=== PATIENT | female | born 1955 | race Caucasian/White ===

== ENCOUNTER → 2016-07-19 | Outpatient (CLI) | payer MEDICARE, OTHER ==
--- NOTE | 2016-07-19 09:07 | US ---
EXAMINATION TYPE: US liver DATE OF EXAM: 07/19/2016 8:49 AM COMPARISON: CT abdomen November 03, 2014. Liver ultrasound OCTOBER 14, 2015 CLINICAL HISTORY: Alcoholic liver cirrhosis EXAM MEASUREMENTS: Liver Length: 12.3 cm Gallbladder Wall: 0.3 cm CBD: 0.4 cm Right Kidney: 12.0 x 5.8 x 5.0 cm ANATOMY: TECHNOLOGIST IMPRESSION: Exam suboptimal due to overlying bowel gas Pancreas: Obscured by bowel gas Liver: Heterogeneous hyperechoic, left lobe larger than right lobe scant amount of ascites as seen o n previous/ Portal vein and hepatic artery flow hepatopedal . No intrahepatic ductal dilatation. Gail luation for focal masses is limited due to the heterogeneity. Gallbladder: lumen clear, distended margins. Evidence for sonographic Mclaughlin's sign: No CBD: wnl Right Kidney: wnl IMPRESSION: Redemonstration of heterogeneous liver consistent with known hepatocellular disease or ci rrhosis. Small amount of perihepatic ascites remains present felt stable in volume. Normal Values: Liver Length: < 16cm wnl, 17-18cm upper limits, >18cm enlarged Renal Length = 9 - 12cm GB Wall: < 0.3cm CBD: < 0.6cm or < 1.0cm post cholecystectomy
== END ==
LOC: RADUSWWP 08:24
DX: R18.8 Other ascites (principal)
CPT/HCPCS: 76705; 93976

== ENCOUNTER → 2017-01-11 | Outpatient (CLI) | payer MEDICARE ==
[2017-01-11 13:38] LABS: CH 35.8; CHCM 33.8; HCT 39.9 % (34.0-46.0); HGB 13.9 gm/dL (11.4-16.0); INR 1.5 (<1.1); MCHC 34.8 g/dL (31.0-37.0); MCV 106.4 fL (80.0-100.0); Macrocytosis Moderate; Mean Platelet Volume 7.6; Prothrombin Time 14.7 sec (9.0-12.0); RBC 3.75 m/uL (3.80-5.40); RDW 15.5 % (11.5-15.5); WBC 4.4 k/uL (3.8-10.6)
[2017-01-11 14:11] LABS: ALT 53 U/L (9-52); AST 68 U/L (14-36); Alkaline Phosphatase 233 U/L (38-126); Anion Gap 6 mmol/L; Blood Urea Nitrogen 9 mg/dL (7-17); Calcium 9.1 mg/dL (8.4-10.2); Carbon Dioxide 28 mmol/L (22-30); Chloride 104 mmol/L (98-107); Glucose 218 mg/dL (74-99); Non-African American GFR(MDRD) >60 (>60 ml/min/1.73 sqM); Potassium 4.6 mmol/L (3.5-5.1); Sodium 138 mmol/L (137-145); Total Bilirubin 3.8 mg/dL (0.2-1.3); Total Protein 6.9 g/dL (6.3-8.2)
--- NOTE | 2017-01-11 14:54 | CT ---
EXAMINATION TYPE: CT abdomen wo/w con DATE OF EXAM: 01/11/2017 COMPARISON: NONE HISTORY: Patient has no complaints at time of study. Follow up for cirrhosis of the liver. CT DLP: 1748.7 mGycm CONTRAST: CT scan of the abdomen is performed with Oral Contrast and with IV Contrast, patient injected with 1 00 mL of Omnipaque 300. FINDINGS: LUNG BASES-: No visible nodule. No infiltrate. LIVER/GB: Nodular hepatic contour compatible with cirrhotic liver disease. No space-occupying lesion is identified with certainty. Borderline hydrops of the gallbladder with craniocaudal measurement of 8.2 cm. No intrahepatic biliary ductal dilatation. Common bile duct is not dilated. PANCREAS: Numerous pancreatic calcifications compatible with chronic pancreatitis as well as atrophic change of the pancreas. No distinct mass. SPLEEN: Splenomegaly measuring 14.6 cm craniocaudal dimension. No lesion seen. ADRENALS: No nodule. No thickening. KIDNEYS/BLADDER: No hydronephrosis. No nephrolithiasis. No disctinct renal mass. Urinary bladder g rossly unremarkable. BOWEL: Normal appendix. Normal bowel caliber. No inflammation. LYMPH NODES: No greater than 1cm abdominal or pelvic lymph nodes are appreciated. AORTA: No significant abnormality. OSSEOUS STRUCTURES: No significant abnormality is seen. OTHER: No significant additional abnormality is seen. IMPRESSION: 1. Stable cirrhotic liver disease with a small amount of ascites improved from prior study. 2. Splenomegaly. 3. Chronic pancreatitis. 4. Borderline gallbladder hydrops.
== END | disposition home or self-care (01) ==
LOC: RADCTMAIN 12:53
DX: K70.31 Alcoholic cirrhosis of liver with ascites (principal); K82.1 Hydrops of gallbladder; K86.1 Other chronic pancreatitis; R16.1 Splenomegaly, not elsewhere classified
CPT/HCPCS: 80053; 85027; 85610; 82105; 74170; 36415; Q9967

== ENCOUNTER → 2017-01-26 | Outpatient (CLI) | payer MEDICARE ==
--- NOTE | 2017-01-26 14:50 | MM ---
Reason for exam: additional evaluation requested from prior study. Last mammogram was performed 1 year and 2 months ago. History: Patient is postmenopausal, history of other cancer, and is nulliparous. Physical Findings: Nurse did not find any significant physical abnormalities on exam. MG 3D Diag Mammo W/Cad BC Bilateral CC, MLO, and XCCL view(s) were taken. Prior study comparison: November 30, 2015, mammogram, performed at [facility]. October 30, 2014, mammogram, performed at [facility]. The breast tissue is heterogeneously dense. This may lower the sensitivity of mammography. No suspicious calcifications are seen. Stable benign calcifications. There is no discrete abnormality. No significant new findings when compared with previous films. These results were verbally communicated with the patient and result sheet given to the patient on 01/26/17. ASSESSMENT: Benign, BI-RAD 2 RECOMMENDATION: Routine screening mammogram of both breasts in 1 year. Manage patient on a clinical basis.
== END | disposition home or self-care (01) ==
LOC: RADMAMWWP 13:54
PROVIDERS: ATTEND Internal Medicine
DX: N60.09 Solitary cyst of unspecified breast (principal); R92.2 Inconclusive mammogram
CPT/HCPCS: G0204; G0279

== ENCOUNTER → 2017-02-23 | Outpatient (CLI) | payer MEDICARE ==
--- NOTE | 2017-02-23 16:16 | US ---
EXAMINATION TYPE: US carotid duplex BILAT DATE OF EXAM: 02/23/2017 COMPARISON: CLINICAL HISTORY: I65.23 Occlusion and stenosis. Hx of stroke x 5 years ago. HTN- controlled with me dicine and diet. EXAM MEASUREMENTS: RIGHT: Peak Systolic Velocity (PSV) cm/sec ----- Right CCA: 87.3 ----- Right ICA: 87.8 ----- Right ECA: 65.8 ICA/CCA ratio: 1.0 RIGHT: End Diastole cm/sec ----- Right CCA: 22.0 ----- Right ICA: 24.1 ----- Right ECA: 9.8 LEFT: Peak Systolic Velocity (PSV) cm/sec ----- Left CCA: 83.2 ----- Left ICA: 84.5 ----- Left ECA: 65.1 ICA/CCA ratio: 1.0 LEFT: End Diastole cm/sec ----- Left CCA: 22.3 ----- Left ICA: 17.1 ----- Left ECA: 13.6 VERTEBRALS (direction of flow): Right Vertebral: Antegrade Left Vertebral: Antegrade Bilateral wall thickening. No elevated velocities or significant stenosis. Posterior plaque seen in right bulb. IMPRESSION: Minimal lenz scale plaquing and wall thickening with no evidence of hemodynamically sign ificant stenosis.
--- NOTE | 2017-02-24 10:11 | ECHOF ---
Referral Reason:I65.23 Occlusion and stinosis MEASUREMENTS -------- HEIGHT: 162.6 cm WEIGHT: 73.9 kg BP: 131/71 RVIDd: 2.3 cm (< 3.3) IVSd: 1.2 cm (0.6 - 1.1) LVIDd: 3.7 cm (3.9 - 5.3) LVPWd: 1.2 cm (0.6 - 1.1) IVSs: 1.4 cm LVIDs: 2.2 cm LVPWs: 1.5 cm LAESV Index (A-L): 17.17 ml/m Ao Diam: 3.3 cm (2.0 - 3.7) AV Cusp: 2.0 cm (1.5 - 2.6) LA Diam: 2.9 cm (2.7 - 3.8) MV EXCURSION: 12.148 mm (> 18.000) MV EF SLOPE: 50 mm/s (70 - 150) EPSS: 0.5 cm MV E Clifford: 0.69 m/s MV DecT: 413 ms MV A Clifford: 0.84 m/s MV E/A Ratio: 0.81 RAP: 5.00 mmHg RVSP: 22.70 mmHg FINDINGS -------- Sinus rhythm. This was a technically adequate study. There is mild concentric left ventricular hypertrophy. Overall left ventricular systolic function is normal with, an EF between 60 - 65 %. The right ventricle is normal in size and function. Normal LA size by volume 22+/-6 ml/m2. The right atrium is normal in size. Aortic valve is trileaflet and is mildly thickened. There is no evidence of aortic regurgitation. There is no evidence of aortic stenosis. The mitral valve leaflets are mildly thickened. Mild mitral annular calcification present. There is trace mitral regurgitation. Trace tricuspid regurgitation present. There is no evidence of pulmonary hypertension. The right ventricular systolic pressure, as measured by Doppler, is 22.70mmHg. The pulmonic valve was not well visualized. The aortic root size is normal. Normal inferior vena cava with normal inspiratory collapse consistent with estimated right atrial pressure of 5 mmHg. The pericardium is normal. There is no pericardial effusion. CONCLUSIONS -------- 1. Sinus rhythm. 2. Trace tricuspid regurgitation present. 3. There is no evidence of pulmonary hypertension. 4. The right ventricular systolic pressure, as measured by Doppler, is 22.70mmHg. 5. The pulmonic valve was not well visualized. 6. The aortic root size is normal. 7. There is no pericardial effusion. 8. This was a technically adequate study. 9. There is mild concentric left ventricular hypertrophy. 10. Overall left ventricular systolic function is normal with, an EF between 60 - 65 %. 11. Normal LA size by volume 22+/-6 ml/m2. 12. Aortic valve is trileaflet and is mildly thickened. 13. The mitral valve leaflets are mildly thickened. 14. Mild mitral annular calcification present. 15. There is trace mitral regurgitation. WARPER TENDER: Les Del Castillo RDCS
== END | disposition home or self-care (01) ==
LOC: RADECHMAIN 14:59
PROVIDERS: ATTEND Internal Medicine
DX: I08.0 Rheumatic disorders of both mitral and aortic valves (principal); I77.89 Other specified disorders of arteries and arterioles; I65.23 Occlusion and stenosis of bilateral carotid arteries
CPT/HCPCS: 93306; 93880

== ENCOUNTER → 2017-04-05 | Outpatient (CLI) | payer MEDICARE ==
--- NOTE | 2017-04-05 15:58 | BD ---
EXAMINATION TYPE: MG DEXA axial skeleton. DATE OF EXAM: 04/05/2017 COMPARISON: NONE CLINICAL HISTORY: age related osteoporosis Height: 4'11 Weight: 165 FRAX RISK QUESTIONS: Alcohol (3 or more units per day): no Family History (Parent hip fracture): no Glucocorticoids (More than 3mos): no (Ex: prednisone, prednisolone, methylprednisolone, dexamethasone, and hydrocortisone). History of Fracture in Adulthood: yes Secondary Osteoporosis: 1. Type 1 Diabetes: no 2. Hyperthyroidism: no 3. Menopause before 45: yes 4. Malnutrition: no 5. Chronic liver disease: yes Rheumatoid Arthritis: yes Current Tobacco Use: no RISK FACTORS HISTORY OF: Spine Fracture: multiple When: age 30 Surgery to Spine/ When: age 30 Family History of Osteoporosis: Active: Postmenopausal woman: Lost more than 2 inches in height since high school: Poor Health: MEDICATIONS: Thyroid Medications: Which medication: Levothyroxine How Lon months Additional Medications: seizures, Additional History: cancer 8 times, radiation chemotherapy EXAM MEASUREMENTS: Bone mineral densitometry was performed using the [employer] System. Bone mineral density about the R hip (g/cm2): 0.904 Bone mineral density about the L hip (g/cm2): 0.895 T Score values are as follows: -----R Neck: -1.0 -----L Neck: -1.0 -----R Total: -0.1 -----L Total: -0.3 IMPRESSION: Normal (Values between +1 and -1 indicate normal bone mass). Consider repeating this study in 5 year s or sooner if there is some new clinical indication. NOTE: T-SCORE=SD OF THE YOUNG ADULT MEAN.
== END | disposition home or self-care (01) ==
LOC: RADBDWWP 12:14
PROVIDERS: ATTEND Internal Medicine
DX: M81.0 Age-related osteoporosis without current pathological fracture (principal)
CPT/HCPCS: 77080

== ENCOUNTER → 2018-02-08 | Outpatient (CLI) | payer MEDICARE ==
--- NOTE | 2018-02-09 11:21 | MM ---
Reason for exam: screening (asymptomatic). Last mammogram was performed 1 year ago. History: Patient is postmenopausal, history of other cancer, and is nulliparous. Family history of breast cancer in maternal grandmother, breast cancer in mother, and breast cancer in maternal aunt. Physical Findings: A clinical breast exam by your physician is recommended on an annual basis and results should be correlated with mammographic findings. MG 3D Screening Mammo W/Cad Bilateral CC and MLO view(s) were taken. Technologist: RT Ryan (R)(M) Prior study comparison: January 26, 2017, bilateral MG 3d diag mammo w/cad BC. November 30, 2015, mammogram, performed at [facility]. The breast tissue is heterogeneously dense. This may lower the sensitivity of mammography. Benign appearing bilateral calcifications. No suspicious abnormality. No significant changes when compared with prior studies. ASSESSMENT: Benign, BI-RAD 2 RECOMMENDATION: Routine screening mammogram of both breasts in 1 year.
== END | disposition home or self-care (01) ==
LOC: RADMAMWWP 14:05
PROVIDERS: ATTEND Internal Medicine
DX: Z12.31 Encounter for screening mammogram for malignant neoplasm of breast (principal)
CPT/HCPCS: 77063; 77067

== ENCOUNTER → 2018-06-21 | Outpatient (CLI) | payer MEDICARE ==
--- NOTE | 2018-06-21 13:05 | US ---
EXAMINATION TYPE: US abdomen complete DATE OF EXAM: 06/21/2018 COMPARISON: CT abdomen January 11, 2017 CLINICAL HISTORY: R18.8 ASCITES. EXAM MEASUREMENTS: Liver Length: 11.1 cm Gallbladder Wall: 0.6 cm CBD: 0.6 cm Spleen: 12.9 cm Right Kidney: 12.0 x 5.5 x cm Left Kidney: 10.2 x x 5.0 x4.6 cm Patient of large body habitus with severe overlying bowel gas, technically difficult and limited stud y. Mild ascites. Pancreas: Obscured by bowel gas Liver: liver nodular in contour, heterogeneous Gallbladder: appears hydropic, wall thickened Evidence for sonographic Mclaughlin's sign: no CBD: wnl Spleen: wnl Right Kidney: Inferior pole obscured by bowel gas Left Kidney: wnl Upper IVC: wnl Abd Aorta: Obscured by overlying bowel gas The visualized liver is heterogeneous with lobulated peripheral contour surrounding ascites. The int rahepatic portion of the IVC and proximal abdominal aorta are within normal limits. There is no evid ence of shadowing mobile cholelithiasis. Gallbladder is dilated with distended peripheral margins. N o suspicious wall thickening is seen. Common bile duct is unremarkable. The pancreas is obscured by overlying bowel gas on images saved. The spleen is upper limits of normal in size with trace surroun ding ascites. Kidneys are symmetric and free of hydronephrosis. No renal lesions are seen. IMPRESSION: Cirrhotic liver with small amount of abdominal ascites most prominent surrounding the slime er.
== END | disposition home or self-care (01) ==
LOC: RADUSWWP 12:11
PROVIDERS: ATTEND Internal Medicine
DX: K74.60 Unspecified cirrhosis of liver (principal)
CPT/HCPCS: 76700

== ENCOUNTER → 2018-10-10 | Outpatient (CLI) | payer MEDICARE ==
--- NOTE | 2018-10-11 07:04 | MR ---
EXAMINATION TYPE: MR abdomen wo/w con DATE OF EXAM: 10/10/2018 COMPARISON: Complete abdominal ultrasound June 21, 2018. CT abdomen January 11, 2017. HISTORY: Cirrhosis with elevated tumor markers. CONTRAST: Standard multiplanar, multisequence MRI departmental protocol utilizing 6 mL intravenous Gadavist vishnu olinium contrast. FINDINGS: Liver: There is continued of hepatic regression with diminished size from most recent CT. There is re demonstration of lobulated peripheral nodular contour and surrounding ascites. Exam noted suboptimal due to motion artifact degradation. T1 and T2-weighted images show no definitive discrete nodules. Dy namic postcontrast images are suboptimal as there is no true hepatic arterial phase, first post contr ast imaging series shows contrast within the hepatic veins and IVC. Main portal vein is dilated up to 23 mm image 166 series 801. There is patency of the main portal vein branching into right and left p ortal veins. There is patency of the hepatic veins draining into IVC. Delayed images show 8 mm area o f washout or diminished enhancement right hepatic dome posterior segment image 404 series 801. Smalle r areas of heterogeneous nodular nonenhancement throughout the liver are also identified. No suspicio us intrahepatic or extrahepatic ductal dilatation is seen. Other: Gallbladder is somewhat contracted with mild concentric wall thickening. Spleen is mildly enla rged at 13.0 cm coronal image 23 perhaps slightly smaller versus CT 2017. There is perhaps trace righ t pleural effusion. No adrenal masses are seen. There is low intense artifact near level of pancreas making evaluation at this level suboptimal. Fall dilatation is seen. There is mild to moderate concen tric wall thickening of small bowel loops throughout the central and left abdomen. Small to moderate amount of abdominal ascites is most prominent surrounding the liver. Osseous structures are intact. IMPRESSION: Suboptimal study as detailed above. Continued hepatic volume loss with new abdominal ascites most pro minent surrounding the liver. Overall heterogeneity without definitive discrete suspicious greater th an 1 cm focal mass.
== END | disposition home or self-care (01) ==
LOC: RADMRIMAIN 14:08
PROVIDERS: ATTEND Internal Medicine
DX: R18.8 Other ascites (principal); R16.1 Splenomegaly, not elsewhere classified; K82.0 Obstruction of gallbladder
CPT/HCPCS: 74183; A9585

== ENCOUNTER 2019-01-07 16:50 | Inpatient (IN) | payer MEDICARE ==
--- NOTE | 2019-01-07 17:12 | ED ---
Altered Mental Status HPI - General Chief Complaint: Altered Mental Status Stated Complaint: confusion & wound on foot Time Seen by Provider: 01/07/19 16:57 Source: patient Mode of arrival: wheelchair Limitations: no limitations - History of Present Illness Initial Comments: Patient is a 63-year-old female with a history of a diabetic ulcer on her right great toe, and cirrhosis who presents with chief complaint of altered mental status. Patient states she has been feeling weak over the last few days. She lives in an assisting living facility, but does not get checked on daily. Patient states that today her wound care nurse evaluated her. Concerned that the patient was acting confused and wanted her to go to the emergency department. Patient denies any focal pain at this time. He is alert and oriented, she is able to answer questions appropriately. - Related Data Home Medications Medication Instructions Recorded Confirmed Atenolol [Tenormin] 25 mg PO DAILY 02/02/14 01/07/19 Lisinopril [Zestril] 2.5 mg PO DAILY 02/02/14 01/07/19 Ergocalciferol [Vitamin D2 50,000 unit PO FR 10/05/15 01/07/19 (DRISDOL)] Ferrous Sulfate [Iron (65 MG 325 mg PO DAILY 10/05/15 01/07/19 Elemental)] Folic Acid 1 mg PO DAILY 06/29/16 01/07/19 [place]-3 Fatty Acids/Fish Oil [Fish 1 cap PO DAILY 06/29/16 01/07/19 Oil 1,000 mg Softgel] Vitamin B Complex 1 cap PO DAILY 06/29/16 01/07/19 Calcitonin Nasal [Fortical 1 spray NASAL DAILY 01/07/19 01/07/19 (Miacalcin)] Cyanocobalamin [Vitamin B-12] 1,000 mcg PO DAILY 01/07/19 01/07/19 Dicyclomine [Bentyl] 20 mg PO TID 01/07/19 01/07/19 Furosemide [Lasix] 20 mg PO BID 01/07/19 01/07/19 Glimepiride [Amaryl] 4 mg PO BID 01/07/19 01/07/19 Levothyroxine Sodium [Synthroid] 25 mcg PO DAILY 01/07/19 01/07/19 Magnesium Oxide 400 mg PO DAILY 07/01/19 07/01/19 Mirtazapine [Remeron] 15 mg PO HS 01/07/19 01/07/19 Potassium Chloride ER [K-Dur 20] 20 meq PO BID 01/07/19 01/07/19 Spironolactone [Aldactone] 25 mg PO BID 01/07/19 01/07/19 Allergies Allergy/AdvReac Type Severity Reaction Status Date / Time cephalexin monohydrate Allergy Rash/Hives Verified 01/07/19 19:12 [From Keflex] Penicillins Allergy Unknown Verified 01/07/19 19:12 PEPPERS Allergy SEIZURES Uncoded 01/07/19 16:55 Review of Systems ROS Statement: Those systems with pertinent positive or pertinent negative responses have been documented in the HPI. ROS Other: All systems not noted in ROS Statement are negative. Gastrointestinal: Reports: melena Musculoskeletal: Reports: arthralgia Neurological: Reports: confusion Past Medical History Past Medical History: Blood Disorder, Cancer, CVA/TIA, Diabetes Mellitus, GERD/Reflux, Hearing Disorder / Deafness, Hyperlipidemia, Hypertension, Memory Impairment, Neurologic Disorder, Osteoarthritis (OA), Seizure Disorder Additional Past Medical History / Comment(s): MIGRAINES, LOW BACK PAIN, NECK PAIN, OSTEOPOROSIS, NEUROPATHY,. uterine, ovarian and vaginal CA. "They think I absorbed my twin , I have 2 sets of vagina, 2 uterus, 2 sets of tubes etc" History of Any Multi-Drug Resistant Organisms: C-DIFF, MRSA Date of last positivie culture/infection: 2013- 2018 cdiff MDRO Source:: RIGHT KNEE Past Surgical History: Adenoidectomy, Hysterectomy, Orthopedic Surgery, Tonsillectomy Additional Past Surgical History / Comment(s): RIGHT KNEE SURGERY, Radiation treatment - 1983 - Has radiation luna. gangrene cyst left wrist removed, rt i ndex finger surgery, lymph node multiple removed - all negative, carpal tunnel release, lymph node dissection secondary to uterine cancer, right breast lumpectomy, posterior cervical discectomy with fusion, lumbar discectomy, right forearm tendon repair, right index finger tendon repair, bone marrow biopsy, appendectomy, total abdominal hysterectomy and bilateral salpingo-oophorectomy, carpal tunnel release, EGD and colonoscopy Past Anesthesia/Blood Transfusion Reactions: No Reported Reaction Past Psychological History: No Psychological Hx Reported Smoking Status: Never smoker Past Alcohol Use History: None Reported Past Drug Use History: None Reported - Past Family History Father Family Medical History: Renal Disease (Father at age 94 from an surgery disease as well as prostate cancer so did have coronary artery disease.) Sister(s) Family Medical History: No Reported History (Patient has 3 sisters no major medical problems) Brother(s) Family Medical History: No Reported History (Patient has one brother no major medical problems) Mother Family Medical History: Diabetes Mellitus (Mother is 90-year-old has history of diabetes type 2, chronic kidney disease, as well as dementia.) Additional Family Medical History / Comment(s): breast, cervial Ca run in family General Exam Limitations: no limitations General appearance: alert, in no apparent distress Head exam: Present: atraumatic, normocephalic Eye exam: Present: normal appearance, scleral icterus ENT exam: Present: normal exam Neck exam: Present: normal inspection Respiratory exam: Present: normal lung sounds bilaterally. Absent: respiratory distress, wheezes Cardiovascular Exam: Present: regular rate, normal rhythm, systolic murmur GI/Abdominal exam: Present: soft. Absent: distended, tenderness Rectal exam: Present: deferred Extremities exam: Present: normal inspection Back exam: Present: normal inspection Neurological exam: Present: alert, oriented X3, CN II-XII intact Psychiatric exam: Present: normal affect, normal mood Skin exam: Present: warm, dry, intact Course Vital Signs 01/07/19 16:52 Temperature 98.8 F Pulse Rate 104 H Respiratory 18 Rate Blood Pressure 122/78 O2 Sat by Pulse 97 Oximetry Medical Decision Making - Medical Decision Making Patient presents with a chief complaint of confusion and weakness. On initial evaluation, vital signs are stable, patient is in no acute distress. She is alert and oriented, able to answer questions appropriately. She'll be evaluated with basic labs including cardiac enzymes, liver profile, EKG, computed tomography scan of the head and x-ray of the chest. Urinalysis sent. EKG performed at 1742 shows sinus rhythm with PACs, segments are within normal limits, no acute signs of ischemia. 8:12 PM Lab evaluation of this patient shows anemia with a hemoglobin of 7.5, INR is 1.9 likely secondary to liver disease. Alk phos is elevated 150 along with transaminitis. Lactic acid is elevated at 3.3 which may be type II in nature. Troponin mildly elevated at 0.036. Urinalysis does not show evidence of infection. Case discussed with Dr. Paris who accepts admission with consult cardiology. Pending occult stool evaluation. Occult stool is positive. will consult GI and give patient 4 units of FFP and one unit PRBCs - Lab Data Result diagrams: 01/07/19 17:32 01/07/19 17:32 Lab Results 01/07/19 01/07/19 01/07/19 Range/Units 17:10 17:32 17:32 WBC (3.8-10.6) k/uL RBC (3.80-5.40) m/uL Hgb (11.4-16.0) gm/dL Hct (34.0-46.0) % MCV (80.0-100.0) fL MCH (25.0-35.0) pg MCHC (31.0-37.0) g/dL RDW (11.5-15.5) % Plt Count (150-450) k/uL Neutrophils % % Lymphocytes % % Monocytes % % Eosinophils % % Basophils % % Neutrophils # (1.3-7.7) k/uL Lymphocytes # (1.0-4.8) k/uL Monocytes # (0-1.0) k/uL Eosinophils # (0-0.7) k/uL Basophils # (0-0.2) k/uL Manual Slide Review Hypochromasia Poikilocytosis Anisocytosis Macrocytosis PT (9.0-12.0) sec INR (<1.2) Sodium 135 L (137-145) mmol/L Potassium 4.1 (3.5-5.1) mmol/L Chloride 105 (98-107) mmol/L Carbon Dioxide 23 (22-30) mmol/L Anion Gap 7 mmol/L BUN 29 H (7-17) mg/dL Creatinine 0.99 (0.52-1.04) mg/dL Est GFR (CKD-EPI)AfAm 70 (>60 ml/min/1.73 sqM) Est GFR (CKD-EPI)NonAf 61 (>60 ml/min/1.73 sqM) Glucose 226 H (74-99) mg/dL POC Glucose (mg/dL) 249 H (75-99) mg/dL POC Glu Turbine Subassembler ID [place] Plasma Lactic Acid Rinku (0.7-2.0) mmol/L Calcium 7.8 L (8.4-10.2) mg/dL Total Bilirubin 5.3 H (0.2-1.3) mg/dL AST 83 H (14-36) U/L ALT 55 H (9-52) U/L Alkaline Phosphatase 150 H (38-126) U/L Ammonia (<30) umol/L Troponin I (0.000-0.034) ng/mL NT-Pro-B Natriuret Pep pg/mL Total Protein 5.9 L (6.3-8.2) g/dL Albumin 1.9 L (3.5-5.0) g/dL Lipase 254 (23-300) U/L TSH 1.270 (0.465-4.680) mIU/L Urine Color Urine Appearance (Clear) Urine pH (5.0-8.0) Ur Specific [place] (1.001-1.035) Urine Protein (Negative) Urine Glucose (UA) (Negative) Urine Ketones (Negative) Urine Blood (Negative) Urine Nitrite (Negative) Urine Bilirubin (Negative) Urine Urobilinogen (<2.0) mg/dL Ur Leukocyte Esterase (Negative) Urine RBC (0-5) /hpf Urine WBC (0-5) /hpf Ur Squamous Epith Cells (0-4) /hpf Hyaline Casts (0-2) /lpf Urine Mucus (None) /hpf Stool Occult Blood (Negative) Blood Type O Positive Blood Type Recheck CABO Indicated Antibody Screen NEGATIVE Spec Expiration Date 01/10/2019 - 233101/07/19 01/07/19 01/07/19 Range/Units 17:32 17:32 17:32 WBC 5.9 (3.8-10.6) k/uL RBC 2.20 L (3.80-5.40) m/uL Hgb 7.5 L (11.4-16.0) gm/dL Hct 24.0 L (34.0-46.0) % MCV 108.7 H (80.0-100.0) fL MCH 34.1 (25.0-35.0) pg MCHC 31.3 (31.0-37.0) g/dL RDW 19.6 H (11.5-15.5) % Plt Count 72 L (150-450) k/uL Neutrophils % 83 % Lymphocytes % 5 % Monocytes % 7 % Eosinophils % 2 % Basophils % 0 % Neutrophils # 4.9 (1.3-7.7) k/uL Lymphocytes # 0.3 L (1.0-4.8) k/uL Monocytes # 0.4 (0-1.0) k/uL Eosinophils # 0.1 (0-0.7) k/uL Basophils # 0.0 (0-0.2) k/uL Manual Slide Review Performed Hypochromasia Marked Poikilocytosis Slight Anisocytosis Slight Macrocytosis Marked A PT (9.0-12.0) sec INR (<1.2) Sodium (137-145) mmol/L Potassium (3.5-5.1) mmol/L Chloride (98-107) mmol/L Carbon Dioxide (22-30) mmol/L Anion Gap mmol/L BUN (7-17) mg/dL Creatinine (0.52-1.04) mg/dL Est GFR (CKD-EPI)AfAm (>60 ml/min/1.73 sqM) Est GFR (CKD-EPI)NonAf (>60 ml/min/1.73 sqM) Glucose (74-99) mg/dL POC Glucose (mg/dL) (75-99) mg/dL POC Glu Turbine Subassembler ID Plasma Lactic Acid Rinku 3.3 H* (0.7-2.0) mmol/L Calcium (8.4-10.2) mg/dL Total Bilirubin (0.2-1.3) mg/dL AST (14-36) U/L ALT (9-52) U/L Alkaline Phosphatase (38-126) U/L Ammonia (<30) umol/L Troponin I (0.000-0.034) ng/mL NT-Pro-B Natriuret Pep 182 pg/mL Total Protein (6.3-8.2) g/dL Albumin (3.5-5.0) g/dL Lipase (23-300) U/L TSH (0.465-4.680) mIU/L Urine Color Urine Appearance (Clear) Urine pH (5.0-8.0) Ur Specific [place] (1.001-1.035) Urine Protein (Negative) Urine Glucose (UA) (Negative) Urine Ketones (Negative) Urine Blood (Negative) Urine Nitrite (Negative) Urine Bilirubin (Negative) Urine Urobilinogen (<2.0) mg/dL Ur Leukocyte Esterase (Negative) Urine RBC (0-5) /hpf Urine WBC (0-5) /hpf Ur Squamous Epith Cells (0-4) /hpf Hyaline Casts (0-2) /lpf Urine Mucus (None) /hpf Stool Occult Blood (Negative) Blood Type Blood Type Recheck Antibody Screen Spec Expiration Date 01/07/19 01/07/19 01/07/19 Range/Units 17:32 17:32 19:00 WBC (3.8-10.6) k/uL RBC (3.80-5.40) m/uL Hgb (11.4-16.0) gm/dL Hct (34.0-46.0) % MCV (80.0-100.0) fL MCH (25.0-35.0) pg MCHC (31.0-37.0) g/dL RDW (11.5-15.5) % Plt Count (150-450) k/uL Neutrophils % % Lymphocytes % % Monocytes % % Eosinophils % % Basophils % % Neutrophils # (1.3-7.7) k/uL Lymphocytes # (1.0-4.8) k/uL Monocytes # (0-1.0) k/uL Eosinophils # (0-0.7) k/uL Basophils # (0-0.2) k/uL Manual Slide Review Hypochromasia Poikilocytosis Anisocytosis Macrocytosis PT 18.8 H (9.0-12.0) sec INR 1.9 H (<1.2) Sodium (137-145) mmol/L Potassium (3.5-5.1) mmol/L Chloride (98-107) mmol/L Carbon Dioxide (22-30) mmol/L Anion Gap mmol/L BUN (7-17) mg/dL Creatinine (0.52-1.04) mg/dL Est GFR (CKD-EPI)AfAm (>60 ml/min/1.73 sqM) Est GFR (CKD-EPI)NonAf (>60 ml/min/1.73 sqM) Glucose (74-99) mg/dL POC Glucose (mg/dL) (75-99) mg/dL POC Glu Turbine Subassembler ID Plasma Lactic Acid Rinku (0.7-2.0) mmol/L Calcium (8.4-10.2) mg/dL Total Bilirubin (0.2-1.3) mg/dL AST (14-36) U/L ALT (9-52) U/L Alkaline Phosphatase (38-126) U/L Ammonia (<30) umol/L Troponin I 0.036 H* (0.000-0.034) ng/mL NT-Pro-B Natriuret Pep pg/mL Total Protein (6.3-8.2) g/dL Albumin (3.5-5.0) g/dL Lipase (23-300) U/L TSH (0.465-4.680) mIU/L Urine Color Dark Yellow Urine Appearance Cloudy H (Clear) Urine pH 5.5 (5.0-8.0) Ur Specific [place] 1.017 (1.001-1.035) Urine Protein Negative (Negative) Urine Glucose (UA) Negative (Negative) Urine Ketones Negative (Negative) Urine Blood Negative (Negative) Urine Nitrite Negative (Negative) Urine Bilirubin Negative (Negative) Urine Urobilinogen 3.0 (<2.0) mg/dL Ur Leukocyte Esterase Trace H (Negative) Urine RBC 1 (0-5) /hpf Urine WBC 12 H (0-5) /hpf Ur Squamous Epith Cells 6 H (0-4) /hpf Hyaline Casts 30 H (0-2) /lpf Urine Mucus Rare H (None) /hpf Stool Occult Blood (Negative) Blood Type Blood Type Recheck Antibody Screen Spec Expiration Date 01/07/19 01/07/19 Range/Units 19:30 19:51 WBC (3.8-10.6) k/uL RBC (3.80-5.40) m/uL Hgb (11.4-16.0) gm/dL Hct (34.0-46.0) % MCV (80.0-100.0) fL MCH (25.0-35.0) pg MCHC (31.0-37.0) g/dL RDW (11.5-15.5) % Plt Count (150-450) k/uL Neutrophils % % Lymphocytes % % Monocytes % % Eosinophils % % Basophils % % Neutrophils # (1.3-7.7) k/uL Lymphocytes # (1.0-4.8) k/uL Monocytes # (0-1.0) k/uL Eosinophils # (0-0.7) k/uL Basophils # (0-0.2) k/uL Manual Slide Review Hypochromasia Poikilocytosis Anisocytosis Macrocytosis PT (9.0-12.0) sec INR (<1.2) Sodium (137-145) mmol/L Potassium (3.5-5.1) mmol/L Chloride (98-107) mmol/L Carbon Dioxide (22-30) mmol/L Anion Gap mmol/L BUN (7-17) mg/dL Creatinine (0.52-1.04) mg/dL Est GFR (CKD-EPI)AfAm (>60 ml/min/1.73 sqM) Est GFR (CKD-EPI)NonAf (>60 ml/min/1.73 sqM) Glucose (74-99) mg/dL POC Glucose (mg/dL) (75-99) mg/dL POC Glu Turbine Subassembler ID Plasma Lactic Acid Rinku (0.7-2.0) mmol/L Calcium (8.4-10.2) mg/dL Total Bilirubin (0.2-1.3) mg/dL AST (14-36) U/L ALT (9-52) U/L Alkaline Phosphatase (38-126) U/L Ammonia 89 H (<30) umol/L Troponin I (0.000-0.034) ng/mL NT-Pro-B Natriuret Pep pg/mL Total Protein (6.3-8.2) g/dL Albumin (3.5-5.0) g/dL Lipase (23-300) U/L TSH (0.465-4.680) mIU/L Urine Color Urine Appearance (Clear) Urine pH (5.0-8.0) Ur Specific [place] (1.001-1.035) Urine Protein (Negative) Urine Glucose (UA) (Negative) Urine Ketones (Negative) Urine Blood (Negative) Urine Nitrite (Negative) Urine Bilirubin (Negative) Urine Urobilinogen (<2.0) mg/dL Ur Leukocyte Esterase (Negative) Urine RBC (0-5) /hpf Urine WBC (0-5) /hpf Ur Squamous Epith Cells (0-4) /hpf Hyaline Casts (0-2) /lpf Urine Mucus (None) /hpf Stool Occult Blood Positive H (Negative) Blood Type Blood Type Recheck Antibody Screen Spec Expiration Date Disposition Clinical Impression: Altered mental status, Transaminitis, Elevated troponin, Weakness, Jaundice, GI bleeding Disposition: ADMITTED IP TO THIS HOSP Condition: Fair Is patient prescribed a controlled substance at d/c from ED?: No Referrals: Roseann Curran MD [Primary Care Provider] - 1-2 days Decision to Admit Reason: Admit from EC - Out of Hospital Transfer - Req. Specs Out of Hospital Transfer - Requested Specifics: Telemetry Unit
[2019-01-07 17:13] LABS: Glucose,Whole Blood 249 mg/dL (75-99)
--- NOTE | 2019-01-07 18:16 | CT ---
EXAMINATION TYPE: CT brain wo con DATE OF EXAM: 01/07/2019 COMPARISON: 06/29/2016 HISTORY: Confusion CT DLP: mGycm Automated exposure control for dose reduction was used. FINDINGS: There is some cerebral cortical atrophy. There is no mass effect nor midline shift. There is no sign of intracranial hemorrhage. The calvarium is intact. IMPRESSION: MILD CEREBRAL ATROPHY. NO ACUTE INTRACRANIAL ABNORMALITY. NO CHANGE.
--- NOTE | 2019-01-07 18:17 | XR ---
EXAMINATION TYPE: XR chest 2V DATE OF EXAM: 01/07/2019 COMPARISON: 06/29/2016 HISTORY: Altered mental status TECHNIQUE: Frontal and lateral views of the chest are obtained. FINDINGS: Heart is normal. Lungs are clear of consolidation. Costophrenic angles are clear. Thoracic aorta is atheromatous. There are chest leads. There are small linear density at the left lung base. IMPRESSION: There is new minimal subsegmental atelectasis left lung base compared to old exam.. Norm al heart.
[2019-01-07 18:19] LABS: INR 1.9 (<1.2); Prothrombin Time 18.8 sec (9.0-12.0)
[2019-01-07 18:27] LABS: Albumin 1.9 g/dL (3.5-5.0); Calcium 7.8 mg/dL (8.4-10.2); Potassium 4.1 mmol/L (3.5-5.1); Total Bilirubin 5.3 mg/dL (0.2-1.3); Total Protein 5.9 g/dL (6.3-8.2)
[2019-01-07 18:36] LABS: Anisocytosis Slight; Basophils % (A) 0 %; Eosinophils # (A) 0.1 k/uL (0-0.7); Eosinophils % (A) 2 %; HGB 7.5 gm/dL (11.4-16.0); Hypochromasia Marked; Lymphocytes # (A) 0.3 k/uL (1.0-4.8); Lymphocytes % (A) 5 %; MCH 34.1 pg (25.0-35.0); MCHC 31.3 g/dL (31.0-37.0); MCV 108.7 fL (80.0-100.0); Macrocytosis Marked; Mean Platelet Volume 8.2; Monocytes # (A) 0.4 k/uL (0-1.0); Monocytes % (A) 7 %; Neutrophils # (A) 4.9 k/uL (1.3-7.7); Neutrophils % (A) 83 %; Poikilocytosis Slight; RDW 19.6 % (11.5-15.5); WBC 5.9 k/uL (3.8-10.6)
[2019-01-07 19:14] LABS: Platelet Count 72 k/uL (150-450)
[2019-01-07 19:35] LABS: Appearance,Urine Cloudy (Clear); Bilirubin,Urine Negative (Negative); Blood,Urine Negative (Negative); Color,Urine Dark Yellow; Glucose,Urine (UA) Negative (Negative); Hyaline Casts,Urine 30 /lpf (0-2); Ketones,Urine Negative (Negative); Leukocyte Esterase,Urine Trace (Negative); Mucus,Urine Rare /hpf; Nitrite,Urine Negative (Negative); PH, Urine 5.5 (5.0-8.0); Protein,Urine Negative (Negative); RBC,Urine 1 /hpf (0-5); Specific Gravity,Urine 1.017 (1.001-1.035); Squamous Epithelial Cell,Urine 6 /hpf (0-4)
[2019-01-07] MEDS ORDERED: NALOXONE 0.4 MG/ML 1 ML VIAL IV PRN (20:08)
--- NOTE | 2019-01-07 20:57 | US ---
EXAMINATION TYPE: US gallbladder DATE OF EXAM: 01/07/2019 COMPARISON: US CLINICAL HISTORY: Pain. Pain per order. HTN. Hx uterine, ovarian, cervical, and vaginal cancer per pt . Cirrhosis. EXAM MEASUREMENTS: Limited study due to body habitus Liver Length: Approximate measurement: 11.2 cm Gallbladder Wall: Approximate measurement: 0.51 cm CBD: 0.43 cm Right Kidney: 10.7 x 6.0 x 5.6 cm *Limited due to body habitus Pancreas: appears heterogeneous. Liver: appears to have a lobulated contour and increased echogenicity Gallbladder: appears slightly contracted and to have wall thickening. Evidence for sonographic Mclaughlin's sign: no CBD: appears wnl Right Kidney: No hydronephrosis or masses seen Mild amount of fluid seen within abdomen. IMPRESSION: There is abdominal ascites. No dilated ducts. Mild gallbladder wall thickening. Right kid rigoberto shows no hydronephrosis.
[2019-01-08 11:17] LABS: Glucose,Whole Blood 75 mg/dL (75-99)
[2019-01-08] MEDS: RIFAXIMIN 550 MG TABLET PO SCH ×2 (11:34→21:11)
[2019-01-08] MEDS: CALCITONIN 200 USP/1 NASAL SPRAY 3.7ML BTL NASAL SCH (11:37)
[2019-01-08] MEDS: ATENOLOL 25 MG TAB PO SCH (11:39)
[2019-01-08 12:29] LABS: Anisocytosis Marked; HCT 26.7 % (34.0-46.0); HGB 8.6 gm/dL (11.4-16.0); Hypochromasia Marked; MCH 32.5 pg (25.0-35.0); Macrocytosis Marked; Mean Platelet Volume 8.6; Poikilocytosis Moderate; RBC 2.63 m/uL (3.80-5.40); RDW 24.5 % (11.5-15.5); WBC 4.8 k/uL (3.8-10.6)
[2019-01-08 12:34] LABS: MCV 101.5 fL (80.0-100.0); Platelet Count 61 k/uL (150-450)
[2019-01-08 13:30] LABS: Glucose,Whole Blood 101 mg/dL (75-99)
--- NOTE | 2019-01-08 13:57 | P.HPIM ---
History of Present Illness H&P Date: 01/08/19 Chief Complaint: Loss of appetite, weakness, falls This is a 63-year-old female one of my patient with a previous medical history significant for hypertension and hypertensive cardiovascular disease with left ventricular hypertrophy, diabetes mellitus type 2 with diabetic polyneuropathy, CVA, TIA, liver cirrhosis secondary to chronic alcohol use and dependence, pancytopenia secondary to liver cirrhosis, vaginal cancer status post vaginectomy, uterine cancer, seizure disorder, kyphoscoliosis, vascular dementia, hyperlipidemia. Patient also has chronic right great toe wound under the care of Dr. Davila. Patient is seen in the office weekly and his home care 2 times per week to do dressing changes. Sister gives history of having battled with C. difficile colitis for the past year and a half which is finally cleared under the care of Dr. Curran. Patient has had a loss of appetite, loss of weight. Her home care nurse was concerned that she wasn't oriented to time and place. She has some lower extremity edema. Symptoms have been worsening over the past 9 months. Patient complains of generalized weakness. She is currently residing at independent living at [facility]. Sister also states the patient had a fall yesterday as well as 2 weeks ago. Patient was brought into the emergency department at [facility] due to the above symptoms. She was afebrile, heart rate 104, blood pressure 122/78, pulse ox 97% on room air. White count was 5, hemoglobin 7.5, platelet count 72. Sodium 135, potassium 4.1, chloride 105, CO2 23, BUN 29 creatinine 0.99. Blood sugar was 226. Total bilirubin 5.3, AST 83, ALT 55, alkaline phosphatase 150. INR was elevated at 1.9. TSH 1.270. Lactic acid 3.3, proBNP 182. Troponin 0.036 and repeat is 0.044. Urinalysis was dark yellow, bilirubin negative, leukoesterase trace, WBCs 12, casts 30. Ammonia level LXXXIX, stool for occult blood positive. yesterday after she took a tumble and fell out of her chair at [facility] after she became drunk after drinking 5 beers and a few shots of whiskey, he shouldn't developed to have a significant bruising and ecchymosis on the right forehead as well as both knees and both arms and forearms, patient I'll call level is quite elevated, she was placed on banana bag yesterday and she was admitted as an observation overnight, she was started on Librium 10 mg orally twice every day. Review of Systems Constitutional: Reports anorexia, Reports chronic pain, Reports fatigue, Reports lethargy, Reports malaise, Reports weakness, Reports weight loss Eyes: denies blurred vision, denies bulging eye, denies decreased vision, denies discharge Ears: bilateral: decreased hearing Ears, nose, mouth and throat: Denies dysphagia, Denies neck lump, Denies sore throat, Denies vertigo Cardiovascular: Reports decreased exercise tolerance, Reports dyspnea on exertion, Reports high blood pressure, Denies chest pain, Denies paroxysmal nocturnal dyspnea, Denies phlebitis, Denies rapid heart beat, Denies shortness of breath, Denies syncope Respiratory: Denies congestion, Denies cough, Denies cough with sputum, Denies home oxygen, Denies sleep apnea, Denies snoring, Denies wheezing Gastrointestinal: Reports bloating, Reports early satiety, Reports nausea, Denies abdominal pain, Denies change in bowel habits, Denies heartburn, Denies hematochezia, Denies melena, Denies vomiting Genitourinary: Denies dysuria, Denies hematuria Menstruation: Reports post hysterectomy, Reports postmenopausal Musculoskeletal: Reports atrophy, Reports frequent falls, Reports gait dysfunction, Reports low back pain, Reports morning stiffness, Denies myalgias Musculoskeletal: absent: ankle pain, ankle stiffness, ankle swelling, elbow pain, elbow stiffness, elbow swelling, foot pain, foot stiffness, foot swelling, hand pain, hand stiffness, hand swelling, hip pain, hip stiffness, hip swelling, knee pain, knee stiffness, knee swelling, shoulder pain, shoulder stiffness, shoulder swelling, wrist pain, wrist stiffness, wrist swelling Integumentary: Denies pruritus, Denies rash Neurological: Reports gait dysfunction, Reports memory loss, Reports tingling, Denies numbness, Denies weakness Psychiatric: Reports anxiety, Reports depression, Reports insomnia, Reports sadness/tearfulness, Reports sleep disturbances, Denies suicidal ideation Endocrine: Denies fatigue, Denies weight change Past Medical History Past Medical History: Blood Disorder, Cancer, CVA/TIA, Diabetes Mellitus, GERD/Reflux, Hearing Disorder / Deafness, Hyperlipidemia, Hypertension, Memory Impairment, Neurologic Disorder, Osteoarthritis (OA), Seizure Disorder Additional Past Medical History / Comment(s): MIGRAINES, LOW BACK PAIN, NECK PAIN, OSTEOPOROSIS, NEUROPATHY,. uterine, ovarian and vaginal CA. "They think I absorbed my twin , I have 2 sets of vagina, 2 uterus, 2 sets of tubes etc" History of Any Multi-Drug Resistant Organisms: C-DIFF, MRSA Date of last positivie culture/infection: 2013- 2018 cdiff MDRO Source:: RIGHT KNEE Past Surgical History: Adenoidectomy, Hysterectomy, Orthopedic Surgery, Tonsillectomy Additional Past Surgical History / Comment(s): RIGHT KNEE SURGERY, Radiation treatment - 1983 - Has radiation luna. gangrene cyst left wrist removed, rt index finger surgery, lymph node multiple removed - all negative, carpal tunnel release, lymph node dissection secondary to uterine cancer, right breast lumpectomy, posterior cervical discectomy with fusion, lumbar discectomy, right forearm tendon repair, right index finger tendon repair, bone marrow biopsy, appendectomy, total abdominal hysterectomy and bilateral salpingo-oophorectomy, carpal tunnel release, EGD and colonoscopy Past Anesthesia/Blood Transfusion Reactions: No Reported Reaction Past Psychological History: No Psychological Hx Reported Smoking Status: Never smoker Past Alcohol Use History: None Reported Past Drug Use History: None Reported - Past Family History Father Family Medical History: Renal Disease (Father at age 94 from an surgery disease as well as prostate cancer so did have coronary artery disease.) Additional Family Medical History / Comment(s): Father at age 94 from an surgery disease as well as prostate cancer so did have coronary artery disease. Sister(s) Family Medical History: No Reported History (Patient has 3 sisters no major medical problems) Additional Family Medical History / Comment(s): Patient has 3 sisters no major medical problems Brother(s) Family Medical History: No Reported History (Patient has one brother no major medical problems) Additional Family Medical History / Comment(s): (Patient has one brother no major medical problems Mother Family Medical History: Diabetes Mellitus (Mother is 90-year-old has history of diabetes type 2, chronic kidney disease, as well as dementia.) Additional Family Medical History / Comment(s): breast, cervial Ca run in family. Mother had history of diabetes type 2, chronic kidney disease, as well as dementia Medications and Allergies Home Medications Medication Instructions Recorded Confirmed Type Atenolol [Tenormin] 25 mg PO DAILY 02/02/14 01/07/19 History Lisinopril [Zestril] 2.5 mg PO DAILY 02/02/14 01/07/19 History Ergocalciferol [Vitamin D2 50,000 unit PO FR 10/05/15 01/07/19 History (DRISDOL)] Ferrous Sulfate [Iron (65 MG 325 mg PO DAILY 10/05/15 01/07/19 History Elemental)] Folic Acid 1 mg PO DAILY 06/29/16 01/07/19 History [place]-3 Fatty Acids/Fish Oil [Fish 1 cap PO DAILY 06/29/16 01/07/19 History Oil 1,000 mg Softgel] Vitamin B Complex 1 cap PO DAILY 06/29/16 01/07/19 History Calcitonin Nasal [Fortical 1 spray NASAL DAILY 01/07/19 01/07/19 History (Miacalcin)] Cyanocobalamin [Vitamin B-12] 1,000 mcg PO DAILY 01/07/19 01/07/19 History Dicyclomine [Bentyl] 20 mg PO TID 01/07/19 01/07/19 History Furosemide [Lasix] 20 mg PO BID 01/07/19 01/07/19 History Glimepiride [Amaryl] 4 mg PO BID 01/07/19 01/07/19 History Levothyroxine Sodium [Synthroid] 25 mcg PO DAILY 01/07/19 01/07/19 History Magnesium Oxide 400 mg PO DAILY 01/07/19 01/07/19 History Mirtazapine [Remeron] 15 mg PO HS 01/07/19 01/07/19 History Potassium Chloride ER [K-Dur 20] 20 meq PO BID 01/07/19 01/07/19 History Spironolactone [Aldactone] 25 mg PO BID 01/07/19 01/07/19 History Allergies Allergy/AdvReac Type Severity Reaction Status Date / Time cephalexin monohydrate Allergy Rash/Hives Verified 01/07/19 19:12 [From Keflex] Penicillins Allergy Unknown Verified 01/07/19 19:12 PEPPERS Allergy SEIZURES Uncoded 01/07/19 16:55 Physical Exam Vitals: Vital Signs Temp Pulse Resp BP Pulse Ox 01/08/19 09:25 98/60 01/08/19 08:00 77 17 110/67 98 01/08/19 07:00 80 16 91/55 100 01/08/19 06:30 72 16 97/61 01/08/19 06:00 70 18 100/58 01/08/19 05:54 81 18 100/58 98 01/08/19 05:30 82 19 124/71 98 01/08/19 04:39 98.2 F 78 18 89/53 98 01/08/19 03:48 98.3 F 73 18 83/48 98 01/08/19 03:35 98.1 F 72 18 84/50 98 01/08/19 03:08 98.1 F 81 18 84/47 98 01/08/19 03:06 81 18 98 01/08/19 02:55 98.1 F 85 17 88/53 99 01/08/19 02:37 98.3 F 78 18 85/50 100 01/08/19 02:27 98.2 F 78 18 92/58 100 01/08/19 01:57 97.9 F 81 18 89/49 01/08/19 01:46 97.8 F 85 18 96/55 98 01/08/19 00:26 97.9 F 84 18 107/74 01/07/19 22:37 97.9 F 90 18 102/72 97 01/07/19 22:07 98.1 F 85 18 99/60 98 01/07/19 21:57 98.1 F 82 18 103/62 99 01/07/19 16:52 98.8 F 104 H 18 122/78 97 Intake and Output 01/07/19 01/08/19 01/08/19 22:59 06:59 14:59 Intake Total 0 1272 Balance 0 1272 Intake: Blood Product 0 962 Ffp 24 Cpd Unit 324 [id number] Ffp 24 Cpd Unit 328 [id number] Rc As-3 Unit 0 310 [id number] Other 310 Rc As-3 Unit 310 [id number] Other: Weight 68.039 kg - Constitutional General appearance: no distress - EENT Eyes: PERRLA, no ptosis, scleral icterus, normal apperance ENT: hard of hearing, normal oropharynx, no thrush Ears: bilateral: normal - Neck Neck: no lymphadenopathy, normal ROM, no rigidity, no stridor, no thyromegaly Carotids: bilateral: upstroke delayed Thyroid: bilateral: normal size - Respiratory Respiratory: bilateral: diminished, negative: dullness, rales, rhonchi, wheezing, prolonged expiration - Cardiovascular Rhythm: regular Heart sounds: normal: S1, S2 Abnormal Heart Sounds: systolic murmur, no S3 Gallop, no S4 Gallop, no click - Gastrointestinal General gastrointestinal: hepatomegaly, normal bowel sounds, soft, splenomegaly, no umbilical hernia, no ventral hernia - Integumentary Integumentary: normal, normal turgor Healing wound to the right great toe. No signs of infection. - Neurologic Neurologic: CNII-XII intact - Musculoskeletal Musculoskeletal: generalized weakness, strength equal bilaterally - Psychiatric Psychiatric: A&O x's 3, appropriate affect, intact judgment & insight, mild confusion, poor historian. Results CBC & Chem 7: 01/08/19 11:11 01/07/19 17:32 Labs: Abnormal Lab Results - Last 24 Hours (Table) 01/07/19 01/07/19 01/07/19 Range/Units 17:10 17:32 17:32 RBC (3.80-5.40) m/uL Hgb (11.4-16.0) gm/dL Hct (34.0-46.0) % MCV (80.0-100.0) fL RDW (11.5-15.5) % Plt Count (150-450) k/uL Lymphocytes # (1.0-4.8) k/uL Macrocytosis PT (9.0-12.0) sec INR (<1.2) Sodium 135 L (137-145) mmol/L BUN 29 H (7-17) mg/dL Glucose 226 H (74-99) mg/dL POC Glucose (mg/dL) 249 H (75-99) mg/dL Plasma Lactic Acid Rinku (0.7-2.0) mmol/L Calcium 7.8 L (8.4-10.2) mg/dL Total Bilirubin 5.3 H (0.2-1.3) mg/dL AST 83 H (14-36) U/L ALT 55 H (9-52) U/L Alkaline Phosphatase 150 H (38-126) U/L Ammonia (<30) umol/L Troponin I (0.000-0.034) ng/mL Total Protein 5.9 L (6.3-8.2) g/dL Albumin 1.9 L (3.5-5.0) g/dL Urine Appearance (Clear) Ur Leukocyte Esterase (Negative) Urine WBC (0-5) /hpf Ur Squamous Epith Cells (0-4) /hpf Hyaline Casts (0-2) /lpf Urine Mucus (None) /hpf Stool Occult Blood (Negative) Crossmatch See Detail 01/07/19 01/07/19 01/07/19 Range/Units 17:32 17:32 17:32 RBC 2.20 L (3.80-5.40) m/uL Hgb 7.5 L (11.4-16.0) gm/dL Hct 24.0 L (34.0-46.0) % MCV 108.7 H (80.0-100.0) fL RDW 19.6 H (11.5-15.5) % Plt Count 72 L (150-450) k/uL Lymphocytes # 0.3 L (1.0-4.8) k/uL Macrocytosis Marked A PT (9.0-12.0) sec INR (<1.2) Sodium (137-145) mmol/L BUN (7-17) mg/dL Glucose (74-99) mg/dL POC Glucose (mg/dL) (75-99) mg/dL Plasma Lactic Acid Rinku 3.3 H* (0.7-2.0) mmol/L Calcium (8.4-10.2) mg/dL Total Bilirubin (0.2-1.3) mg/dL AST (14-36) U/L ALT (9-52) U/L Alkaline Phosphatase (38-126) U/L Ammonia (<30) umol/L Troponin I 0.036 H* (0.000-0.034) ng/mL Total Protein (6.3-8.2) g/dL Albumin (3.5-5.0) g/dL Urine Appearance (Clear) Ur Leukocyte Esterase (Negative) Urine WBC (0-5) /hpf Ur Squamous Epith Cells (0-4) /hpf Hyaline Casts (0-2) /lpf Urine Mucus (None) /hpf Stool Occult Blood (Negative) Crossmatch 01/07/19 01/07/19 01/07/19 Range/Units 17:32 19:00 19:30 RBC (3.80-5.40) m/uL Hgb (11.4-16.0) gm/dL Hct (34.0-46.0) % MCV (80.0-100.0) fL RDW (11.5-15.5) % Plt Count (150-450) k/uL Lymphocytes # (1.0-4.8) k/uL Macrocytosis PT 18.8 H (9.0-12.0) sec INR 1.9 H (<1.2) Sodium (137-145) mmol/L BUN (7-17) mg/dL Glucose (74-99) mg/dL POC Glucose (mg/dL) (75-99) mg/dL Plasma Lactic Acid Rinku (0.7-2.0) mmol/L Calcium (8.4-10.2) mg/dL Total Bilirubin (0.2-1.3) mg/dL AST (14-36) U/L ALT (9-52) U/L Alkaline Phosphatase (38-126) U/L Ammonia 89 H (<30) umol/L Troponin I (0.000-0.034) ng/mL Total Protein (6.3-8.2) g/dL Albumin (3.5-5.0) g/dL Urine Appearance Cloudy H (Clear) Ur Leukocyte Esterase Trace H (Negative) Urine WBC 12 H (0-5) /hpf Ur Squamous Epith Cells 6 H (0-4) /hpf Hyaline Casts 30 H (0-2) /lpf Urine Mucus Rare H (None) /hpf Stool Occult Blood (Negative) Crossmatch 01/07/19 Range/Units 19:51 RBC (3.80-5.40) m/uL Hgb (11.4-16.0) gm/dL Hct (34.0-46.0) % MCV (80.0-100.0) fL RDW (11.5-15.5) % Plt Count (150-450) k/uL Lymphocytes # (1.0-4.8) k/uL Macrocytosis PT (9.0-12.0) sec INR (<1.2) Sodium (137-145) mmol/L BUN (7-17) mg/dL Glucose (74-99) mg/dL POC Glucose (mg/dL) (75-99) mg/dL Plasma Lactic Acid Rinku (0.7-2.0) mmol/L Calcium (8.4-10.2) mg/dL Total Bilirubin (0.2-1.3) mg/dL AST (14-36) U/L ALT (9-52) U/L Alkaline Phosphatase (38-126) U/L Ammonia (<30) umol/L Troponin I (0.000-0.034) ng/mL Total Protein (6.3-8.2) g/dL Albumin (3.5-5.0) g/dL Urine Appearance (Clear) Ur Leukocyte Esterase (Negative) Urine WBC (0-5) /hpf Ur Squamous Epith Cells (0-4) /hpf Hyaline Casts (0-2) /lpf Urine Mucus (None) /hpf Stool Occult Blood Positive H (Negative) Crossmatch Microbiology - Last 24 Hours (Table) 01/07/19 19:00 Urine Culture - Preliminary Urine,Voided Thrombosis Risk Factor Assmnt - DVT/VTE Prophylaxis DVT/VTE Prophylaxis: Pharmacologic Prophylaxis ordered Assessment and Plan Plan: 1. Metabolic encephalopathy with elevated ammonia secondary to alcoholic liver cirrhosis. Lactulose 20 mg 3 times daily and Xifaxan 550 mg daily started. Continue Aldactone 25 mg twice daily. Consult with GI. 2. Generalized weakness with anemia, possible acute blood loss and anemia on top of chronic anemia of alcoholism. Stool for occult blood is positive. Monitor hemoglobin. GI consult. Continue ferrous sulfate 325 mg daily. Obtain CA 199, CEA, alpha-fetoprotein tumor marker. Iron studies. Patient has been transfused 1 unit packed RBCs and 2 units of fresh frozen plasma. 3. Bicytopenia secondary to alcoholic liver cirrhosis as well as bone marrow suppression. Patient was seen and evaluated by hematology oncology in the past underwent bone marrow biopsy did not show any evidence of myelodysplasia. Continue B12 1000 mcg orally once every day, folic acid 1 mg orally once every day. Patient has been transfused 1 unit packed RBCs and 2 units of fresh frozen plasma. 4. Elevated troponin. Repeat troponin. Consult cardiology. 5. Hypertension and hypertensive cardiovascular disease. Continue lisinopril 2.5 mg orally once every day and atenolol 25 mg orally once every day. 6. Alcoholic liver disease with elevated bilirubin and liver function tests. Continue as in #1. Monitor CMP. 7. Diabetes mellitus type 2. Diet-controlled. NovoLog scale before meals and at bedtime 8. Hypothyroidism. Continue levothyroxine. TSH normal. 9. Seizure disorder by history. Patient is off Keppra. 10. History of hyperlipidemia. Resolved 11. Vascular dementia, and possibly alcohol induced frontload dementia. Continue vitamin supplement for now. 12. History of chronic alcohol use and dependence. Patient has abstained from alcohol for 913 days. 13. Rheumatoid arthritis. Patient not taking any medication at this time. 14. History of diabetic polyneuropathy. Stable at this time. 15. History of vaginal cancer status post total abdominal hysterectomy as well as bilateral salpingo-nephrectomy along with vaginectomy 16. DVT prophylaxis. Bilateral knee-high SOLEDAD hose 17. GI prophylaxis. Continue PPI. No heparin due to thrombocytopenia. 18. Patient will be admitted to the hospital for a minimum of 2 night stay. 19. Patient is full code. Discharge plan: To be determined. PT and OT added. Impression and plan of care have been directed as dictated by the signing physician. Majo Hawkins nurse practitioner acting as scribe for signing physician.
[2019-01-08] MEDS: LACTULOSE 20 GM/30 ML CUP PO SCH ×3 (14:15→21:10)
[2019-01-08] MEDS ORDERED: DICYCLOMINE 20 MG TAB PO SCH (16:00)
[2019-01-08] MEDS: INSULIN ASPART (NovoLOG) 100 UNIT/ML VIAL SQ SCH ×2 (17:10→23:32)
[2019-01-08 17:13] LABS: Glucose,Whole Blood 121 mg/dL (75-99)
[2019-01-08] MEDS: FUROSEMIDE 20 MG TAB PO SCH (17:14)
[2019-01-08 18:10] LABS: Iron Saturation 44.87 (12.00-45.00)
[2019-01-08 18:13] LABS: Alpha Fetoprotein, Tumor Mkr 5.4 ng/mL (0.0-7.9)
[2019-01-08 18:42] LABS: Cancer Antigen 19-9 50.9 U/mL (0.0-34.9)
[2019-01-08 19:38] LABS: Glucose,Whole Blood 144 mg/dL (75-99)
[2019-01-08] MEDS: MIRTAZAPINE 15 MG TAB PO SCH (21:11)
[2019-01-08] MEDS: SPIRONOLACTONE 25 MG TAB PO SCH (21:11)
[2019-01-08] MEDS: POTASSIUM CHLORIDE ER 20 MEQ TAB.ER PO SCH (21:11)
[2019-01-09 00:15] LABS: Glucose,Whole Blood 113 mg/dL (75-99)
[2019-01-09] MEDS ORDERED: ONDANSETRON 4 MG/2 ML VIAL IVP PRN (04:36)
[2019-01-09 05:14] LABS: Anisocytosis Moderate; Basophils % (A) 1 %; Eosinophils # (A) 0.1 k/uL (0-0.7); Eosinophils % (A) 2 %; HGB 8.9 gm/dL (11.4-16.0); Hypochromasia Marked; Lymphocytes # (A) 0.3 k/uL (1.0-4.8); Lymphocytes % (A) 6 %; MCH 33.1 pg (25.0-35.0); MCHC 31.7 g/dL (31.0-37.0); MCV 104.5 fL (80.0-100.0); Macrocytosis Marked; Mean Platelet Volume 8.2; Monocytes # (A) 0.3 k/uL (0-1.0); Monocytes % (A) 7 %; Neutrophils # (A) 3.9 k/uL (1.3-7.7); Neutrophils % (A) 83 %; Poikilocytosis Slight; RBC 2.68 m/uL (3.80-5.40); RDW 23.8 % (11.5-15.5); WBC 4.6 k/uL (3.8-10.6)
[2019-01-09 05:17] LABS: Glucose,Whole Blood 163 mg/dL (75-99)
[2019-01-09 05:18] LABS: Platelet Count 61 k/uL (150-450)
[2019-01-09 05:23] LABS: Calcium 8.1 mg/dL (8.4-10.2); Potassium 4.3 mmol/L (3.5-5.1)
[2019-01-09] MEDS ORDERED: SODIUM CHLORIDE 0.9% 500 ML 250 ML IV ONE (06:12)
[2019-01-09] MEDS ORDERED: LEVOTHYROXINE 25 MCG TAB PO SCH (06:30)
[2019-01-09] MEDS: SODIUM CHLORIDE 0.9% 1,000 ML IV SCH ×2 (07:20→17:31)
--- NOTE | 2019-01-09 07:38 | XR ---
EXAMINATION TYPE: XR chest 1V portable DATE OF EXAM: 01/09/2019 COMPARISON: 01/07/2019 HISTORY: Possible aspiration and vomiting. Enteric tube placement. TECHNIQUE: Single frontal view of the chest is obtained. FINDINGS: Strand-like densities are seen at the lung bases, likely atelectasis. Endotracheal tube hills s been inserted although its fenestrated portion is not well-visualized and will be discussed on the abdomen radiograph the same date. Patient's mediastinum is rotated to the right secondary to patient positioning and appears upper limits of normal in size. No pleural effusion or pneumothorax. Low lung volumes are seen. IMPRESSION: Strand-like bibasilar opacities are present. These likely atelectasis however surveillan ce is recommended to assess for developing pneumonia in this patient with clinical concern for aspira tion.
--- NOTE | 2019-01-09 07:40 | XR ---
EXAMINATION TYPE: XR abdomen 1V DATE OF EXAM: 01/09/2019 COMPARISON: NONE HISTORY: Nasogastric tube placement TECHNIQUE: Single view of the abdomen in the supine position was performed FINDINGS: Enteric tube has been placed in the interim with its fenestrated portion just beyond the ga stroesophageal junction. Numerous Calcifications likely represent pancreatic calcifications from prior pancreatitis. Surgical clips are seen within the midline low abdomen. Gaseous distention of probable transverse colon is seen without dilation. Osseous structures are grossly intact with moderate degenerative changes of the spine. IMPRESSION: 1. Enteric tube is placed with its radiolucent fenestrated portion just beyond junction. 2. Probable pancreatic calcifications of chronic pancreatitis. 3. Gaseous distention without dilation of what appears to be the transverse colon.
[2019-01-09 08:56] LABS: Glucose,Whole Blood 150 mg/dL (75-99)
[2019-01-09] MEDS ORDERED: NON-FORMULARY DRUG (Vitamin B Complex [Vitamin B Complex] 1 CAP) PO SCH (09:00)
[2019-01-09] MEDS ORDERED: ALBUMIN HUMAN 25% 50 ML in EMPTY BAG 1 BAG IVPB SCH (10:00)
--- NOTE | 2019-01-09 10:14 | CONS ---
CONSULTATION Mrs. Olvera is a 63-year-old female who was transferred from assisted because of change in mental status. Cardiology consultation was requested because of mild elevation of the troponin. The patient has according to the record has a history of hypertension, diabetes, liver cirrhosis and chronic alcoholism in the past, pancytopenia, history of seizure disorder and dementia. Apparently she has been drinking alcohol and fell, had bruising and ecchymosis. On presentation, troponin was evaluated and was elevated and because of that cardiology consultation was requested. I am not able to get any history from the patient. She is moaning, does not answer any questions appropriately. Reviewing the records, there is no history of myocardial infarction or history of congestive heart failure. She has a history of seizure disorder, uterine cancer and vaginal cancer as well as history of chronic alcoholism with liver cirrhosis. MEDICATIONS: Her medication at the time of admission included spironolactone 25 mg twice a day, Remeron, Zestril 2.5 mg daily, Synthroid, Amaryl, Lasix 20 mg twice a day, iron, dicyclomine, Tenormin 25 mg daily, vitamin B and calcitonin. REVIEW OF SYSTEMS: Not obtainable. PHYSICAL EXAMINATION: She is a 63-year-old female, appears older than stated age. NG tube in place. Confused. Blood pressure 113/60 with the heart rate in the 80s. HEAD: Normocephalic. NECK: Good carotid upstroke. No bruit. No jugular venous distention. LUNGS: Clear to auscultation anteriorly. HEART: Regular rate and rhythm. S1, S2. No S3. No rub or gallop. ABDOMEN: Soft, nontender, distended. Positive bowel sounds. EXTREMITIES: No edema. LAB DATA: Lab data revealed a hemoglobin of 7.5, platelet count of 72,000, plasma lactic acid 3.3 on presentation. BUN and creatinine 29 and 0.99. INR 1.9. Her lipase was 254 with an albumin of 1.9. Her ammonia level in initially was 89. Her troponin 0.036, 0.044 and 0.031. Her subsequent ammonia level is 190. Her EKG revealed sinus mechanism with normal axis, intervals and nonspecific ST- T wave changes. Her chest x-ray shows probable atelectasis. Her gallbladder ultrasound shows abdominal ascites with mild gallbladder wall thickening. IMPRESSION: 1. Mild troponin elevation do not reflect an acute ischemic event probably related to a type 2 event. 2. Alcoholism with chronic liver cirrhosis and thrombocytopenia. 3. Metabolic encephalopathy with elevated the ammonia. 4. History of diabetes. 5. History of hypertension. 6. History of seizure. 7. History of dementia. RECOMMENDATION: From the cardiac standpoint, there is no active cardiac issue and she is not a candidate for any aggressive workup. We will obtain echocardiogram. We will see her on as- needed basis. Please feel free to call us for any question. [id number] / IJN: [id number] / KRAIG
[2019-01-09] MEDS: ALBUMIN HUMAN 25% 50 ML in EMPTY BAG 1 BAG IVPB SCH ×2 (11:01→11:22)
[2019-01-09] MEDS: LEVOFLOXACIN 500MG-D5W PMX 500 MG in DEXTROSE/WATER 1 100ML.BAG IVPB SCH (11:05)
[2019-01-09] MEDS: LACTULOSE 20 GM/30 ML CUP PO SCH ×3 (11:06→21:08)
--- NOTE | 2019-01-09 11:22 | P.HPIM ---
History of Present Illness H&P Date: 01/08/19 This is a 63-year-old female one of my patient with a previous medical history significant for hypertension and hypertensive cardiovascular disease with left ventricular hypertrophy, diabetes mellitus type 2 with diabetic polyneuropathy, CVA, TIA, liver cirrhosis secondary to chronic alcohol use and dependence, pancytopenia secondary to liver cirrhosis, vaginal cancer status post vaginectomy, uterine cancer, seizure disorder, kyphoscoliosis, vascular dementia, hyperlipidemia. Patient also has chronic right great toe wound under the care of Dr. Davila. Patient is seen in the office weekly and his home care 2 times per week to do dressing changes. Sister gives history of having battled with C. difficile colitis for the past year and a half which is finally cleared under the care of Dr. Curran. Patient has had a loss of appetite, loss of weight. Her home care nurse was concerned that she wasn't oriented to time and place. She has some lower extremity edema. Symptoms have been worsening over the past 9 months. Patient complains of generalized weakness. She is currently residing at independent living at [facility]. Sister also states the patient had a fall yesterday as well as 2 weeks ago. Patient was brought into the emergency department at [facility] due to the above symptoms. She was afebrile, heart rate 104, blood pressure 122/78, pulse ox 97% on room air. White count was 5, hemoglobin 7.5, platelet count 72. Sodium 135, potassium 4.1, chloride 105, CO2 23, BUN 29 creatinine 0.99. Blood sugar was 226. Total bilirubin 5.3, AST 83, ALT 55, alkaline phosphatase 150. INR was elevated at 1.9. TSH 1.270. Lactic acid 3.3, proBNP 182. Troponin 0.036 and repeat is 0.044. Urinalysis was dark yellow, bilirubin negative, leukoesterase trace, WBCs 12, casts 30. Ammonia level 89, stool for occult blood positive. Review of Systems Constitutional: Reports anorexia, Reports chronic pain, Reports fatigue, Reports lethargy, Reports malaise, Reports weakness, Reports weight loss Eyes: denies blurred vision, denies bulging eye, denies decreased vision, denies discharge Ears: bilateral: decreased hearing Ears, nose, mouth and throat: Denies dysphagia, Denies neck lump, Denies sore throat, Denies vertigo Cardiovascular: Reports decreased exercise tolerance, Reports dyspnea on exertion, Reports high blood pressure, Denies chest pain, Denies paroxysmal nocturnal dyspnea, Denies phlebitis, Denies rapid heart beat, Denies shortness of breath, Denies syncope Respiratory: Denies congestion, Denies cough, Denies cough with sputum, Denies home oxygen, Denies sleep apnea, Denies snoring, Denies wheezing Gastrointestinal: Reports bloating, Reports early satiety, Reports nausea, Denies abdominal pain, Denies change in bowel habits, Denies heartburn, Denies hematochezia, Denies melena, Denies vomiting Genitourinary: Denies dysuria, Denies hematuria Menstruation: Reports post hysterectomy, Reports postmenopausal Musculoskeletal: Reports atrophy, Reports frequent falls, Reports gait dysfunction, Reports low back pain, Reports morning stiffness, Denies myalgias Musculoskeletal: absent: ankle pain, ankle stiffness, ankle swelling, elbow pain, elbow stiffness, elbow swelling, foot pain, foot stiffness, foot swelling, hand pain, hand stiffness, hand swelling, hip pain, hip stiffness, hip swelling, knee pain, knee stiffness, knee swelling, shoulder pain, shoulder stiffness, shoulder swelling, wrist pain, wrist stiffness, wrist swelling Integumentary: Denies pruritus, Denies rash Neurological: Reports gait dysfunction, Reports memory loss, Reports tingling, Denies numbness, Denies weakness Psychiatric: Reports anxiety, Reports depression, Reports insomnia, Reports sa dness/tearfulness, Reports sleep disturbances, Denies suicidal ideation Endocrine: Denies fatigue, Denies weight change Past Medical History Past Medical History: Blood Disorder, Cancer, CVA/TIA, Diabetes Mellitus, GERD/Reflux, Hearing Disorder / Deafness, Hyperlipidemia, Hypertension, Memory Impairment, Neurologic Disorder, Osteoarthritis (OA), Seizure Disorder Additional Past Medical History / Comment(s): MIGRAINES, LOW BACK PAIN, NECK PAIN, OSTEOPOROSIS, NEUROPATHY,. uterine, ovarian and vaginal CA. "They think I absorbed my twin , I have 2 sets of vagina, 2 uterus, 2 sets of tubes etc" History of Any Multi-Drug Resistant Organisms: C-DIFF, MRSA Date of last positivie culture/infection: 2013- 2018 cdiff MDRO Source:: RIGHT KNEE Past Surgical History: Adenoidectomy, Hysterectomy, Orthopedic Surgery, Tonsillectomy Additional Past Surgical History / Comment(s): RIGHT KNEE SURGERY, Radiation treatment - 1983 - Has radiation luna. gangrene cyst left wrist removed, rt index finger surgery, lymph node multiple removed - all negative, carpal tunnel release, lymph node dissection secondary to uterine cancer, right breast lumpectomy, posterior cervical discectomy with fusion, lumbar discectomy, right forearm tendon repair, right index finger tendon repair, bone marrow biopsy, appendectomy, total abdominal hysterectomy and bilateral salpingo-oophorectomy, carpal tunnel release, EGD and colonoscopy Past Anesthesia/Blood Transfusion Reactions: No Reported Reaction Past Psychological History: No Psychological Hx Reported Smoking Status: Never smoker Past Alcohol Use History: None Reported Past Drug Use History: None Reported - Past Family History Father Family Medical History: Renal Disease (Father at age 94 from an surgery disease as well as prostate cancer so did have coronary artery disease.) Additional Family Medical History / Comment(s): Father at age 94 from an surgery disease as well as prostate cancer so did have coronary artery disease. Sister(s) Family Medical History: No Reported History (Patient has 3 sisters no major medical problems) Additional Family Medical History / Comment(s): Patient has 3 sisters no major medical problems Brother(s) Family Medical History: No Reported History (Patient has one brother no major medical problems) Additional Family Medical History / Comment(s): (Patient has one brother no major medical problems Mother Family Medical History: Diabetes Mellitus (Mother is 90-year-old has history of diabetes type 2, chronic kidney disease, as well as dementia.) Additional Family Medical History / Comment(s): breast, cervial Ca run in family. Mother had history of diabetes type 2, chronic kidney disease, as well as dementia Medications and Allergies Home Medications Medication Instructions Recorded Confirmed Type Atenolol [Tenormin] 25 mg PO DAILY 02/02/14 01/07/19 History Lisinopril [Zestril] 2.5 mg PO DAILY 02/02/14 01/07/19 History Ergocalciferol [Vitamin D2 50,000 unit PO FR 10/05/15 01/07/19 History (DRISDOL)] Ferrous Sulfate [Iron (65 MG 325 mg PO DAILY 10/05/15 01/07/19 History Elemental)] Folic Acid 1 mg PO DAILY 06/29/16 01/07/19 History [place]-3 Fatty Acids/Fish Oil [Fish 1 cap PO DAILY 06/29/16 01/07/19 History Oil 1,000 mg Softgel] Vitamin B Complex 1 cap PO DAILY 06/29/16 01/07/19 History Calcitonin Nasal [Fortical 1 spray NASAL DAILY 01/07/19 01/07/19 History (Miacalcin)] Cyanocobalamin [Vitamin B-12] 1,000 mcg PO DAILY 01/07/19 01/07/19 History Dicyclomine [Bentyl] 20 mg PO TID 01/07/19 01/07/19 History Furosemide [Lasix] 20 mg PO BID 01/07/19 01/07/19 History Glimepiride [Amaryl] 4 mg PO BID 01/07/19 01/07/19 History Levothyroxine Sodium [Synthroid] 25 mcg PO DAILY 01/07/19 01/07/19 History Magnesium Oxide 400 mg PO DAILY 01/07/19 01/07/19 History Mirtazapine [Remeron] 15 mg PO HS 01/07/19 01/07/19 History Potassium Chloride ER [K-Dur 20] 20 meq PO BID 01/07/19 01/07/19 History Spironolactone [Aldactone] 25 mg PO BID 01/07/19 01/07/19 History Allergies Allergy/AdvReac Type Severity Reaction Status Date / Time cephalexin monohydrate Allergy Rash/Hives Verified 01/07/19 19:12 [From Keflex] Penicillins Allergy Unknown Verified 01/07/19 19:12 PEPPERS Allergy SEIZURES Uncoded 01/07/19 16:55 Physical Exam Vitals: Vital Signs Temp Pulse Pulse Resp BP BP Pulse Ox 01/09/19 05:20 96.3 F L 103 H 20 111/61 94 L 01/08/19 23:15 16 01/08/19 20:58 98.5 F 82 16 113/64 98 01/08/19 16:00 82 17 01/08/19 15:27 97.8 F 82 17 102/59 98 01/08/19 14:55 97.9 F 84 18 108/79 98 01/08/19 14:00 80 18 103/79 99 01/08/19 13:30 90 20 110/78 99 01/08/19 13:00 90 20 118/82 99 01/08/19 12:30 90 18 96/66 99 01/08/19 12:00 80 16 99/62 99 01/08/19 11:30 87 15 124/60 98 01/08/19 11:00 86 17 123/69 01/08/19 10:30 89 19 123/69 Intake and Output 01/08/19 01/09/19 01/09/19 22:59 06:59 14:59 Output Total 1100 300 Balance -1100 -300 Output: Gastric Drainage 300 Urine 500 Straight 500 Emesis 600 Other: Voiding Method Toilet # Voids 1 - Constitutional General appearance: no distress - EENT Eyes: PERRLA, no ptosis, scleral icterus, normal apperance ENT: hard of hearing, normal oropharynx, no thrush Ears: bilateral: normal - Neck Neck: no lymphadenopathy, normal ROM, no rigidity, no stridor, no thyromegaly Carotids: bilateral: upstroke delayed Thyroid: bilateral: normal size - Respiratory Respiratory: bilateral: diminished, negative: dullness, rales, rhonchi, wheezing, prolonged expiration - Cardiovascular Rhythm: regular Heart sounds: normal: S1, S2 Abnormal Heart Sounds: systolic murmur, no S3 Gallop, no S4 Gallop, no click - Gastrointestinal General gastrointestinal: Round, hepatomegaly, normal bowel sounds, soft, splenomegaly, no umbilical hernia, no ventral hernia - Integumentary Integumentary: normal, normal turgor Healing wound to the right great toe. No signs of infection. - Neurologic Neurologic: CNII-XII intact - Musculoskeletal Musculoskeletal: generalized weakness, strength equal bilaterally - Psychiatric Psychiatric: A&O x's 3, appropriate affect, intact judgment & insight, mild confusion, poor historian. Results CBC & Chem 7: 01/09/19 05:00 01/09/19 05:00 Labs: Abnormal Lab Results - Last 24 Hours (Table) 01/08/19 01/08/19 01/08/19 Range/Units 11:11 11:11 11:11 RBC 2.63 L (3.80-5.40) m/uL Hgb 8.6 L (11.4-16.0) gm/dL Hct 26.7 L (34.0-46.0) % MCV 101.5 H D (80.0-100.0) fL RDW 24.5 H (11.5-15.5) % Plt Count 61 L (150-450) k/uL Lymphocytes # (1.0-4.8) k/uL Macrocytosis Marked A Carbon Dioxide (22-30) mmol/L BUN (7-17) mg/dL Glucose (74-99) mg/dL POC Glucose (mg/dL) (75-99) mg/dL Plasma Lactic Acid Rinku (0.7-2.0) mmol/L Calcium (8.4-10.2) mg/dL Ammonia (<30) umol/L Troponin I 0.044 H* (0.000-0.034) ng/mL Carcinoembryonic Ag 14.0 H (0.0-4.9) ng/mL CA 19-9 Antigen 50.9 H (0.0-34.9) U/mL 01/08/19 01/08/19 01/08/19 Range/Units 13:25 17:09 19:37 RBC (3.80-5.40) m/uL Hgb (11.4-16.0) gm/dL Hct (34.0-46.0) % MCV (80.0-100.0) fL RDW (11.5-15.5) % Plt Count (150-450) k/uL Lymphocytes # (1.0-4.8) k/uL Macrocytosis Carbon Dioxide (22-30) mmol/L BUN (7-17) mg/dL Glucose (74-99) mg/dL POC Glucose (mg/dL) 101 H 121 H 144 H (75-99) mg/dL Plasma Lactic Acid Rinku (0.7-2.0) mmol/L Calcium (8.4-10.2) mg/dL Ammonia (<30) umol/L Troponin I (0.000-0.034) ng/mL Carcinoembryonic Ag (0.0-4.9) ng/mL CA 19-9 Antigen (0.0-34.9) U/mL 01/09/19 01/09/19 01/09/19 Range/Units 00:14 05:00 05:00 RBC 2.68 L (3.80-5.40) m/uL Hgb 8.9 L (11.4-16.0) gm/dL Hct 28.0 L (34.0-46.0) % MCV 104.5 H (80.0-100.0) fL RDW 23.8 H (11.5-15.5) % Plt Count 61 L (150-450) k/uL Lymphocytes # 0.3 L (1.0-4.8) k/uL Macrocytosis Marked A Carbon Dioxide 21 L (22-30) mmol/L BUN 28 H (7-17) mg/dL Glucose 156 H (74-99) mg/dL POC Glucose (mg/dL) 113 H (75-99) mg/dL Plasma Lactic Acid Rinku (0.7-2.0) mmol/L Calcium 8.1 L (8.4-10.2) mg/dL Ammonia (<30) umol/L Troponin I (0.000-0.034) ng/mL Carcinoembryonic Ag (0.0-4.9) ng/mL CA 19-9 Antigen (0.0-34.9) U/mL 01/09/19 01/09/19 01/09/19 Range/Units 05:00 05:16 08:54 RBC (3.80-5.40) m/uL Hgb (11.4-16.0) gm/dL Hct (34.0-46.0) % MCV (80.0-100.0) fL RDW (11.5-15.5) % Plt Count (150-450) k/uL Lymphocytes # (1.0-4.8) k/uL Macrocytosis Carbon Dioxide (22-30) mmol/L BUN (7-17) mg/dL Glucose (74-99) mg/dL POC Glucose (mg/dL) 163 H 150 H (75-99) mg/dL Plasma Lactic Acid Rinku 3.0 H* (0.7-2.0) mmol/L Calcium (8.4-10.2) mg/dL Ammonia 190 H (<30) umol/L Troponin I (0.000-0.034) ng/mL Carcinoembryonic Ag (0.0-4.9) ng/mL CA 19-9 Antigen (0.0-34.9) U/mL Microbiology - Last 24 Hours (Table) 01/07/19 19:00 Urine Culture - Preliminary Urine,Voided Presumptive Staph aureus Thrombosis Risk Factor Assmnt - DVT/VTE Prophylaxis DVT/VTE Prophylaxis: Mechanical Prophylaxis ordered - Choose All That Apply Each Risk Factor Represents 2 Points: Age 61-74 years Thrombosis Risk Factor Assessment Total Risk Factor Score: 2 Thrombosis Risk Factor Assessment Level: Low Risk Assessment and Plan Plan: 1. Metabolic encephalopathy with elevated ammonia secondary to alcoholic liver cirrhosis. Lactulose 20 mg 3 times daily and Xifaxan 550 mg daily started. Continue Aldactone 25 mg twice daily. Consult with GI. 2. Generalized weakness with anemia, possible acute blood loss and anemia on top of chronic anemia of alcoholism. Stool for occult blood is positive. Monitor hemoglobin. GI consult. Continue ferrous sulfate 325 mg daily. Obtain CA 199, CEA, alpha-fetoprotein tumor marker. Iron studies. Patient has been transfused 1 unit packed RBCs and 2 units of fresh frozen plasma. 3. Bicytopenia secondary to alcoholic liver cirrhosis as well as bone marrow suppression. Patient was seen and evaluated by hematology oncology in the past underwent bone marrow biopsy did not show any evidence of myelodysplasia. Continue B12 1000 mcg orally once every day, folic acid 1 mg orally once every day. Patient has been transfused 1 unit packed RBCs and 2 units of fresh frozen plasma. 4. Elevated troponin. Repeat troponin. Consult cardiology. 5. Hypertension and hypertensive cardiovascular disease. Continue lisinopril 2.5 mg orally once every day and atenolol 25 mg orally once every day. 6. Alcoholic liver disease with elevated bilirubin and liver function tests. Continue as in #1. Monitor CMP. 7. Diabetes mellitus type 2. Diet-controlled. NovoLog scale before meals and at bedtime 8. Hypothyroidism. Continue levothyroxine. TSH normal. 9. Seizure disorder by history. Patient is off Keppra. 10. History of hyperlipidemia. Resolved 11. Vascular dementia, and possibly alcohol induced frontload dementia. Continue vitamin supplement for now. 12. History of chronic alcohol use and dependence. Patient has abstained from alcohol for 913 days. 13. Rheumatoid arthritis. Patient not taking any medication at this time. 14. History of diabetic polyneuropathy. Stable at this time. 15. History of vaginal cancer status post total abdominal hysterectomy as well as bilateral salpingo-nephrectomy along with vaginectomy 16. DVT prophylaxis. Bilateral knee-high SOLEDAD hose 17. GI prophylaxis. Continue PPI. No heparin due to thrombocytopenia. 18. Patient will be admitted to the hospital for a minimum of 2 night stay. 19. Patient is full code. Discharge plan: To be determined. PT and OT added. Impression and plan of care have been directed as dictated by the signing physician. Majo Hawkins nurse practitioner acting as scribe for signing physician.
--- NOTE | 2019-01-09 11:32 | P.GSCN ---
History of Present Illness Consult date: 01/09/19 History of present illness: 63-year-old female admitted to the hospital with altered mental status. She presented from an assisted living facility. Much of the history has been obtained from records as the patient is currently moaning and not giving appropriate answers as she appears altered. According records, it appears that the patient did have some alcohol intake at her assisted living facility and then did have a fall. She was acting confused in the emergency department. She does have a history of liver cirrhosis and chronic alcoholism. Over this past night, the patient began developing projectile vomiting according to nursing staff. Nasogastric tube was placed for decompression. Ammonia level was drawn and was noted to be elevated at 190. Lactulose is still pending to be given. No fevers overnight. Review of Systems ROS unobtainable: due to mental status Past Medical History Past Medical History: Blood Disorder, Cancer, CVA/TIA, Diabetes Mellitus, GERD/Reflux, Hearing Disorder / Deafness, Hyperlipidemia, Hypertension, Memory Impairment, Neurologic Disorder, Osteoarthritis (OA), Seizure Disorder Additional Past Medical History / Comment(s): MIGRAINES, LOW BACK PAIN, NECK PAIN, OSTEOPOROSIS, NEUROPATHY,. uterine, ovarian and vaginal CA. "They think I absorbed my twin , I have 2 sets of vagina, 2 uterus, 2 sets of tubes etc" History of Any Multi-Drug Resistant Organisms: C-DIFF, MRSA Year Discovered:: 2013- 2018 cdiff MDRO Source:: RIGHT KNEE Past Surgical History: Adenoidectomy, Hysterectomy, Orthopedic Surgery, Tonsillectomy Additional Past Surgical History / Comment(s): RIGHT KNEE SURGERY, Radiation treatment - 1983 - Has radiation luna. gangrene cyst left wrist removed, rt index finger surgery, lymph node multiple removed - all negative, carpal tunnel release, lymph node dissection secondary to uterine cancer, right breast lumpectomy, posterior cervical discectomy with fusion, lumbar discectomy, right forearm tendon repair, right index finger tendon repair, bone marrow biopsy, appendectomy, total abdominal hysterectomy and bilateral salpingo-oophorectomy, carpal tunnel release, EGD and colonoscopy Past Anesthesia/Blood Transfusion Reactions: No Reported Reaction Past Psychological History: No Psychological Hx Reported Smoking Status: Never smoker Past Alcohol Use History: None Reported Past Drug Use History: None Reported - Past Family History Father Family Medical History: Renal Disease (Father at age 94 from an surgery disease as well as prostate cancer so did have coronary artery disease.) Additional Family Medical History / Comment(s): Father at age 94 from an [place] rgery disease as well as prostate cancer so did have coronary artery disease. Sister(s) Family Medical History: No Reported History (Patient has 3 sisters no major medical problems) Additional Family Medical History / Comment(s): Patient has 3 sisters no major medical problems Brother(s) Family Medical History: No Reported History (Patient has one brother no major medical problems) Additional Family Medical History / Comment(s): (Patient has one brother no major medical problems Mother Family Medical History: Diabetes Mellitus (Mother is 90-year-old has history of diabetes type 2, chronic kidney disease, as well as dementia.) Additional Family Medical History / Comment(s): breast, cervial Ca run in family. Mother had history of diabetes type 2, chronic kidney disease, as well as dementia Medications and Allergies Home Medications Medication Instructions Recorded Confirmed Type Atenolol [Tenormin] 25 mg PO DAILY 02/02/14 01/07/19 History Lisinopril [Zestril] 2.5 mg PO DAILY 02/02/14 01/07/19 History Ergocalciferol [Vitamin D2 50,000 unit PO FR 10/05/15 01/07/19 History (DRISDOL)] Ferrous Sulfate [Iron (65 MG 325 mg PO DAILY 10/05/15 01/07/19 History Elemental)] Folic Acid 1 mg PO DAILY 06/29/16 01/07/19 History [facility]-3 Fatty Acids/Fish Oil [Fish 1 cap PO DAILY 06/29/16 01/07/19 History Oil 1,000 mg Softgel] Vitamin B Complex 1 cap PO DAILY 06/29/16 01/07/19 History Calcitonin Nasal [Fortical 1 spray NASAL DAILY 01/07/19 01/07/19 History (Miacalcin)] Cyanocobalamin [Vitamin B-12] 1,000 mcg PO DAILY 01/07/19 01/07/19 History Dicyclomine [Bentyl] 20 mg PO TID 01/07/19 01/07/19 History Furosemide [Lasix] 20 mg PO BID 01/07/19 01/07/19 History Glimepiride [Amaryl] 4 mg PO BID 01/07/19 01/07/19 History Levothyroxine Sodium [Synthroid] 25 mcg PO DAILY 01/07/19 01/07/19 History Magnesium Oxide 400 mg PO DAILY 01/07/19 01/07/19 History Mirtazapine [Remeron] 15 mg PO HS 01/07/19 01/07/19 History Potassium Chloride ER [K-Dur 20] 20 meq PO BID 01/07/19 01/07/19 History Spironolactone [Aldactone] 25 mg PO BID 01/07/19 01/07/19 History Allergies Allergy/AdvReac Type Severity Reaction Status Date / Time cephalexin monohydrate Allergy Rash/Hives Verified 01/07/19 19:12 [From Keflex] Penicillins Allergy Unknown Verified 01/07/19 19:12 PEPPERS Allergy SEIZURES Uncoded 01/07/19 16:55 Surgical - Exam Osteopathic Statement: *. No significant issues noted on an osteopathic structural exam other than those noted in the History and Physical/Consult. Vital Signs Temp Pulse Resp BP Pulse Ox 98.8 F 104 H 18 122/78 97 01/07/19 16:52 01/07/19 16:52 01/07/19 16:52 01/07/19 16:52 01/07/19 16:52 - General confused - Neck trachea midline - Respiratory normal respiratory effort - Abdomen soft, distended, no rebound, no guarding - Psychiatric Confused, moaning, not answering questions Results - Labs 01/09/19 05:00 01/09/19 05:00 Abnormal Lab Results - Last 24 Hours (Table) 01/08/19 01/08/19 01/08/19 Range/Units 11:11 11:11 11:11 RBC 2.63 L (3.80-5.40) m/uL Hgb 8.6 L (11.4-16.0) gm/dL Hct 26.7 L (34.0-46.0) % MCV 101.5 H D (80.0-100.0) fL RDW 24.5 H (11.5-15.5) % Plt Count 61 L (150-450) k/uL Lymphocytes # (1.0-4.8) k/uL Macrocytosis Marked A Carbon Dioxide (22-30) mmol/L BUN (7-17) mg/dL Glucose (74-99) mg/dL POC Glucose (mg/dL) (75-99) mg/dL Plasma Lactic Acid Rinku (0.7-2.0) mmol/L Calcium (8.4-10.2) mg/dL Ammonia (<30) umol/L Troponin I 0.044 H* (0.000-0.034) ng/mL Carcinoembryonic Ag 14.0 H (0.0-4.9) ng/mL CA 19-9 Antigen 50.9 H (0.0-34.9) U/mL 01/08/19 01/08/19 01/08/19 Range/Units 13:25 17:09 19:37 RBC (3.80-5.40) m/uL Hgb (11.4-16.0) gm/dL Hct (34.0-46.0) % MCV (80.0-100.0) fL RDW (11.5-15.5) % Plt Count (150-450) k/uL Lymphocytes # (1.0-4.8) k/uL Macrocytosis Carbon Dioxide (22-30) mmol/L BUN (7-17) mg/dL Glucose (74-99) mg/dL POC Glucose (mg/dL) 101 H 121 H 144 H (75-99) mg/dL Plasma Lactic Acid Rinku (0.7-2.0) mmol/L Calcium (8.4-10.2) mg/dL Ammonia (<30) umol/L Troponin I (0.000-0.034) ng/mL Carcinoembryonic Ag (0.0-4.9) ng/mL CA 19-9 Antigen (0.0-34.9) U/mL 01/09/19 01/09/19 01/09/19 Range/Units 00:14 05:00 05:00 RBC 2.68 L (3.80-5.40) m/uL Hgb 8.9 L (11.4-16.0) gm/dL Hct 28.0 L (34.0-46.0) % MCV 104.5 H (80.0-100.0) fL RDW 23.8 H (11.5-15.5) % Plt Count 61 L (150-450) k/uL Lymphocytes # 0.3 L (1.0-4.8) k/uL Macrocytosis Marked A Carbon Dioxide 21 L (22-30) mmol/L BUN 28 H (7-17) mg/dL Glucose 156 H (74-99) mg/dL POC Glucose (mg/dL) 113 H (75-99) mg/dL Plasma Lactic Acid Rinku (0.7-2.0) mmol/L Calcium 8.1 L (8.4-10.2) mg/dL Ammonia (<30) umol/L Troponin I (0.000-0.034) ng/mL Carcinoembryonic Ag (0.0-4.9) ng/mL CA 19-9 Antigen (0.0-34.9) U/mL 01/09/19 01/09/19 01/09/19 Range/Units 05:00 05:16 08:54 RBC (3.80-5.40) m/uL Hgb (11.4-16.0) gm/dL Hct (34.0-46.0) % MCV (80.0-100.0) fL RDW (11.5-15.5) % Plt Count (150-450) k/uL Lymphocytes # (1.0-4.8) k/uL Macrocytosis Carbon Dioxide (22-30) mmol/L BUN (7-17) mg/dL Glucose (74-99) mg/dL POC Glucose (mg/dL) 163 H 150 H (75-99) mg/dL Plasma Lactic Acid Rinku 3.0 H* (0.7-2.0) mmol/L Calcium (8.4-10.2) mg/dL Ammonia 190 H (<30) umol/L Troponin I (0.000-0.034) ng/mL Carcinoembryonic Ag (0.0-4.9) ng/mL CA 19-9 Antigen (0.0-34.9) U/mL Microbiology - Last 24 Hours (Table) 01/07/19 19:00 Urine Culture - Preliminary Urine,Voided Presumptive Staph aureus Diabetes panel 01/09/19 Range/Units 05:00 Sodium 137 (137-145) mmol/L Potassium 4.3 (3.5-5.1) mmol/L Chloride 107 (98-107) mmol/L Carbon Dioxide 21 L (22-30) mmol/L BUN 28 H (7-17) mg/dL Creatinine 0.93 (0.52-1.04) mg/dL Glucose 156 H (74-99) mg/dL Calcium 8.1 L (8.4-10.2) mg/dL Calcium panel 01/09/19 Range/Units 05:00 Calcium 8.1 L (8.4-10.2) mg/dL Pituitary panel 01/09/19 Range/Units 05:00 Sodium 137 (137-145) mmol/L Potassium 4.3 (3.5-5.1) mmol/L Chloride 107 (98-107) mmol/L Carbon Dioxide 21 L (22-30) mmol/L BUN 28 H (7-17) mg/dL Creatinine 0.93 (0.52-1.04) mg/dL Glucose 156 H (74-99) mg/dL Calcium 8.1 L (8.4-10.2) mg/dL Adrenal panel 01/09/19 Range/Units 05:00 Sodium 137 (137-145) mmol/L Potassium 4.3 (3.5-5.1) mmol/L Chloride 107 (98-107) mmol/L Carbon Dioxide 21 L (22-30) mmol/L BUN 28 H (7-17) mg/dL Creatinine 0.93 (0.52-1.04) mg/dL Glucose 156 H (74-99) mg/dL Calcium 8.1 L (8.4-10.2) mg/dL Assessment and Plan Plan: 63-year-old female with history of cirrhosis and chronic alcoholism. Currently, ammonia level is elevated and patient did develop significant vomiting episodes. CT of the abdomen and pelvis is pending. I do agree with medical management with lactulose. GI recommendations will also be appreciated secondary to liver cirrhosis. Continue nasogastric tube decompression. We will continue to follow the patient and make recommendations throughout the patient's admission. Prognosis is guarded.
--- NOTE | 2019-01-09 11:43 | P.PN ---
Subjective Progress Note Date: 01/09/19 This is a 63-year-old female one of my patient with a previous medical history significant for hypertension and hypertensive cardiovascular disease with left ventricular hypertrophy, diabetes mellitus type 2 with diabetic polyneuropathy, CVA, TIA, liver cirrhosis secondary to chronic alcohol use and dependence, pancytopenia secondary to liver cirrhosis, vaginal cancer status post vaginectomy, uterine cancer, seizure disorder, kyphoscoliosis, vascular dementia, hyperlipidemia. Patient also has chronic right great toe wound under the care of Dr. Davila. Patient is seen in the office weekly and his home care 2 times per week to do dressing changes. Sister gives history of having battled w ith C. difficile colitis for the past year and a half which is finally cleared under the care of Dr. Curran. Patient has had a loss of appetite, loss of weight. Her home care nurse was concerned that she wasn't oriented to time and place. She has some lower extremity edema. Symptoms have been worsening over the past 9 months. Patient complains of generalized weakness. She is currently residing at independent living at [facility]. Sister also states the patient had a fall yesterday as well as 2 weeks ago. Patient was brought into the emergency department at [facility] due to the above symptoms. She was afebrile, heart rate 104, blood pressure 122/78, pulse ox 97% on room air. White count was 5, hemoglobin 7.5, platelet count 72. Sodium 135, potassium 4.1, chloride 105, CO2 23, BUN 29 creatinine 0.99. Blood sugar was 226. Total bilirubin 5.3, AST 83, ALT 55, alkaline phosphatase 150. INR was elevated at 1.9. TSH 1.270. Lactic acid 3.3, proBNP 182. Troponin 0.0 36 and repeat is 0.044. Urinalysis was dark yellow, bilirubin negative, leukoesterase trace, WBCs 12, casts 30. Ammonia level LXXXIX, stool for occult blood positive. 01/09: A-Team was called on this patient this morning due to acute mental status changes, unable to follow commands and vomiting dark brown liquid. Abdomen was distended.. Patient was started on CIWA protocol per A-Team and was transferred to the selective care unit. Dr. Medina was notified and lactulose was increased to 30 g 3 times daily and NG tube was placed. Rifaximin 550mg BID through NG tube as ordered. Repeat ammonia 190. According to nursing, patient has not had a bowel movement since admission it had only received 1 dose of lactulose last evening. Stat CAT scan of the abdomen and pelvis ordered. Abdominal x-ray showed enteric tube is placed. Probable pancreatic calcifications of chronic pancreatitis. Gaseous distention without dilatation of what appears to be the transverse colon. Chest x-ray reveals strand like bibasilar opacities present. Likely atelectasis however surveillance is recommended to assess for developing pneumonia with clinical concern for aspiration. Alcohol level less than 10. Drug screen ordered. Troponins have been 0.036, 0.044 and 0.031. Iron studies show iron of 105, TIBC 234, iron saturation 44.87 and ferritin 106.6. Lactic acid this morning was 3.0. Repeat hemoglobin 8.9 and platelet count 61. Albumin 251 dose was ordered. Patient was afebrile, heart rate running in the 90s, blood pressure 111/61, pulse ox 94% on room air. Discuss CODE STATUS with patient's power of family protection specialist, Sister Zayra and patient is currently a full code but this may change after family discussion. Cardiology has evaluated the patient and acute coronary syndrome ruled out. Received call that echocardiogram found pleural effusion that we'll need further evaluation. Consult added for Dr. Ramos. Gallbladder ultrasound done yesterday showed mild abdominal ascites. No dilated ducts. Mild gallbladder wall thickening. Right kidney shows no hydronephrosis. Limited study due to body habitus. Midline has been ordered for IV access. Consult was added with Dr. Persaud with recommendations to continue NG tube decompression and will continue to follow. Objective - Vital Signs Vital signs: Vital Signs Temp 96.3 F L 01/09/19 05:20 Pulse 103 H 01/09/19 05:20 Resp 20 01/09/19 05:20 BP 111/61 01/09/19 05:20 Pulse Ox 94 L 01/09/19 05:20 Intake & Output 01/08/19 01/09/19 01/09/19 18:59 06:59 18:59 Output Total 1100 300 Balance -1100 -300 Output: Gastric Drainage 300 Urine 500 Straight 500 Emesis 600 Other: Voiding Method Toilet # Voids 1 - Exam Review of systems: Unable to assess due to mental status changes. Physical exam: - Constitutional General appearance: no distress - EENT Eyes: PERRLA, no ptosis, scleral icterus, normal apperance ENT: hard of hearing, normal oropharynx, no thrush Ears: bilateral: normal - Neck Neck: no lymphadenopathy, normal ROM, no rigidity, no stridor, no thyromegaly Carotids: bilateral: upstroke delayed Thyroid: bilateral: normal size - Respiratory Respiratory: bilateral: diminished, negative: dullness, rales, rhonchi, wheezing, prolonged expiration - Cardiovascular Rhythm: regular Heart sounds: normal: S1, S2 Abnormal Heart Sounds: systolic murmur, no S3 Gallop, no S4 Gallop, no click - Gastrointestinal General gastrointestinal: Round, hepatomegaly, normal bowel sounds, soft, splenomegaly, no umbilical hernia, no ventral hernia - Integumentary Integumentary: normal, normal turgor Healing wound to the right great toe. No signs of infection. - Neurologic Neurologic: CNII-XII intact - Musculoskeletal Musculoskeletal: generalized weakness - Psychiatric Psychiatric: no A&O x's 3, no appropriate affect, no intact judgment & insight, unable to follow commands - Labs CBC & Chem 7: 01/09/19 05:00 01/09/19 05:00 Labs: Abnormal Lab Results - Last 24 Hours (Table) 01/08/19 01/08/19 01/08/19 Range/Units 11:11 11:11 11:11 RBC 2.63 L (3.80-5.40) m/uL Hgb 8.6 L (11.4-16.0) gm/dL Hct 26.7 L (34.0-46.0) % MCV 101.5 H D (80.0-100.0) fL RDW 24.5 H (11.5-15.5) % Plt Count 61 L (150-450) k/uL Lymphocytes # (1.0-4.8) k/uL Macrocytosis Marked A Carbon Dioxide (22-30) mmol/L BUN (7-17) mg/dL Glucose (74-99) mg/dL POC Glucose (mg/dL) (75-99) mg/dL Plasma Lactic Acid Rinku (0.7-2.0) mmol/L Calcium (8.4-10.2) mg/dL Ammonia (<30) umol/L Troponin I 0.044 H* (0.000-0.034) ng/mL Carcinoembryonic Ag 14.0 H (0.0-4.9) ng/mL CA 19-9 Antigen 50.9 H (0.0-34.9) U/mL 01/08/19 01/08/19 01/08/19 Range/Units 13:25 17:09 19:37 RBC (3.80-5.40) m/uL Hgb (11.4-16.0) gm/dL Hct (34.0-46.0) % MCV (80.0-100.0) fL RDW (11.5-15.5) % Plt Count (150-450) k/uL Lymphocytes # (1.0-4.8) k/uL Macrocytosis Carbon Dioxide (22-30) mmol/L BUN (7-17) mg/dL Glucose (74-99) mg/dL POC Glucose (mg/dL) 101 H 121 H 144 H (75-99) mg/dL Plasma Lactic Acid Rinku (0.7-2.0) mmol/L Calcium (8.4-10.2) mg/dL Ammonia (<30) umol/L Troponin I (0.000-0.034) ng/mL Carcinoembryonic Ag (0.0-4.9) ng/mL CA 19-9 Antigen (0.0-34.9) U/mL 01/09/19 01/09/19 01/09/19 Range/Units 00:14 05:00 05:00 RBC 2.68 L (3.80-5.40) m/uL Hgb 8.9 L (11.4-16.0) gm/dL Hct 28.0 L (34.0-46.0) % MCV 104.5 H (80.0-100.0) fL RDW 23.8 H (11.5-15.5) % Plt Count 61 L (150-450) k/uL Lymphocytes # 0.3 L (1.0-4.8) k/uL Macrocytosis Marked A Carbon Dioxide 21 L (22-30) mmol/L BUN 28 H (7-17) mg/dL Glucose 156 H (74-99) mg/dL POC Glucose (mg/dL) 113 H (75-99) mg/dL Plasma Lactic Acid Rinku (0.7-2.0) mmol/L Calcium 8.1 L (8.4-10.2) mg/dL Ammonia (<30) umol/L Troponin I (0.000-0.034) ng/mL Carcinoembryonic Ag (0.0-4.9) ng/mL CA 19-9 Antigen (0.0-34.9) U/mL 01/09/19 01/09/19 01/09/19 Range/Units 05:00 05:16 08:54 RBC (3.80-5.40) m/uL Hgb (11.4-16.0) gm/dL Hct (34.0-46.0) % MCV (80.0-100.0) fL RDW (11.5-15.5) % Plt Count (150-450) k/uL Lymphocytes # (1.0-4.8) k/uL Macrocytosis Carbon Dioxide (22-30) mmol/L BUN (7-17) mg/dL Glucose (74-99) mg/dL POC Glucose (mg/dL) 163 H 150 H (75-99) mg/dL Plasma Lactic Acid Rinku 3.0 H* (0.7-2.0) mmol/L Calcium (8.4-10.2) mg/dL Ammonia 190 H (<30) umol/L Troponin I (0.000-0.034) ng/mL Carcinoembryonic Ag (0.0-4.9) ng/mL CA 19-9 Antigen (0.0-34.9) U/mL Microbiology - Last 24 Hours (Table) 01/07/19 19:00 Urine Culture - Preliminary Urine,Voided Presumptive Staph aureus Assessment and Plan Plan: 1. Hepatic encephalopathy with elevated ammonia secondary to alcoholic liver cirrhosis, currently obtunded. Lactulose 30 mg increased to 3 times daily and Xifaxan 550 mg increased to twice daily to be given per NG tube. Hold Aldactone 25 mg twice daily and Lasix. Consults with GI and general surgery appreciated. Patient transferred to the cardiac stepdown unit. No recent alcohol use. CAT scan of the abdomen and pelvis with contrast ordered. Continue Levaquin and Flagyl. Ascites is minimal at this time with no plan for paracentesis. 2. Possible aspiration pneumonia with mental status changes and emesis. Continue Levaquin and Flagyl. 3. Pleural effusion. Consult with Dr. Ramos. 4. Generalized weakness with anemia, possible acute blood loss and anemia on top of chronic anemia of alcoholism. Stool for occult blood is positive. Monitor hemoglobin. GI consult. Continue ferrous sulfate 325 mg daily. Obtain CA 199, CEA, alpha-fetoprotein tumor marker. Iron studies as above. Patient has been transfused 1 unit packed RBCs and 2 units of fresh frozen plasma. 5. Bicytopenia secondary to alcoholic liver cirrhosis as well as bone marrow suppression. Patient was seen and evaluated by hematology oncology in the past underwent bone marrow biopsy did not show any evidence of myelodysplasia. Continue B12 1000 mcg orally once every day, folic acid 1 mg orally once every day. Patient has been transfused 1 unit packed RBCs and 2 units of fresh frozen plasma. 6. Elevated troponin. Consult cardiology appreciated. Echocardiogram has been ordered. Acute coronary syndrome ruled out. 7. Hypertension and hypertensive cardiovascular disease. Continue lisinopril 2.5 mg orally once every day and atenolol 25 mg orally once every day. 8. Alcoholic liver disease with elevated bilirubin and liver function tests. Continue as in #1. Monitor CMP. Consults with GI and general surgery appreciated. 9. Diabetes mellitus type 2. Diet-controlled. NovoLog scale before meals and at bedtime 10. Hypothyroidism. Continue levothyroxine. TSH normal. 11. Seizure disorder by history. Patient is off Keppra. 12. History of hyperlipidemia. Resolved 13. Vascular dementia, and possibly alcohol induced frontload dementia. Continue vitamin supplement for now. 14. History of chronic alcohol use and dependence. Patient has abstained from alcohol for 913 days. 15. Rheumatoid arthritis. Patient not taking any medication at this time. 16. History of diabetic polyneuropathy. Stable at this time. 17. History of vaginal cancer status post total abdominal hysterectomy as well as bilateral salpingo-nephrectomy along with vaginectomy 18. DVT prophylaxis. Bilateral knee-high SOLEDAD hose 19. GI prophylaxis. Continue PPI. No heparin due to thrombocytopenia. 20. Patient will be admitted to the hospital for a minimum of 2 night stay. 21. Patient is full code. Discussed with patient's sister on January 09. Patient will remain full code until family will discuss. Discharge plan: To be determined. PT and OT added. Social work consult. Patient is currently at independent living at [facility]. Impression and plan of care have been directed as dictated by the signing marisol joseph. Majo Hawkins nurse practitioner acting as scribe for signing physician.
--- NOTE | 2019-01-09 11:43 | ECHOF ---
Referral Reason:htn MEASUREMENTS -------- HEIGHT: 160.0 cm WEIGHT: 68.0 kg BP: 111/61 RVIDd: 2.8 cm (< 3.3) IVSd: 0.9 cm (0.6 - 1.1) LVIDd: 4.8 cm (3.9 - 5.3) LVPWd: 1.0 cm (0.6 - 1.1) IVSs: 1.3 cm LVIDs: 2.2 cm LVPWs: 1.7 cm LA Diam: 3.1 cm (2.7 - 3.8) LAESV Index (A-L): 13.41 ml/m Ao Diam: 3.2 cm (2.0 - 3.7) AV Cusp: 2.2 cm (1.5 - 2.6) MV EXCURSION: 12.690 mm (> 18.000) MV EF SLOPE: 85 mm/s (70 - 150) EPSS: 1.0 cm MV E Clifford: 0.81 m/s MV DecT: 129 ms MV A Clifford: 1.00 m/s MV E/A Ratio: 0.81 RAP: 5.00 mmHg RVSP: 26.52 mmHg FINDINGS -------- Sinus rhythm. This was a technically adequate study. The left ventricular size is normal. Left ventricular wall thickness is normal. Overall left vent ricular systolic function is normal with, an EF between 60 - 65 %. The right ventricle is normal in size. Normal LA size by volume 22+/-6 ml/m2. The right atrium is normal in size. Interatrial and interventricular septum intact. The aortic valve is trileaflet and appears structurally normal. The mitral valve is normal. Mild tricuspid regurgitation present. Right ventricular systolic pressure is normal at < 35 mmHg. There is no pulmonic regurgitation present. The aortic root size is normal. IVC Not well visulized. There is no pericardial effusion. Pleural Effusion with Fibrin. CONCLUSIONS -------- 1. Sinus rhythm. 2. This was a technically adequate study. 3. The left ventricular size is normal. 4. Left ventricular wall thickness is normal. 5. Overall left ventricular systolic function is normal with, an EF between 60 - 65 %. 6. The right ventricle is normal in size. 7. Normal LA size by volume 22+/-6 ml/m2. 8. The right atrium is normal in size. 9. Interatrial and interventricular septum intact. 10. The aortic valve is trileaflet and appears structurally normal. 11. The mitral valve is normal. 12. Mild tricuspid regurgitation present. 13. Right ventricular systolic pressure is normal at < 35 mmHg. 14. There is no pulmonic regurgitation present. 15. The aortic root size is normal. 16. IVC Not well visulized. 17. There is no pericardial effusion. 18. Pleural Effusion with Fibrin. EDITOR MANAGING NEWSPAPER: Mariela Brown RDCS
[2019-01-09] MEDS: INSULIN ASPART (NovoLOG) 100 UNIT/ML VIAL SQ SCH ×4 (11:45→21:57)
[2019-01-09] MEDS: LISINOPRIL 2.5 MG TAB PO SCH (11:46)
[2019-01-09] MEDS: POTASSIUM CHLORIDE ER 20 MEQ TAB.ER PO SCH ×2 (11:46→20:24)
[2019-01-09] MEDS: CYANOCOBALAMIN 500 MCG TAB PO SCH (11:46)
[2019-01-09] MEDS: CALCITONIN 200 USP/1 NASAL SPRAY 3.7ML BTL NASAL SCH (11:46)
[2019-01-09] MEDS: MAGNESIUM OXIDE 400 MG TAB PO SCH (11:46)
[2019-01-09] MEDS: FOLIC ACID 1 MG TAB PO SCH (11:46)
[2019-01-09] MEDS: FERROUS SULFATE 325 MG TAB PO SCH (11:46)
[2019-01-09] MEDS: ATENOLOL 25 MG TAB PO SCH (11:47)
[2019-01-09] MEDS: SPIRONOLACTONE 25 MG TAB PO SCH ×2 (11:47→20:24)
[2019-01-09 12:12] LABS: Urine Alcohol Negative (Negative); Urine Barbiturate Negative (Negative); Urine Cocaine Negative (Negative); Urine Methadone Negative (Negative); Urine Opiates Negative (Negative); Urine Phencyclidine Negative (Negative)
[2019-01-09] MEDS: LEVOTHYROXINE IVP 100 MCG/5 ML VIAL IV SCH (12:41)
[2019-01-09] MEDS: IOPAMIDOL-300 CONTRAST 30 ML VIAL (ORAL USE) PO PRN ×2 (12:41→14:03)
[2019-01-09] MEDS: RIFAXIMIN 550 MG TABLET PO SCH ×2 (12:43→20:21)
[2019-01-09] MEDS: FUROSEMIDE 20 MG TAB PO SCH ×2 (12:45→17:05)
[2019-01-09 12:50] LABS: Glucose,Whole Blood 148 mg/dL (75-99)
[2019-01-09] MEDS: metroNIDAZOLE-NS PMX 500 MG in SALINE 1 100ML.BAG IVPB SCH ×3 (13:03→23:11)
[2019-01-09 13:22] LABS: Mean Platelet Volume 8.7
[2019-01-09 13:27] LABS: Platelet Count 61 k/uL (150-450)
[2019-01-09 13:30] LABS: Hemoglobin A1C 4.8 % (4.0-6.0)
--- NOTE | 2019-01-09 13:32 | P.CONS ---
History of Present Illness - Reason for Consult Consult date: 01/09/19 Cirrhosis elevated ammonia level Requesting physician: Guillermina Paris - Chief Complaint Change in mental status - History of Present Illness 63-year-old female patient of Dr. Morton with a history of known alcohol liver disease cirrhosis portal hypertension and portal hypertensive gastropathy presents with altered mental status nausea vomiting. Sister at bedside and assisted with medical history. Admission ammonia 89 increase to 190 this morning. NG tube inserted receiving lactulose and Xifaxan. Admission white count 5.9. Hemoglobin 7.5. MCV 104. Platelets 72,000. INR 1.9. Total bilirubin 5.3. AST 83. ALT 55. AP 150. BUN 29. Creatinine 0.9. FOBT positive. AFP 5.4. Iron 105. Iron saturation 44%. Ferritin 106. Previous hemoglobin January 2017 was 13.9. MCV 106. Platelet 70,000. EGD September 2015 no evidence of esophageal varices portal congestive gastropathy. Remote colonoscopy. Sister reports no overt bleeding such as hematemesis or melena but thinks she had a bowel movement that might have had blood in it and stool occult blood was positive. Last alcohol drink 3 years ago. Present white count 4.6. Hemoglobin 8.9. Platelets 61,000. Afebrile. Ultrasound abdomen mild amount of fluid seen within the abdomen. CBD 0.4 cm. Past Medical History Past Medical History: Blood Disorder, Cancer, CVA/TIA, Diabetes Mellitus, GERD/Reflux, Hearing Disorder / Deafness, Hyperlipidemia, Hypertension, Memory Impairment, Neurologic Disorder, Osteoarthritis (OA), Seizure Disorder Additional Past Medical History / Comment(s): MIGRAINES, LOW BACK PAIN, NECK PAIN, OSTEOPOROSIS, NEUROPATHY,. uterine, ovarian and vaginal CA. "They think I absorbed my twin , I have 2 sets of vagina, 2 uterus, 2 sets of tubes etc" History of Any Multi-Drug Resistant Organisms: C-DIFF, MRSA Year Discovered:: 2013- 2018 cdiff MDRO Source:: RIGHT KNEE Past Surgical History: Adenoidectomy, Hysterectomy, Orthopedic Surgery, Tonsillectomy Additional Past Surgical History / Comment(s): RIGHT KNEE SURGERY, Radiation treatment - 1983 - Has radiation luna. gangrene cyst left wrist removed, rt index finger surgery, lymph node multiple removed - all negative, carpal tunnel release, lymph node dissection secondary to uterine cancer, right breast lumpectomy, posterior cervical discectomy with fusion, lumbar discectomy, right forearm tendon repair, right index finger tendon repair, bone marrow biopsy, appendectomy, total abdominal hysterectomy and bilateral salpingo-oophorectomy, carpal tunnel release, EGD and colonoscopy Past Anesthesia/Blood Transfusion Reactions: No Reported Reaction Past Psychological History: No Psychological Hx Reported Smoking Status: Never smoker Past Alcohol Use History: None Reported Past Drug Use History: None Reported - Past Family History Father Family Medical History: Renal Disease (Father at age 94 from an surgery disease as well as prostate cancer so did have coronary artery disease.) Additional Family Medical History / Comment(s): Father at age 94 from an surgery disease as well as prostate cancer so did have coronary artery disease. Sister(s) Family Medical History: No Reported History (Patient has 3 sisters no major medical problems) Additional Family Medical History / Comment(s): Patient has 3 sisters no major medical problems Brother(s) Family Medical History: No Reported History (Patient has one brother no major medical problems) Additional Family Medical History / Comment(s): (Patient has one brother no major medical problems Mother Family Medical History: Diabetes Mellitus (Mother is 90-year-old has history of diabetes type 2, chronic kidney disease, as well as dementia.) Additional Family Medical History / Comment(s): breast, cervial Ca run in family. Mother had history of diabetes type 2, chronic kidney disease, as well as dementia Medications and Allergies Home Medications Medication Instructions Recorded Confirmed Type Atenolol [Tenormin] 25 mg PO DAILY 02/02/14 01/07/19 History Lisinopril [Zestril] 2.5 mg PO DAILY 02/02/14 01/07/19 History Ergocalciferol [Vitamin D2 50,000 unit PO FR 10/05/15 01/07/19 History (DRISDOL)] Ferrous Sulfate [Iron (65 MG 325 mg PO DAILY 10/05/15 01/07/19 History Elemental)] Folic Acid 1 mg PO DAILY 06/29/16 01/07/19 History Meade-3 Fatty Acids/Fish Oil [Fish 1 cap PO DAILY 06/29/16 01/07/19 History Oil 1,000 mg Softgel] Vitamin B Complex 1 cap PO DAILY 06/29/16 01/07/19 History Calcitonin Nasal [Fortical 1 spray NASAL DAILY 01/07/19 01/07/19 History (Miacalcin)] Cyanocobalamin [Vitamin B-12] 1,000 mcg PO DAILY 01/07/19 01/07/19 History Dicyclomine [Bentyl] 20 mg PO TID 01/07/19 01/07/19 History Furosemide [Lasix] 20 mg PO BID 01/07/19 01/07/19 History Glimepiride [Amaryl] 4 mg PO BID 01/07/19 01/07/19 History Levothyroxine Sodium [Synthroid] 25 mcg PO DAILY 01/07/19 01/07/19 History Magnesium Oxide 400 mg PO DAILY 01/07/19 01/07/19 History Mirtazapine [Remeron] 15 mg PO HS 01/07/19 01/07/19 History Potassium Chloride ER [K-Dur 20] 20 meq PO BID 01/07/19 01/07/19 History Spironolactone [Aldactone] 25 mg PO BID 01/07/19 01/07/19 History Allergies Allergy/AdvReac Type Severity Reaction Status Date / Time cephalexin monohydrate Allergy Rash/Hives Verified 01/07/19 19:12 [From Keflex] Penicillins Allergy Unknown Verified 01/07/19 19:12 PEPPERS Allergy SEIZURES Uncoded 01/07/19 16:55 Physical Exam Vitals: Vital Signs Temp Pulse Pulse Resp BP BP Pulse Ox 01/09/19 08:40 97 01/09/19 05:20 96.3 F L 103 H 20 111/61 94 L 01/08/19 23:15 16 01/08/19 20:58 98.5 F 82 16 113/64 98 01/08/19 16:00 82 17 01/08/19 15:27 97.8 F 82 17 102/59 98 01/08/19 14:55 97.9 F 84 18 108/79 98 01/08/19 14:00 80 18 103/79 99 01/08/19 13:30 90 20 110/78 99 01/08/19 13:00 90 20 118/82 99 01/08/19 12:30 90 18 96/66 99 01/08/19 12:00 80 16 99/62 99 Intake and Output 01/08/19 01/09/19 01/09/19 22:59 06:59 14:59 Output Total 1100 300 Balance -1100 -300 Output: Gastric Drainage 300 Urine 500 Straight 500 Emesis 600 Other: Voiding Method Toilet # Voids 1 Weight 68.039 kg General appearance: The patient is confused, in no acute distress. Jaundice. HET: Head is normocephalic and atraumatic. Pupils are equal and reactive. Oropharynx is clear without lesions. NG tube with bilious fluid. Sclerae icterus. Neck: Supple without lymphadenopathy. Trachea midline. Heart: S1 S2. Regular rate and rhythm. Lungs: No crackles or wheezes are heard. Abdomen: Soft, mildly bloated with bowel sounds. No peritoneal signs. No palpable organomegaly or masses. Extremities: Normal skin color and turgor. No cyanosis, rash, ulceration, clubbing, or edema. Radial and pedal pulses are 2/4 bilaterally. Neurological: No focal deficits. Strength and sensation are grossly intact. Results CBC & Chem 7: 01/09/19 10:51 01/09/19 05:00 Labs: Abnormal Lab Results - Last 24 Hours (Table) 01/08/19 01/08/19 01/08/19 Range/Units 11:11 11:11 11:11 RBC 2.63 L (3.80-5.40) m/uL Hgb 8.6 L (11.4-16.0) gm/dL Hct 26.7 L (34.0-46.0) % MCV 101.5 H D (80.0-100.0) fL RDW 24.5 H (11.5-15.5) % Plt Count 61 L (150-450) k/uL Lymphocytes # (1.0-4.8) k/uL Macrocytosis Marked A Carbon Dioxide (22-30) mmol/L BUN (7-17) mg/dL Glucose (74-99) mg/dL POC Glucose (mg/dL) (75-99) mg/dL Plasma Lactic Acid Rinku (0.7-2.0) mmol/L Calcium (8.4-10.2) mg/dL Ammonia (<30) umol/L Troponin I 0.044 H* (0.000-0.034) ng/mL Carcinoembryonic Ag 14.0 H (0.0-4.9) ng/mL CA 19-9 Antigen 50.9 H (0.0-34.9) U/mL 01/08/19 01/08/19 01/08/19 Range/Units 13:25 17:09 19:37 RBC (3.80-5.40) m/uL Hgb (11.4-16.0) gm/dL Hct (34.0-46.0) % MCV (80.0-100.0) fL RDW (11.5-15.5) % Plt Count (150-450) k/uL Lymphocytes # (1.0-4.8) k/uL Macrocytosis Carbon Dioxide (22-30) mmol/L BUN (7-17) mg/dL Glucose (74-99) mg/dL POC Glucose (mg/dL) 101 H 121 H 144 H (75-99) mg/dL Plasma Lactic Acid Rinku (0.7-2.0) mmol/L Calcium (8.4-10.2) mg/dL Ammonia (<30) umol/L Troponin I (0.000-0.034) ng/mL Carcinoembryonic Ag (0.0-4.9) ng/mL CA 19-9 Antigen (0.0-34.9) U/mL 01/09/19 01/09/19 01/09/19 Range/Units 00:14 05:00 05:00 RBC 2.68 L (3.80-5.40) m/uL Hgb 8.9 L (11.4-16.0) gm/dL Hct 28.0 L (34.0-46.0) % MCV 104.5 H (80.0-100.0) fL RDW 23.8 H (11.5-15.5) % Plt Count 61 L (150-450) k/uL Lymphocytes # 0.3 L (1.0-4.8) k/uL Macrocytosis Marked A Carbon Dioxide 21 L (22-30) mmol/L BUN 28 H (7-17) mg/dL Glucose 156 H (74-99) mg/dL POC Glucose (mg/dL) 113 H (75-99) mg/dL Plasma Lactic Acid Rinku (0.7-2.0) mmol/L Calcium 8.1 L (8.4-10.2) mg/dL Ammonia (<30) umol/L Troponin I (0.000-0.034) ng/mL Carcinoembryonic Ag (0.0-4.9) ng/mL CA 19-9 Antigen (0.0-34.9) U/mL 01/09/19 01/09/19 01/09/19 Range/Units 05:00 05:16 08:54 RBC (3.80-5.40) m/uL Hgb (11.4-16.0) gm/dL Hct (34.0-46.0) % MCV (80.0-100.0) fL RDW (11.5-15.5) % Plt Count (150-450) k/uL Lymphocytes # (1.0-4.8) k/uL Macrocytosis Carbon Dioxide (22-30) mmol/L BUN (7-17) mg/dL Glucose (74-99) mg/dL POC Glucose (mg/dL) 163 H 150 H (75-99) mg/dL Plasma Lactic Acid Rinku 3.0 H* (0.7-2.0) mmol/L Calcium (8.4-10.2) mg/dL Ammonia 190 H (<30) umol/L Troponin I (0.000-0.034) ng/mL Carcinoembryonic Ag (0.0-4.9) ng/mL CA 19-9 Antigen (0.0-34.9) U/mL Microbiology - Last 24 Hours (Table) 01/07/19 19:00 Urine Culture - Preliminary Urine,Voided Presumptive Staph aureus US - abdomen: report reviewed (Dr. Medina) Assessment and Plan (1) Hepatic encephalopathy Current Visit: Yes Status: Acute Code(s): K72.90 - HEPATIC FAILURE, UNSPECIFIED WITHOUT COMA SNOMED Code(s): 12129885 (2) Decompensated liver disease Narrative/Plan: MELD score 21. Current Visit: Yes Status: Acute Code(s): K74.69 - OTHER CIRRHOSIS OF LIVER SNOMED Code(s): 50614683 (3) History of ETOH abuse Current Visit: Yes Status: Acute Code(s): F10.11 - ALCOHOL ABUSE, IN REMISSION SNOMED Code(s): 536514602 (4) Thrombocytopenia Current Visit: Yes Status: Acute Code(s): D69.6 - THROMBOCYTOPENIA, UNSPECIFIED SNOMED Code(s): 127736639 (5) Coagulopathy Current Visit: Yes Status: Acute Code(s): D68.9 - COAGULATION DEFECT, UNSPECIFIED SNOMED Code(s): 01044305 (6) Macrocytic anemia Narrative/Plan: No clinical evidence of overt GI bleeding such as hematemesis hematochezia melena guaiac stool positive suspected underlying nutritional anemia secondary to underlying alcohol liver disease cirrhosis. Current Visit: Yes Status: Acute Code(s): D53.9 - NUTRITIONAL ANEMIA, UNSPECIFIED SNOMED Code(s): 70359475 (7) Guaiac + stool Current Visit: Yes Status: Acute Code(s): R19.5 - OTHER FECAL ABNORMALITIES SNOMED Code(s): 31931619 (8) Alcoholic liver disease Current Visit: Yes Status: Acute Code(s): K70.9 - ALCOHOLIC LIVER DISEASE, UNSPECIFIED SNOMED Code(s): 78089040 Plan: 1. Continue present medical therapy including Feosol vitamin B12 folic acid and diuretics. Lactulose 30 g 3 times a day titrated 3-4 bowel movements daily. Xifaxan 550 mg twice daily. Continue to monitor for any overt signs and symptoms of bleeding such as hematemesis hematochezia or melena. Inpatient endoscopic exams will be contingent on clinical course but not planned at this time. 2. Daily monitoring CMP PT/INR ammonia CBC. 3. Computed tomography scan abdomen pending. Thank you for this kind referral and the opportunity to participate in the care of your patient. This consultation was discussed with Dr. Patricia. The impression and plan of care have been directed as dictated.
--- NOTE | 2019-01-09 13:38 | US ---
EXAMINATION TYPE: US abdomen limited DATE OF EXAM: 01/09/2019 COMPARISON: NONE CLINICAL HISTORY: ascites. Ascites check FINDINGS: Ascites seen within all 4 quadrants with largest pocket in RUQ. Incidentally cirrhotic morp hology of the liver is partially visualized. IMPRESSION: Small volume abdominopelvic ascites seen in all 4 quadrants
[2019-01-09 14:10] LABS: INR 1.7 (<1.2); Prothrombin Time 17.2 sec (9.0-12.0)
--- NOTE | 2019-01-09 15:08 | CT ---
EXAMINATION TYPE: CT abdomen pelvis w con DATE OF EXAM: 01/09/2019 COMPARISON: 01/11/2017 HISTORY: Abdominal pain and distention CT DLP: 1295.1 mGycm Automated exposure control for dose reduction was used. CONTRAST: CT scan of the abdomen pelvis is performed, patient injected with 100 mL of Isovue 300. FINDINGS- LUNG BASES-subsegmental consolidation at both lung bases. ABDOMEN: There is a moderate amount ascites. The liver is small in size and nodular with evidence of varices and splenomegaly compatible with hepatocellular disease. Correlate for cirrhosis. Portal vein demonstrates normal enhancement. Mesenteric vasculature enhances normally. There appears to be a numerous calcifications in the pancreas suggestive of chronic pancreatitis. NG tube is noted. Adrenal glands have a normal appearance. There is distention of the colon and there ap pears be mild wall thickening of the small bowel diffusely. Air is seen to the level the rectum. No obvious hydronephrosis. Aorta of normal caliber. Hypertrophic and degenerative change of the spine are noted. There is fusion at L4-L5. Diffuse soft tissue anasarca noted. Correlate for fecal impacti on of the rectum. Small anterior abdominal wall fat-containing hernia contains prominent blood vessels may be related t o recanalized periumbilical vein. IMPRESSION- 1. Moderate amount of ascites with findings suggestive of hepatic cirrhosis. 2. Splenomegaly and intra-abdominal varices also compatible with cirrhosis. 3. Small bowel demonstrates diffuse mild wall thickening may be is related to the ascites. Correlate clinically to exclude an enteritis. 4. chronic pancreatitis 5. Large bowel appears to be dilated with No definite transition. There is significant amount of gisselle ined fecal debris in the rectosigmoid region correlate for constipation.
--- NOTE | 2019-01-09 15:57 | P.CNPUL ---
History of Present Illness Consult date: 01/09/19 Chief complaint: Pleural effusion History of present illness: 63-year-old female patient, alcoholic, known history of alcoholic liver cirrhosis along with portal hypertension and previous history of portal hypertensive gastropathy, came into the hospital because of altered mental status and nausea vomiting. The patient had an ammonia level of 89 which further decreased to 190. NG tube was inserted and the patient was started on lactulose and Xifaxan. The patient has a fecal occult blood that was positive. Hemoglobin on the time of admission was 7.5 with a platelet count of 72. Coagulation profile is abnormal secondary to coagulopathy, liver induced. I was asked to evaluate this patient because of pleural effusions. The patient is currently on room air. NG tube is in place. She is not having any respiratory difficulties. No reported aspiration. She is currently on Levaquin and Flagyl as empiric antibiotic coverage. No cough. No sputum production. The CAT scan of the abdomen and pelvis was also done which showed the lung bases and there is no evidence of any infiltrates or pleural effusion and there was some indication of ascites and moderate amount of ascitic fluid was present related to hepatic cirrhosis. There was splenomegaly and intra-abdominal varices also compatible with cirrhosis. There is small bone diffuse mild wall thickening in addition to chronic pancreatitis and large bowel appeared to be dilated without any evidence of transition point. There was fecal material retained in the rectosigmoid area. For that reason a surgical consultation was also obtained. The patient's abdomen is slightly distended is nontender at this point in time. NG tube is in place for now. Output is minimal. Review of Systems ROS unobtainable: due to mental status Constitutional: Reports anorexia, Reports daytime sleepiness, Reports fatigue, R eports lethargy, Reports poor appetite, Reports weakness, Reports weight loss Eyes: denies blurred vision, denies bulging eye, denies decreased vision Ears: deny: decreased hearing, ear discharge, earache, tinnitus Ears, nose, mouth and throat: Denies headache, Denies sore throat Breasts: absent: as per HPI, change in shape, gynecomastia, masses, nipple discharge, pain, skin changes, swelling Cardiovascular: Reports decreased exercise tolerance, Reports dyspnea on exerti on Respiratory: Reports dyspnea Gastrointestinal: Reports as per HPI, Reports bloating Genitourinary: Reports as per HPI Musculoskeletal: Reports as per HPI Musculoskeletal: absent: ankle pain, ankle stiffness, ankle swelling Integumentary: Reports as per HPI Neurological: Reports as per HPI, Reports balance difficulties, Reports confusion, Reports motor disturbance, Reports weakness Psychiatric: Reports as per HPI Endocrine: Reports as per HPI, Reports fatigue Hematologic/Lymphatic: Reports easy bleeding, Reports easy bruising Allergic/Immunologic: Reports as per HPI Past Medical History Past Medical History: Blood Disorder, Cancer, CVA/TIA, Diabetes Mellitus, GERD/Reflux, Hearing Disorder / Deafness, Hyperlipidemia, Hypertension, Memory Impairment, Neurologic Disorder, Osteoarthritis (OA), Seizure Disorder Additional Past Medical History / Comment(s): Liver cirrhosis, chronic back pain, chronic neck pain, osteoporosis, peripheral neuropathy, acid reflux, hyperlipidemia, hypertension, portal hypertension and portal gastropathy, history of seizure disorder, coagulopathy related to liver cirrhosis, migraines, questionable history of [employer] cancer either ovarian versus uterine , uterine is favored. History of Any Multi-Drug Resistant Organisms: C-DIFF, MRSA Date of last positivie culture/infection: 2013- 2018 cdiff MDRO Source:: RIGHT KNEE Past Surgical History: Adenoidectomy, Hysterectomy, Orthopedic Surgery, Tonsillectomy Additional Past Surgical History / Comment(s): RIGHT KNEE SURGERY, Radiation treatment - 1983 - Has radiation luna. gangrene cyst left wrist removed, rt index finger surgery, lymph node multiple removed - all negative, carpal tunnel release, lymph node dissection secondary to uterine cancer, right breast lumpectomy, posterior cervical discectomy with fusion, lumbar discectomy, right forearm tendon repair, right index finger tendon repair, bone marrow biopsy, appendectomy, total abdominal hysterectomy and bilateral salpingo-oophorectomy, carpal tunnel release, EGD and colonoscopy Past Anesthesia/Blood Transfusion Reactions: No Reported Reaction Past Psychological History: No Psychological Hx Reported Smoking Status: Never smoker Past Alcohol Use History: None Reported Past Drug Use History: None Reported - Past Family History Father Family Medical History: Renal Disease (Father at age 94 from an surgery disease as well as prostate cancer so did have coronary artery disease.) Additional Family Medical History / Comment(s): Father at age 94 from an surgery disease as well as prostate cancer so did have coronary artery disease. Sister(s) Family Medical History: No Reported History (Patient has 3 sisters no major medical problems) Additional Family Medical History / Comment(s): Patient has 3 sisters no major medical problems Brother(s) Family Medical History: No Reported History (Patient has one brother no major medical problems) Additional Family Medical History / Comment(s): (Patient has one brother no major medical problems Mother Family Medical History: Diabetes Mellitus (Mother is 90-year-old has history of diabetes type 2, chronic kidney disease, as well as dementia.) Additional Family Medical History / Comment(s): breast, cervial Ca run in family. Mother had history of diabetes type 2, chronic kidney disease, as well as dementia Medications and Allergies Home Medications Medication Instructions Recorded Confirmed Type Atenolol [Tenormin] 25 mg PO DAILY 02/02/14 01/07/19 History Lisinopril [Zestril] 2.5 mg PO DAILY 02/02/14 01/07/19 History Ergocalciferol [Vitamin D2 50,000 unit PO FR 10/05/15 01/07/19 History (DRISDOL)] Ferrous Sulfate [Iron (65 MG 325 mg PO DAILY 10/05/15 01/07/19 History Elemental)] Folic Acid 1 mg PO DAILY 06/29/16 01/07/19 History [place]-3 Fatty Acids/Fish Oil [Fish 1 cap PO DAILY 06/29/16 01/07/19 History Oil 1,000 mg Softgel] Vitamin B Complex 1 cap PO DAILY 06/29/16 01/07/19 History Calcitonin Nasal [Fortical 1 spray NASAL DAILY 01/07/19 01/07/19 History (Miacalcin)] Cyanocobalamin [Vitamin B-12] 1,000 mcg PO DAILY 01/07/19 01/07/19 History Dicyclomine [Bentyl] 20 mg PO TID 01/07/19 01/07/19 History Furosemide [Lasix] 20 mg PO BID 01/07/19 01/07/19 History Glimepiride [Amaryl] 4 mg PO BID 01/07/19 01/07/19 History Levothyroxine Sodium [Synthroid] 25 mcg PO DAILY 01/07/19 01/07/19 History Magnesium Oxide 400 mg PO DAILY 01/07/19 01/07/19 History Mirtazapine [Remeron] 15 mg PO HS 01/07/19 01/07/19 History Potassium Chloride ER [K-Dur 20] 20 meq PO BID 01/07/19 01/07/19 History Spironolactone [Aldactone] 25 mg PO BID 01/07/19 01/07/19 History Allergies Allergy/AdvReac Type Severity Reaction Status Date / Time cephalexin monohydrate Allergy Rash/Hives Verified 01/07/19 19:12 [From Keflex] Penicillins Allergy Unknown Verified 01/07/19 19:12 PEPPERS Allergy SEIZURES Uncoded 01/07/19 16:55 Physical Exam Vitals: Vital Signs Temp Pulse Resp BP Pulse Ox 01/09/19 08:40 97 01/09/19 05:20 96.3 F L 103 H 20 111/61 94 L 01/08/19 23:15 16 01/08/19 20:58 98.5 F 82 16 113/64 98 01/08/19 16:00 82 17 Intake and Output 01/09/19 01/09/19 01/09/19 06:59 14:59 22:59 Output Total 1100 400 Balance -1100 -400 Output: Gastric Drainage 300 Urine 500 100 Straight 500 Emesis 600 Other: Voiding Method Toilet Weight 68.039 kg General appearance: The patient is confused, in no acute distress. Jaundice. Head exam was generally normal. There was no scleral icterus or corneal arcus. Mucous membranes were moist. HET: Head is normocephalic and atraumatic. Pupils are equal and reactive. Oropharynx is clear without lesions. NG tube with bilious fluid. Sclerae icterus. Neck: Supple without lymphadenopathy. Trachea midline. The NG tube is in place Heart: S1 S2. Regular rate and rhythm. Lungs: No crackles or wheezes are heard. Abdomen: Soft, mildly bloated with bowel sounds. No peritoneal signs. No palpable organomegaly or masses. Extremities: Normal skin color and turgor. No cyanosis, rash, ulceration, clubbing, or edema. Radial and pedal pulses are 2/4 bilaterally. Neurological: No focal deficits. Strength and sensation are grossly intact. Examination of the skin revealed no evidence of significant rashes, suspicious appearing nevi or other concerning lesions. Results - Laboratory Findings CBC and BMP: 01/09/19 10:51 01/09/19 05:00 PT/INR, D-dimer PT 17.2 sec (9.0-12.0) H 01/09/19 13:50 INR 1.7 (<1.2) H 01/09/19 13:50 Abnormal lab findings: Abnormal Labs 01/07/19 01/07/19 01/07/19 17:10 17:32 17:32 RBC Hgb Hct MCV RDW Plt Count Lymphocytes # Macrocytosis PT INR Sodium 135 L Carbon Dioxide BUN 29 H Glucose 226 H POC Glucose (mg/dL) 249 H Plasma Lactic Acid Rinku Calcium 7.8 L Total Bilirubin 5.3 H AST 83 H ALT 55 H Alkaline Phosphatase 150 H Ammonia Troponin I Total Protein 5.9 L Albumin 1.9 L Carcinoembryonic Ag CA 19-9 Antigen Urine Appearance Ur Leukocyte Esterase Urine WBC Ur Squamous Epith Cells Hyaline Casts Urine Mucus Stool Occult Blood Crossmatch See Detail 01/07/19 01/07/19 01/07/19 17:32 17:32 17:32 RBC 2.20 L Hgb 7.5 L Hct 24.0 L MCV 108.7 H RDW 19.6 H Plt Count 72 L Lymphocytes # 0.3 L Macrocytosis Marked A PT INR Sodium Carbon Dioxide BUN Glucose POC Glucose (mg/dL) Plasma Lactic Acid Rinku 3.3 H* Calcium Total Bilirubin AST ALT Alkaline Phosphatase Ammonia Troponin I 0.036 H* Total Protein Albumin Carcinoembryonic Ag CA 19-9 Antigen Urine Appearance Ur Leukocyte Esterase Urine WBC Ur Squamous Epith Cells Hyaline Casts Urine Mucus Stool Occult Blood Crossmatch 01/07/19 01/07/19 01/07/19 17:32 19:00 19:30 RBC Hgb Hct MCV RDW Plt Count Lymphocytes # Macrocytosis PT 18.8 H INR 1.9 H Sodium Carbon Dioxide BUN Glucose POC Glucose (mg/dL) Plasma Lactic Acid Rinku Calcium Total Bilirubin AST ALT Alkaline Phosphatase Ammonia 89 H Troponin I Total Protein Albumin Carcinoembryonic Ag CA 19-9 Antigen Urine Appearance Cloudy H Ur Leukocyte Esterase Trace H Urine WBC 12 H Ur Squamous Epith Cells 6 H Hyaline Casts 30 H Urine Mucus Rare H Stool Occult Blood Crossmatch 01/07/19 01/08/19 01/08/19 19:51 11:11 11:11 RBC 2.63 L Hgb 8.6 L Hct 26.7 L MCV 101.5 H D RDW 24.5 H Plt Count 61 L Lymphocytes # Macrocytosis Marked A PT INR Sodium Carbon Dioxide BUN Glucose POC Glucose (mg/dL) Plasma Lactic Acid Rinku Calcium Total Bilirubin AST ALT Alkaline Phosphatase Ammonia Troponin I Total Protein Albumin Carcinoembryonic Ag 14.0 H CA 19-9 Antigen 50.9 H Urine Appearance Ur Leukocyte Esterase Urine WBC Ur Squamous Epith Cells Hyaline Casts Urine Mucus Stool Occult Blood Positive H Crossmatch 01/08/19 01/08/19 01/08/19 11:11 13:25 17:09 RBC Hgb Hct MCV RDW Plt Count Lymphocytes # Macrocytosis PT INR Sodium Carbon Dioxide BUN Glucose POC Glucose (mg/dL) 101 H 121 H Plasma Lactic Acid Rinku Calcium Total Bilirubin AST ALT Alkaline Phosphatase Ammonia Troponin I 0.044 H* Total Protein Albumin Carcinoembryonic Ag CA 19-9 Antigen Urine Appearance Ur Leukocyte Esterase Urine WBC Ur Squamous Epith Cells Hyaline Casts Urine Mucus Stool Occult Blood Crossmatch 01/08/19 01/09/19 01/09/19 19:37 00:14 05:00 RBC 2.68 L Hgb 8.9 L Hct 28.0 L MCV 104.5 H RDW 23.8 H Plt Count 61 L Lymphocytes # 0.3 L Macrocytosis Marked A PT INR Sodium Carbon Dioxide BUN Glucose POC Glucose (mg/dL) 144 H 113 H Plasma Lactic Acid Rinku Calcium Total Bilirubin AST ALT Alkaline Phosphatase Ammonia Troponin I Total Protein Albumin Carcinoembryonic Ag CA 19-9 Antigen Urine Appearance Ur Leukocyte Esterase Urine WBC Ur Squamous Epith Cells Hyaline Casts Urine Mucus Stool Occult Blood Crossmatch 01/09/19 01/09/19 01/09/19 05:00 05:00 05:16 RBC Hgb Hct MCV RDW Plt Count Lymphocytes # Macrocytosis PT INR Sodium Carbon Dioxide 21 L BUN 28 H Glucose 156 H POC Glucose (mg/dL) 163 H Plasma Lactic Acid Rinku 3.0 H* Calcium 8.1 L Total Bilirubin AST ALT Alkaline Phosphatase Ammonia 190 H Troponin I Total Protein Albumin Carcinoembryonic Ag CA 19-9 Antigen Urine Appearance Ur Leukocyte Esterase Urine WBC Ur Squamous Epith Cells Hyaline Casts Urine Mucus Stool Occult Blood Crossmatch 01/09/19 01/09/19 01/09/19 08:54 10:51 10:51 RBC Hgb Hct MCV RDW Plt Count 61 L Lymphocytes # Macrocytosis PT INR Sodium Carbon Dioxide BUN Glucose POC Glucose (mg/dL) 150 H Plasma Lactic Acid Rinku 2.3 H* Calcium Total Bilirubin AST ALT Alkaline Phosphatase Ammonia Troponin I Total Protein Albumin Carcinoembryonic Ag CA 19-9 Antigen Urine Appearance Ur Leukocyte Esterase Urine WBC Ur Squamous Epith Cells Hyaline Casts Urine Mucus Stool Occult Blood Crossmatch 01/09/19 01/09/19 11:55 13:50 RBC Hgb Hct MCV RDW Plt Count Lymphocytes # Macrocytosis PT 17.2 H INR 1.7 H Sodium Carbon Dioxide BUN Glucose POC Glucose (mg/dL) 148 H Plasma Lactic Acid Rinku Calcium Total Bilirubin AST ALT Alkaline Phosphatase Ammonia Troponin I Total Protein Albumin Carcinoembryonic Ag CA 19-9 Antigen Urine Appearance Ur Leukocyte Esterase Urine WBC Ur Squamous Epith Cells Hyaline Casts Urine Mucus Stool Occult Blood Crossmatch - Diagnostic Findings Chest x-ray: image reviewed CT scan - chest: image reviewed Assessment and Plan Plan: 1 liver cirrhosis, alcoholic in nature 2 altered mental status secondary to hepatic encephalopathy 3 abdominal distention with distention of the large bowel without clear signs of bowel obstruction. 4 alcoholism 5 coagulopathy secondary to chronic liver disease 6 portal hypertension and portal gastropathy secondary to liver cirrhosis 7 history of CVA/TIA 8 diabetes mellitus 9 history of uterine/ovarian cancer 10 hypertension 11 hyperlipidemia 12 seizure disorder 13 previous history of C. diff colitis Plan I reviewed the CAT scan of the abdomen which clearly shows that there is no evidence of any pleural effusion lung bases. The patient is a typical presentation of hepatitic encephalopathy. Continue lactulose. Continue Xifaxan. Monitor mental status. Continue current antibiotic coverage. Gen. surgery consultation regarding the large bowel dilatation. NG tube is in place. Pulmonary and critical care services we'll sign off the case. The patient is currently on room air. No signs of any respiratory distress.
[2019-01-09 16:45] LABS: Glucose,Whole Blood 154 mg/dL (75-99)
[2019-01-09 18:02] LABS: Appearance,BF Hazy; Color,BF Yellow
[2019-01-09 18:26] LABS: Nucleated Cells, Body Fluid 35 /uL; RBC, Body Fluid 216 /uL
[2019-01-09 18:28] LABS: Mononuclear WBC,Body Fluid 70 %; Polynuclear WBC,Body Fluid 29 %; Total Cells Counted,Body Fluid 100
--- NOTE | 2019-01-09 19:27 | US ---
Therapeutic paracentesis. DATE OF EXAM: 01/09/2019 CLINICAL HISTORY: Ascites The procedure was discussed with the patient. The risks, complications, benefits, and alternatives we re discussed and any questions were answered. Informed consent was obtained. The patient was placed s upine on the ultrasound table and prepped and draped in the usual sterile fashion. All elements of maximal barrier technique were utilized. Under ultrasound guidance, access into the right lower quadrant was obtained, via the paracentesis catheter system and direct ultrasound guidanc e. Approximately 3 liters of straw-colored fluid was removed. The patient was stable throughout the proc edure and remained stable upon discharge from Department of Radiology. IMPRESSION: Successful therapeutic paracentesis under ultrasound guidance.
[2019-01-09] MEDS: MIRTAZAPINE 15 MG TAB PO SCH (20:24)
--- NOTE | 2019-01-09 21:05 | XR ---
EXAMINATION TYPE: XR chest 1V portable DATE OF EXAM: 01/09/2019 COMPARISON: Today HISTORY: Check tube placement TECHNIQUE: Single frontal view of the chest is obtained. FINDINGS: There is nasogastric tube that has the tip over the gastric antrum. The lungs are clear of consolidation. There is no heart failure. There are chest leads. IMPRESSION: There is improvement in the mild subsegmental atelectasis at the lung bases compared to exam this morning. Nasogastric tube appears to be in good position.
[2019-01-09 21:25] LABS: Glucose,Whole Blood 145 mg/dL (75-99)
[2019-01-09 23:24] LABS: Total Protein, Body Fluid 458 mg/dL
[2019-01-10] MEDS: metroNIDAZOLE-NS PMX 500 MG in SALINE 1 100ML.BAG IVPB SCH ×4 (05:52→22:55)
[2019-01-10 06:00] LABS: Glucose,Whole Blood 126 mg/dL (75-99)
[2019-01-10] MEDS: INSULIN ASPART (NovoLOG) 100 UNIT/ML VIAL SQ SCH ×4 (06:00→22:20)
[2019-01-10 06:03] LABS: Anisocytosis Moderate; Basophils % (A) 0 %; Eosinophils # (A) 0.1 k/uL (0-0.7); Eosinophils % (A) 1 %; HCT 27.2 % (34.0-46.0); HGB 8.6 gm/dL (11.4-16.0); Hypochromasia Moderate; Lymphocytes # (A) 0.4 k/uL (1.0-4.8); Lymphocytes % (A) 5 %; MCH 32.1 pg (25.0-35.0); MCHC 31.7 g/dL (31.0-37.0); MCV 101.3 fL (80.0-100.0); Monocytes # (A) 0.4 k/uL (0-1.0); Monocytes % (A) 6 %; Neutrophils # (A) 5.9 k/uL (1.3-7.7); Neutrophils % (A) 86 %; Poikilocytosis Slight; RBC 2.68 m/uL (3.80-5.40); RDW 22.6 % (11.5-15.5); WBC 6.9 k/uL (3.8-10.6)
[2019-01-10 06:04] LABS: Prothrombin Time 19.9 sec (9.0-12.0)
[2019-01-10 06:08] LABS: Macrocytosis Marked; Platelet Count 83 k/uL (150-450)
[2019-01-10 06:16] LABS: Lactic Acid, Venous 2.5 mmol/L (0.7-2.0)
[2019-01-10 06:22] LABS: Albumin 2.1 g/dL (3.5-5.0); Calcium 8.3 mg/dL (8.4-10.2); Potassium 3.8 mmol/L (3.5-5.1); Total Bilirubin 7.6 mg/dL (0.2-1.3); Total Protein 5.9 g/dL (6.3-8.2)
[2019-01-10] MEDS ORDERED: BISACODYL 10 MG SUPP RECTAL STA (06:50)
[2019-01-10] MEDS ORDERED: SODIUM CHLORIDE 0.9% 500 ML 500 ML IV ONE (06:50)
[2019-01-10] MEDS: SODIUM CHLORIDE 0.9% 250 ML IV SCH ×21 (07:09→11:30)
[2019-01-10] MEDS: LEVOFLOXACIN 500MG-D5W PMX 500 MG in DEXTROSE/WATER 1 100ML.BAG IVPB SCH (07:13)
[2019-01-10] MEDS: SODIUM CHLORIDE 0.9% 1,000 ML IV SCH ×4 (07:14→22:54)
[2019-01-10] MEDS: ATENOLOL 25 MG TAB PO SCH (10:35)
[2019-01-10] MEDS: SPIRONOLACTONE 25 MG TAB PO SCH ×2 (10:35→21:02)
[2019-01-10] MEDS: LISINOPRIL 2.5 MG TAB PO SCH (10:35)
[2019-01-10] MEDS: FERROUS SULFATE 325 MG TAB PO SCH (10:35)
[2019-01-10] MEDS: RIFAXIMIN 550 MG TABLET PO SCH ×2 (10:35→22:20)
[2019-01-10] MEDS: POTASSIUM CHLORIDE ER 20 MEQ TAB.ER PO SCH ×2 (10:35→21:02)
[2019-01-10] MEDS: MAGNESIUM OXIDE 400 MG TAB PO SCH (10:35)
[2019-01-10] MEDS: FUROSEMIDE 20 MG TAB PO SCH ×2 (10:35→17:56)
[2019-01-10] MEDS: FOLIC ACID 1 MG TAB PO SCH (10:35)
[2019-01-10] MEDS: CYANOCOBALAMIN 500 MCG TAB PO SCH (10:35)
[2019-01-10] MEDS: LACTULOSE 20 GM/30 ML CUP PO SCH ×3 (10:36→21:02)
[2019-01-10] MEDS: LEVOTHYROXINE IVP 100 MCG/5 ML VIAL IV SCH (10:38)
--- NOTE | 2019-01-10 10:44 | P.PN ---
Subjective Progress Note Date: 01/10/19 Pt seen and examined at bedside. She is able to answer questions appropriately today. She is much less confused than yesterday. Having bowel movements and passing flatus. Objective - Vital Signs Vital signs: Vital Signs Temp 97.4 F L 01/10/19 08:00 Pulse 92 01/10/19 08:00 Resp 18 01/10/19 08:00 BP 106/64 01/10/19 08:00 Pulse Ox 97 01/10/19 08:00 Intake & Output 01/09/19 01/10/19 01/10/19 18:59 06:59 18:59 Intake Total 1125 Output Total 725 1100 Balance -725 25 Weight 68.039 kg 98.5 kg Intake: Intake, IV Titration 1025 Amount Sodium Chloride 0.9% 1, 825 000 ml @ 75 mls/hr IV . [id number] ZOE Rx#:[id number]-NS PMX 500 200 mg In Saline 1 100ml.bag @ 100 mls/hr IVPB Q6HR ZOE Rx#:[id number] Oral 100 Output: Gastric Drainage 300 Drainage 800 nasogastric tube 800 Urine 425 300 Other: Voiding Method Toilet Toilet Toilet - Constitutional General appearance: Present: cooperative - Gastrointestinal Gastrointestinal Comment(s): soft, nontender, mild distention, no rebound, no guarding - Psychiatric Psychiatric: Present: A&O x's 3 - Labs CBC & Chem 7: 01/10/19 05:52 01/10/19 05:52 Labs: Abnormal Lab Results - Last 24 Hours (Table) 01/09/19 01/09/19 01/09/19 Range/Units 10:51 10:51 11:55 RBC (3.80-5.40) m/uL Hgb (11.4-16.0) gm/dL Hct (34.0-46.0) % MCV (80.0-100.0) fL RDW (11.5-15.5) % Plt Count 61 L (150-450) k/uL Lymphocytes # (1.0-4.8) k/uL Macrocytosis PT (9.0-12.0) sec INR (<1.2) BUN (7-17) mg/dL Glucose (74-99) mg/dL POC Glucose (mg/dL) 148 H (75-99) mg/dL Plasma Lactic Acid Rinku 2.3 H* (0.7-2.0) mmol/L Calcium (8.4-10.2) mg/dL Total Bilirubin (0.2-1.3) mg/dL AST (14-36) U/L Alkaline Phosphatase (38-126) U/L Ammonia (<30) umol/L Total Protein (6.3-8.2) g/dL Albumin (3.5-5.0) g/dL 01/09/19 01/09/19 01/09/19 Range/Units 13:50 16:40 19:45 RBC (3.80-5.40) m/uL Hgb (11.4-16.0) gm/dL Hct (34.0-46.0) % MCV (80.0-100.0) fL RDW (11.5-15.5) % Plt Count (150-450) k/uL Lymphocytes # (1.0-4.8) k/uL Macrocytosis PT 17.2 H (9.0-12.0) sec INR 1.7 H (<1.2) BUN (7-17) mg/dL Glucose (74-99) mg/dL POC Glucose (mg/dL) 154 H (75-99) mg/dL Plasma Lactic Acid Rinku 2.7 H* (0.7-2.0) mmol/L Calcium (8.4-10.2) mg/dL Total Bilirubin (0.2-1.3) mg/dL AST (14-36) U/L Alkaline Phosphatase (38-126) U/L Ammonia (<30) umol/L Total Protein (6.3-8.2) g/dL Albumin (3.5-5.0) g/dL 01/09/19 01/10/19 01/10/19 Range/Units 21:11 00:00 05:52 RBC (3.80-5.40) m/uL Hgb (11.4-16.0) gm/dL Hct (34.0-46.0) % MCV (80.0-100.0) fL RDW (11.5-15.5) % Plt Count (150-450) k/uL Lymphocytes # (1.0-4.8) k/uL Macrocytosis PT (9.0-12.0) sec INR (<1.2) BUN (7-17) mg/dL Glucose (74-99) mg/dL POC Glucose (mg/dL) 145 H (75-99) mg/dL Plasma Lactic Acid Rinku 3.0 H* 2.5 H* (0.7-2.0) mmol/L Calcium (8.4-10.2) mg/dL Total Bilirubin (0.2-1.3) mg/dL AST (14-36) U/L Alkaline Phosphatase (38-126) U/L Ammonia 54 H (<30) umol/L Total Protein (6.3-8.2) g/dL Albumin (3.5-5.0) g/dL 01/10/19 01/10/19 01/10/19 Range/Units 05:52 05:52 05:52 RBC 2.68 L (3.80-5.40) m/uL Hgb 8.6 L (11.4-16.0) gm/dL Hct 27.2 L (34.0-46.0) % MCV 101.3 H (80.0-100.0) fL RDW 22.6 H (11.5-15.5) % Plt Count 83 L (150-450) k/uL Lymphocytes # 0.4 L (1.0-4.8) k/uL Macrocytosis Marked A PT 19.9 H (9.0-12.0) sec INR 2.0 H (<1.2) BUN 27 H (7-17) mg/dL Glucose 117 H (74-99) mg/dL POC Glucose (mg/dL) (75-99) mg/dL Plasma Lactic Acid Rinku (0.7-2.0) mmol/L Calcium 8.3 L (8.4-10.2) mg/dL Total Bilirubin 7.6 H (0.2-1.3) mg/dL AST 67 H (14-36) U/L Alkaline Phosphatase 127 H (38-126) U/L Ammonia (<30) umol/L Total Protein 5.9 L (6.3-8.2) g/dL Albumin 2.1 L (3.5-5.0) g/dL 01/10/19 Range/Units 05:59 RBC (3.80-5.40) m/uL Hgb (11.4-16.0) gm/dL Hct (34.0-46.0) % MCV (80.0-100.0) fL RDW (11.5-15.5) % Plt Count (150-450) k/uL Lymphocytes # (1.0-4.8) k/uL Macrocytosis PT (9.0-12.0) sec INR (<1.2) BUN (7-17) mg/dL Glucose (74-99) mg/dL POC Glucose (mg/dL) 126 H (75-99) mg/dL Plasma Lactic Acid Rinku (0.7-2.0) mmol/L Calcium (8.4-10.2) mg/dL Total Bilirubin (0.2-1.3) mg/dL AST (14-36) U/L Alkaline Phosphatase (38-126) U/L Ammonia (<30) umol/L Total Protein (6.3-8.2) g/dL Albumin (3.5-5.0) g/dL Microbiology - Last 24 Hours (Table) 01/09/19 16:01 Gram Stain - Preliminary Paracentesis Fluid Body Fluid Culture - Preliminary 01/09/19 16:01 Anaerobic Culture - Preliminary Ascites Fluid 01/07/19 19:00 Urine Culture - Final Urine,Voided Staphylococcus aureus Assessment and Plan Plan: 63-year-old female with history of cirrhosis and chronic alcoholism - Hepatic encephelopathy improving - Continue NG tube for providing meds, likely will be able to be removed tomorrow - Continue lactulose - GI recommendations appreciated - No plan for acute surgical intervention - Prognosis guarded
[2019-01-10] MEDS: CALCITONIN 200 USP/1 NASAL SPRAY 3.7ML BTL NASAL SCH (11:39)
[2019-01-10 12:05] LABS: Glucose,Whole Blood 128 mg/dL (75-99)
--- NOTE | 2019-01-10 15:31 | XR ---
EXAMINATION TYPE: XR chest 1V confirm line [facility] DATE OF EXAM: 01/10/2019 COMPARISON: 01/09/2019 HISTORY: Check tube placement TECHNIQUE: Single frontal view of the chest is obtained. FINDINGS: There is some atelectasis at the left lung base. There is nasogastric tube with the tip pr obably in the body of the stomach. Detail is limited. There is mild pulmonary congestion. IMPRESSION: Nasogastric tube is probably in good position. There is new atelectasis at the lung base s compared to yesterday.
[2019-01-10 16:49] LABS: Glucose,Whole Blood 114 mg/dL (75-99)
[2019-01-10] MEDS: MIRTAZAPINE 15 MG TAB PO SCH (21:02)
[2019-01-10 21:17] LABS: Glucose,Whole Blood 226 mg/dL (75-99)
--- NOTE | 2019-01-10 22:59 | P.PN ---
Subjective Progress Note Date: 01/10/19 Principal diagnosis: Decompensated alcoholic cirrhosis, ascites, hepatic encephalopathy Patient seen lying in bed with her sister bedside. Much more awake and alert today. One bowel movement this morning reported. No nausea or vomiting reported. She does have NG tube currently set to suction. Objective - Vital Signs Vital signs: Vital Signs Temp 98.1 F 01/10/19 20:00 Pulse 96 01/10/19 20:00 Resp 16 01/10/19 20:00 BP 106/55 01/10/19 20:00 Pulse Ox 94 L 01/10/19 20:00 Intake & Output 01/10/19 01/10/19 01/11/19 06:59 18:59 06:59 Intake Total 1125 120 400 Output Total 1100 275 Balance 25 -155 400 Weight 98.5 kg Intake: Intake, IV Titration 1025 Amount Sodium Chloride 0.9% 1, 825 000 ml @ 75 mls/hr IV . [id number] ZOE Rx#:[id number] metroNIDAZOLE-NS PMX 500 200 mg In Saline 1 100ml.bag @ 100 mls/hr IVPB Q6HR ZOE Rx#:[id number] Oral 100 120 400 Output: Drainage 800 nasogastric tube 800 Urine 300 275 Other: Voiding Method Toilet Toilet Toilet # Bowel Movements 1 - Exam On physical examination, patient appears comfortable in no apparent distress. HEAD: Normocephalic, atraumatic. EYES: No conjunctival injection. MOUTH: No lesions, tongue midline. NECK: Trachea midline, no gross abnormalities. CHEST: Decreased air entry bilaterally. HEART: S1-S2 appreciated. ABDOMEN: Soft, distended. Bowel sounds are positive. No organomegaly. No guarding or rigidity. EXTREMITIES: Bilateral pedal edema. SKIN: No rashes, jaundice. NEUROLOGIC: Alert and oriented x2 with no asterixis appreciated. No focal deficits. - Labs CBC & Chem 7: 01/10/19 05:52 01/10/19 05:52 Labs: Abnormal Lab Results - Last 24 Hours (Table) 01/10/19 01/10/19 01/10/19 Range/Units 00:00 05:52 05:52 RBC 2.68 L (3.80-5.40) m/uL Hgb 8.6 L (11.4-16.0) gm/dL Hct 27.2 L (34.0-46.0) % MCV 101.3 H (80.0-100.0) fL RDW 22.6 H (11.5-15.5) % Plt Count 83 L (150-450) k/uL Lymphocytes # 0.4 L (1.0-4.8) k/uL Macrocytosis Marked A PT (9.0-12.0) sec INR (<1.2) BUN (7-17) mg/dL Glucose (74-99) mg/dL POC Glucose (mg/dL) (75-99) mg/dL Plasma Lactic Acid Rinku 3.0 H* 2.5 H* (0.7-2.0) mmol/L Calcium (8.4-10.2) mg/dL Total Bilirubin (0.2-1.3) mg/dL AST (14-36) U/L Alkaline Phosphatase (38-126) U/L Ammonia 54 H (<30) umol/L Total Protein (6.3-8.2) g/dL Albumin (3.5-5.0) g/dL 01/10/19 01/10/19 01/10/19 Range/Units 05:52 05:52 05:59 RBC (3.80-5.40) m/uL Hgb (11.4-16.0) gm/dL Hct (34.0-46.0) % MCV (80.0-100.0) fL RDW (11.5-15.5) % Plt Count (150-450) k/uL Lymphocytes # (1.0-4.8) k/uL Macrocytosis PT 19.9 H (9.0-12.0) sec INR 2.0 H (<1.2) BUN 27 H (7-17) mg/dL Glucose 117 H (74-99) mg/dL POC Glucose (mg/dL) 126 H (75-99) mg/dL Plasma Lactic Acid Rinku (0.7-2.0) mmol/L Calcium 8.3 L (8.4-10.2) mg/dL Total Bilirubin 7.6 H (0.2-1.3) mg/dL AST 67 H (14-36) U/L Alkaline Phosphatase 127 H (38-126) U/L Ammonia (<30) umol/L Total Protein 5.9 L (6.3-8.2) g/dL Albumin 2.1 L (3.5-5.0) g/dL 01/10/19 01/10/19 01/10/19 Range/Units 11:50 16:48 21:15 RBC (3.80-5.40) m/uL Hgb (11.4-16.0) gm/dL Hct (34.0-46.0) % MCV (80.0-100.0) fL RDW (11.5-15.5) % Plt Count (150-450) k/uL Lymphocytes # (1.0-4.8) k/uL Macrocytosis PT (9.0-12.0) sec INR (<1.2) BUN (7-17) mg/dL Glucose (74-99) mg/dL POC Glucose (mg/dL) 128 H 114 H 226 H (75-99) mg/dL Plasma Lactic Acid Rinku (0.7-2.0) mmol/L Calcium (8.4-10.2) mg/dL Total Bilirubin (0.2-1.3) mg/dL AST (14-36) U/L Alkaline Phosphatase (38-126) U/L Ammonia (<30) umol/L Total Protein (6.3-8.2) g/dL Albumin (3.5-5.0) g/dL Microbiology - Last 24 Hours (Table) 01/09/19 16:01 Gram Stain - Preliminary Paracentesis Fluid Body Fluid Culture - Preliminary 01/09/19 16:01 Anaerobic Culture - Preliminary Ascites Fluid 01/07/19 19:00 Urine Culture - Final Urine,Voided Staphylococcus aureus Assessment and Plan (1) Decompensated liver disease Narrative/Plan: 63-year-old female with a known history of decompensated alcoholic liver disease with a site is and encephalopathy presented with increased confusion. Patient found to have markedly elevated ammonia level on presentation. Current Visit: Yes Status: Acute Code(s): K74.69 - OTHER CIRRHOSIS OF LIVER SNOMED Code(s): 05112585 (2) Hepatic encephalopathy Current Visit: Yes Status: Acute Code(s): K72.90 - HEPATIC FAILURE, UNSP ECIFIED WITHOUT COMA SNOMED Code(s): 24932997 (3) Coagulopathy Current Visit: Yes Status: Acute Code(s): D68.9 - COAGULATION DEFECT, UNSPECIFIED SNOMED Code(s): 99352440 (4) History of ETOH abuse Current Visit: Yes Status: Acute Code(s): F10.11 - ALCOHOL ABUSE, IN REMISSION SNOMED Code(s): 656930483 (5) Macrocytic anemia Current Visit: Yes Status: Acute Code(s): D53.9 - NUTRITIONAL ANEMIA, UNSPECIFIED SNOMED Code(s): 26818602 (6) Thrombocytopenia Current Visit: Yes Status: Acute Code(s): D69.6 - THROMBOCYTOPENIA, UNSPECIFIED SNOMED Code(s): 682500907 Plan: Supportive care Okay for low-sodium diet Continue lactulose 30 q8, with titration for the patient to have 2-3 bowel movements Appreciate recommendations from pulmonology and surgical services NG tube for surgical recommendations No plan for endoscopic evaluation at this time Continue diuresis with Lasix and Aldactone Alcohol abstinence Thank you for allowing us to participate in the care of this patient we will continue to follow
[2019-01-11] MEDS ORDERED: BISACODYL 10 MG SUPP RECTAL STA (03:07)
[2019-01-11] MEDS: SODIUM CHLORIDE 0.9% 1,000 ML IV SCH ×3 (03:12→23:32)
[2019-01-11] MEDS: metroNIDAZOLE-NS PMX 500 MG in SALINE 1 100ML.BAG IVPB SCH ×3 (05:36→18:41)
[2019-01-11 06:41] LABS: Glucose,Whole Blood 398 mg/dL (75-99)
[2019-01-11] MEDS: INSULIN ASPART (NovoLOG) 100 UNIT/ML VIAL SQ SCH ×4 (06:55→21:28)
[2019-01-11] MEDS: LEVOFLOXACIN 500MG-D5W PMX 500 MG in DEXTROSE/WATER 1 100ML.BAG IVPB SCH (06:56)
[2019-01-11] MEDS ORDERED: ERGOCALCIFEROL 50,000 UNIT CAP PO SCH (09:00)
[2019-01-11 09:29] LABS: Anisocytosis Moderate; HCT 30.3 % (34.0-46.0); HGB 9.5 gm/dL (11.4-16.0); Hypochromasia Marked; MCH 32.6 pg (25.0-35.0); MCHC 31.3 g/dL (31.0-37.0); MCV 104.2 fL (80.0-100.0); Macrocytosis Marked; Mean Platelet Volume 9.1; Poikilocytosis Slight; RBC 2.91 m/uL (3.80-5.40); RDW 23.4 % (11.5-15.5); WBC 8.6 k/uL (3.8-10.6)
[2019-01-11 09:31] LABS: Platelet Count 77 k/uL (150-450)
[2019-01-11] MEDS: SPIRONOLACTONE 25 MG TAB PO SCH ×2 (09:57→21:29)
[2019-01-11] MEDS: FOLIC ACID 1 MG TAB PO SCH (09:57)
[2019-01-11] MEDS: POTASSIUM CHLORIDE ER 20 MEQ TAB.ER PO SCH ×2 (09:57→22:09)
[2019-01-11] MEDS: MAGNESIUM OXIDE 400 MG TAB PO SCH (09:57)
[2019-01-11] MEDS: CALCITONIN 200 USP/1 NASAL SPRAY 3.7ML BTL NASAL SCH (09:57)
[2019-01-11] MEDS: RIFAXIMIN 550 MG TABLET PO SCH ×2 (09:57→22:10)
[2019-01-11 09:58] LABS: Eosinophils # (M) 0.09 k/uL (0-0.7); Lymphocytes # (M) 0.34 k/uL (1.0-4.8); Neutrophils # (M) 7.57 k/uL (1.3-7.7); Neutrophils % (M) 88 %; Nucleated Red Blood Cells 0 /100 WBC (0-0); Poikilocytosis (M) Present; Polychromasia Present; Total Cells Counted 100
[2019-01-11] MEDS: ATENOLOL 25 MG TAB PO SCH (09:58)
[2019-01-11] MEDS: LEVOTHYROXINE 25 MCG TAB PO SCH (09:58)
[2019-01-11] MEDS: FERROUS SULFATE 325 MG TAB PO SCH (09:58)
[2019-01-11] MEDS: LISINOPRIL 2.5 MG TAB PO SCH (09:58)
[2019-01-11] MEDS: CYANOCOBALAMIN 500 MCG TAB PO SCH (09:58)
[2019-01-11] MEDS: FUROSEMIDE 20 MG TAB PO SCH ×2 (09:58→16:28)
[2019-01-11] MEDS: LACTULOSE 20 GM/30 ML CUP PO SCH ×4 (10:05→23:20)
--- NOTE | 2019-01-11 10:13 | P.PN ---
Subjective Progress Note Date: 01/11/19 patient seen and examined at bedside. Complains of some abdominal cramping. States that she has had loose bowel movements yesterday. Also has had episodes of flatus. She is answering questions appropriately. She is much more alert on exam today. Objective - Vital Signs Vital signs: Vital Signs Temp 98.1 F 01/11/19 08:00 Pulse 95 01/11/19 08:00 Resp 18 01/11/19 08:00 BP 109/53 01/11/19 08:00 Pulse Ox 97 01/11/19 08:00 Intake & Output 01/10/19 01/11/19 01/11/19 18:59 06:59 18:59 Intake Total 120 900 Output Total 275 275 Balance -155 625 Intake: Intake, IV Titration 100 Amount metroNIDAZOLE-NS PMX 500 100 mg In Saline 1 100ml.bag @ 100 mls/hr IVPB Q6HR ZOE Rx#:[id number] Oral 120 800 Output: Urine 275 275 Other: Voiding Method Toilet Toilet # Bowel Movements 1 3 - Constitutional General appearance: Present: cooperative - Respiratory Details: no difficulty with respiration - Gastrointestinal Gastrointestinal Comment(s): soft, nontender, mild distention no rebound, no guarding - Psychiatric Psychiatric: Present: A&O x's 3 - Labs CBC & Chem 7: 01/11/19 08:56 01/10/19 05:52 Labs: Abnormal Lab Results - Last 24 Hours (Table) 01/10/19 01/10/19 01/10/19 Range/Units 11:50 16:48 21:15 RBC (3.80-5.40) m/uL Hgb (11.4-16.0) gm/dL Hct (34.0-46.0) % MCV (80.0-100.0) fL RDW (11.5-15.5) % Plt Count (150-450) k/uL Lymphocytes # (Manual) (1.0-4.8) k/uL Macrocytosis POC Glucose (mg/dL) 128 H 114 H 226 H (75-99) mg/dL 01/11/19 01/11/19 Range/Units 06:39 08:56 RBC 2.91 L (3.80-5.40) m/uL Hgb 9.5 L (11.4-16.0) gm/dL Hct 30.3 L (34.0-46.0) % MCV 104.2 H (80.0-100.0) fL RDW 23.4 H (11.5-15.5) % Plt Count 77 L (150-450) k/uL Lymphocytes # (Manual) 0.34 L (1.0-4.8) k/uL Macrocytosis Marked A POC Glucose (mg/dL) 398 H (75-99) mg/dL Microbiology - Last 24 Hours (Table) 01/09/19 00:23 Blood Culture - Preliminary Blood No Growth after 24 hours 01/09/19 16:01 Gram Stain - Preliminary Paracentesis Fluid Body Fluid Culture - Preliminary Assessment and Plan Plan: 63-year-old female with history of cirrhosis and chronic alcoholism - Hepatic encephelopathy improving - diet as tolerated - Continue lactulose - GI recommendations appreciated - No plan for acute surgical intervention - Prognosis guarded
--- NOTE | 2019-01-11 10:47 | P.PN ---
<Majo Hawkins A - Last Filed: 01/11/19 10:41> Subjective Progress Note Date: 01/11/19 This is a 63-year-old female one of my patient with a previous medical history significant for hypertension and hypertensive cardiovascular disease with left ventricular hypertrophy, diabetes mellitus type 2 with diabetic po lyneuropathy, CVA, TIA, liver cirrhosis secondary to chronic alcohol use and dependence, pancytopenia secondary to liver cirrhosis, vaginal cancer status post vaginectomy, uterine cancer, seizure disorder, kyphoscoliosis, vascular dementia, hyperlipidemia. Patient also has chronic right great toe wound under the care of Dr. Davila. Patient is seen in the office weekly and his home care 2 times per week to do dressing changes. Sister gives history of having battled with C. difficile colitis for the past year and a half which is finally cleared under the care of Dr. Curran. Patient has had a loss of appetite, loss of weight. Her home care nurse was concerned that she wasn't oriented to time and place. She has some lower extremity edema. Symptoms have been worsening over the past 9 months. Patient complains of generalized weakness. She is currently residing at independent living at [facility]. Sister also states the patient had a fall yesterday as well as 2 weeks ago. Patient was brought into the emergency department at [facility] due to the above symptoms. She was afebrile, heart rate 104, blood pressure 122/78, pulse ox 97% on room air. White count was 5, hemoglobin 7.5, platelet count 72. Sodium 135, potassium 4.1, chloride 105, CO2 23, BUN 29 creatinine 0.99. Blood sugar was 226. Total bilirubin 5.3, AST 83, ALT 55, alkaline phosphatase 150. INR was elevated at 1.9. TSH 1.270. Lactic acid 3.3, proBNP 182. Troponin 0.036 and repeat is 0.044. Urinalysis was dark yellow, bilirubin negative, leukoesterase trace, WBCs 12, casts 30. Ammonia level LXXXIX, stool for occult blood positive. 01/09: A-Team was called on this patient this morning due to acute mental status changes, unable to follow commands and vomiting dark brown liquid. Abdomen was distended.. Patient was started on CIWA protocol per A-Team and was transferred to the selective care unit. Dr. Medina was notified and lactulose was increased to 30 g 3 times daily and NG tube was placed. Rifaximin 550mg BID through NG tube as ordered. Repeat ammonia 190. According to nursing, patient has not had a bowel movement since admission it had only received 1 dose of lactulose last evening. Stat CAT scan of the abdomen and pelvis ordered. Abdominal x-ray showed enteric tube is placed. Probable pancreatic calcifications of chronic pancreatitis. Gaseous distention without dilatation of what appears to be the transverse colon. Chest x-ray reveals strand like bibasilar opacities present. Likely atelectasis however surveillance is recommended to assess for developing pneumonia with clinical concern for aspiration. Alcohol level less than 10. Drug screen ordered. Troponins have been 0.036, 0.044 and 0.031. Iron studies show iron of 105, TIBC 234, iron saturation 44.87 and ferritin 106.6. Lactic acid this morning was 3.0. Repeat hemoglobin 8.9 and platelet count 61. Albumin 251 dose was ordered. Patient was afebrile, heart rate running in the 90s, blood pressure 111/61, pulse ox 94% on room air. Discuss CODE STATUS with patient's power of assistant attorney general, Sister He ather and patient is currently a full code but this may change after family discussion. Cardiology has evaluated the patient and acute coronary syndrome ruled out. Received call that echocardiogram found pleural effusion that we'll need further evaluation. Consult added for Dr. Ramos. Gallbladder ultrasound done yesterday showed mild abdominal ascites. No dilated ducts. Mild gallbladder wall thickening. Right kidney shows no hydronephrosis. Limited study due to body habitus. Midline has been ordered for IV access. Consult was added with Dr. Persaud with recommendations to continue NG tube decompression and will continue to follow. 01/10: Patient underwent therapeutic paracentesis on January 09 with removal of 3 L of straw-colored fluid. Pathology is pending. Chest x-ray yesterday revealed NG tube and good position. New atelectasis at the lung bases. Patient's mental status is improved today. NG tube has been removed. Patient is complaining of some generalized abdominal cramping. She is having soft stool. She is currently on diet as tolerated. Lactulose is continued at 30 g every 8 hours with titration for 2-3 bowel movements per day. GI is not planning for endoscopy and surgery has no surgical plans. Patient will be transferred to [facility] floor. She has been afebrile, heart rate 95, blood pressure 109/53, pulse ox 97% on room air. WBC 8.6, hemoglobin 9.5, platelet count 77. Blood sugar up to 398. Levemir 10 units daily added. PT and OT on with probable need for subacute rehab. CEA was high at 14, CA 199 high at 50.9. AFP tumor marker 5.4 within normal limits. Echocardiogram report reveals EF of 60-65%, mild tricuspid regurgitation, no pericardial effusion. Pleural effusion. Objective - Vital Signs Vital signs: Vital Signs Temp 98.1 F 01/10/19 20:00 Pulse 97 01/11/19 03:17 Resp 17 01/11/19 03:17 BP 131/84 01/11/19 03:12 Pulse Ox 93 L 01/11/19 03:12 Intake & Output 01/10/19 01/11/19 01/11/19 18:59 06:59 18:59 Intake Total 120 900 Output Total 275 275 Balance -155 625 Intake: Intake, IV Titration 100 Amount metroNIDAZOLE-NS PMX 500 100 mg In Saline 1 100ml.bag @ 100 mls/hr IVPB Q6HR ZOE Rx#:[id number] Oral 120 800 Output: Urine 275 275 Other: Voiding Method Toilet Toilet # Bowel Movements 1 3 - Exam Review Of Systems: Constitutional: No fever, no chills, no night sweats. No weight change. Reports weakness, reports fatigue, reports daytime sleepiness. EENT: No headache. No blurred vision or double vision, no loss of vision. No loss of Hearing, no ringing in the ears, no dizziness. No nasal drainage or congestion. No epistaxis. No sore throat. Lungs: No shortness of breath, cough, no sputum production. No wheezing. Cardiovascular: No chest pain, no lower extremity edema. No palpitations. No paroxysmal nocturnal dyspnea. No orthopnea. No lightheadedness or dizziness. No syncopal episodes. Abdominal: Reports abdominal pain. No nausea, vomiting. No diarrhea. No constipation. No bloody or tarry stools. Genitourinary: No dysuria, increased frequency, urgency. No urinary retention. Musculoskeletal: No myalgias. No muscle weakness, no gait dysfunction, no frequent falls. No back pain. No neck pain. Integumentary: No wounds, no lesions. No rash or pruritus. No unusual bruising. No change in hair or nails. Neurologic: No aphasia. No facial droop. No change in mentation. No head injury. No headache. No paralysis. No paresthesia. Psychiatric: No depression. No anxiety. No mood swings. Endocrine: Reports abnormal blood sugars. Physical exam: - Constitutional General appearance: no distress - EENT Eyes: PERRLA, no ptosis, scleral icterus, normal apperance ENT: hard of hearing, normal oropharynx, no thrush Ears: bilateral: normal - Neck Neck: no lymphadenopathy, normal ROM, no rigidity, no stridor, no thyromegaly Carotids: bilateral: upstroke delayed Thyroid: bilateral: normal size - Respiratory Respiratory: bilateral: diminished, negative: dullness, rales, rhonchi, wheezing, prolonged expiration - Cardiovascular Rhythm: regular Heart sounds: normal: S1, S2 Abnormal Heart Sounds: systolic murmur, no S3 Gallop, no S4 Gallop, no click - Gastrointestinal General gastrointestinal: Round, hepatomegaly, normal bowel sounds, soft, splenomegaly, no umbilical hernia, no ventral hernia - Integumentary Integumentary: normal, normal turgor Healing wound to the right great toe. No signs of infection. - Neurologic Neurologic: CNII-XII intact - Musculoskeletal Musculoskeletal: generalized weakness - Psychiatric Psychiatric: A&O x's 2, appropriate affect, able to follow commands - Labs CBC & Chem 7: 01/11/19 08:56 01/10/19 05:52 Labs: Abnormal Lab Results - Last 24 Hours (Table) 01/10/19 01/10/19 01/10/19 Range/Units 11:50 16:48 21:15 POC Glucose (mg/dL) 128 H 114 H 226 H (75-99) mg/dL 01/11/19 Range/Units 06:39 POC Glucose (mg/dL) 398 H (75-99) mg/dL Microbiology - Last 24 Hours (Table) 01/09/19 00:23 Blood Culture - Preliminary Blood No Growth after 24 hours 01/09/19 16:01 Gram Stain - Preliminary Paracentesis Fluid Body Fluid Culture - Preliminary Assessment and Plan Plan: 1. Hepatic encephalopathy with elevated ammonia secondary to alcoholic liver cirrhosis, currently improving. Continue Lactulose 30 mg 3 times daily and Xifaxan 550 mg twice daily. Continue Aldactone 25 mg twice daily and Lasix. Consults with GI and general surgery appreciated. [facility]. Continue Levaquin and Flagyl. Status post paracentesis. 2. Possible aspiration pneumonia with mental status changes and emesis. Continue Levaquin and Flagyl. 3. Pleural effusion. Consult with Dr. Ramos. 4. Generalized weakness with anemia, possible acute blood loss and anemia on top of chronic anemia of alcoholism. Stool for occult blood is positive. Monitor hemoglobin. GI consult. Continue ferrous sulfate 325 mg daily. CA 199, CEA, alpha-fetoprotein tumor marker as above. Iron studies as above. Patient has been transfused 1 unit packed RBCs and 2 units of fresh frozen plasma. 5. Bicytopenia secondary to alcoholic liver cirrhosis as well as bone marrow suppression. Patient was seen and evaluated by hematology oncology in the past underwent bone marrow biopsy did not show any evidence of myelodysplasia. Continue B12 1000 mcg orally once every day, folic acid 1 mg orally once every day. Patient has been transfused 1 unit packed RBCs and 2 units of fresh frozen plasma. 6. Elevated troponin. Consult cardiology appreciated. Echocardiogram as above. Acute coronary syndrome ruled out. 7. Hypertension and hypertensive cardiovascular disease. Continue lisinopril 2.5 mg orally once every day and atenolol 25 mg orally once every day. 8. Alcoholic liver disease with elevated bilirubin and liver function tests. Continue as in #1. Monitor CMP. Consults with GI and general surgery appreciated. 9. Diabetes mellitus type 2 uncontrolled with hyperglycemia. Levemir 10 units added and Glimepiride on hold. Continue NovoLog scale before meals and at bedtime 10. Hypothyroidism. Continue levothyroxine. TSH normal. 11. Seizure disorder by history. Patient is off Keppra. 12. History of hyperlipidemia. Resolved 13. Vascular dementia, and possibly alcohol induced frontload dementia. Continue vitamin supplement for now. 14. History of chronic alcohol use and dependence. Patient has abstained from alcohol for 913 days. 15. Rheumatoid arthritis. Patient not taking any medication at this time. 16. History of diabetic polyneuropathy. Stable at this time. 17. History of vaginal cancer status post total abdominal hysterectomy as well as bilateral salpingo-nephrectomy along with vaginectomy 18. DVT prophylaxis. Bilateral knee-high SOLEDAD hose. No heparin due to thrombocytopenia. 19. GI prophylaxis. Continue PPI. CODE STATUS: full code. Discussed with patient's sister on January 09. Discharge plan: Expect subacute rehab on Monday. PT and OT added. Social work consult. Patient is currently at independent living at [facility]. Impression and plan of care have been directed as dictated by the signing physician. Majo Hawkins nurse practitioner acting as scribe for signing physician. <Guillermina Paris - Last Filed: 01/22/19 21:12> Subjective 7/5 apteitn evaluated today she is alert and cooperatvie without asterexis or tremors, oral diet is tolerated, no aspriative events, no abdominal pain, still has abdominal distension but less and softer from yesterday. gi closely following, no plans for endoscopy vitals are stable, hemoglobin stable Objective - Vital Signs Vital signs: Vital Signs Temp 97.7 F 01/17/19 08:00 Pulse 76 01/17/19 12:30 Resp 23 01/17/19 12:30 BP 98/48 01/17/19 12:30 Pulse Ox 93 L 01/17/19 12:30 - Labs CBC & Chem 7: 01/17/19 05:40 01/17/19 08:39
[2019-01-11 12:20] LABS: Glucose,Whole Blood 178 mg/dL (75-99)
[2019-01-11 13:52] LABS: Calcium 8.5 mg/dL (8.4-10.2); Potassium 4.3 mmol/L (3.5-5.1)
[2019-01-11 17:04] LABS: Glucose,Whole Blood 178 mg/dL (75-99)
[2019-01-11] MEDS ORDERED: SODIUM CHLORIDE 0.9% 500 ML 500 ML IV ONE (17:16)
[2019-01-11] MEDS ORDERED: DOBUTamine DRIP 500 MG in DEXTROSE/WATER 1 250ML.BAG IV SCH (18:00)
[2019-01-11 18:01] LABS: Anisocytosis Moderate; Basophils % (A) 0 %; Eosinophils # (A) 0.2 k/uL (0-0.7); Eosinophils % (A) 3 %; HCT 27.9 % (34.0-46.0); HGB 8.6 gm/dL (11.4-16.0); Hypochromasia Marked; Lymphocytes # (A) 0.4 k/uL (1.0-4.8); Lymphocytes % (A) 6 %; MCH 32.2 pg (25.0-35.0); Macrocytosis Marked; Mean Platelet Volume 7.5; Monocytes # (A) 0.4 k/uL (0-1.0); Monocytes % (A) 7 %; Neutrophils # (A) 5.2 k/uL (1.3-7.7); Neutrophils % (A) 81 %; Poikilocytosis Slight; RBC 2.68 m/uL (3.80-5.40); WBC 6.3 k/uL (3.8-10.6)
[2019-01-11 18:14] LABS: Calcium 7.8 mg/dL (8.4-10.2); Potassium 4.4 mmol/L (3.5-5.1)
[2019-01-11 18:18] LABS: Platelet Count 71 k/uL (150-450); Poikilocytosis (M) Present; Polychromasia Present
[2019-01-11 18:21] LABS: Lactic Acid, Venous 3.4 mmol/L (0.7-2.0)
[2019-01-11 18:27] LABS: Glucose,Whole Blood 167 mg/dL (75-99)
[2019-01-11] MEDS: ALBUMIN HUMAN 25% 50 ML in EMPTY BAG 1 BAG IVPB SCH ×2 (19:54→20:57)
[2019-01-11 21:12] LABS: Glucose,Whole Blood 114 mg/dL (75-99)
--- NOTE | 2019-01-11 21:14 | P.PN ---
Subjective Progress Note Date: 01/11/19 Principal diagnosis: Decompensated alcoholic cirrhosis, ascites, hepatic encephalopathy Patient is seen lying in bed with her friend stated bedside. 4 bowel movements today with no blood or signs of GI bleeding reported. Patient has tolerated a diet. NG tube has been removed. Objective - Vital Signs Vital signs: Vital Signs Temp 97.4 F L 01/11/19 20:00 Pulse 54 L 01/11/19 21:01 Resp 15 01/11/19 21:01 BP 82/50 01/11/19 21:01 Pulse Ox 93 L 01/11/19 21:01 Intake & Output 01/11/19 01/11/19 01/12/19 06:59 18:59 06:59 Intake Total 900 360 250 Output Total 275 202 100 Balance 625 158 150 Intake: IV 250 Albumin Human 25% 50 ml 50 In Empty Bag 1 bag @ 50 mls/hr IVPB Q1H [facility] Rx#: [id number] Sodium Chloride 0.9% 1, 100 000 ml @ 100 mls/hr IV . Q10H [facility] Rx#:[id number] metroNIDAZOLE-NS PMX 500 100 mg In Saline 1 100ml.bag @ 100 mls/hr IVPB Q6HR [facility] Rx#:[id number] Intake, IV Titration 100 Amount metroNIDAZOLE-NS PMX 500 100 mg In Saline 1 100ml.bag @ 100 mls/hr IVPB Q6HR [facility] Rx#:[id number] Oral 800 360 Output: Urine 275 200 100 Stool 2 Other: Voiding Method Toilet Indwelling Catheter # Voids 2 # Bowel Movements 3 4 - Exam On physical examination, patient appears comfortable in no apparent distress. HEAD: Normocephalic, atraumatic. EYES: No conjunctival injection. MOUTH: No lesions, tongue midline. NECK: Trachea midline, no gross abnormalities. CHEST: Decreased air entry bilaterally. HEART: S1-S2 appreciated. ABDOMEN: Soft, distended. Bowel sounds are positive. No organomegaly. No guarding or rigidity. EXTREMITIES: Bilateral pedal edema. SKIN: No rashes, jaundice. NEUROLOGIC: Alert and oriented x2 with no asterixis appreciated, but somewhat more somnolent today. No focal deficits. - Labs CBC & Chem 7: 01/11/19 17:48 01/11/19 17:48 Labs: Abnormal Lab Results - Last 24 Hours (Table) 0701/11/19 01/11/19 Range/Units 21:15 06:39 08:56 RBC 2.91 L (3.80-5.40) m/uL Hgb 9.5 L (11.4-16.0) gm/dL Hct 30.3 L (34.0-46.0) % MCV 104.2 H (80.0-100.0) fL RDW 23.4 H (11.5-15.5) % Plt Count 77 L (150-450) k/uL Lymphocytes # (1.0-4.8) k/uL Lymphocytes # (Manual) 0.34 L (1.0-4.8) k/uL Macrocytosis Marked A Chloride (98-107) mmol/L Carbon Dioxide (22-30) mmol/L BUN (7-17) mg/dL Creatinine (0.52-1.04) mg/dL Glucose (74-99) mg/dL POC Glucose (mg/dL) 226 H 398 H (75-99) mg/dL Plasma Lactic Acid Rinku (0.7-2.0) mmol/L Calcium (8.4-10.2) mg/dL Ammonia (<30) umol/L 01/11/19 01/11/19 01/11/19 Range/Units 11:49 12:55 16:47 RBC (3.80-5.40) m/uL Hgb (11.4-16.0) gm/dL Hct (34.0-46.0) % MCV (80.0-100.0) fL RDW (11.5-15.5) % Plt Count (150-450) k/uL Lymphocytes # (1.0-4.8) k/uL Lymphocytes # (Manual) (1.0-4.8) k/uL Macrocytosis Chloride 111 H (98-107) mmol/L Carbon Dioxide 20 L (22-30) mmol/L BUN 32 H (7-17) mg/dL Creatinine 1.05 H (0.52-1.04) mg/dL Glucose 168 H (74-99) mg/dL POC Glucose (mg/dL) 178 H 178 H (75-99) mg/dL Plasma Lactic Acid Rinku (0.7-2.0) mmol/L Calcium (8.4-10.2) mg/dL Ammonia (<30) umol/L 01/11/19 01/11/19 01/11/19 Range/Units 17:48 17:48 17:48 RBC 2.68 L (3.80-5.40) m/uL Hgb 8.6 L (11.4-16.0) gm/dL Hct 27.9 L (34.0-46.0) % MCV 104.0 H (80.0-100.0) fL RDW 23.0 H (11.5-15.5) % Plt Count 71 L (150-450) k/uL Lymphocytes # 0.4 L (1.0-4.8) k/uL Lymphocytes # (Manual) (1.0-4.8) k/uL Macrocytosis Marked A Chloride 111 H (98-107) mmol/L Carbon Dioxide 21 L (22-30) mmol/L BUN 32 H (7-17) mg/dL Creatinine 1.09 H (0.52-1.04) mg/dL Glucose 141 H (74-99) mg/dL POC Glucose (mg/dL) (75-99) mg/dL Plasma Lactic Acid Rinku 3.4 H* (0.7-2.0) mmol/L Calcium 7.8 L (8.4-10.2) mg/dL Ammonia 66 H (<30) umol/L 01/11/19 Range/Units 18:26 RBC (3.80-5.40) m/uL Hgb (11.4-16.0) gm/dL Hct (34.0-46.0) % MCV (80.0-100.0) fL RDW (11.5-15.5) % Plt Count (150-450) k/uL Lymphocytes # (1.0-4.8) k/uL Lymphocytes # (Manual) (1.0-4.8) k/uL Macrocytosis Chloride (98-107) mmol/L Carbon Dioxide (22-30) mmol/L BUN (7-17) mg/dL Creatinine (0.52-1.04) mg/dL Glucose (74-99) mg/dL POC Glucose (mg/dL) 167 H (75-99) mg/dL Plasma Lactic Acid Rinku (0.7-2.0) mmol/L Calcium (8.4-10.2) mg/dL Ammonia (<30) umol/L Microbiology - Last 24 Hours (Table) 01/09/19 16:01 Gram Stain - Preliminary Paracentesis Fluid Body Fluid Culture - Preliminary 01/09/19 00:23 Blood Culture - Preliminary Blood No Growth after 24 hours Assessment and Plan (1) Decompensated liver disease Narrative/Plan: 63-year-old female with a known history of decompensated alcoholic liver disease with a site is and encephalopathy presented with increased confusion. Patient found to have markedly elevated ammonia level on presentation. Current Visit: Yes Status: Acute Code(s): K74.69 - OTHER CIRRHOSIS OF LIVER SNOMED Code(s): 79090791 (2) Hepatic encephalopathy Current Visit: Yes Status: Acute Code(s): K72.90 - HEPATIC FAILURE, UNSPECIFIED WITHOUT COMA SNOMED Code(s): 63536040 (3) Coagulopathy Current Visit: Yes Status: Acute Code(s): D68.9 - COAGULATION DEFECT, UNSPECIFIED SNOMED Code(s): 68871632 (4) History of ETOH abuse Current Visit: Yes Status: Acute Code(s): F10.11 - ALCOHOL ABUSE, IN REMISSION SNOMED Code(s): 158176835 (5) Macrocytic anemia Current Visit: Yes Status: Acute Code(s): D53.9 - NUTRITIONAL ANEMIA, UNSPECIFIED SNOMED Code(s): 34044702 (6) Thrombocytopenia Current Visit: Yes Status: Acute Code(s): D69.6 - THROMBOCYTOPENIA, UNSPECIFIED SNOMED Code(s): 322323022 Plan: Supportive care Low-sodium diet Continue lactulose 30 q8, with titration for the patient to have 2-3 bowel movements Appreciate recommendations from pulmonology and surgical services NG tube removed No plan for endoscopic evaluation at this time Continue diuresis with Lasix and Aldactone Alcohol abstinence Thank you for allowing us to participate in the care of this patient we will continue to follow
[2019-01-11] MEDS: MIRTAZAPINE 15 MG TAB PO SCH (22:09)
[2019-01-11] MEDS: NOREPINEPHRINE 4 MG in SODIUM CHLORIDE 0.9% 250 ML IV SCH (22:48)
[2019-01-12] MEDS: metroNIDAZOLE-NS PMX 500 MG in SALINE 1 100ML.BAG IVPB SCH ×3 (01:01→06:40)
[2019-01-12 05:11] LABS: Anisocytosis Moderate; Basophils # (A) 0.1 k/uL (0-0.2); Basophils % (A) 1 %; Eosinophils # (A) 0.5 k/uL (0-0.7); Eosinophils % (A) 5 %; HCT 27.7 % (34.0-46.0); HGB 9.3 gm/dL (11.4-16.0); Hypochromasia Moderate; Lymphocytes # (A) 0.7 k/uL (1.0-4.8); Lymphocytes % (A) 7 %; MCH 34.3 pg (25.0-35.0); MCHC 33.4 g/dL (31.0-37.0); MCV 102.7 fL (80.0-100.0); Mean Platelet Volume 9.1; Monocytes # (A) 0.7 k/uL (0-1.0); Monocytes % (A) 7 %; Neutrophils # (A) 8.1 k/uL (1.3-7.7); Neutrophils % (A) 79 %; Poikilocytosis Slight; RDW 23.8 % (11.5-15.5); WBC 10.4 k/uL (3.8-10.6)
[2019-01-12 05:16] LABS: Macrocytosis Marked
[2019-01-12 05:17] LABS: Platelet Count 94 k/uL (150-450)
[2019-01-12 05:37] LABS: Calcium 8.3 mg/dL (8.4-10.2)
[2019-01-12 05:47] LABS: Potassium 4.8 mmol/L (3.5-5.1)
[2019-01-12] MEDS: LEVOTHYROXINE 25 MCG TAB PO SCH (06:40)
[2019-01-12 07:06] LABS: Glucose,Whole Blood 110 mg/dL (75-99)
[2019-01-12] MEDS: INSULIN ASPART (NovoLOG) 100 UNIT/ML VIAL SQ SCH ×4 (07:16→21:04)
[2019-01-12] MEDS: LACTULOSE 20 GM/30 ML CUP PO SCH ×3 (08:18→21:05)
[2019-01-12] MEDS: LEVOFLOXACIN 250MG-D5W PMX 250 MG in DEXTROSE/WATER 1 50ML.BAG IVPB SCH (08:18)
[2019-01-12] MEDS: FUROSEMIDE 20 MG TAB PO SCH ×2 (08:19→15:04)
[2019-01-12] MEDS: FERROUS SULFATE 325 MG TAB PO SCH (08:19)
[2019-01-12] MEDS: POTASSIUM CHLORIDE ER 20 MEQ TAB.ER PO SCH ×2 (08:19→21:04)
[2019-01-12] MEDS: RIFAXIMIN 550 MG TABLET PO SCH ×2 (08:19→21:04)
[2019-01-12] MEDS: LISINOPRIL 2.5 MG TAB PO SCH (08:19)
[2019-01-12] MEDS: SPIRONOLACTONE 25 MG TAB PO SCH ×2 (08:19→21:09)
[2019-01-12] MEDS: CYANOCOBALAMIN 500 MCG TAB PO SCH (08:19)
[2019-01-12] MEDS: FOLIC ACID 1 MG TAB PO SCH (08:19)
[2019-01-12] MEDS: MAGNESIUM OXIDE 400 MG TAB PO SCH (08:19)
[2019-01-12] MEDS: INSULIN DETEMIR (LEVEMIR) 100 UNIT/ML SYR SQ SCH (08:40)
[2019-01-12] MEDS: CALCITONIN 200 USP/1 NASAL SPRAY 3.7ML BTL NASAL SCH (09:20)
[2019-01-12] MEDS: SODIUM CHLORIDE 0.9% 1,000 ML IV SCH ×2 (09:21→17:14)
[2019-01-12 11:37] LABS: Glucose,Whole Blood 168 mg/dL (75-99)
[2019-01-12] MEDS: ATENOLOL 25 MG TAB PO SCH (11:40)
--- NOTE | 2019-01-12 12:48 | P.PN ---
Subjective Progress Note Date: 01/12/19 On 01/12/2019Patient is being seen in follow-up in intensive care unit. The patient is doing well. Noted the patient was seen in the ICU. He is back. The patient has history of alcoholic liver cirrhosis and portal hypertension and portal gastropathy. The patient came in with some diminished level of consciousness and ammonia level was high. NG tube was inserted and the patient was given lactulose and Xifaxan. CAT scan of the abdomen and pelvis was also done that showed no evidence of any infiltrates or pleural effusion and there was ascites moderate amount. At that point the CAT scan also showed calcific pancreatitis related to previous alcoholism. There was also fecal material retained in the rectosigmoid area. NG tube was removed. The patient was given lactulose. The patient improved. Ammonia level is improving. Yesterday the patient underwent a paracentesis. Total of 3 L of fluid was removed. Following that the patient became hypotensive. 2 albumin dose of 12.5 mg was given without any much benefit and the patient got transferred to the ICU for pressors and the patient is currently receiving IV fluids and pressors were levo fed is running around 5 mics. The patient typically runs a lower blood pressure. She is still in stage I encephalopathy. No signs of any GI bleed. No signs of any septicemia. Abdominal ascitic fluid is negative for now and the patient con tinues to be on broad-spectrum antibiotics with Levaquin and Flagyl. Currently on IV fluids. Objective - Vital Signs Vital signs: Vital Signs Temp 97.9 F 01/12/19 09:00 Pulse 60 01/12/19 11:00 Resp 13 01/12/19 11:00 BP 91/53 01/12/19 11:00 Pulse Ox 92 L 01/12/19 11:00 Intake & Output 01/11/19 01/12/19 01/12/19 18:59 06:59 18:59 Intake Total 360 1523.718 680.282 Output Total 202 388 116 Balance 158 1135.718 564.282 Weight 78.5 kg Intake: IV 1300 500 Albumin Human 25% 50 ml 100 In Empty Bag 1 bag @ 50 mls/hr IVPB Q1H [facility] Rx#: [id number] Sodium Chloride 0.9% 1, 1100 500 000 ml @ 100 mls/hr IV . Q10H [facility] Rx#:[id number] metroNIDAZOLE-NS PMX 500 100 mg In Saline 1 100ml.bag @ 100 mls/hr IVPB Q6HR [facility] Rx#:[id number] Intake, IV Titration 223.718 180.282 Amount Levofloxacin 250Mg-D5w 50 Pmx 250 mg In Dextrose/ Water 1 50ml.bag @ 50 mls /hr IVPB Q24H [facility] Rx#: [id number] Norepinephrine 4 mg In 123.718 130.282 Sodium Chloride 0.9% 250 ml @ 0.05 MCG/KG/MIN 18. 764 mls/hr IV .[id number] [facility] Rx#:[id number] metroNIDAZOLE-NS PMX 500 100 mg In Saline 1 100ml.bag @ 100 mls/hr IVPB Q6HR [facility] Rx#:[id number] Oral 360 Output: Urine 200 385 115 Stool 2 3 1 Other: Voiding Method Indwelling Catheter Indwelling Catheter Indwelling Catheter # Voids 2 # Bowel Movements 4 1 - Exam General appearance: The patient is confused, in no acute distress. Jaundice. Head exam was generally normal. There was no scleral icterus or corneal arcus. Mucous membranes were moist. HET: Head is normocephalic and atraumatic. Pupils are equal and reactive. Oropharynx is clear without lesions. NG tube with bilious fluid. Sclerae icterus. Neck: Supple without lymphadenopathy. Trachea midline. The NG tube is in place Heart: S1 S2. Regular rate and rhythm. Lungs: No crackles or wheezes are heard. Abdomen: Soft, mildly bloated with bowel sounds. No peritoneal signs. No palpable organomegaly or masses. Extremities: Normal skin color and turgor. No cyanosis, rash, ulceration, clubbing, or edema. Radial and pedal pulses are 2/4 bilaterally. Neurological: No focal deficits. Strength and sensation are grossly intact. Examination of the skin revealed no evidence of significant rashes, suspicious appearing nevi or other concerning lesions. - Labs CBC & Chem 7: 01/12/19 04:33 01/12/19 05:05 Labs: Abnormal Lab Results - Last 24 Hours (Table) 01/11/19 01/11/19 01/11/19 Range/Units 12:55 16:47 17:48 RBC 2.68 L (3.80-5.40) m/uL Hgb 8.6 L (11.4-16.0) gm/dL Hct 27.9 L (34.0-46.0) % MCV 104.0 H (80.0-100.0) fL RDW 23.0 H (11.5-15.5) % Plt Count 71 L (150-450) k/uL Neutrophils # (1.3-7.7) k/uL Lymphocytes # 0.4 L (1.0-4.8) k/uL Macrocytosis Marked A Chloride 111 H (98-107) mmol/L Carbon Dioxide 20 L (22-30) mmol/L BUN 32 H (7-17) mg/dL Creatinine 1.05 H (0.52-1.04) mg/dL Glucose 168 H (74-99) mg/dL POC Glucose (mg/dL) 178 H (75-99) mg/dL Plasma Lactic Acid Rinku (0.7-2.0) mmol/L Calcium (8.4-10.2) mg/dL Ammonia (<30) umol/L 01/11/19 01/11/19 01/11/19 Range/Units 17:48 17:48 18:26 RBC (3.80-5.40) m/uL Hgb (11.4-16.0) gm/dL Hct (34.0-46.0) % MCV (80.0-100.0) fL RDW (11.5-15.5) % Plt Count (150-450) k/uL Neutrophils # (1.3-7.7) k/uL Lymphocytes # (1.0-4.8) k/uL Macrocytosis Chloride 111 H (98-107) mmol/L Carbon Dioxide 21 L (22-30) mmol/L BUN 32 H (7-17) mg/dL Creatinine 1.09 H (0.52-1.04) mg/dL Glucose 141 H (74-99) mg/dL POC Glucose (mg/dL) 167 H (75-99) mg/dL Plasma Lactic Acid Rinku 3.4 H* (0.7-2.0) mmol/L Calcium 7.8 L (8.4-10.2) mg/dL Ammonia 66 H (<30) umol/L 01/11/19 01/11/19 01/12/19 Range/Units 21:11 22:00 04:33 RBC 2.70 L (3.80-5.40) m/uL Hgb 9.3 L (11.4-16.0) gm/dL Hct 27.7 L (34.0-46.0) % MCV 102.7 H (80.0-100.0) fL RDW 23.8 H (11.5-15.5) % Plt Count 94 L (150-450) k/uL Neutrophils # 8.1 H (1.3-7.7) k/uL Lymphocytes # 0.7 L (1.0-4.8) k/uL Macrocytosis Marked A Chloride (98-107) mmol/L Carbon Dioxide (22-30) mmol/L BUN (7-17) mg/dL Creatinine (0.52-1.04) mg/dL Glucose (74-99) mg/dL POC Glucose (mg/dL) 114 H (75-99) mg/dL Plasma Lactic Acid Rinku 2.7 H* (0.7-2.0) mmol/L Calcium (8.4-10.2) mg/dL Ammonia (<30) umol/L 01/12/19 01/12/19 01/12/19 Range/Units 05:05 06:01 07:04 RBC (3.80-5.40) m/uL Hgb (11.4-16.0) gm/dL Hct (34.0-46.0) % MCV (80.0-100.0) fL RDW (11.5-15.5) % Plt Count (150-450) k/uL Neutrophils # (1.3-7.7) k/uL Lymphocytes # (1.0-4.8) k/uL Macrocytosis Chloride 113 H (98-107) mmol/L Carbon Dioxide 19 L (22-30) mmol/L BUN 31 H (7-17) mg/dL Creatinine 1.07 H (0.52-1.04) mg/dL Glucose 100 H (74-99) mg/dL POC Glucose (mg/dL) 110 H (75-99) mg/dL Plasma Lactic Acid Rinku (0.7-2.0) mmol/L Calcium 8.3 L (8.4-10.2) mg/dL Ammonia 63 H (<30) umol/L 01/12/19 Range/Units 11:36 RBC (3.80-5.40) m/uL Hgb (11.4-16.0) gm/dL Hct (34.0-46.0) % MCV (80.0-100.0) fL RDW (11.5-15.5) % Plt Count (150-450) k/uL Neutrophils # (1.3-7.7) k/uL Lymphocytes # (1.0-4.8) k/uL Macrocytosis Chloride (98-107) mmol/L Carbon Dioxide (22-30) mmol/L BUN (7-17) mg/dL Creatinine (0.52-1.04) mg/dL Glucose (74-99) mg/dL POC Glucose (mg/dL) 168 H (75-99) mg/dL Plasma Lactic Acid Rinku (0.7-2.0) mmol/L Calcium (8.4-10.2) mg/dL Ammonia (<30) umol/L Microbiology - Last 24 Hours (Table) 01/09/19 00:23 Blood Culture - Preliminary Blood No Growth after 48 hours 01/09/19 16:01 Anaerobic Culture - Preliminary Ascites Fluid 01/09/19 16:01 Gram Stain - Preliminary Paracentesis Fluid Body Fluid Culture - Preliminary Assessment and Plan Plan: 1 liver cirrhosis, alcoholic in nature, and the patient continues to have stage I encephalopathy. Ammonia level is still elevated 2 altered mental status secondary to hepatic encephalopathy, improved yet not fully recovered 3 abdominal distention with distention of the large bowel without clear signs of bowel obstruction. The patient also had an ascites and the patient developed abdominal distention and the patient underwent a paracentesis were 3 L of fluid was removed. Currently on Levaquin and Flagyl. Awaiting fluid analysis and cultures. The patient developed hypotension following the procedure and the patient is currently on low-dose pressors for hemodynamic support. 4 alcoholism 5 hypotension, see above-mentioned discussion 6 portal hypertension and portal gastropathy secondary to liver cirrhosis, in addition to coagulopathy secondary to chronic liver disease 7 history of CVA/TIA 8 diabetes mellitus 9 history of uterine/ovarian cancer 10 hypertension 11 hyperlipidemia 12 seizure disorder 13 previous history of C. diff colitis Plan Antinea IV fluids. Continue antibiotics. Wean off pressors and discontinue. The patient still has encephalopathy and she will benefit from lactulose and Xifaxan. Rest of the management is agreeable. Note that the patient has a very poor prognosis based on the above-mentioned comorbidities. We'll continue to follow.
[2019-01-12] MEDS: metroNIDAZOLE 500 MG TAB PO SCH ×2 (12:55→17:15)
[2019-01-12] MEDS: NOREPINEPHRINE 4 MG in SODIUM CHLORIDE 0.9% 250 ML IV SCH (12:56)
--- NOTE | 2019-01-12 16:53 | P.PN ---
Subjective Progress Note Date: 01/12/19 This is a 63-year-old female one of my patient with a previous medical history significant for hypertension and hypertensive cardiovascular disease with left ventricular hypertrophy, diabetes mellitus type 2 with diabetic polyneuropathy, CVA, TIA, liver cirrhosis secondary to chronic alcohol use and dependence, pancytopenia secondary to liver cirrhosis, vaginal cancer status post vaginectomy, uterine cancer, seizure disorder, kyphoscoliosis, vascular dementia, hyperlipidemia. Patient also has chronic right great toe wound under the care of Dr. Davila. Patient is seen in the office weekly and his home care 2 times per week to do dressing changes. Sister gives history of having battled w ith C. difficile colitis for the past year and a half which is finally cleared under the care of Dr. Curran. Patient has had a loss of appetite, loss of weight. Her home care nurse was concerned that she wasn't oriented to time and place. She has some lower extremity edema. Symptoms have been worsening over the past 9 months. Patient complains of generalized weakness. She is currently residing at independent living at [facility]. Sister also states the patient had a fall yesterday as well as 2 weeks ago. Patient was brought into the emergency department at [facility] due to the above symptoms. She was afebrile, heart rate 104, blood pressure 122/78, pulse ox 97% on room air. White count was 5, hemoglobin 7.5, platelet count 72. Sodium 135, potassium 4.1, chloride 105, CO2 23, BUN 29 creatinine 0.99. Blood sugar was 226. Total bilirubin 5.3, AST 83, ALT 55, alkaline phosphatase 150. INR was elevated at 1.9. TSH 1.270. Lactic acid 3.3, proBNP 182. Troponin 0.0 36 and repeat is 0.044. Urinalysis was dark yellow, bilirubin negative, leukoesterase trace, WBCs 12, casts 30. Ammonia level LXXXIX, stool for occult blood positive. 01/09: A-Team was called on this patient this morning due to acute mental status changes, unable to follow commands and vomiting dark brown liquid. Abdomen was distended.. Patient was started on CIWA protocol per A-Team and was transferred to the selective care unit. Dr. Medina was notified and lactulose was increased to 30 g 3 times daily and NG tube was placed. Rifaximin 550mg BID through NG tube as ordered. Repeat ammonia 190. According to nursing, patient has not had a bowel movement since admission it had only received 1 dose of lactulose last evening. Stat CAT scan of the abdomen and pelvis ordered. Abdominal x-ray showed enteric tube is placed. Probable pancreatic calcifications of chronic pancreatitis. Gaseous distention without dilatation of what appears to be the transverse colon. Chest x-ray reveals strand like bibasilar opacities present. Likely atelectasis however surveillance is recommended to assess for developing pneumonia with clinical concern for aspiration. Alcohol level less than 10. Drug screen ordered. Troponins have been 0.036, 0.044 and 0.031. Iron studies show iron of 105, TIBC 234, iron saturation 44.87 and ferritin 106.6. Lactic acid this morning was 3.0. Repeat hemoglobin 8.9 and platelet count 61. Albumin 251 dose was ordered. Patient was afebrile, heart rate running in the 90s, blood pressure 111/61, pulse ox 94% on room air. Discuss CODE STATUS with patient's power of deputy prosecuting attorney, Sister Zayra and patient is currently a full code but this may change after family discussion. Cardiology has evaluated the patient and acute coronary syndrome ruled out. Received call that echocardiogram found pleural effusion that we'll need further evaluation. Consult added for Dr. Ramos. Gallbladder ultrasound done yesterday showed mild abdominal ascites. No dilated ducts. Mild gallbladder wall thickening. Right kidney shows no hydronephrosis. Limited study due to body habitus. Midline has been ordered for IV access. Consult was added with Dr. Persaud with recommendations to continue NG tube decompression and will continue to follow. 01/10: Patient underwent therapeutic paracentesis on January 09 with removal of 3 L of straw-colored fluid. Pathology is pending. Chest x-ray yesterday revealed NG tube and good position. New atelectasis at the lung bases. Patient's mental status is improved today. NG tube has been removed. Patient is complaining of some generalized abdominal cramping. She is having soft stool. She is currently on diet as tolerated. Lactulose is continued at 30 g every 8 hours with titration for 2-3 bowel movements per day. GI is not planning for endoscopy and surgery has no surgical plans. Patient will be transferred to [facility] floor. She has been afebrile, heart rate 95, blood pressure 109/53, pulse ox 97% on room air. WBC 8.6, hemoglobin 9.5, platelet count 77. Blood sugar up to 398. Levemir 10 units daily added. PT and OT on with probable need for subacute rehab. CEA was high at 14, CA 199 high at 50.9. AFP tumor marker 5.4 within normal limits. Echocardiogram report reveals EF of 60-65%, mild tricuspid regurgitation, no pericardial effusion. Pleural effusion. 01/12 patient examined bedside. Appears tired. She had 5 bowel movements yesterday and 2 bowel movement this morning. She had rectal tube in place C. diff was checked which was negative. White assessed as this morning suggests a temp of 97.4 pulse 54 respiratory rate 15 blood pressure 82/50 on 5 of levo fed. Patient had to 2 doses of albumin yesterday with no improvement and was initiated on pressors. Gastroenterology evaluated this patient continues to have elevated ammonia of 63. Plan for endoscopy tomorrow. Patient nothing by mouth after midnight. Review Of Systems: Constitutional: No fever, no chills, no night sweats. No weight change. Reports weakness, reports fatigue, reports daytime sleepiness. EENT: No headache. No blurred vision or double vision, no loss of vision. No loss of Hearing, no ringing in the ears, no dizziness. No nasal drainage or congestion. No epistaxis. No sore throat. Lungs: No shortness of breath, cough, no sputum production. No wheezing. Cardiovascular: No chest pain, no lower extremity edema. No palpitations. No paroxysmal nocturnal dyspnea. No orthopnea. No lightheadedness or dizziness. No syncopal episodes. Abdominal: Reports abdominal pain.reports abdominal distention No nausea, vomiting. No diarrhea. No constipation. No bloody or tarry stools. Genitourinary: No dysuria, increased frequency, urgency. No urinary retention. Musculoskeletal: No myalgias. No muscle weakness, no gait dysfunction, no frequent falls. No back pain. No neck pain. Integumentary: No wounds, no lesions. No rash or pruritus. No unusual bruising. No change in hair or nails. Neurologic: No aphasia. No facial droop. No change in mentation. No head injury. No headache. No paralysis. No paresthesia. Psychiatric: No depression. No anxiety. No mood swings. Endocrine: Reports abnormal blood sugars. Objective - Vital Signs Vital signs: Vital Signs Temp 97.9 F 01/12/19 16:00 Pulse 68 01/12/19 16:00 Resp 16 01/12/19 16:00 BP 99/73 01/12/19 16:00 Pulse Ox 95 01/12/19 16:00 Intake & Output 01/11/19 01/12/19 01/12/19 18:59 06:59 18:59 Intake Total 360 3305.105 1663.394 Output Total 202 388 212 Balance 158 5265.542 4658.394 Weight 78.5 kg Intake: IV 1300 1000 Albumin Human 25% 50 ml 100 In Empty Bag 1 bag @ 50 mls/hr IVPB Q1H ZOE Rx#: [id number] Sodium Chloride 0.9% 1, 1100 1000 000 ml @ 100 mls/hr IV . Q10H ZOE Rx#:[id number] metroNIDAZOLE-NS PMX 500 100 mg In Saline 1 100ml.bag @ 100 mls/hr IVPB Q6HR ZOE Rx#:[id number] Intake, IV Titration 223.718 247.394 Amount Levofloxacin 250Mg-D5w 50 Pmx 250 mg In Dextrose/ Water 1 50ml.bag @ 50 mls /hr IVPB Q24H ZOE Rx#: [id number] Norepinephrine 4 mg In 123.718 197.394 Sodium Chloride 0.9% 250 ml @ 0.05 MCG/KG/MIN 18. 764 mls/hr IV .[id number] ZOE Rx#:[id number] metroNIDAZOLE-NS PMX 500 100 mg In Saline 1 100ml.bag @ 100 mls/hr IVPB Q6HR ZOE Rx#:[id number] Oral 360 740 Output: Urine 200 385 210 Stool 2 3 2 Other: Voiding Method Indwelling Catheter Indwelling Catheter Indwelling Catheter # Voids 2 # Bowel Movements 4 1 - Exam - Constitutional General appearance: drowsy, no acute distress, distended abdomen - EENT Eyes: icteric sclerae, PERRLA, normal appearance ENT: hearing grossly normal - Neck Neck: no lymphadenopathy, normal ROM, no other, no rigidity, no stridor, no thyromegaly - Respiratory Respiratory: bilateral: CTAdischarge basis - Cardiovascular Rhythm: regular Heart sounds: normal: S1, S2 Abnormal Heart Sounds: no systolic murmur, no diastolic murmur, no rub, no S3 Gallop, no S4 Gallop, no click, no other - Gastrointestinal General gastrointestinal: normal bowel sounds, soft distended and tender diffusely - Integumentary Integumentary: no rash - Neurologic Neurologic: CNII-XII intact - Musculoskeletal Musculoskeletal: gait normal, strength equal bilaterally - Psychiatric Psychiatric: A&O x's 3, appropriate affect - Labs CBC & Chem 7: 01/12/19 04:33 01/12/19 05:05 Labs: Abnormal Lab Results - Last 24 Hours (Table) 01/11/19 01/11/19 01/11/19 Range/Units 16:47 17:48 17:48 RBC 2.68 L (3.80-5.40) m/uL Hgb 8.6 L (11.4-16.0) gm/dL Hct 27.9 L (34.0-46.0) % MCV 104.0 H (80.0-100.0) fL RDW 23.0 H (11.5-15.5) % Plt Count 71 L (150-450) k/uL Neutrophils # (1.3-7.7) k/uL Lymphocytes # 0.4 L (1.0-4.8) k/uL Macrocytosis Marked A Chloride 111 H (98-107) mmol/L Carbon Dioxide 21 L (22-30) mmol/L BUN 32 H (7-17) mg/dL Creatinine 1.09 H (0.52-1.04) mg/dL Glucose 141 H (74-99) mg/dL POC Glucose (mg/dL) 178 H (75-99) mg/dL Plasma Lactic Acid Rinku (0.7-2.0) mmol/L Calcium 7.8 L (8.4-10.2) mg/dL Ammonia (<30) umol/L 01/11/19 01/11/19 01/11/19 Range/Units 17:48 18:26 21:11 RBC (3.80-5.40) m/uL Hgb (11.4-16.0) gm/dL Hct (34.0-46.0) % MCV (80.0-100.0) fL RDW (11.5-15.5) % Plt Count (150-450) k/uL Neutrophils # (1.3-7.7) k/uL Lymphocytes # (1.0-4.8) k/uL Macrocytosis Chloride (98-107) mmol/L Carbon Dioxide (22-30) mmol/L BUN (7-17) mg/dL Creatinine (0.52-1.04) mg/dL Glucose (74-99) mg/dL POC Glucose (mg/dL) 167 H 114 H (75-99) mg/dL Plasma Lactic Acid Rinku 3.4 H* (0.7-2.0) mmol/L Calcium (8.4-10.2) mg/dL Ammonia 66 H (<30) umol/L 01/11/19 01/12/19 01/12/19 Range/Units 22:00 04:33 05:05 RBC 2.70 L (3.80-5.40) m/uL Hgb 9.3 L (11.4-16.0) gm/dL Hct 27.7 L (34.0-46.0) % MCV 102.7 H (80.0-100.0) fL RDW 23.8 H (11.5-15.5) % Plt Count 94 L (150-450) k/uL Neutrophils # 8.1 H (1.3-7.7) k/uL Lymphocytes # 0.7 L (1.0-4.8) k/uL Macrocytosis Marked A Chloride 113 H (98-107) mmol/L Carbon Dioxide 19 L (22-30) mmol/L BUN 31 H (7-17) mg/dL Creatinine 1.07 H (0.52-1.04) mg/dL Glucose 100 H (74-99) mg/dL POC Glucose (mg/dL) (75-99) mg/dL Plasma Lactic Acid Rinku 2.7 H* (0.7-2.0) mmol/L Calcium 8.3 L (8.4-10.2) mg/dL Ammonia (<30) umol/L 01/12/19 01/12/19 01/12/19 Range/Units 06:01 07:04 11:36 RBC (3.80-5.40) m/uL Hgb (11.4-16.0) gm/dL Hct (34.0-46.0) % MCV (80.0-100.0) fL RDW (11.5-15.5) % Plt Count (150-450) k/uL Neutrophils # (1.3-7.7) k/uL Lymphocytes # (1.0-4.8) k/uL Macrocytosis Chloride (98-107) mmol/L Carbon Dioxide (22-30) mmol/L BUN (7-17) mg/dL Creatinine (0.52-1.04) mg/dL Glucose (74-99) mg/dL POC Glucose (mg/dL) 110 H 168 H (75-99) mg/dL Plasma Lactic Acid Rinku (0.7-2.0) mmol/L Calcium (8.4-10.2) mg/dL Ammonia 63 H (<30) umol/L Microbiology - Last 24 Hours (Table) 01/09/19 00:23 Blood Culture - Preliminary Blood No Growth after 48 hours 01/09/19 16:01 Anaerobic Culture - Preliminary Ascites Fluid 01/09/19 16:01 Gram Stain - Preliminary Paracentesis Fluid Body Fluid Culture - Preliminary Assessment and Plan Plan: 1. Hepatic encephalopathy with elevated ammonia secondary to alcoholic liver cirrhosis, currently improving. Continue Lactulose 30 mg 3 times daily and Xifaxan 550 mg twice daily. Continue Aldactone 25 mg twice daily and Lasix. Consults with GI and general surgery appreciated. possible EGD tomorrow Continue Levaquin and Flagyl. Status post paracentesis. 2. Possible aspiration pneumonia with mental status changes and emesis. Continue Levaquin and Flagyl. 3. Pleural effusion. Consult with Dr. Ramos. 4. Generalized weakness with anemia, possible acute blood loss and anemia on top of chronic anemia of alcoholism. Stool for occult blood is positive. Monitor hemoglobin. GI consult. Continue ferrous sulfate 325 mg daily. CA 199, CEA, alpha-fetoprotein tumor marker as above. Iron studies as above. Patient has been transfused 1 unit packed RBCs and 2 units of fresh frozen plasma. 5. Bicytopenia secondary to alcoholic liver cirrhosis as well as bone marrow suppression. Patient was seen and evaluated by hematology oncology in the past underwent bone marrow biopsy did not show any evidence of myelodysplasia. Con tinue B12 1000 mcg orally once every day, folic acid 1 mg orally once every day. Patient has been transfused 1 unit packed RBCs and 2 units of fresh frozen plasma. 6. Elevated troponin. Consult cardiology appreciated. Echocardiogram as above. Acute coronary syndrome ruled out. 7. Hypertension and hypertensive cardiovascular disease. Continue lisinopril 2.5 mg orally once every day and atenolol 25 mg orally once every day. 8. Alcoholic liver disease with elevated bilirubin and liver function tests. Continue as in #1. Monitor CMP. Consults with GI and general surgery appreciated. 9. Diabetes mellitus type 2 uncontrolled with hyperglycemia. Levemir 10 units added and Glimepiride on hold. Continue NovoLog scale before meals and at bedtime 10. Hypothyroidism. Continue levothyroxine. TSH normal. 11. Seizure disorder by history. Patient is off Keppra. 12. History of hyperlipidemia. Resolved 13. Vascular dementia, and possibly alcohol induced frontload dementia. Continue vitamin supplement for now. 14. History of chronic alcohol use and dependence. Patient has abstained from alcohol for 913 days. 15. Rheumatoid arthritis. Patient not taking any medication at this time. 16. History of diabetic polyneuropathy. Stable at this time. 17. History of vaginal cancer status post total abdominal hysterectomy as well as bilateral salpingo-nephrectomy along with vaginectomy 18. DVT prophylaxis. Bilateral knee-high SOLEDAD hose. No heparin due to thrombocy topenia. 19. GI prophylaxis. Continue PPI. CODE STATUS: full code. Discussed with patient's sister on January 09. Discharge plan: Expect subacute rehab on Monday. PT and OT added. Social work consult. Patient is currently at independent living at [facility].
[2019-01-12 17:12] LABS: Glucose,Whole Blood 235 mg/dL (75-99)
[2019-01-12 20:42] LABS: Glucose,Whole Blood 193 mg/dL (75-99)
--- NOTE | 2019-01-12 20:53 | P.PN ---
Subjective Progress Note Date: 01/12/19 Principal diagnosis: Decompensated alcoholic cirrhosis, ascites, hepatic encephalopathy The patient is seen lying in bed withher sister bedside. no nausea or vomiting reported. Continues to be somnolent. No reports of GI bleeding. Objective - Vital Signs Vital signs: Vital Signs Temp 98.1 F 01/12/19 20:00 Pulse 72 01/12/19 20:15 Resp 17 01/12/19 20:15 BP 96/56 01/12/19 20:15 Pulse Ox 96 01/12/19 20:15 Intake & Output 01/12/19 01/12/19 01/13/19 06:59 18:59 06:59 Intake Total 3107.886 9237.394 220 Output Total 388 237 215 Balance 8558.645 6759.394 5 Weight 78.5 kg Intake: IV 1300 1200 100 Albumin Human 25% 50 ml 100 In Empty Bag 1 bag @ 50 mls/hr IVPB Q1H ZOE Rx#: [id number] Sodium Chloride 0.9% 1, 1100 1200 100 000 ml @ 100 mls/hr IV . Q10H ZOE Rx#:[id number] metroNIDAZOLE-NS PMX 500 100 mg In Saline 1 100ml.bag @ 100 mls/hr IVPB Q6HR ZOE Rx#:[id number] Intake, IV Titration 223.718 247.394 Amount Levofloxacin 250Mg-D5w 50 Pmx 250 mg In Dextrose/ Water 1 50ml.bag @ 50 mls /hr IVPB Q24H ZOE Rx#: [id number] Norepinephrine 4 mg In 123.718 197.394 Sodium Chloride 0.9% 250 ml @ 0.05 MCG/KG/MIN 18. 764 mls/hr IV .[id number] ZOE Rx#:[id number] metroNIDAZOLE-NS PMX 500 100 mg In Saline 1 100ml.bag @ 100 mls/hr IVPB Q6HR ZOE Rx#:[id number] Oral 1140 120 Output: Urine 385 235 15 Stool 3 2 200 Other: Voiding Method Indwelling Catheter Indwelling Catheter # Bowel Movements 1 - Exam On physical examination, patient appears comfortable in no apparent distress. HEAD: Normocephalic, atraumatic. EYES: No conjunctival injection. MOUTH: No lesions, tongue midline. NECK: Trachea midline, no gross abnormalities. CHEST: Decreased air entry bilaterally. HEART: S1-S2 appreciated. ABDOMEN: Soft, distended. Bowel sounds are positive. No organomegaly. No guarding or rigidity. EXTREMITIES: Bilateral pedal edema. SKIN: No rashes, jaundice. NEUROLOGIC: Alert and oriented x1, but somewhat more somnolent today. No focal deficits. - Labs CBC & Chem 7: 01/12/19 04:33 01/12/19 05:05 Labs: Abnormal Lab Results - Last 24 Hours (Table) 01/11/19 01/11/19 01/12/19 Range/Units 21:11 22:00 04:33 RBC 2.70 L (3.80-5.40) m/uL Hgb 9.3 L (11.4-16.0) gm/dL Hct 27.7 L (34.0-46.0) % MCV 102.7 H (80.0-100.0) fL RDW 23.8 H (11.5-15.5) % Plt Count 94 L (150-450) k/uL Neutrophils # 8.1 H (1.3-7.7) k/uL Lymphocytes # 0.7 L (1.0-4.8) k/uL Macrocytosis Marked A Chloride (98-107) mmol/L Carbon Dioxide (22-30) mmol/L BUN (7-17) mg/dL Creatinine (0.52-1.04) mg/dL Glucose (74-99) mg/dL POC Glucose (mg/dL) 114 H (75-99) mg/dL Plasma Lactic Acid Rinku 2.7 H* (0.7-2.0) mmol/L Calcium (8.4-10.2) mg/dL Ammonia (<30) umol/L 01/12/19 01/12/19 01/12/19 Range/Units 05:05 06:01 07:04 RBC (3.80-5.40) m/uL Hgb (11.4-16.0) gm/dL Hct (34.0-46.0) % MCV (80.0-100.0) fL RDW (11.5-15.5) % Plt Count (150-450) k/uL Neutrophils # (1.3-7.7) k/uL Lymphocytes # (1.0-4.8) k/uL Macrocytosis Chloride 113 H (98-107) mmol/L Carbon Dioxide 19 L (22-30) mmol/L BUN 31 H (7-17) mg/dL Creatinine 1.07 H (0.52-1.04) mg/dL Glucose 100 H (74-99) mg/dL POC Glucose (mg/dL) 110 H (75-99) mg/dL Plasma Lactic Acid Rinku (0.7-2.0) mmol/L Calcium 8.3 L (8.4-10.2) mg/dL Ammonia 63 H (<30) umol/L 01/12/19 01/12/19 01/12/19 Range/Units 11:36 17:11 20:40 RBC (3.80-5.40) m/uL Hgb (11.4-16.0) gm/dL Hct (34.0-46.0) % MCV (80.0-100.0) fL RDW (11.5-15.5) % Plt Count (150-450) k/uL Neutrophils # (1.3-7.7) k/uL Lymphocytes # (1.0-4.8) k/uL Macrocytosis Chloride (98-107) mmol/L Carbon Dioxide (22-30) mmol/L BUN (7-17) mg/dL Creatinine (0.52-1.04) mg/dL Glucose (74-99) mg/dL POC Glucose (mg/dL) 168 H 235 H 193 H (75-99) mg/dL Plasma Lactic Acid Rinku (0.7-2.0) mmol/L Calcium (8.4-10.2) mg/dL Ammonia (<30) umol/L Microbiology - Last 24 Hours (Table) 01/09/19 16:01 Gram Stain - Preliminary Paracentesis Fluid Body Fluid Culture - Preliminary 01/09/19 00:23 Blood Culture - Preliminary Blood No Growth after 48 hours 01/09/19 16:01 Anaerobic Culture - Preliminary Ascites Fluid Assessment and Plan (1) Decompensated liver disease Narrative/Plan: 63-year-old female with a known history of decompensated alcoholic liver disease with a site is and encephalopathy presented with increased confusion. Patient found to have markedly elevated ammonia level on presentation. Current Visit: Yes Status: Acute Code(s): K74.69 - OTHER CIRRHOSIS OF LIVER SNOMED Code(s): 50128859 (2) Hepatic encephalopathy Current Visit: Yes Status: Acute Code(s): K72.90 - HEPATIC FAILURE, UNSPECIFIED WITHOUT COMA SNOMED Code(s): 73771640 (3) Coagulopathy Current Visit: Yes Status: Acute Code(s): D68.9 - COAGULATION DEFECT, UNSPECIFIED SNOMED Code(s): 75535129 (4) History of ETOH abuse Current Visit: Yes Status: Acute Code(s): F10.11 - ALCOHOL ABUSE, IN REMISSION SNOMED Code(s): 551043721 (5) Macrocytic anemia Current Visit: Yes Status: Acute Code(s): D53.9 - NUTRITIONAL ANEMIA, UNSPECIFIED SNOMED Code(s): 67158936 (6) Thrombocytopenia Current Visit: Yes Status: Acute Code(s): D69.6 - THROMBOCYTOPENIA, UNSPECIFIED SNOMED Code(s): 700368189 Plan: Supportive care Low-sodium diet Continue lactulose 30 q8, with titration for the patient to have 2-3 bowel movements Appreciate recommendations from pulmonology and surgical services Fecal management system in place Plan for endoscopic evaluation tomorrow Continue diuresis with Lasix and Aldactone Alcohol abstinence If patient's mentation remains poor can consider neurology consult for evaluation for subclinical seizures Thank you for allowing us to participate in the care of this patient we will continue to follow
[2019-01-12] MEDS: MIRTAZAPINE 15 MG TAB PO SCH (22:13)
[2019-01-13] MEDS: NOREPINEPHRINE 4 MG in SODIUM CHLORIDE 0.9% 250 ML IV SCH ×2 (00:02→08:52)
[2019-01-13] MEDS: metroNIDAZOLE 500 MG TAB PO SCH ×5 (00:02→23:42)
[2019-01-13 05:30] LABS: Anisocytosis Marked; HGB 9.6 gm/dL (11.4-16.0); Hypochromasia Moderate; MCH 32.6 pg (25.0-35.0); MCHC 31.9 g/dL (31.0-37.0); MCV 102.4 fL (80.0-100.0); Macrocytosis Marked; Mean Platelet Volume 9.9; Poikilocytosis Slight; RBC 2.94 m/uL (3.80-5.40); RDW 24.5 % (11.5-15.5)
[2019-01-13 05:37] LABS: Platelet Count 60 k/uL (150-450)
[2019-01-13 05:43] LABS: Albumin 2.2 g/dL (3.5-5.0); Bilirubin, Conjugated 0.2 mg/dL (0.0-0.3); Bilirubin, Delta 1.2 mg/dL (0.0-0.2); Bilirubin,Unconjugated 3.5 mg/dL (0.0-1.1); Potassium 4.6 mmol/L (3.5-5.1); Total Bilirubin 4.9 mg/dL (0.2-1.3); Total Protein 6.2 g/dL (6.3-8.2)
[2019-01-13 06:15] LABS: Lymphocytes # (M) 0.97 k/uL (1.0-4.8); Monocytes # (M) 0.78 k/uL (0-1.0); Neutrophils # (M) 7.86 k/uL (1.3-7.7); Neutrophils % (M) 81 %; Nucleated Red Blood Cells 1 /100 WBC (0-0); Total Cells Counted 100; WBC 9.7 k/uL (3.8-10.6)
[2019-01-13] MEDS: SODIUM CHLORIDE 0.9% 1,000 ML IV SCH (06:44)
[2019-01-13] MEDS: LEVOTHYROXINE 25 MCG TAB PO SCH (06:44)
[2019-01-13 06:57] LABS: Glucose,Whole Blood 80 mg/dL (75-99)
[2019-01-13] MEDS: LEVOFLOXACIN 250MG-D5W PMX 250 MG in DEXTROSE/WATER 1 50ML.BAG IVPB SCH (07:08)
[2019-01-13] MEDS: INSULIN ASPART (NovoLOG) 100 UNIT/ML VIAL SQ SCH ×4 (07:43→20:53)
[2019-01-13] MEDS ORDERED: PROPOFOL 10 MG/ML 20 ML VIAL IV ONE (08:03)
[2019-01-13] MEDS ORDERED: LACTATED RINGERS 500 ML IV ONE (08:11)
--- NOTE | 2019-01-13 08:45 | P.PCN ---
Date of Procedure: 01/13/19 Description of Procedure: BRIEF HISTORY: 63-year-old female patient of Dr. Morton with a history of known alcohol liver disease cirrhosis portal hypertension and portal hypertensive gastropathy presents with altered mental status nausea vomiting. Admission ammonia 89 increase to 190 this morning. NG tube inserted receiving lactulose and Xifaxan. Hemoglobin 7.5 on admission. Previous hemoglobin January 2017 was 13.9, MCV 106, Platelet 70,000. EGD September 2015 no evidence of esophageal varices portal hypertensive gastropathy and remote colonoscopy. Sister reported no overt bleeding such as hematemesis or melena prior to presentation but thinks she had a bowel movement that might have had blood in it and stool occult blood was positive. Last alcohol drink 3 years ago per the patient. Ultrasound abdomen mild amount of fluid seen within the abdomen. CBD 0.4 cm. patient's mentation has been waxing and waning during hospitalization. Currently AAOx3, the patient has been receiving lactulose and Xifaxan. PROCEDURE PERFORMED: Esophagogastroduodenoscopy with biopsy. PREOPERATIVE DIAGNOSIS: Anemia. ESTIMATED BLOOD LOSS: Minimal. IV sedation per anesthesia. PROCEDURE: After informed consent was obtained, the patient was brought into the endoscopy unit. IV sedation was administered by Anesthesia under continuous monitoring. Initially the Olympus GIF-190 video endoscope was inserted into the mouth. Esophagus intubated without any difficulty. It was gradually advanced into the stomach and duodenum and carefully examined. The bulb and the second part of the duodenum were significant for mild erythema suggestive of mild duodenitis with biopsies taken. The scope at this time was withdrawn to the stomach, adequately insufflated with air, and upon careful examination, mucosa of the antrum, body, cardia and the fundus were significant for portal hypertensive gastropathy in the body of the stomach and erosive gastritis in the antrum with biopsies of the antrum taken. The scope was then withdrawn into the esophagus. The GE junction was located at 34 cm from the incisors. Non bleeding linear superficial ulcer in the distal esophagus just above the GE junction was noted without any high risk stigmata for bleeding, suspect secondary to trauma from NG tube placement. Small esophageal varices in the distal esophagus without evidence of recent hemorrhage were noted. The patient tolerated the procedure well. IMPRESSION: 1. Linear nonbleeding superficial ulcer in the distal esophagus, suspect secondary to trauma from NG tube. 2. Erosive gastritis in the antrum of the stomach biopsied. 3. Portal hypertensive gastropathy. 4. Small distal esophageal varices without evidence of hemorrhage. 5. Mild duodenitis, biopsied. RECOMMENDATIONS: The findings of this examination were discussed with the patient in the ICU team. Okay to resume low-sodium diet. Will add Protonix 40 mg twice daily before meals. Continue lactulose and Xifaxan for treatment of hepatic encephalopathy. Recommend repeat EGD in 1-2 years in the setting of small esophageal varices without hemorrhage.
[2019-01-13] MEDS: CALCITONIN 200 USP/1 NASAL SPRAY 3.7ML BTL NASAL SCH (10:35)
[2019-01-13] MEDS: FOLIC ACID 1 MG TAB PO SCH (10:36)
[2019-01-13] MEDS: RIFAXIMIN 550 MG TABLET PO SCH ×2 (10:36→20:54)
[2019-01-13] MEDS: FERROUS SULFATE 325 MG TAB PO SCH (10:36)
[2019-01-13] MEDS: PANTOPRAZOLE 40 MG TABLET PO SCH ×2 (10:36→17:55)
[2019-01-13] MEDS: FUROSEMIDE 20 MG TAB PO SCH ×2 (10:36→17:53)
[2019-01-13] MEDS: SPIRONOLACTONE 25 MG TAB PO SCH ×2 (10:36→20:54)
[2019-01-13] MEDS: MAGNESIUM OXIDE 400 MG TAB PO SCH (10:36)
[2019-01-13] MEDS: POTASSIUM CHLORIDE ER 20 MEQ TAB.ER PO SCH ×2 (10:37→20:54)
[2019-01-13] MEDS: CYANOCOBALAMIN 500 MCG TAB PO SCH (10:37)
[2019-01-13] MEDS: LISINOPRIL 2.5 MG TAB PO SCH (10:37)
[2019-01-13] MEDS: LEVOFLOXACIN 250 MG TAB PO SCH (10:37)
[2019-01-13] MEDS: INSULIN DETEMIR (LEVEMIR) 100 UNIT/ML SYR SQ SCH (10:46)
[2019-01-13] MEDS: ATENOLOL 25 MG TAB PO SCH (10:46)
[2019-01-13] MEDS: LACTULOSE 20 GM/30 ML CUP PO SCH ×3 (10:46→20:03)
[2019-01-13 11:48] LABS: Glucose,Whole Blood 126 mg/dL (75-99)
--- NOTE | 2019-01-13 12:18 | P.PN ---
Subjective Progress Note Date: 01/13/19 On 01/13/2019 patient remains in intensive care unit more awake compared to yesterday she is producing significant amount of stool and she has developed a component of non-anion gap metabolic acidosis. The lactulose will be discontinued. We'll continue the Xifaxan for now and the patient will be placed on a bicarb drip to counteract the underlying metabolic acidosis. Underwent with the patient on D5 with 3 ampules of sodium bicarbonate to run at 75 mL an hour. She is still a few mics of the low-fat for hemodynamic support. Her urine output is less than 30 mL an hour. She has extensive edema in lower extremities bilaterally. She has improved in terms of encephalopathy and she is easily arousable and she is not drifting back to sleep. Ammonia level is lower. Meanwhile, the patient underwent an EGD and the patient was found to have nonbleeding superficial ulcer in the distal esophagus probably related to the NG tube. There was a dose of gastritis in the antrum of the stomach that was biopsied. There was evidence of portal hypertensive gastropathy and small distal esophageal varices without evidence of any hemorrhage. There was also mild duodenitis that was cultured and biopsies. Objective - Vital Signs Vital signs: Vital Signs Temp 98.0 F 01/13/19 09:00 Pulse 75 01/13/19 10:00 Resp 17 01/13/19 10:00 BP 108/74 01/13/19 10:00 Pulse Ox 96 01/13/19 10:00 Intake & Output 01/12/19 01/13/19 01/13/19 18:59 06:59 18:59 Intake Total 2587.394 5699.625 7972.02 Output Total 237 520 95 Balance 2350.394 609.469 2072.02 Weight 75.3 kg Intake: IV 1200 1200 650 Sodium Chloride 0.9% 1, 1200 1200 500 000 ml @ 100 mls/hr IV . Q10H [facility] Rx#:[id number] Intake, IV Titration 247.394 167.250 281.02 Amount Levofloxacin 250Mg-D5w 50 Pmx 250 mg In Dextrose/ Water 1 50ml.bag @ 50 mls /hr IVPB Q24H [facility] Rx#: [id number] Norepinephrine 4 mg In 197.394 167.250 281.02 Sodium Chloride 0.9% 250 ml @ 0.05 MCG/KG/MIN 18. 764 mls/hr IV .[id number] [facility] Rx#:[id number] Oral 1140 120 240 Output: Urine 235 320 95 Stool 2 200 Other: Voiding Method Indwelling Catheter Indwelling Catheter Indwelling Catheter - Exam General appearance: The patient is more alert compared to yesterday, in no acute distress. Jaundice. Head exam was generally normal. There was no scleral icterus or corneal arcus. Mucous membranes were moist. HET: Head is normocephalic and atraumatic. Pupils are equal and reactive. Oropharynx is clear without lesions. NG tube has been removed. Sclerae icterus. Neck: Supple without lymphadenopathy. Trachea midline. Heart: S1 S2. Regular rate and rhythm. Lungs: No crackles or wheezes are heard. Abdomen: Soft, mildly bloated with bowel sounds. No peritoneal signs. No palpable organomegaly or masses. Extremities: Normal skin color and turgor. No cyanosis, rash, ulceration, clubbing, or edema. Radial and pedal pulses are 2/4 bilaterally. Neurological: No focal deficits. Strength and sensation are grossly intact. On today's evaluation the patient is alert and following commands and answering questions appropriately. Examination of the skin revealed no evidence of significant rashes, suspicious appearing nevi or other concerning lesions. - Labs CBC & Chem 7: 01/13/19 04:36 01/13/19 04:36 Labs: Abnormal Lab Results - Last 24 Hours (Table) 01/12/19 01/12/19 01/13/19 Range/Units 17:11 20:40 04:36 RBC 2.94 L (3.80-5.40) m/uL Hgb 9.6 L (11.4-16.0) gm/dL Hct 30.0 L (34.0-46.0) % MCV 102.4 H (80.0-100.0) fL RDW 24.5 H (11.5-15.5) % Plt Count 60 L (150-450) k/uL Neutrophils # (Manual) 7.86 H (1.3-7.7) k/uL Lymphocytes # (Manual) 0.97 L (1.0-4.8) k/uL Nucleated RBCs 1 H (0-0) /100 WBC Macrocytosis Marked A Chloride (98-107) mmol/L Carbon Dioxide (22-30) mmol/L BUN (7-17) mg/dL POC Glucose (mg/dL) 235 H 193 H (75-99) mg/dL Calcium (8.4-10.2) mg/dL Total Bilirubin (0.2-1.3) mg/dL Unconjugated Bilirubin (0.0-1.1) mg/dL Delta Bilirubin (0.0-0.2) mg/dL AST (14-36) U/L Alkaline Phosphatase (38-126) U/L Total Protein (6.3-8.2) g/dL Albumin (3.5-5.0) g/dL 01/13/19 01/13/19 Range/Units 04:36 11:47 RBC (3.80-5.40) m/uL Hgb (11.4-16.0) gm/dL Hct (34.0-46.0) % MCV (80.0-100.0) fL RDW (11.5-15.5) % Plt Count (150-450) k/uL Neutrophils # (Manual) (1.3-7.7) k/uL Lymphocytes # (Manual) (1.0-4.8) k/uL Nucleated RBCs (0-0) /100 WBC Macrocytosis Chloride 114 H (98-107) mmol/L Carbon Dioxide 16 L (22-30) mmol/L BUN 33 H (7-17) mg/dL POC Glucose (mg/dL) 126 H (75-99) mg/dL Calcium 8.0 L (8.4-10.2) mg/dL Total Bilirubin 4.9 H (0.2-1.3) mg/dL Unconjugated Bilirubin 3.5 H (0.0-1.1) mg/dL Delta Bilirubin 1.2 H (0.0-0.2) mg/dL AST 65 H (14-36) U/L Alkaline Phosphatase 128 H (38-126) U/L Total Protein 6.2 L (6.3-8.2) g/dL Albumin 2.2 L (3.5-5.0) g/dL Microbiology - Last 24 Hours (Table) 01/09/19 00:23 Blood Culture - Preliminary Blood No Growth after 72 hours 01/12/19 17:20 Urine Culture - Preliminary Urine,Catheterized 01/09/19 16:01 Gram Stain - Preliminary Paracentesis Fluid Body Fluid Culture - Preliminary Assessment and Plan Plan: 1 liver cirrhosis, alcoholic in nature, and the patient continues to have stage I encephalopathy. Ammonia level is dropping and the patient is improving 2 altered mental status secondary to hepatic encephalopathy, improving with lactulose 3 abdominal distention with distention of the large bowel without clear signs of bowel obstruction. The patient also had an ascites and the patient developed abdominal distention and the patient underwent a paracentesis were 3 L of fluid was removed. Currently on Levaquin and Flagyl. Awaiting fluid analysis and cultures. The patient developed hypotension following the procedure and the patient is currently on low-dose pressors for hemodynamic support. On today's evaluation, the cultures still negative and the patient is on low-dose pressors for hemodynamic support. 4 alcoholism 5 hypotension, see above-mentioned discussion 6 portal hypertension and portal gastropathy secondary to liver cirrhosis, in addition to coagulopathy secondary to chronic liver disease 7 history of CVA/TIA 8 diabetes mellitus 9 history of uterine/ovarian cancer 10 hypertension 11 hyperlipidemia 12 seizure disorder 13 previous history of C. diff colitis 14 erosive gastritis of the antrum of the stomach along with some mild with tinn itus 15 portal hypertensive gastropathy and small distal esophageal varices without evidence of an acute bleed Plan Continue same treatment. Hold laxative. The patient developed some anion gap m etabolic acidosis. We'll put the patient on D5 bicarb infusion at 75 mL an hour. Continue the Xifaxan. Wean off pressors. We'll continue to follow. Keep the patient ICU for 24 hours.
--- NOTE | 2019-01-13 15:35 | P.PN ---
Subjective Progress Note Date: 01/13/19 This is a 63-year-old female one of my patient with a previous medical history significant for hypertension and hypertensive cardiovascular disease with left ventricular hypertrophy, diabetes mellitus type 2 with diabetic polyneuropathy, CVA, TIA, liver cirrhosis secondary to chronic alcohol use and dependence, pancytopenia secondary to liver cirrhosis, vaginal cancer status post vaginectomy, uterine cancer, seizure disorder, kyphoscoliosis, vascular dementia, hyperlipidemia. Patient also has chronic right great toe wound under the care of Dr. Davila. Patient is seen in the office weekly and his home care 2 times per week to do dressing changes. Sister gives history of having battled w ith C. difficile colitis for the past year and a half which is finally cleared under the care of Dr. Curran. Patient has had a loss of appetite, loss of weight. Her home care nurse was concerned that she wasn't oriented to time and place. She has some lower extremity edema. Symptoms have been worsening over the past 9 months. Patient complains of generalized weakness. She is currently residing at independent living at [facility]. Sister also states the patient had a fall yesterday as well as 2 weeks ago. Patient was brought into the emergency department at [facility] due to the above symptoms. She was afebrile, heart rate 104, blood pressure 122/78, pulse ox 97% on room air. White count was 5, hemoglobin 7.5, platelet count 72. Sodium 135, potassium 4.1, chloride 105, CO2 23, BUN 29 creatinine 0.99. Blood sugar was 226. Total bilirubin 5.3, AST 83, ALT 55, alkaline phosphatase 150. INR was elevated at 1.9. TSH 1.270. Lactic acid 3.3, proBNP 182. Troponin 0.0 36 and repeat is 0.044. Urinalysis was dark yellow, bilirubin negative, leukoesterase trace, WBCs 12, casts 30. Ammonia level LXXXIX, stool for occult blood positive. 01/09: A-Team was called on this patient this morning due to acute mental status changes, unable to follow commands and vomiting dark brown liquid. Abdomen was distended.. Patient was started on CIWA protocol per A-Team and was transferred to the selective care unit. Dr. Medina was notified and lactulose was increased to 30 g 3 times daily and NG tube was placed. Rifaximin 550mg BID through NG tube as ordered. Repeat ammonia 190. According to nursing, patient has not had a bowel movement since admission it had only received 1 dose of lactulose last evening. Stat CAT scan of the abdomen and pelvis ordered. Abdominal x-ray showed enteric tube is placed. Probable pancreatic calcifications of chronic pancreatitis. Gaseous distention without dilatation of what appears to be the transverse colon. Chest x-ray reveals strand like bibasilar opacities present. Likely atelectasis however surveillance is recommended to assess for developing pneumonia with clinical concern for aspiration. Alcohol level less than 10. Drug screen ordered. Troponins have been 0.036, 0.044 and 0.031. Iron studies show iron of 105, TIBC 234, iron saturation 44.87 and ferritin 106.6. Lactic acid this morning was 3.0. Repeat hemoglobin 8.9 and platelet count 61. Albumin 251 dose was ordered. Patient was afebrile, heart rate running in the 90s, blood pressure 111/61, pulse ox 94% on room air. Discuss CODE STATUS with patient's power of stonecutter assistant, Sister Zayra and patient is currently a full code but this may change after family discussion. Cardiology has evaluated the patient and acute coronary syndrome ruled out. Received call that echocardiogram found pleural effusion that we'll need further evaluation. Consult added for Dr. Ramos. Gallbladder ultrasound done yesterday showed mild abdominal ascites. No dilated ducts. Mild gallbladder wall thickening. Right kidney shows no hydronephrosis. Limited study due to body habitus. Midline has been ordered for IV access. Consult was added with Dr. Persaud with recommendations to continue NG tube decompression and will continue to follow. 01/10: Patient underwent therapeutic paracentesis on January 09 with removal of 3 L of straw-colored fluid. Pathology is pending. Chest x-ray yesterday revealed NG tube and good position. New atelectasis at the lung bases. Patient's mental status is improved today. NG tube has been removed. Patient is complaining of some generalized abdominal cramping. She is having soft stool. She is currently on diet as tolerated. Lactulose is continued at 30 g every 8 hours with titration for 2-3 bowel movements per day. GI is not planning for endoscopy and surgery has no surgical plans. Patient will be transferred to [facility] floor. She has been afebrile, heart rate 95, blood pressure 109/53, pulse ox 97% on room air. WBC 8.6, hemoglobin 9.5, platelet count 77. Blood sugar up to 398. Levemir 10 units daily added. PT and OT on with probable need for subacute rehab. CEA was high at 14, CA 199 high at 50.9. AFP tumor marker 5.4 within normal limits. Echocardiogram report reveals EF of 60-65%, mild tricuspid regurgitation, no pericardial effusion. Pleural effusion. 01/12 patient examined bedside. Appears tired. She had 5 bowel movements yesterday and 2 bowel movement this morning. She had rectal tube in place C. diff was checked which was negative. White assessed as this morning suggests a temp of 97.4 pulse 54 respiratory rate 15 blood pressure 82/50 on 5 of levo fed. Patient had to 2 doses of albumin yesterday with no improvement and was initiated on pressors. Gastroenterology evaluated this patient continues to have elevated ammonia of 63. Plan for endoscopy tomorrow. Patient nothing by mouth after midnight. 01/13 patient examined bedside. He is more alert than yesterday. Last impression appropriately. She since are more regular bowel movement than yesterday. Lactulose was held. Patient continues to be hypertensive with a blood pressure ranging in the systolic 90-108. Lab evaluation patient has a bicarb of 16, creatinine 1.04 BUN 33 increased LFTs with increased unconjugated bilirubin of 3.5 and from delta bilirubin of 65 ammonia levels are normal 24 She continues to be in 100 mL per hour of IV fluids along with Levophed running at 0.08. Patient underwent EGD today and was found to have nonbleeding superficial ulcer in the distal esophagus dated to the NG tube with gastritis in the antrum of the stomach. There were evidence of portal hypertensive gastropathy with distal esophageal varices which would need repeat EGD in 1-2 years for follow-up. Continue Xifaxan. Initiated on bicarbonate drip for concern on anion gap metabolic acidosis. Repeat discussion with family was done regarding hospice as patient seems to still require pressors despite IV fluids and albumin. We will discuss with pulmonary team regarding goals of care Review Of Systems: Constitutional: No fever, no chills, no night sweats. No weight change. Reports weakness improved, reports fatigue has improved, reports daytime sleepiness. EENT: No headache. No blurred vision or double vision, no loss of vision. No loss of Hearing, no ringing in the ears, no dizziness. No nasal drainage or congestion. No epistaxis. No sore throat. Lungs: No shortness of breath, cough, no sputum production. No wheezing. Cardiovascular: No chest pain, no lower extremity edema. No palpitations. No paroxysmal nocturnal dyspnea. No orthopnea. No lightheadedness or dizziness. No syncopal episodes. Abdominal: Reports abdominal pain.reports abdominal distention No nausea, vomiting. No diarrhea. No constipation. No bloody or tarry stools. Genitourinary: No dysuria, increased frequency, urgency. No urinary retention. Musculoskeletal: No myalgias. No muscle weakness, no gait dysfunction, no frequent falls. No back pain. No neck pain. Integumentary: No wounds, no lesions. No rash or pruritus. No unusual bruising. No change in hair or nails. Neurologic: No aphasia. No facial droop. No change in mentation. No head injury. No headache. No paralysis. No paresthesia. Psychiatric: No depression. No anxiety. No mood swings. Endocrine: Reports abnormal blood sugars. Objective - Vital Signs Vital signs: Vital Signs Temp 97.6 F 01/13/19 12:00 Pulse 80 01/13/19 13:00 Resp 17 01/13/19 13:00 BP 104/65 01/13/19 13:00 Pulse Ox 96 01/13/19 13:00 Intake & Output 01/12/19 01/13/19 01/13/19 18:59 06:59 18:59 Intake Total 2587.394 7347.552 4593.02 Output Total 237 520 95 Balance 2350.394 877.148 2104.02 Weight 75.3 kg 75.3 kg Intake: IV 1200 1200 650 Sodium Chloride 0.9% 1, 1200 1200 500 000 ml @ 100 mls/hr IV . Q10H [facility] Rx#:[id number] Intake, IV Titration 247.394 167.250 281.02 Amount Levofloxacin 250Mg-D5w 50 Pmx 250 mg In Dextrose/ Water 1 50ml.bag @ 50 mls /hr IVPB Q24H [facility] Rx#: [id number] Norepinephrine 4 mg In 197.394 167.250 281.02 Sodium Chloride 0.9% 250 ml @ 0.05 MCG/KG/MIN 18. 764 mls/hr IV .[id number] [facility] Rx#:[id number] Oral 1140 120 240 Output: Urine 235 320 95 Stool 2 200 Other: Voiding Method Indwelling Catheter Indwelling Catheter Indwelling Catheter - Exam - Constitutional General appearance: drowsy improved, no acute distress, distended abdomen - EENT Eyes: icteric sclerae, PERRLA, normal appearance ENT: hearing grossly normal - Neck Neck: no lymphadenopathy, normal ROM, no other, no rigidity, no stridor, no thyromegaly - Respiratory Respiratory: bilateral: CTAdischarge basis - Cardiovascular Rhythm: regular Heart sounds: normal: S1, S2 Abnormal Heart Sounds: no systolic murmur, no diastolic murmur, no rub, no S3 Gallop, no S4 Gallop, no click, no other - Gastrointestinal General gastrointestinal: normal bowel sounds, soft distended and nontender - Integumentary Integumentary: no rash - Neurologic Neurologic: CNII-XII intact - Musculoskeletal Musculoskeletal: gait normal, strength equal bilaterally - Psychiatric Psychiatric: A&O x's 3, appropriate affect - Labs CBC & Chem 7: 01/13/19 04:36 01/13/19 04:36 Labs: Abnormal Lab Results - Last 24 Hours (Table) 01/12/19 01/12/19 01/13/19 Range/Units 17:11 20:40 04:36 RBC 2.94 L (3.80-5.40) m/uL Hgb 9.6 L (11.4-16.0) gm/dL Hct 30.0 L (34.0-46.0) % MCV 102.4 H (80.0-100.0) fL RDW 24.5 H (11.5-15.5) % Plt Count 60 L (150-450) k/uL Neutrophils # (Manual) 7.86 H (1.3-7.7) k/uL Lymphocytes # (Manual) 0.97 L (1.0-4.8) k/uL Nucleated RBCs 1 H (0-0) /100 WBC Macrocytosis Marked A Chloride (98-107) mmol/L Carbon Dioxide (22-30) mmol/L BUN (7-17) mg/dL POC Glucose (mg/dL) 235 H 193 H (75-99) mg/dL Calcium (8.4-10.2) mg/dL Total Bilirubin (0.2-1.3) mg/dL Unconjugated Bilirubin (0.0-1.1) mg/dL Delta Bilirubin (0.0-0.2) mg/dL AST (14-36) U/L Alkaline Phosphatase (38-126) U/L Total Protein (6.3-8.2) g/dL Albumin (3.5-5.0) g/dL 01/13/19 01/13/19 Range/Units 04:36 11:47 RBC (3.80-5.40) m/uL Hgb (11.4-16.0) gm/dL Hct (34.0-46.0) % MCV (80.0-100.0) fL RDW (11.5-15.5) % Plt Count (150-450) k/uL Neutrophils # (Manual) (1.3-7.7) k/uL Lymphocytes # (Manual) (1.0-4.8) k/uL Nucleated RBCs (0-0) /100 WBC Macrocytosis Chloride 114 H (98-107) mmol/L Carbon Dioxide 16 L (22-30) mmol/L BUN 33 H (7-17) mg/dL POC Glucose (mg/dL) 126 H (75-99) mg/dL Calcium 8.0 L (8.4-10.2) mg/dL Total Bilirubin 4.9 H (0.2-1.3) mg/dL Unconjugated Bilirubin 3.5 H (0.0-1.1) mg/dL Delta Bilirubin 1.2 H (0.0-0.2) mg/dL AST 65 H (14-36) U/L Alkaline Phosphatase 128 H (38-126) U/L Total Protein 6.2 L (6.3-8.2) g/dL Albumin 2.2 L (3.5-5.0) g/dL Microbiology - Last 24 Hours (Table) 01/09/19 00:23 Blood Culture - Preliminary Blood No Growth after 72 hours 01/12/19 17:20 Urine Culture - Preliminary Urine,Catheterized 01/09/19 16:01 Gram Stain - Preliminary Paracentesis Fluid Body Fluid Culture - Preliminary Assessment and Plan Plan: 1. Hepatic encephalopathy with elevated ammonia secondary to alcoholic liver cirrhosis, currently improving. Continue Lactulose 30 mg 3 times daily and Xifaxan 550 mg twice daily. Continue Aldactone 25 mg twice daily and Lasix. Consults with GI and general surgery appreciated. possible EGD tomorrow Continue Levaquin and Flagyl. Status post paracentesis. 2. Possible aspiration pneumonia with mental status changes and emesis. Continue Levaquin and Flagyl. 3. Pleural effusion. Consult with Dr. Ramos. 4. Generalized weakness with anemia, possible acute blood loss and anemia on top of chronic anemia of alcoholism. Stool for occult blood is positive. Monitor hemoglobin. GI consult. Continue ferrous sulfate 325 mg daily. CA 199, CEA, alpha-fetoprotein tumor marker as above. Iron studies as above. Patient has been transfused 1 unit packed RBCs and 2 units of fresh frozen plasma. 5. Bicytopenia secondary to alcoholic liver cirrhosis as well as bone marrow suppression. Patient was seen and evaluated by hematology oncology in the past underwent bone marrow biopsy did not show any evidence of myelodysplasia. Continue B12 1000 mcg orally once every day, folic acid 1 mg orally once every day. Patient has been transfused 1 unit packed RBCs and 2 units of fresh frozen plasma. 6. Elevated troponin. Consult cardiology appreciated. Echocardiogram as above. Acute coronary syndrome ruled out. 7. Hypertension and hypertensive cardiovascular disease. Continue lisinopril 2.5 mg orally once every day and atenolol 25 mg orally once every day. 8. Alcoholic liver disease with elevated bilirubin and liver function tests. Continue as in #1. Monitor CMP. Consults with GI and general surgery appreciated. 9. Diabetes mellitus type 2 uncontrolled with hyperglycemia. Levemir 10 units added and Glimepiride on hold. Continue NovoLog scale before meals and at bedtime 10. Hypothyroidism. Continue levothyroxine. TSH normal. 11. Seizure disorder by history. Patient is off Keppra. 12. History of hyperlipidemia. Resolved 13. Vascular dementia, and possibly alcohol induced frontload dementia. Continue vitamin supplement for now. 14. History of chronic alcohol use and dependence. Patient has abstained from alcohol for 913 days. 15. Rheumatoid arthritis. Patient not taking any medication at this time. 16. History of diabetic polyneuropathy. Stable at this time. 17. History of vaginal cancer status post total abdominal hysterectomy as well as bilateral salpingo-nephrectomy along with vaginectomy 18. DVT prophylaxis. Bilateral knee-high SOLEDAD hose. No heparin due to thrombocytopenia. 19. GI prophylaxis. Continue PPI. CODE STATUS: full code. Discussed with patient's sister on January 09. The discussion of hospice was made as patient has poor prognosis secondary to alcoholic cirrhosis and hepatic encephalopathy with hypotension due to circulatory collapse. Patient continues to be on vasopressors despite IV fluids and albumin. If no improvement is made in the next few days, patient will be switched to hospice Discharge plan: Expect subacute rehab on Monday. PT and OT added. Social work consult. Patient is currently at independent living at [facility].
[2019-01-13] MEDS: DEXTROSE 5% IN WATER 1,000 ML with SODIUM BICARB (1 MEQ/ML) 150 ML IV SCH (15:52)
[2019-01-13 17:14] LABS: Glucose,Whole Blood 241 mg/dL (75-99)
[2019-01-13 20:34] LABS: Glucose,Whole Blood 274 mg/dL (75-99)
[2019-01-13] MEDS: MIRTAZAPINE 15 MG TAB PO SCH (20:54)
[2019-01-13] MEDS: SODIUM BICARBONATE TAB 650 MG TAB PO SCH (20:54)
[2019-01-14] MEDS: DEXTROSE 5% IN WATER 1,000 ML with SODIUM BICARB (1 MEQ/ML) 150 ML IV SCH ×2 (04:46→18:16)
[2019-01-14] MEDS: NOREPINEPHRINE 4 MG in SODIUM CHLORIDE 0.9% 250 ML IV SCH ×2 (04:47→18:17)
[2019-01-14 05:17] LABS: Anisocytosis Marked; Basophils % (A) 0 %; Eosinophils # (A) 0.2 k/uL (0-0.7); Eosinophils % (A) 3 %; HCT 27.9 % (34.0-46.0); HGB 8.8 gm/dL (11.4-16.0); Hypochromasia Marked; Lymphocytes # (A) 0.5 k/uL (1.0-4.8); Lymphocytes % (A) 7 %; MCH 33.5 pg (25.0-35.0); MCHC 31.4 g/dL (31.0-37.0); MCV 106.9 fL (80.0-100.0); Mean Platelet Volume 8.1; Monocytes # (A) 0.5 k/uL (0-1.0); Monocytes % (A) 8 %; Neutrophils # (A) 5.1 k/uL (1.3-7.7); Neutrophils % (A) 79 %; RBC 2.61 m/uL (3.80-5.40); RDW 24.1 % (11.5-15.5); WBC 6.5 k/uL (3.8-10.6)
[2019-01-14 05:23] LABS: Platelet Count 65 k/uL (150-450)
[2019-01-14 05:24] LABS: Calcium 7.6 mg/dL (8.4-10.2); Macrocytosis Marked; Potassium 4.6 mmol/L (3.5-5.1); Total Bilirubin 3.6 mg/dL (0.2-1.3); Total Protein 5.7 g/dL (6.3-8.2)
[2019-01-14 05:51] LABS: Poikilocytosis (M) Present
[2019-01-14] MEDS: LEVOFLOXACIN 250MG-D5W PMX 250 MG in DEXTROSE/WATER 1 50ML.BAG IVPB SCH (06:09)
[2019-01-14] MEDS: LEVOTHYROXINE 25 MCG TAB PO SCH (06:10)
[2019-01-14] MEDS: metroNIDAZOLE 500 MG TAB PO SCH ×4 (06:35→23:01)
[2019-01-14] MEDS: PANTOPRAZOLE 40 MG TABLET PO SCH ×2 (06:35→17:09)
[2019-01-14 06:39] LABS: Glucose,Whole Blood 124 mg/dL (75-99)
[2019-01-14] MEDS: INSULIN ASPART (NovoLOG) 100 UNIT/ML VIAL SQ SCH ×4 (06:39→21:31)
[2019-01-14 08:14] LABS: Glucose,Whole Blood 147 mg/dL (75-99)
[2019-01-14] MEDS: LISINOPRIL 2.5 MG TAB PO SCH (08:31)
[2019-01-14] MEDS: POTASSIUM CHLORIDE ER 20 MEQ TAB.ER PO SCH ×2 (08:31→21:30)
[2019-01-14] MEDS: SODIUM BICARBONATE TAB 650 MG TAB PO SCH ×2 (08:31→21:30)
[2019-01-14] MEDS: MAGNESIUM OXIDE 400 MG TAB PO SCH (08:32)
[2019-01-14] MEDS: SPIRONOLACTONE 25 MG TAB PO SCH ×2 (08:32→21:30)
[2019-01-14] MEDS: CYANOCOBALAMIN 500 MCG TAB PO SCH (08:32)
[2019-01-14] MEDS: FERROUS SULFATE 325 MG TAB PO SCH (08:32)
[2019-01-14] MEDS: FUROSEMIDE 20 MG TAB PO SCH ×2 (08:32→16:18)
[2019-01-14] MEDS: FOLIC ACID 1 MG TAB PO SCH (08:32)
[2019-01-14] MEDS: LACTULOSE 20 GM/30 ML CUP PO SCH ×3 (08:33→23:00)
[2019-01-14] MEDS: ATENOLOL 25 MG TAB PO SCH (08:34)
[2019-01-14] MEDS: LEVOFLOXACIN 250 MG TAB PO SCH (08:35)
[2019-01-14] MEDS: INSULIN DETEMIR (LEVEMIR) 100 UNIT/ML SYR SQ SCH (08:39)
[2019-01-14] MEDS: RIFAXIMIN 550 MG TABLET PO SCH ×2 (09:57→21:30)
[2019-01-14] MEDS: CALCITONIN 200 USP/1 NASAL SPRAY 3.7ML BTL NASAL SCH ×2 (10:01→11:20)
--- NOTE | 2019-01-14 11:38 | P.PN ---
Subjective Progress Note Date: 01/14/19 Principal diagnosis: Status post EGD yesterday for evaluation of anemia linear nonbleeding superficial ulcer in the distal esophagus portal hypertensive gastropathy and small distal esophageal varices without GI bleeding. Status post paracentesis 3 L last week cytology pending. No hematemesis hematochezia or melena per nursing. Hemoglobin 8.8. Ammonia yesterday 24. Objective - Vital Signs Vital signs: Vital Signs Temp 97.5 F L 01/14/19 08:00 Pulse 71 01/14/19 11:00 Resp 16 01/14/19 11:00 BP 87/56 01/14/19 11:00 Pulse Ox 96 01/14/19 11:00 Intake & Output 01/13/19 01/14/19 01/14/19 18:59 06:59 18:59 Intake Total 2514.381 1063.743 522.288 Output Total 460 692 100 Balance 2054.381 371.743 422.288 Weight 75.3 kg 83.5 kg Intake: IV 650 900 225 Dextrose 5% in Water 1, 900 225 000 ml @ 75 mls/hr IV . [id number] ZOE with Sodium Bicarb (1 Meq/ml) 150 ml Rx#:[id number] Sodium Chloride 0.9% 1, 500 000 ml @ 100 mls/hr IV . Q10H ZOE Rx#:[id number] Intake, IV Titration 1024.381 163.743 47.288 Amount Dextrose 5% in Water 1, 525 75 000 ml @ 75 mls/hr IV . [id number] ZOE with Sodium Bicarb (1 Meq/ml) 150 ml Rx#:[id number] Norepinephrine 4 mg In 429.381 78.743 47.288 Sodium Chloride 0.9% 250 ml @ 0.05 MCG/KG/MIN 18. 764 mls/hr IV .[id number] ZOE Rx#:[id number] Sodium Chloride 0.9% 1, 70 10 000 ml @ 100 mls/hr IV . Q10H ZOE Rx#:[id number] Oral 840 250 Output: Urine 260 392 100 Stool 200 200 Urine/Stool Mix 100 Other: Voiding Method Indwelling Catheter Indwelling Catheter Indwelling Catheter - Exam General appearance: The patient is arousable but, in no acute distress. HET: Head is normocephalic and atraumatic. Pupils are equal and reactive. Oropharynx is clear without lesions. Neck: Supple without lymphadenopathy. Trachea midline. Heart: S1 S2. Regular rate and rhythm. Lungs: No crackles or wheezes are heard. Abdomen: Soft, nontender, nondistended with bowel sounds. No peritoneal signs. No palpable organomegaly or masses. Extremities: Normal skin color and turgor. No cyanosis, rash, ulceration, clubbing, or edema. Radial and pedal pulses are 2/4 bilaterally. [place] clear [place] urine. Neurological: No focal deficits. Strength and sensation are grossly intact. - Labs CBC & Chem 7: 01/14/19 04:36 01/14/19 04:36 Labs: Abnormal Lab Results - Last 24 Hours (Table) 01/13/19 01/13/19 01/13/19 Range/Units 11:47 17:12 20:14 RBC (3.80-5.40) m/uL Hgb (11.4-16.0) gm/dL Hct (34.0-46.0) % MCV (80.0-100.0) fL RDW (11.5-15.5) % Plt Count (150-450) k/uL Lymphocytes # (1.0-4.8) k/uL Macrocytosis Sodium (137-145) mmol/L Chloride (98-107) mmol/L Carbon Dioxide (22-30) mmol/L BUN (7-17) mg/dL Glucose (74-99) mg/dL POC Glucose (mg/dL) 126 H 241 H 274 H (75-99) mg/dL Calcium (8.4-10.2) mg/dL Total Bilirubin (0.2-1.3) mg/dL AST (14-36) U/L Alkaline Phosphatase (38-126) U/L Total Protein (6.3-8.2) g/dL Albumin (3.5-5.0) g/dL 01/14/19 01/14/19 01/14/19 Range/Units 04:36 04:36 06:37 RBC 2.61 L (3.80-5.40) m/uL Hgb 8.8 L (11.4-16.0) gm/dL Hct 27.9 L (34.0-46.0) % MCV 106.9 H (80.0-100.0) fL RDW 24.1 H (11.5-15.5) % Plt Count 65 L (150-450) k/uL Lymphocytes # 0.5 L (1.0-4.8) k/uL Macrocytosis Marked A Sodium 134 L (137-145) mmol/L Chloride 108 H (98-107) mmol/L Carbon Dioxide 18 L (22-30) mmol/L BUN 35 H (7-17) mg/dL Glucose 103 H (74-99) mg/dL POC Glucose (mg/dL) 124 H (75-99) mg/dL Calcium 7.6 L (8.4-10.2) mg/dL Total Bilirubin 3.6 H (0.2-1.3) mg/dL AST 61 H (14-36) U/L Alkaline Phosphatase 131 H (38-126) U/L Total Protein 5.7 L (6.3-8.2) g/dL Albumin 2.0 L (3.5-5.0) g/dL 01/14/19 Range/Units 08:12 RBC (3.80-5.40) m/uL Hgb (11.4-16.0) gm/dL Hct (34.0-46.0) % MCV (80.0-100.0) fL RDW (11.5-15.5) % Plt Count (150-450) k/uL Lymphocytes # (1.0-4.8) k/uL Macrocytosis Sodium (137-145) mmol/L Chloride (98-107) mmol/L Carbon Dioxide (22-30) mmol/L BUN (7-17) mg/dL Glucose (74-99) mg/dL POC Glucose (mg/dL) 147 H (75-99) mg/dL Calcium (8.4-10.2) mg/dL Total Bilirubin (0.2-1.3) mg/dL AST (14-36) U/L Alkaline Phosphatase (38-126) U/L Total Protein (6.3-8.2) g/dL Albumin (3.5-5.0) g/dL Microbiology - Last 24 Hours (Table) 01/09/19 00:23 Blood Culture - Preliminary Blood No Growth after 96 hours 01/09/19 16:01 Anaerobic Culture - Final Ascites Fluid 01/12/19 17:20 Urine Culture - Final Urine,Catheterized 01/09/19 16:01 Gram Stain - Final Paracentesis Fluid Body Fluid Culture - Final Assessment and Plan (1) Esophageal varices Current Visit: Yes Status: Acute Code(s): I85.00 - ESOPHAGEAL VARICES WITHOUT BLEEDING SNOMED Code(s): 69607423 (2) Hepatic encephalopathy Current Visit: Yes Status: Acute Code(s): K72.90 - HEPATIC FAILURE, UNSPECIFIED WITHOUT COMA SNOMED Code(s): 27714195 (3) Decompensated liver disease Narrative/Plan: MELD score 21. Current Visit: Yes Status: Acute Code(s): K74.69 - OTHER CIRRHOSIS OF LIVER SNOMED Code(s): 49024862 (4) History of ETOH abuse Current Visit: Yes Status: Acute Code(s): F10.11 - ALCOHOL ABUSE, IN REMISSION SNOMED Code(s): 599491675 (5) Thrombocytopenia Current Visit: Yes Status: Acute Code(s): D69.6 - THROMBOCYTOPENIA, UNSPECIFIED SNOMED Code(s): 918191136 (6) Coagulopathy Current Visit: Yes Status: Acute Code(s): D68.9 - COAGULATION DEFECT, UN SPECIFIED SNOMED Code(s): 55512728 (7) Macrocytic anemia Current Visit: Yes Status: Acute Code(s): D53.9 - NUTRITIONAL ANEMIA, UNSPECIFIED SNOMED Code(s): 83615386 (8) Guaiac + stool Current Visit: Yes Status: Acute Code(s): R19.5 - OTHER FECAL ABNORMALITIES SNOMED Code(s): 06410601 (9) Alcoholic liver disease Current Visit: Yes Status: Acute Code(s): K70.9 - ALCOHOLIC LIVER DISEASE, UNSPECIFIED SNOMED Code(s): 28012438 (10) Portal hypertensive gastropathy Current Visit: Yes Status: Acute Code(s): K76.6 - PORTAL HYPERTENSION; K31.89 - OTHER DISEASES OF STOMACH AND DUODENUM SNOMED Code(s): 627801542 Plan: 1. 1. Continue Xifaxan and lactulose. Low-sodium diet. 2. Protonix 40 mg twice daily. CBC mentioned. Continue diuretics. Ascitic cytology pending. Continue with antibiotics. Assessment and plan a care discussed with Dr. Jaime
[2019-01-14 12:01] LABS: Glucose,Whole Blood 205 mg/dL (75-99)
--- NOTE | 2019-01-14 12:31 | P.PN ---
Subjective Progress Note Date: 01/14/19 Principal diagnosis: Acute hepatic encephalopathy and mental status change Patient was reevaluated today on 01/14/2019, patient had EGD for evaluation of her anemia, she was found to have nonbleeding superficial ulcer in the distal esophagus portal hypertensive gastropathy and small distal esophageal varices without bleeding. She underwent paracentesis last week, 3.3 L were removed. Today the patient is relatively asymptomatic, her hemoglobin is 8.8 WBC count is 6.5. Electrolytes and renal profile are normal. Mental status on the patient today is significantly improved. Objective - Vital Signs Vital signs: Vital Signs Temp 97.5 F L 01/14/19 08:00 Pulse 71 01/14/19 11:00 Resp 16 01/14/19 11:00 BP 87/56 01/14/19 11:00 Pulse Ox 96 01/14/19 11:00 Intake & Output 01/13/19 01/14/19 01/14/19 18:59 06:59 18:59 Intake Total 2514.381 1063.743 522.288 Output Total 460 692 100 Balance 2054.381 371.743 422.288 Weight 75.3 kg 83.5 kg Intake: IV 650 900 225 Dextrose 5% in Water 1, 900 225 000 ml @ 75 mls/hr IV . [id number] ZOE with Sodium Bicarb (1 Meq/ml) 150 ml Rx#:[id number] Sodium Chloride 0.9% 1, 500 000 ml @ 100 mls/hr IV . Q10H ZOE Rx#:[id number] Intake, IV Titration 1024.381 163.743 47.288 Amount Dextrose 5% in Water 1, 525 75 000 ml @ 75 mls/hr IV . [id number] ZOE with Sodium Bicarb (1 Meq/ml) 150 ml Rx#:[id number] Norepinephrine 4 mg In 429.381 78.743 47.288 Sodium Chloride 0.9% 250 ml @ 0.05 MCG/KG/MIN 18. 764 mls/hr IV .[id number] ZOE Rx#:[id number] Sodium Chloride 0.9% 1, 70 10 000 ml @ 100 mls/hr IV . Q10H ZOE Rx#:[id number] Oral 840 250 Output: Urine 260 392 100 Stool 200 200 Urine/Stool Mix 100 Other: Voiding Method Indwelling Catheter Indwelling Catheter Indwelling Catheter - Exam Physical Exam: Revealed a 63-year-old female in no distress. Head: Atraumatic, normocephalic. HEENT:[Neck is supple.] [No neck masses.] [No thyromegaly.] [No JVD.] PERRLA, EOMI, no icterus. Chest: [Clear throughout, no crackles, no rhonchi, no wheezes.] Cardiac Exam: [Normal S1 and S2, no S3 gallop, no murmur.] Abdomen: [Soft, nontender, no megaly, no rebound, no guarding, positive ascites, positive bowel sounds. Extremities: [No clubbing, 2+ bipedal edema, no cyanosis.] Neurological Exam: [No focal neurologic deficit. Psychiatric: Normal mood affect and normal mental status examination. Skin: No rashes.] - Labs CBC & Chem 7: 01/14/19 04:36 01/14/19 04:36 Labs: Abnormal Lab Results - Last 24 Hours (Table) 01/13/19 01/13/19 01/14/19 Range/Units 17:12 20:14 04:36 RBC 2.61 L (3.80-5.40) m/uL Hgb 8.8 L (11.4-16.0) gm/dL Hct 27.9 L (34.0-46.0) % MCV 106.9 H (80.0-100.0) fL RDW 24.1 H (11.5-15.5) % Plt Count 65 L (150-450) k/uL Lymphocytes # 0.5 L (1.0-4.8) k/uL Macrocytosis Marked A Sodium (137-145) mmol/L Chloride (98-107) mmol/L Carbon Dioxide (22-30) mmol/L BUN (7-17) mg/dL Glucose (74-99) mg/dL POC Glucose (mg/dL) 241 H 274 H (75-99) mg/dL Calcium (8.4-10.2) mg/dL Total Bilirubin (0.2-1.3) mg/dL AST (14-36) U/L Alkaline Phosphatase (38-126) U/L Total Protein (6.3-8.2) g/dL Albumin (3.5-5.0) g/dL 01/14/19 01/14/19 01/14/19 Range/Units 04:36 06:37 08:12 RBC (3.80-5.40) m/uL Hgb (11.4-16.0) gm/dL Hct (34.0-46.0) % MCV (80.0-100.0) fL RDW (11.5-15.5) % Plt Count (150-450) k/uL Lymphocytes # (1.0-4.8) k/uL Macrocytosis Sodium 134 L (137-145) mmol/L Chloride 108 H (98-107) mmol/L Carbon Dioxide 18 L (22-30) mmol/L BUN 35 H (7-17) mg/dL Glucose 103 H (74-99) mg/dL POC Glucose (mg/dL) 124 H 147 H (75-99) mg/dL Calcium 7.6 L (8.4-10.2) mg/dL Total Bilirubin 3.6 H (0.2-1.3) mg/dL AST 61 H (14-36) U/L Alkaline Phosphatase 131 H (38-126) U/L Total Protein 5.7 L (6.3-8.2) g/dL Albumin 2.0 L (3.5-5.0) g/dL 01/14/19 Range/Units 12:00 RBC (3.80-5.40) m/uL Hgb (11.4-16.0) gm/dL Hct (34.0-46.0) % MCV (80.0-100.0) fL RDW (11.5-15.5) % Plt Count (150-450) k/uL Lymphocytes # (1.0-4.8) k/uL Macrocytosis Sodium (137-145) mmol/L Chloride (98-107) mmol/L Carbon Dioxide (22-30) mmol/L BUN (7-17) mg/dL Glucose (74-99) mg/dL POC Glucose (mg/dL) 205 H (75-99) mg/dL Calcium (8.4-10.2) mg/dL Total Bilirubin (0.2-1.3) mg/dL AST (14-36) U/L Alkaline Phosphatase (38-126) U/L Total Protein (6.3-8.2) g/dL Albumin (3.5-5.0) g/dL Microbiology - Last 24 Hours (Table) 01/09/19 00:23 Blood Culture - Preliminary Blood No Growth after 96 hours 01/09/19 16:01 Anaerobic Culture - Final Ascites Fluid 01/12/19 17:20 Urine Culture - Final Urine,Catheterized 01/09/19 16:01 Gram Stain - Final Paracentesis Fluid Body Fluid Culture - Final Assessment and Plan Assessment: Impression: 1 acute hepatic encephalopathy 2 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 Will follow. Long-term prognosis is extremely poor and guarded. Time with Patient: Less than 30
--- NOTE | 2019-01-14 12:57 | P.PN ---
Subjective Progress Note Date: 01/14/19 This is a 63-year-old female one of my patient with a previous medical history significant for hypertension and hypertensive cardiovascular disease with left ventricular hypertrophy, diabetes mellitus type 2 with diabetic polyneuropathy, CVA, TIA, liver cirrhosis secondary to chronic alcohol use and dependence, pancytopenia secondary to liver cirrhosis, vaginal cancer status post vaginectomy, uterine cancer, seizure disorder, kyphoscoliosis, vascular dementia, hyperlipidemia. Patient also has chronic right great toe wound under the care of Dr. Davila. Patient is seen in the office weekly and his home care 2 times per week to do dressing changes. Sister gives history of having battled w ith C. difficile colitis for the past year and a half which is finally cleared under the care of Dr. Curran. Patient has had a loss of appetite, loss of weight. Her home care nurse was concerned that she wasn't oriented to time and place. She has some lower extremity edema. Symptoms have been worsening over the past 9 months. Patient complains of generalized weakness. She is currently residing at independent living at [facility]. Sister also states the patient had a fall yesterday as well as 2 weeks ago. Patient was brought into the emergency department at [facility] due to the above symptoms. She was afebrile, heart rate 104, blood pressure 122/78, pulse ox 97% on room air. White count was 5, hemoglobin 7.5, platelet count 72. Sodium 135, potassium 4.1, chloride 105, CO2 23, BUN 29 creatinine 0.99. Blood sugar was 226. Total bilirubin 5.3, AST 83, ALT 55, alkaline phosphatase 150. INR was elevated at 1.9. TSH 1.270. Lactic acid 3.3, proBNP 182. Troponin 0.0 36 and repeat is 0.044. Urinalysis was dark yellow, bilirubin negative, leukoesterase trace, WBCs 12, casts 30. Ammonia level LXXXIX, stool for occult blood positive. 01/09: A-Team was called on this patient this morning due to acute mental status changes, unable to follow commands and vomiting dark brown liquid. Abdomen was distended.. Patient was started on CIWA protocol per A-Team and was transferred to the selective care unit. Dr. Medina was notified and lactulose was increased to 30 g 3 times daily and NG tube was placed. Rifaximin 550mg BID through NG tube as ordered. Repeat ammonia 190. According to nursing, patient has not had a bowel movement since admission it had only received 1 dose of lactulose last evening. Stat CAT scan of the abdomen and pelvis ordered. Abdominal x-ray showed enteric tube is placed. Probable pancreatic calcifications of chronic pancreatitis. Gaseous distention without dilatation of what appears to be the transverse colon. Chest x-ray reveals strand like bibasilar opacities present. Likely atelectasis however surveillance is recommended to assess for developing pneumonia with clinical concern for aspiration. Alcohol level less than 10. Drug screen ordered. Troponins have been 0.036, 0.044 and 0.031. Iron studies show iron of 105, TIBC 234, iron saturation 44.87 and ferritin 106.6. Lactic acid this morning was 3.0. Repeat hemoglobin 8.9 and platelet count 61. Albumin 251 dose was ordered. Patient was afebrile, heart rate running in the 90s, blood pressure 111/61, pulse ox 94% on room air. Discuss CODE STATUS with patient's power of insurance defense attorney, Sister Zayra and patient is currently a full code but this may change after family discussion. Cardiology has evaluated the patient and acute coronary syndrome ruled out. Received call that echocardiogram found pleural effusion that we'll need further evaluation. Consult added for Dr. Ramos. Gallbladder ultrasound done yesterday showed mild abdominal ascites. No dilated ducts. Mild gallbladder wall thickening. Right kidney shows no hydronephrosis. Limited study due to body habitus. Midline has been ordered for IV access. Consult was added with Dr. Persaud with recommendations to continue NG tube decompression and will continue to follow. 01/10: Patient underwent therapeutic paracentesis on January 09 with removal of 3 L of straw-colored fluid. Pathology is pending. Chest x-ray yesterday revealed NG tube and good position. New atelectasis at the lung bases. Patient's mental status is improved today. NG tube has been removed. Patient is complaining of some generalized abdominal cramping. She is having soft stool. She is currently on diet as tolerated. Lactulose is continued at 30 g every 8 hours with titration for 2-3 bowel movements per day. GI is not planning for endoscopy and surgery has no surgical plans. Patient will be transferred to [facility] floor. She has been afebrile, heart rate 95, blood pressure 109/53, pulse ox 97% on room air. WBC 8.6, hemoglobin 9.5, platelet count 77. Blood sugar up to 398. Levemir 10 units daily added. PT and OT on with probable need for subacute rehab. CEA was high at 14, CA 199 high at 50.9. AFP tumor marker 5.4 within normal limits. Echocardiogram report reveals EF of 60-65%, mild tricuspid regurgitation, no pericardial effusion. Pleural effusion. 01/12 patient examined bedside. Appears tired. She had 5 bowel movements yesterday and 2 bowel movement this morning. She had rectal tube in place C. diff was checked which was negative. White assessed as this morning suggests a temp of 97.4 pulse 54 respiratory rate 15 blood pressure 82/50 on 5 of levo fed. Patient had to 2 doses of albumin yesterday with no improvement and was initiated on pressors. Gastroenterology evaluated this patient continues to have elevated ammonia of 63. Plan for endoscopy tomorrow. Patient nothing by mouth after midnight. 01/13 patient examined bedside. He is more alert than yesterday. Last impression appropriately. She since are more regular bowel movement than yesterday. Lactulose was held. Patient continues to be hypertensive with a blood pressure ranging in the systolic 90-108. Lab evaluation patient has a bicarb of 16, creatinine 1.04 BUN 33 increased LFTs with increased unconjugated bilirubin of 3.5 and from delta bilirubin of 65 ammonia levels are normal 24 She continues to be in 100 mL per hour of IV fluids along with Levophed running at 0.08. Patient underwent EGD today and was found to have nonbleeding superficial ulcer in the distal esophagus dated to the NG tube with gastritis in the antrum of the stomach. There were evidence of portal hypertensive gastropathy with distal esophageal varices which would need repeat EGD in 1-2 years for follow-up. Continue Xifaxan. Initiated on bicarbonate drip for concern on anion gap metabolic acidosis. Repeat discussion with family was done regarding hospice as patient seems to still require pressors despite IV fluids and albumin. We will discuss with pulmonary team regarding goals of care 01/14: Patient remains in the intensive care unit on very low dose of vasopressors which will be weaned off today. She has fecal management system in place with black return. Hankins catheter in place. Generalized anasarca in the lower extremities and abdomen noted. Discussed CODE STATUS with the patient and her sister separately. They will discuss make a determination if patient should be no code and will update the patient's nurse. Patient is awake and alert today. She has had no further emesis. No black or bloody stools per nursing. Hemoglobin is 8.8, ammonia level yesterday was 24. patient is continued on Xifaxan and lactulose as well as Protonix twice daily. Cytology and pathology reports remain pending. She is continued on oral Flagyl and IV Levaquin. Anticipate transfer to [facility] for once vasopressors are discontinued. Objective - Vital Signs Vital signs: Vital Signs Temp 97.5 F L 01/14/19 08:00 Pulse 88 01/14/19 08:00 Resp 20 01/14/19 08:00 BP 101/60 01/14/19 08:00 Pulse Ox 94 L 01/14/19 08:00 Intake & Output 01/13/19 01/14/19 01/14/19 18:59 06:59 18:59 Intake Total 2514.381 1063.743 21.204 Output Total 460 692 Balance 2054.381 371.743 21.204 Weight 75.3 kg 83.5 kg Intake: IV 650 900 Dextrose 5% in Water 1, 900 000 ml @ 75 mls/hr IV . [id number] ZOE with Sodium Bicarb (1 Meq/ml) 150 ml Rx#:[id number] Sodium Chloride 0.9% 1, 500 000 ml @ 100 mls/hr IV . Q10H ZOE Rx#:[id number] Intake, IV Titration 1024.381 163.743 21.204 Amount Dextrose 5% in Water 1, 525 75 000 ml @ 75 mls/hr IV . [id number] ZOE with Sodium Bicarb (1 Meq/ml) 150 ml Rx#:[id number] Norepinephrine 4 mg In 429.381 78.743 21.204 Sodium Chloride 0.9% 250 ml @ 0.05 MCG/KG/MIN 18. 764 mls/hr IV .[id number] ZOE Rx#:[id number] Sodium Chloride 0.9% 1, 70 10 000 ml @ 100 mls/hr IV . Q10H ZOE Rx#:[id number] Oral 840 Output: Urine 260 392 Stool 200 200 Urine/Stool Mix 100 Other: Voiding Method Indwelling Catheter Indwelling Catheter - Exam Review Of Systems: Constitutional: No fever, no chills, no night sweats. No weight change. Reports weakness improved, reports fatigue has improved, reports daytime sleepiness. EENT: No headache. No blurred vision or double vision, no loss of vision. No loss of Hearing, no ringing in the ears, no dizziness. No nasal drainage or congestion. No epistaxis. No sore throat. Lungs: No shortness of breath, cough, no sputum production. No wheezing. Cardiovascular: No chest pain, no lower extremity edema. No palpitations. No paroxysmal nocturnal dyspnea. No orthopnea. No lightheadedness or dizziness. No syncopal episodes. Abdominal: Reports abdominal pain.reports abdominal distention No nausea, vomit ing. No diarrhea. No constipation. No bloody or tarry stools. Genitourinary: No dysuria, increased frequency, urgency. No urinary retention. Musculoskeletal: No myalgias. No muscle weakness, no gait dysfunction, no frequent falls. No back pain. No neck pain. Integumentary: No wounds, no lesions. No rash or pruritus. No unusual bruising. No change in hair or nails. Neurologic: No aphasia. No facial droop. No change in mentation. No head injury. No headache. No paralysis. No paresthesia. Psychiatric: No depression. No anxiety. No mood swings. Endocrine: Reports abnormal blood sugars. Physical exam: - Constitutional General appearance: drowsy improved, no acute distress, distended abdomen - EENT Eyes: icteric sclerae, PERRLA, normal appearance ENT: hearing grossly normal - Neck Neck: no lymphadenopathy, normal ROM, no other, no rigidity, no stridor, no thyromegaly - Respiratory Respiratory: bilateral: CTAdischarge basis - Cardiovascular Rhythm: regular Heart sounds: normal: S1, S2 Abnormal Heart Sounds: no systolic murmur, no diastolic murmur, no rub, no S3 Gallop, no S4 Gallop, no click, no other - Gastrointestinal General gastrointestinal: normal bowel sounds, soft distended and nontender - Integumentary Integumentary: no rash Lower extremity edema extending into abdomen - Neurologic Neurologic: CNII-XII intact - Musculoskeletal Musculoskeletal: gait normal, strength equal bilaterally - Psychiatric Psychiatric: A&O x's 3, appropriate affect - Labs CBC & Chem 7: 01/14/19 04:36 01/14/19 04:36 Labs: Abnormal Lab Results - Last 24 Hours (Table) 01/13/19 01/13/19 01/13/19 Range/Units 11:47 17:12 20:14 RBC (3.80-5.40) m/uL Hgb (11.4-16.0) gm/dL Hct (34.0-46.0) % MCV (80.0-100.0) fL RDW (11.5-15.5) % Plt Count (150-450) k/uL Lymphocytes # (1.0-4.8) k/uL Macrocytosis Sodium (137-145) mmol/L Chloride (98-107) mmol/L Carbon Dioxide (22-30) mmol/L BUN (7-17) mg/dL Glucose (74-99) mg/dL POC Glucose (mg/dL) 126 H 241 H 274 H (75-99) mg/dL Calcium (8.4-10.2) mg/dL Total Bilirubin (0.2-1.3) mg/dL AST (14-36) U/L Alkaline Phosphatase (38-126) U/L Total Protein (6.3-8.2) g/dL Albumin (3.5-5.0) g/dL 01/14/19 01/14/19 01/14/19 Range/Units 04:36 04:36 06:37 RBC 2.61 L (3.80-5.40) m/uL Hgb 8.8 L (11.4-16.0) gm/dL Hct 27.9 L (34.0-46.0) % MCV 106.9 H (80.0-100.0) fL RDW 24.1 H (11.5-15.5) % Plt Count 65 L (150-450) k/uL Lymphocytes # 0.5 L (1.0-4.8) k/uL Macrocytosis Marked A Sodium 134 L (137-145) mmol/L Chloride 108 H (98-107) mmol/L Carbon Dioxide 18 L (22-30) mmol/L BUN 35 H (7-17) mg/dL Glucose 103 H (74-99) mg/dL POC Glucose (mg/dL) 124 H (75-99) mg/dL Calcium 7.6 L (8.4-10.2) mg/dL Total Bilirubin 3.6 H (0.2-1.3) mg/dL AST 61 H (14-36) U/L Alkaline Phosphatase 131 H (38-126) U/L Total Protein 5.7 L (6.3-8.2) g/dL Albumin 2.0 L (3.5-5.0) g/dL 01/14/19 Range/Units 08:12 RBC (3.80-5.40) m/uL Hgb (11.4-16.0) gm/dL Hct (34.0-46.0) % MCV (80.0-100.0) fL RDW (11.5-15.5) % Plt Count (150-450) k/uL Lymphocytes # (1.0-4.8) k/uL Macrocytosis Sodium (137-145) mmol/L Chloride (98-107) mmol/L Carbon Dioxide (22-30) mmol/L BUN (7-17) mg/dL Glucose (74-99) mg/dL POC Glucose (mg/dL) 147 H (75-99) mg/dL Calcium (8.4-10.2) mg/dL Total Bilirubin (0.2-1.3) mg/dL AST (14-36) U/L Alkaline Phosphatase (38-126) U/L Total Protein (6.3-8.2) g/dL Albumin (3.5-5.0) g/dL Microbiology - Last 24 Hours (Table) 01/09/19 00:23 Blood Culture - Preliminary Blood No Growth after 96 hours 01/09/19 16:01 Anaerobic Culture - Final Ascites Fluid 01/12/19 17:20 Urine Culture - Final Urine,Catheterized 01/09/19 16:01 Gram Stain - Final Paracentesis Fluid Body Fluid Culture - Final Assessment and Plan Plan: 1. Hepatic encephalopathy with elevated ammonia secondary to alcoholic liver ci rrhosis, currently improving. Continue Lactulose 30 mg 3 times daily and Xifaxan 550 mg twice daily. Continue Aldactone 25 mg twice daily and Lasix. Consults with GI and general surgery appreciated. Patient will be transferred to the [facility] floor once she is off vasopressors. Continue Levaquin and Flagyl. Status post paracentesis. 2. Possible aspiration pneumonia with mental status changes and emesis. Continue Levaquin and Flagyl. 3. Pleural effusion. Consult with Dr. Ramos. 4. Generalized weakness with anemia, possible acute blood loss and anemia on top of chronic anemia of alcoholism. Stool for occult blood is positive. Monitor hemoglobin. GI consult. Continue ferrous sulfate 325 mg daily. CA 199, CEA, alpha-fetoprotein tumor marker as above. Iron studies as above. Patient has been transfused 1 unit packed RBCs and 2 units of fresh frozen plasma. 5. Bicytopenia secondary to alcoholic liver cirrhosis as well as bone marrow suppression. Patient was seen and evaluated by hematology oncology in the past underwent bone marrow biopsy did not show any evidence of myelodysplasia. Continue B12 1000 mcg orally once every day, folic acid 1 mg orally once every d ay. Patient has been transfused 1 unit packed RBCs and 2 units of fresh frozen plasma. 6. Acute blood loss anemia secondary to linear nonbleeding superficial ulcer and distal esophagus found on EGD. Hemoglobin stable. 7. Elevated troponin. Consult cardiology appreciated. Echocardiogram as a adriana. Acute coronary syndrome ruled out. 8. Hypertension and hypertensive cardiovascular disease. Continue lisinopril 2.5 mg orally once every day and atenolol 25 mg orally once every day. 9. Alcoholic liver disease with elevated bilirubin and liver function tests. Continue as in #1. Monitor CMP. Consults with GI and general surgery appreciated. 10. Diabetes mellitus type 2 uncontrolled with hyperglycemia. Levemir 10 units added and Glimepiride on hold. Continue NovoLog scale before meals and at bedtime 11. Hypothyroidism. Continue levothyroxine. TSH normal. 12. Seizure disorder by history. Patient is off Keppra. 13. History of hyperlipidemia. Resolved 14. Vascular dementia, and possibly alcohol induced frontload dementia. Continue vitamin supplement for now. 15. History of chronic alcohol use and dependence. Patient has abstained from alcohol for 913 days. 16. Rheumatoid arthritis. Patient not taking any medication at this time. 17. History of diabetic polyneuropathy. Stable at this time. 18. History of vaginal cancer status post total abdominal hysterectomy as well as bilateral salpingo-nephrectomy along with vaginectomy 19. DVT prophylaxis. Bilateral knee-high SOLEDAD hose. No heparin due to thrombocytopenia. 20. GI prophylaxis. Continue PPI. CODE STATUS: full code. Discussed with patient's sister on January 09 and January 14. Discharge plan: [facility] in next 24-48 hours Impression and plan of care have been directed as dictated by the signing physician. Majo Hawkins nurse practitioner acting as scribe for signing physician.
[2019-01-14 17:00] LABS: Glucose,Whole Blood 282 mg/dL (75-99)
[2019-01-14 20:47] LABS: Glucose,Whole Blood 206 mg/dL (75-99)
[2019-01-14] MEDS: MIRTAZAPINE 15 MG TAB PO SCH (21:30)
[2019-01-15 04:45] LABS: Anisocytosis Marked; Basophils % (A) 0 %; Eosinophils # (A) 0.3 k/uL (0-0.7); Eosinophils % (A) 3 %; HCT 28.8 % (34.0-46.0); HGB 9.2 gm/dL (11.4-16.0); Hypochromasia Marked; Lymphocytes # (A) 0.5 k/uL (1.0-4.8); Lymphocytes % (A) 6 %; MCH 33.5 pg (25.0-35.0); MCHC 31.9 g/dL (31.0-37.0); Monocytes # (A) 0.6 k/uL (0-1.0); Monocytes % (A) 7 %; Neutrophils # (A) 7.1 k/uL (1.3-7.7); Neutrophils % (A) 81 %; RBC 2.74 m/uL (3.80-5.40); RDW 24.3 % (11.5-15.5); WBC 8.7 k/uL (3.8-10.6)
[2019-01-15 04:50] LABS: Macrocytosis Marked; Platelet Count 74 k/uL (150-450)
[2019-01-15 04:57] LABS: Albumin 2.1 g/dL (3.5-5.0); Calcium 7.5 mg/dL (8.4-10.2); Potassium 5.2 mmol/L (3.5-5.1); Total Bilirubin 4.2 mg/dL (0.2-1.3); Total Protein 5.8 g/dL (6.3-8.2)
[2019-01-15 06:59] LABS: Glucose,Whole Blood 173 mg/dL (75-99)
[2019-01-15] MEDS: LEVOTHYROXINE 25 MCG TAB PO SCH (07:17)
[2019-01-15] MEDS: PANTOPRAZOLE 40 MG TABLET PO SCH ×2 (07:17→16:58)
[2019-01-15] MEDS: INSULIN ASPART (NovoLOG) 100 UNIT/ML VIAL SQ SCH ×4 (07:17→20:34)
[2019-01-15] MEDS: metroNIDAZOLE 500 MG TAB PO SCH (07:17)
[2019-01-15] MEDS: NOREPINEPHRINE 4 MG in SODIUM CHLORIDE 0.9% 250 ML IV SCH (07:22)
[2019-01-15] MEDS: ATENOLOL 25 MG TAB PO SCH (08:25)
[2019-01-15] MEDS: CALCITONIN 200 USP/1 NASAL SPRAY 3.7ML BTL NASAL SCH (08:25)
[2019-01-15] MEDS: CYANOCOBALAMIN 500 MCG TAB PO SCH (08:25)
[2019-01-15] MEDS: FERROUS SULFATE 325 MG TAB PO SCH (08:26)
[2019-01-15] MEDS: INSULIN DETEMIR (LEVEMIR) 100 UNIT/ML SYR SQ SCH (08:26)
[2019-01-15] MEDS: FUROSEMIDE 20 MG TAB PO SCH (08:26)
[2019-01-15] MEDS: FOLIC ACID 1 MG TAB PO SCH (08:26)
[2019-01-15] MEDS: RIFAXIMIN 550 MG TABLET PO SCH ×2 (08:27→20:35)
[2019-01-15] MEDS: LEVOFLOXACIN 250 MG TAB PO SCH (08:27)
[2019-01-15] MEDS: MAGNESIUM OXIDE 400 MG TAB PO SCH (08:27)
[2019-01-15] MEDS: LISINOPRIL 2.5 MG TAB PO SCH (08:27)
[2019-01-15] MEDS: SODIUM BICARBONATE TAB 650 MG TAB PO SCH ×2 (08:28→20:34)
[2019-01-15] MEDS: SPIRONOLACTONE 25 MG TAB PO SCH ×2 (08:28→20:34)
[2019-01-15] MEDS: LACTULOSE 20 GM/30 ML CUP PO SCH ×2 (08:37→20:35)
[2019-01-15] MEDS: POTASSIUM CHLORIDE ER 20 MEQ TAB.ER PO SCH (08:40)
--- NOTE | 2019-01-15 11:14 | P.PN ---
Subjective Progress Note Date: 01/15/19 Principal diagnosis: Acute hepatic encephalopathy and mental status change Patient was reevaluated today on 01/14/2019, patient had EGD for evaluation of her anemia, she was found to have nonbleeding superficial ulcer in the distal esophagus portal hypertensive gastropathy and small distal esophageal varices without bleeding. She underwent paracentesis last week, 3.3 L were removed. Today the patient is relatively asymptomatic, her hemoglobin is 8.8 WBC count is 6.5. Electrolytes and renal profile are normal. Mental status on the patient today is significantly improved. Patient was reevaluated today on 01/15/2019, and basically she is about the same, however could not wean off norepinephrine yesterday, and she is presently on 0.03 mcg/kg/m of norepinephrine to maintain adequate blood pressure. Mental status is excellent, her encephalopathy has resolved. Her labs were all reviewed CBC is relatively normal electrolytes are normal except for potassium of 5.2. Creatinine is 1.13. Total bilirubin is 4.2. Transaminases are a bit elevated. Albumin is 2.1. Ammonia level was not done today, it was 24 couple of days ago Objective - Vital Signs Vital signs: Vital Signs Temp 96.3 F L 01/15/19 08:00 Pulse 76 01/15/19 10:00 Resp 16 01/15/19 10:00 BP 88/71 01/15/19 10:00 Pulse Ox 93 L 01/15/19 10:00 Intake & Output 01/14/19 01/15/19 01/15/19 18:59 06:59 18:59 Intake Total 9534.679 5536.813 683.375 Output Total 680 680 100 Balance 911.618 550.813 583.375 Weight 87.5 kg Intake: IV 935 945 265 0.9 NS 110 120 40 Dextrose 5% in Water 1, 825 825 225 000 ml @ 75 mls/hr IV . [id number] ZOE with Sodium Bicarb (1 Meq/ml) 150 ml Rx#:[id number] Intake, IV Titration 156.618 85.813 168.375 Amount Norepinephrine 4 mg In 156.618 85.813 168.375 Sodium Chloride 0.9% 250 ml @ 0.05 MCG/KG/MIN 18. 764 mls/hr IV .[id number] ZOE Rx#:[id number] Oral 500 100 250 Tube Feeding 100 Output: Urine 280 280 100 Stool 400 400 Other: Voiding Method Indwelling Catheter Indwelling Catheter Indwelling Catheter - Exam Physical Exam: Revealed a 63-year-old female in no distress. Head: Atraumatic, normocephalic. HEENT:[Neck is supple.] [No neck masses.] [No thyromegaly.] [No JVD.] PERRLA, EOMI, mild icterus is noted. Chest: [Clear throughout, no crackles, no rhonchi, no wheezes.] Cardiac Exam: [Normal S1 and S2, no S3 gallop, no murmur.] Abdomen: [Soft, nontender, no megaly, no rebound, no guarding, positive ascit es, positive bowel sounds. Extremities: [No clubbing, 3+ bipedal edema, no cyanosis.] Neurological Exam: [No focal neurologic deficit. Psychiatric: Normal mood affect and normal mental status examination. Skin: No rashes.] - Labs CBC & Chem 7: 01/15/19 04:24 01/15/19 04:24 Labs: Abnormal Lab Results - Last 24 Hours (Table) 01/14/19 01/14/19 01/14/19 Range/Units 12:00 16:58 20:46 RBC (3.80-5.40) m/uL Hgb (11.4-16.0) gm/dL Hct (34.0-46.0) % MCV (80.0-100.0) fL RDW (11.5-15.5) % Plt Count (150-450) k/uL Lymphocytes # (1.0-4.8) k/uL Macrocytosis Sodium (137-145) mmol/L Potassium (3.5-5.1) mmol/L Carbon Dioxide (22-30) mmol/L BUN (7-17) mg/dL Creatinine (0.52-1.04) mg/dL POC Glucose (mg/dL) 205 H 282 H 206 H (75-99) mg/dL Calcium (8.4-10.2) mg/dL Total Bilirubin (0.2-1.3) mg/dL AST (14-36) U/L Alkaline Phosphatase (38-126) U/L Total Protein (6.3-8.2) g/dL Albumin (3.5-5.0) g/dL 01/15/19 01/15/19 01/15/19 Range/Units 04:24 04:24 06:58 RBC 2.74 L (3.80-5.40) m/uL Hgb 9.2 L (11.4-16.0) gm/dL Hct 28.8 L (34.0-46.0) % MCV 105.0 H (80.0-100.0) fL RDW 24.3 H (11.5-15.5) % Plt Count 74 L (150-450) k/uL Lymphocytes # 0.5 L (1.0-4.8) k/uL Macrocytosis Marked A Sodium 133 L (137-145) mmol/L Potassium 5.2 H (3.5-5.1) mmol/L Carbon Dioxide 20 L (22-30) mmol/L BUN 39 H (7-17) mg/dL Creatinine 1.13 H (0.52-1.04) mg/dL POC Glucose (mg/dL) 173 H (75-99) mg/dL Calcium 7.5 L (8.4-10.2) mg/dL Total Bilirubin 4.2 H (0.2-1.3) mg/dL AST 66 H (14-36) U/L Alkaline Phosphatase 151 H (38-126) U/L Total Protein 5.8 L (6.3-8.2) g/dL Albumin 2.1 L (3.5-5.0) g/dL Microbiology - Last 24 Hours (Table) 01/09/19 00:23 Blood Culture - Preliminary Blood No Growth after 120 hours Assessment and Plan Assessment: Impression: 1 acute hepatic encephalopathy, resolved, ammonia level was 24 2 days ago. Remains on lactulose. 2 liver cirrhosis secondary to alcohol liver disease 3 history of alcoholism 4 erosive gastritis of the antrum of the stomach and nonbleeding esophageal varices 5 seizure disorder 6 hypertension 7 hyperlipidemia 8 history of CVA 9 type 2 diabetes 10 portal hypertension and portal gastropathy Recommendation: Continue lactulose and Xifaxan, continue Protonix, continue diuretics, await the final cytology on the peritoneal fluid, continue antibiotics, plan to transfer the patient out of the ICU once she is off norepinephrine. Overall long-term prognosis is guarded, discussed CODE STATUS with the patient, and she wishes to be DO NOT RESUSCITATE. Patient is neurologically intact, and she made that decision on her own Time with Patient: Less than 30
[2019-01-15 11:49] LABS: Glucose,Whole Blood 135 mg/dL (75-99)
--- NOTE | 2019-01-15 13:49 | P.PN ---
Subjective Progress Note Date: 01/15/19 Principal diagnosis: Status post EGD for evaluation of anemia linear nonbleeding superficial ulcer in the distal esophagus portal hypertensive gastropathy and small distal esophageal varices without GI bleeding. Status post paracentesis 3 L last week cytology negative. No hematemesis hematochezia or melena per nursing. Hemoglobin 9.2. Total bilirubin increased today 4.2. Transaminases stable. IV norepinephrine. Objective - Vital Signs Vital signs: Vital Signs Temp 97.0 F L 01/15/19 12:00 Pulse 77 01/15/19 12:00 Resp 17 01/15/19 12:00 BP 102/58 01/15/19 12:00 Pulse Ox 95 01/15/19 12:00 Intake & Output 01/14/19 01/15/19 01/15/19 18:59 06:59 18:59 Intake Total 5293.047 2460.813 723.641 Output Total 680 680 520 Balance 911.618 550.813 203.641 Weight 87.5 kg Intake: IV 935 945 285 0.9 NS 110 120 60 Dextrose 5% in Water 1, 825 825 225 000 ml @ 75 mls/hr IV . [id number] ZOE with Sodium Bicarb (1 Meq/ml) 150 ml Rx#:[id number] Intake, IV Titration 156.618 85.813 188.641 Amount Norepinephrine 4 mg In 156.618 85.813 188.641 Sodium Chloride 0.9% 250 ml @ 0.05 MCG/KG/MIN 18. 764 mls/hr IV .[id number] ZOE Rx#:[id number] Oral 500 100 250 Tube Feeding 100 Output: Urine 280 280 120 Stool 400 400 400 Other: Voiding Method Indwelling Catheter Indwelling Catheter Indwelling Catheter - Exam General appearance: The patient is arousable but, in no acute distress. HET: Head is normocephalic and atraumatic. Pupils are equal and reactive. Oropharynx is clear without lesions. Neck: Supple without lymphadenopathy. Trachea midline. Heart: S1 S2. Regular rate and rhythm. Lungs: No crackles or wheezes are heard. Abdomen: Soft, nontender, nondistended with bowel sounds. No peritoneal signs. No palpable organomegaly or masses. Extremities: Normal skin color and turgor. No cyanosis, rash, ulceration, clubbing, or edema. Radial and pedal pulses are 2/4 bilaterally. Hankins clear [place] urine. Neurological: No focal deficits. Strength and sensation are grossly intact. - Labs CBC & Chem 7: 01/15/19 04:24 01/15/19 04:24 Labs: Abnormal Lab Results - Last 24 Hours (Table) 01/14/19 01/14/19 01/15/19 Range/Units 16:58 20:46 04:24 RBC 2.74 L (3.80-5.40) m/uL Hgb 9.2 L (11.4-16.0) gm/dL Hct 28.8 L (34.0-46.0) % MCV 105.0 H (80.0-100.0) fL RDW 24.3 H (11.5-15.5) % Plt Count 74 L (150-450) k/uL Lymphocytes # 0.5 L (1.0-4.8) k/uL Macrocytosis Marked A Sodium (137-145) mmol/L Potassium (3.5-5.1) mmol/L Carbon Dioxide (22-30) mmol/L BUN (7-17) mg/dL Creatinine (0.52-1.04) mg/dL POC Glucose (mg/dL) 282 H 206 H (75-99) mg/dL Calcium (8.4-10.2) mg/dL Total Bilirubin (0.2-1.3) mg/dL AST (14-36) U/L Alkaline Phosphatase (38-126) U/L Total Protein (6.3-8.2) g/dL Albumin (3.5-5.0) g/dL 01/15/19 01/15/19 01/15/19 Range/Units 04:24 06:58 11:47 RBC (3.80-5.40) m/uL Hgb (11.4-16.0) gm/dL Hct (34.0-46.0) % MCV (80.0-100.0) fL RDW (11.5-15.5) % Plt Count (150-450) k/uL Lymphocytes # (1.0-4.8) k/uL Macrocytosis Sodium 133 L (137-145) mmol/L Potassium 5.2 H (3.5-5.1) mmol/L Carbon Dioxide 20 L (22-30) mmol/L BUN 39 H (7-17) mg/dL Creatinine 1.13 H (0.52-1.04) mg/dL POC Glucose (mg/dL) 173 H 135 H (75-99) mg/dL Calcium 7.5 L (8.4-10.2) mg/dL Total Bilirubin 4.2 H (0.2-1.3) mg/dL AST 66 H (14-36) U/L Alkaline Phosphatase 151 H (38-126) U/L Total Protein 5.8 L (6.3-8.2) g/dL Albumin 2.1 L (3.5-5.0) g/dL Microbiology - Last 24 Hours (Table) 01/09/19 00:23 Blood Culture - Preliminary Blood No Growth after 120 hours Assessment and Plan (1) Esophageal varices Current Visit: Yes Status: Acute Code(s): I85.00 - ESOPHAGEAL VARICES WITHOUT BLEEDING SNOMED Code(s): 60037143 (2) Hepatic encephalopathy Current Visit: Yes Status: Acute Code(s): K72.90 - HEPATIC FAILURE, UNSPECIFIED WITHOUT COMA SNOMED Code(s): 00407419 (3) Decompensated liver disease Narrative/Plan: MELD score 21. Current Visit: Yes Status: Acute Code(s): K74.69 - OTHER CIRRHOSIS OF LIVER SNOMED Code(s): 61243793 (4) History of ETOH abuse Current Visit: Yes Status: Acute Code(s): F10.11 - ALCOHOL ABUSE, IN REMISSION SNOMED Code(s): 527279201 (5) Thrombocytopenia Current Visit: Yes Status: Acute Code(s): D69.6 - THROMBOCYTOPENIA, UNSPECIFIED SNOMED Code(s): 775111738 (6) Coagulopathy Current Visit: Yes Status: Acute Code(s): D68.9 - COAGULATION DEFECT, UNSPECIFIED SNOMED Code(s): 75686550 (7) Macrocytic anemia Narrative/Plan: No clinical evidence of overt GI bleeding such as hematemesis hematochezia melena guaiac stool positive suspected underlying nutritional anemia secondary to underlying alcohol liver disease cirrhosis. Current Visit: Yes Status: Acute Code(s): D53.9 - NUTRITIONAL ANEMIA, U NSPECIFIED SNOMED Code(s): 73169049 (8) Guaiac + stool Current Visit: Yes Status: Acute Code(s): R19.5 - OTHER FECAL ABNORMALITIES SNOMED Code(s): 10664460 (9) Alcoholic liver disease Current Visit: Yes Status: Acute Code(s): K70.9 - ALCOHOLIC LIVER DISEASE, UNSPECIFIED SNOMED Code(s): 19672031 (10) Portal hypertensive gastropathy Current Visit: Yes Status: Acute Code(s): K76.6 - PORTAL HYPERTENSION; K31.89 - OTHER DISEASES OF STOMACH AND DUODENUM SNOMED Code(s): 884207100 Plan: 1. Continue Xifaxan and lactulose. Low-sodium diet. 2. Protonix 40 mg twice daily. CBC mentioned. Continue diuretics. CBC CMP PT/INR ammonia in a.m. Assessment and plan a care discussed with Dr. Jaime
--- NOTE | 2019-01-15 14:21 | US ---
EXAMINATION TYPE: US abdomen limited DATE OF EXAM: 01/15/2019 COMPARISON: 01/11/2017 CT CLINICAL HISTORY: ascites. Ascites. Fluid visualized. Small volume abdominal ascites is visualized in all 4 quadrants, scanned in the right lower quadrant with opposing loops of small bowel and small volume in the remaining quadrants. IMPRESSION: Small volume recurrent abdominal ascites.
--- NOTE | 2019-01-15 15:47 | P.PN ---
Subjective Progress Note Date: 01/15/19 This is a 63-year-old female one of my patient with a previous medical history significant for hypertension and hypertensive cardiovascular disease with left ventricular hypertrophy, diabetes mellitus type 2 with diabetic polyneuropathy, CVA, TIA, liver cirrhosis secondary to chronic alcohol use and dependence, pancytopenia secondary to liver cirrhosis, vaginal cancer status post vaginectomy, uterine cancer, seizure disorder, kyphoscoliosis, vascular dementia, hyperlipidemia. Patient also has chronic right great toe wound under the care of Dr. Davila. Patient is seen in the office weekly and his home care 2 times per week to do dressing changes. Sister gives history of having battled w ith C. difficile colitis for the past year and a half which is finally cleared under the care of Dr. Curran. Patient has had a loss of appetite, loss of weight. Her home care nurse was concerned that she wasn't oriented to time and place. She has some lower extremity edema. Symptoms have been worsening over the past 9 months. Patient complains of generalized weakness. She is currently residing at independent living at [facility]. Sister also states the patient had a fall yesterday as well as 2 weeks ago. Patient was brought into the emergency department at [facility] due to the above symptoms. She was afebrile, heart rate 104, blood pressure 122/78, pulse ox 97% on room air. White count was 5, hemoglobin 7.5, platelet count 72. Sodium 135, potassium 4.1, chloride 105, CO2 23, BUN 29 creatinine 0.99. Blood sugar was 226. Total bilirubin 5.3, AST 83, ALT 55, alkaline phosphatase 150. INR was elevated at 1.9. TSH 1.270. Lactic acid 3.3, proBNP 182. Troponin 0.0 36 and repeat is 0.044. Urinalysis was dark yellow, bilirubin negative, leukoesterase trace, WBCs 12, casts 30. Ammonia level LXXXIX, stool for occult blood positive. 01/09: A-Team was called on this patient this morning due to acute mental status changes, unable to follow commands and vomiting dark brown liquid. Abdomen was distended.. Patient was started on CIWA protocol per A-Team and was transferred to the selective care unit. Dr. Medina was notified and lactulose was increased to 30 g 3 times daily and NG tube was placed. Rifaximin 550mg BID through NG tube as ordered. Repeat ammonia 190. According to nursing, patient has not had a bowel movement since admission it had only received 1 dose of lactulose last evening. Stat CAT scan of the abdomen and pelvis ordered. Abdominal x-ray showed enteric tube is placed. Probable pancreatic calcifications of chronic pancreatitis. Gaseous distention without dilatation of what appears to be the transverse colon. Chest x-ray reveals strand like bibasilar opacities present. Likely atelectasis however surveillance is recommended to assess for developing pneumonia with clinical concern for aspiration. Alcohol level less than 10. Drug screen ordered. Troponins have been 0.036, 0.044 and 0.031. Iron studies show iron of 105, TIBC 234, iron saturation 44.87 and ferritin 106.6. Lactic acid this morning was 3.0. Repeat hemoglobin 8.9 and platelet count 61. Albumin 251 dose was ordered. Patient was afebrile, heart rate running in the 90s, blood pressure 111/61, pulse ox 94% on room air. Discuss CODE STATUS with patient's power of courtroom deputy, Sister Zayra and patient is currently a full code but this may change after family discussion. Cardiology has evaluated the patient and acute coronary syndrome ruled out. Received call that echocardiogram found pleural effusion that we'll need further evaluation. Consult added for Dr. Ramos. Gallbladder ultrasound done yesterday showed mild abdominal ascites. No dilated ducts. Mild gallbladder wall thickening. Right kidney shows no hydronephrosis. Limited study due to body habitus. Midline has been ordered for IV access. Consult was added with Dr. Persaud with recommendations to continue NG tube decompression and will continue to follow. 01/10: Patient underwent therapeutic paracentesis on January 09 with removal of 3 L of straw-colored fluid. Pathology is pending. Chest x-ray yesterday revealed NG tube and good position. New atelectasis at the lung bases. Patient's mental status is improved today. NG tube has been removed. Patient is complaining of some generalized abdominal cramping. She is having soft stool. She is currently on diet as tolerated. Lactulose is continued at 30 g every 8 hours with titration for 2-3 bowel movements per day. GI is not planning for endoscopy and surgery has no surgical plans. Patient will be transferred to [facility] floor. She has been afebrile, heart rate 95, blood pressure 109/53, pulse ox 97% on room air. WBC 8.6, hemoglobin 9.5, platelet count 77. Blood sugar up to 398. Levemir 10 units daily added. PT and OT on with probable need for subacute rehab. CEA was high at 14, CA 199 high at 50.9. AFP tumor marker 5.4 within normal limits. Echocardiogram report reveals EF of 60-65%, mild tricuspid regurgitation, no pericardial effusion. Pleural effusion. 01/12 patient examined bedside. Appears tired. She had 5 bowel movements yesterday and 2 bowel movement this morning. She had rectal tube in place C. diff was checked which was negative. White assessed as this morning suggests a temp of 97.4 pulse 54 respiratory rate 15 blood pressure 82/50 on 5 of levo fed. Patient had to 2 doses of albumin yesterday with no improvement and was initiated on pressors. Gastroenterology evaluated this patient continues to have elevated ammonia of 63. Plan for endoscopy tomorrow. Patient nothing by mouth after midnight. 01/13 patient examined bedside. He is more alert than yesterday. Last impression appropriately. She since are more regular bowel movement than yesterday. Lactulose was held. Patient continues to be hypertensive with a blood pressure ranging in the systolic 90-108. Lab evaluation patient has a bicarb of 16, creatinine 1.04 BUN 33 increased LFTs with increased unconjugated bilirubin of 3.5 and from delta bilirubin of 65 ammonia levels are normal 24 She continues to be in 100 mL per hour of IV fluids along with Levophed running at 0.08. Patient underwent EGD today and was found to have nonbleeding superficial ulcer in the distal esophagus dated to the NG tube with gastritis in the antrum of the stomach. There were evidence of portal hypertensive gastropathy with distal esophageal varices which would need repeat EGD in 1-2 years for follow-up. Continue Xifaxan. Initiated on bicarbonate drip for concern on anion gap metabolic acidosis. Repeat discussion with family was done regarding hospice as patient seems to still require pressors despite IV fluids and albumin. We will discuss with pulmonary team regarding goals of care 01/14: Patient remains in the intensive care unit on very low dose of vasopressors which will be weaned off today. She has fecal management system in place with black return. Hankins catheter in place. Generalized anasarca in the lower extremities and abdomen noted. Discussed CODE STATUS with the patient and her sister separately. They will discuss make a determination if patient should be no code and will update the patient's nurse. Patient is awake and alert today. She has had no further emesis. No black or bloody stools per nursing. Hemoglobin is 8.8, ammonia level yesterday was 24. patient is continued on Xifaxan and lactulose as well as Protonix twice daily. Cytology and pathology reports remain pending. She is continued on oral Flagyl and IV Levaquin. Anticipate transfer to [facility] for once vasopressors are discontinued. 01/15: Patient remains in intensive care unit. There is been difficulty weaning off the levo fed. Medication changes made by Dr. Velazco today which include decreasing beta vicky, discontinuing lisinopril. Hopefully, patient will be weaned off today and be able to transfer out of the intensive care unit. We will order ultrasound paracentesis prior to transfer out of the intensive care unit. Patient is been noted by staff to be moaning after she eats. She denies significant abdominal pain. She continues to have edema to the lower extremity is up into the abdomen. Urine output has been running 20-30 mL's per hour and for the past 2 hours down to 10 mL per hour. Lasix decreased to 20 mg daily oral. Patient has verbalized that she wishes to be a no code and orders reflect her wishes. Objective - Vital Signs Vital signs: Vital Signs Temp 96.3 F L 01/15/19 08:00 Pulse 77 01/15/19 11:00 Resp 20 01/15/19 11:00 BP 103/63 01/15/19 11:00 Pulse Ox 94 L 01/15/19 11:00 Intake & Output 01/14/19 01/15/19 01/15/19 18:59 06:59 18:59 Intake Total 2565.776 6052.813 713.641 Output Total 680 680 110 Balance 911.618 550.813 603.641 Weight 87.5 kg Intake: IV 935 945 275 0.9 NS 110 120 50 Dextrose 5% in Water 1, 825 825 225 000 ml @ 75 mls/hr IV . [id number] ZOE with Sodium Bicarb (1 Meq/ml) 150 ml Rx#:[id number] Intake, IV Titration 156.618 85.813 188.641 Amount Norepinephrine 4 mg In 156.618 85.813 188.641 Sodium Chloride 0.9% 250 ml @ 0.05 MCG/KG/MIN 18. 764 mls/hr IV .[id number] [facility] Rx#:[id number] Oral 500 100 250 Tube Feeding 100 Output: Urine 280 280 110 Stool 400 400 Other: Voiding Method Indwelling Catheter Indwelling Catheter Indwelling Catheter - Exam Review Of Systems: Constitutional: No fever, no chills, no night sweats. No weight change. Reports weakness improved, reports fatigue has improved, reports daytime sleepiness. EENT: No headache. No blurred vision or double vision, no loss of vision. No loss of Hearing, no ringing in the ears, no dizziness. No nasal drainage or congestion. No epistaxis. No sore throat. Lungs: No shortness of breath, cough, no sputum production. No wheezing. Cardiovascular: No chest pain, no lower extremity edema. No palpitations. No paroxysmal nocturnal dyspnea. No orthopnea. No lightheadedness or dizziness. No syncopal episodes. Abdominal: Denies abdominal pain.reports abdominal distention No nausea, vomiting. No diarrhea. No constipation. No bloody or tarry stools. Genitourinary: No dysuria, increased frequency, urgency. No urinary retention. Musculoskeletal: No myalgias. No muscle weakness, no gait dysfunction, no frequent falls. No back pain. No neck pain. Integumentary: No wounds, no lesions. No rash or pruritus. No unusual bruising. No change in hair or nails. Neurologic: No aphasia. No facial droop. No change in mentation. No head injury. No headache. No paralysis. No paresthesia. Psychiatric: No depression. No anxiety. No mood swings. Endocrine: Reports abnormal blood sugars. Physical exam: - Constitutional General appearance: drowsy improved, no acute distress - EENT Eyes: icteric sclerae, PERRLA, normal appearance ENT: hearing grossly normal - Neck Neck: no lymphadenopathy, normal ROM, no other, no rigidity, no stridor, no thyromegaly - Respiratory Respiratory: bilateral: CTAdischarge basis - Cardiovascular Rhythm: regular Heart sounds: normal: S1, S2 Abnormal Heart Sounds: no systolic murmur, no diastolic murmur, no rub, no S3 Gallop, no S4 Gallop, no click, no other - Gastrointestinal General gastrointestinal: normal bowel sounds, soft distended and nontender, fecal management system in place - Integumentary Integumentary: no rash Lower extremity edema extending into abdomen - Neurologic Neurologic: CNII-XII intact - Musculoskeletal Musculoskeletal: gait normal, strength equal bilaterally - Psychiatric Psychiatric: A&O x's 3, appropriate affect - Labs CBC & Chem 7: 01/15/19 04:24 01/15/19 04:24 Labs: Abnormal Lab Results - Last 24 Hours (Table) 01/14/19 01/14/19 01/15/19 Range/Units 16:58 20:46 04:24 RBC 2.74 L (3.80-5.40) m/uL Hgb 9.2 L (11.4-16.0) gm/dL Hct 28.8 L (34.0-46.0) % MCV 105.0 H (80.0-100.0) fL RDW 24.3 H (11.5-15.5) % Plt Count 74 L (150-450) k/uL Lymphocytes # 0.5 L (1.0-4.8) k/uL Macrocytosis Marked A Sodium (137-145) mmol/L Potassium (3.5-5.1) mmol/L Carbon Dioxide (22-30) mmol/L BUN (7-17) mg/dL Creatinine (0.52-1.04) mg/dL POC Glucose (mg/dL) 282 H 206 H (75-99) mg/dL Calcium (8.4-10.2) mg/dL Total Bilirubin (0.2-1.3) mg/dL AST (14-36) U/L Alkaline Phosphatase (38-126) U/L Total Protein (6.3-8.2) g/dL Albumin (3.5-5.0) g/dL 01/15/19 01/15/19 01/15/19 Range/Units 04:24 06:58 11:47 RBC (3.80-5.40) m/uL Hgb (11.4-16.0) gm/dL Hct (34.0-46.0) % MCV (80.0-100.0) fL RDW (11.5-15.5) % Plt Count (150-450) k/uL Lymphocytes # (1.0-4.8) k/uL Macrocytosis Sodium 133 L (137-145) mmol/L Potassium 5.2 H (3.5-5.1) mmol/L Carbon Dioxide 20 L (22-30) mmol/L BUN 39 H (7-17) mg/dL Creatinine 1.13 H (0.52-1.04) mg/dL POC Glucose (mg/dL) 173 H 135 H (75-99) mg/dL Calcium 7.5 L (8.4-10.2) mg/dL Total Bilirubin 4.2 H (0.2-1.3) mg/dL AST 66 H (14-36) U/L Alkaline Phosphatase 151 H (38-126) U/L Total Protein 5.8 L (6.3-8.2) g/dL Albumin 2.1 L (3.5-5.0) g/dL Microbiology - Last 24 Hours (Table) 01/09/19 00:23 Blood Culture - Preliminary Blood No Growth after 120 hours Assessment and Plan Plan: 1. Hepatic encephalopathy with elevated ammonia secondary to alcoholic liver cirrhosis, currently improving. Continue Lactulose 30 mg 2 times daily and Xifaxan 550 mg twice daily. Continue Aldactone 25 mg twice daily and Lasix. Consults with GI and general surgery appreciated. Patient will be transferred to the [facility] floor once she is off vasopressors. Continue Levaquin and Flagyl. Status post paracentesis. Repeat ultrasound for possible paracentesis prior to transfer out of the intensive care unit. 2. Possible aspiration pneumonia with mental status changes and emesis. Continue Levaquin. 3. Pleural effusion. Consult with Dr. Ramos. 4. Generalized weakness with anemia, possible acute blood loss and anemia on top of chronic anemia of alcoholism. Stool for occult blood is positive. Monitor hemoglobin. GI consult. Continue ferrous sulfate 325 mg daily. CA 199, CEA, alpha-fetoprotein tumor marker as above. Iron studies as above. Patient has been transfused 1 unit packed RBCs and 2 units of fresh frozen plasma. 5. Bicytopenia secondary to alcoholic liver cirrhosis as well as bone marrow suppression. Patient was seen and evaluated by hematology oncology in the past underwent bone marrow biopsy did not show any evidence of myelodysplasia. Continue B12 1000 mcg orally once every day, folic acid 1 mg orally once every day. Patient has been transfused 1 unit packed RBCs and 2 units of fresh frozen plasma. 6. Acute blood loss anemia secondary to linear nonbleeding superficial ulcer and distal esophagus found on EGD. Hemoglobin stable. 7. Elevated troponin. Consult cardiology appreciated. Echocardiogram as above. Acute coronary syndrome ruled out. 8. Hypertension and hypertensive cardiovascular disease, currently hypotensive. Levo fed to be weaned off. Discontinue Lisinopril and decrease atenolol to 12.5 mg orally once every day. 9. Alcoholic liver disease with elevated bilirubin and liver function tests. Continue as in #1. Monitor CMP. Consults with GI and general surgery appreciated. 10. Diabetes mellitus type 2 uncontrolled with hyperglycemia. Levemir 10 units added and Glimepiride on hold. Continue NovoLog scale before meals and at bedtime 11. Hypothyroidism. Continue levothyroxine. TSH normal. 12. Seizure disorder by history. Patient is off Keppra. 13. History of hyperlipidemia. Resolved 14. Vascular dementia, and possibly alcohol induced frontload dementia. Continue vitamin supplement for now. 15. History of chronic alcohol use and dependence. Patient has abstained from alcohol for 913 days. 16. Rheumatoid arthritis. Patient not taking any medication at this time. 17. History of diabetic polyneuropathy. Stable at this time. 18. History of vaginal cancer status post total abdominal hysterectomy as well as bilateral salpingo-nephrectomy along with vaginectomy 19. DVT prophylaxis. Bilateral knee-high SOLEDAD hose. No heparin due to thrombocytopenia. 20. GI prophylaxis. Continue PPI. CODE STATUS: NO code. Per patient's wishes. Discharge plan: [facility] probably on Impression and plan of care have been directed as dictated by the signing ph ysician. Majo Hawkins nurse practitioner acting as scribe for signing physician.
[2019-01-15 16:55] LABS: Glucose,Whole Blood 147 mg/dL (75-99)
[2019-01-15 20:28] LABS: Glucose,Whole Blood 144 mg/dL (75-99)
[2019-01-15] MEDS: MIRTAZAPINE 15 MG TAB PO SCH (20:35)
[2019-01-16] MEDS: NOREPINEPHRINE 4 MG in SODIUM CHLORIDE 0.9% 250 ML IV SCH ×3 (03:53→19:39)
[2019-01-16 05:15] LABS: Albumin 2.1 g/dL (3.5-5.0); Calcium 7.9 mg/dL (8.4-10.2); Potassium 5.6 mmol/L (3.5-5.1); Total Protein 5.8 g/dL (6.3-8.2)
[2019-01-16 05:25] LABS: Anisocytosis Marked; HCT 29.7 % (34.0-46.0); HGB 9.4 gm/dL (11.4-16.0); Hypochromasia Moderate; MCH 33.2 pg (25.0-35.0); MCHC 31.9 g/dL (31.0-37.0); MCV 104.4 fL (80.0-100.0); Macrocytosis Marked; Mean Platelet Volume 9.8; RBC 2.84 m/uL (3.80-5.40); RDW 24.1 % (11.5-15.5); WBC 7.7 k/uL (3.8-10.6)
[2019-01-16 05:27] LABS: Platelet Count 50 k/uL (150-450)
[2019-01-16 06:17] LABS: Band Neutrophils % 4 %; Eosinophils # (M) 0.23 k/uL (0-0.7); Lymphocytes # (M) 0.15 k/uL (1.0-4.8); Monocytes # (M) 0.23 k/uL (0-1.0); Neutrophils % (M) 88 %; Nucleated Red Blood Cells 0 /100 WBC (0-0); Total Cells Counted 100
[2019-01-16 06:18] LABS: Polychromasia Present
[2019-01-16 06:19] LABS: Poikilocytosis (M) Present
[2019-01-16] MEDS: PANTOPRAZOLE 40 MG TABLET PO SCH ×2 (06:27→17:30)
[2019-01-16] MEDS: LEVOTHYROXINE 25 MCG TAB PO SCH (06:27)
[2019-01-16 06:34] LABS: Prothrombin Time 19.8 sec (9.0-12.0)
[2019-01-16 06:57] LABS: Glucose,Whole Blood 133 mg/dL (75-99)
[2019-01-16] MEDS: INSULIN ASPART (NovoLOG) 100 UNIT/ML VIAL SQ SCH ×4 (07:04→22:33)
[2019-01-16] MEDS: CYANOCOBALAMIN 500 MCG TAB PO SCH (08:15)
[2019-01-16] MEDS: CALCITONIN 200 USP/1 NASAL SPRAY 3.7ML BTL NASAL SCH (08:15)
[2019-01-16] MEDS: FERROUS SULFATE 325 MG TAB PO SCH (08:16)
[2019-01-16] MEDS: FOLIC ACID 1 MG TAB PO SCH (08:16)
[2019-01-16] MEDS: LEVOFLOXACIN 250 MG TAB PO SCH (08:17)
[2019-01-16] MEDS: SPIRONOLACTONE 25 MG TAB PO SCH (08:17)
[2019-01-16] MEDS: INSULIN DETEMIR (LEVEMIR) 100 UNIT/ML SYR SQ SCH (08:17)
[2019-01-16] MEDS: LACTULOSE 20 GM/30 ML CUP PO SCH (08:17)
[2019-01-16] MEDS: SODIUM BICARBONATE TAB 650 MG TAB PO SCH ×2 (08:18→22:25)
[2019-01-16] MEDS: RIFAXIMIN 550 MG TABLET PO SCH ×2 (08:18→22:29)
[2019-01-16] MEDS ORDERED: FUROSEMIDE 20 MG TAB PO SCH (09:00)
[2019-01-16] MEDS: ATENOLOL 12.5 MG TAB PO SCH (09:41)
[2019-01-16] MEDS ORDERED: MIDODRINE 5 MG TAB PO SCH (09:45)
[2019-01-16] MEDS ORDERED: FUROSEMIDE 10 MG/ML 4 ML VIAL IV STA (11:00)
[2019-01-16] MEDS: ALBUMIN HUMAN 25% 50 ML in EMPTY BAG 1 BAG IVPB SCH ×2 (11:24→12:26)
--- NOTE | 2019-01-16 11:25 | P.PN ---
Subjective Progress Note Date: 01/16/19 Principal diagnosis: Acute hepatic encephalopathy and mental status change Patient was reevaluated today on 01/14/2019, patient had EGD for evaluation of her anemia, she was found to have nonbleeding superficial ulcer in the distal esophagus portal hypertensive gastropathy and small distal esophageal varices without bleeding. She underwent paracentesis last week, 3.3 L were removed. Today the patient is relatively asymptomatic, her hemoglobin is 8.8 WBC count is 6.5. Electrolytes and renal profile are normal. Mental status on the patient today is significantly improved. Patient was reevaluated today on 01/15/2019, and basically she is about the same, however could not wean off norepinephrine yesterday, and she is presently on 0.03 mcg/kg/m of norepinephrine to maintain adequate blood pressure. Mental status is excellent, her encephalopathy has resolved. Her labs were all reviewed CBC is relatively normal electrolytes are normal except for potassium of 5.2. Creatinine is 1.13. Total bilirubin is 4.2. Transaminases are a bit elevated. Albumin is 2.1. Ammonia level was not done today, it was 24 couple of days ago Reevaluated today on 01/16/2019, patient remains in the ICU, basically norepinephrine dependent presently on 0.03 mcg/kg/m., She is on room air, denies any shortness of breath. Her labs showed WBC count of 7.7 hemoglobin is 9.4, INR is 2.0 potassium is a bit elevated at 5.6, hence I recommended increasing the Lasix to 20 mg twice a day and cut down Aldactone to 25 mg daily instead of twice a day. Her renal functioning is worsening, her urine output is marginal, hence I recommended nephrology consultation on this patient today. Serum cortisol level is 19, patient was initiated on midodrine 5 mg twice a day. Objective - Vital Signs Vital signs: Vital Signs Temp 97.0 F L 01/16/19 08:00 Pulse 83 01/16/19 11:00 Resp 15 01/16/19 11:00 BP 88/53 01/16/19 11:00 Pulse Ox 93 L 01/16/19 11:00 Intake & Output 01/15/19 01/16/19 01/16/19 18:59 06:59 18:59 Intake Total 1152.594 353.733 71.266 Output Total 190 182 60 Balance 962.594 171.733 11.266 Weight 84.6 kg Intake: IV 345 120 50 0.9 NS 120 120 50 Dextrose 5% in Water 1, 225 000 ml @ 75 mls/hr IV . [id number] ZOE with Sodium Bicarb (1 Meq/ml) 150 ml Rx#:[id number] Intake, IV Titration 207.594 233.733 21.266 Amount Norepinephrine 4 mg In 207.594 233.733 21.266 Sodium Chloride 0.9% 250 ml @ 0.05 MCG/KG/MIN 18. 764 mls/hr IV .[id number] ZOE Rx#:[id number] Oral 600 Output: Urine 190 182 60 Other: Voiding Method Indwelling Catheter Indwelling Catheter - Exam Physical Exam: Revealed a 63-year-old female in no distress. On room air. Head: Atraumatic, normocephalic. HEENT:[Neck is supple.] [No neck masses.] [No thyromegaly.] [No JVD.] PERRLA, EOMI, mild icterus is noted. Chest: [Clear throughout, no crackles, no rhonchi, no wheezes.] Cardiac Exam: [Normal S1 and S2, no S3 gallop, no murmur.] Abdomen: [Soft, nontender, no megaly, no rebound, no guarding, positive ascites, positive bowel sounds. Extremities: [No clubbing, 3+ bipedal edema, no cyanosis.] Neurological Exam: [No focal neurologic deficit. Psychiatric: Normal mood affect and normal mental status examination. Skin: No rashes.] - Labs CBC & Chem 7: 01/16/19 04:48 01/16/19 04:48 Labs: Abnormal Lab Results - Last 24 Hours (Table) 01/15/19 01/15/19 01/15/19 Range/Units 11:47 16:53 20:26 RBC (3.80-5.40) m/uL Hgb (11.4-16.0) gm/dL Hct (34.0-46.0) % MCV (80.0-100.0) fL RDW (11.5-15.5) % Plt Count (150-450) k/uL Lymphocytes # (Manual) (1.0-4.8) k/uL Macrocytosis PT (9.0-12.0) sec INR (<1.2) Sodium (137-145) mmol/L Potassium (3.5-5.1) mmol/L Carbon Dioxide (22-30) mmol/L BUN (7-17) mg/dL Creatinine (0.52-1.04) mg/dL Glucose (74-99) mg/dL POC Glucose (mg/dL) 135 H 147 H 144 H (75-99) mg/dL Calcium (8.4-10.2) mg/dL Total Bilirubin (0.2-1.3) mg/dL AST (14-36) U/L Alkaline Phosphatase (38-126) U/L Total Protein (6.3-8.2) g/dL Albumin (3.5-5.0) g/dL 01/16/19 01/16/19 01/16/19 Range/Units 04:48 04:48 05:38 RBC 2.84 L (3.80-5.40) m/uL Hgb 9.4 L (11.4-16.0) gm/dL Hct 29.7 L (34.0-46.0) % MCV 104.4 H (80.0-100.0) fL RDW 24.1 H (11.5-15.5) % Plt Count 50 L (150-450) k/uL Lymphocytes # (Manual) 0.15 L (1.0-4.8) k/uL Macrocytosis Marked A PT 19.8 H (9.0-12.0) sec INR 2.0 H (<1.2) Sodium 135 L (137-145) mmol/L Potassium 5.6 H (3.5-5.1) mmol/L Carbon Dioxide 21 L (22-30) mmol/L BUN 43 H (7-17) mg/dL Creatinine 1.23 H (0.52-1.04) mg/dL Glucose 130 H (74-99) mg/dL POC Glucose (mg/dL) (75-99) mg/dL Calcium 7.9 L (8.4-10.2) mg/dL Total Bilirubin 5.0 H (0.2-1.3) mg/dL AST 75 H (14-36) U/L Alkaline Phosphatase 153 H (38-126) U/L Total Protein 5.8 L (6.3-8.2) g/dL Albumin 2.1 L (3.5-5.0) g/dL 01/16/19 Range/Units 06:57 RBC (3.80-5.40) m/uL Hgb (11.4-16.0) gm/dL Hct (34.0-46.0) % MCV (80.0-100.0) fL RDW (11.5-15.5) % Plt Count (150-450) k/uL Lymphocytes # (Manual) (1.0-4.8) k/uL Macrocytosis PT (9.0-12.0) sec INR (<1.2) Sodium (137-145) mmol/L Potassium (3.5-5.1) mmol/L Carbon Dioxide (22-30) mmol/L BUN (7-17) mg/dL Creatinine (0.52-1.04) mg/dL Glucose (74-99) mg/dL POC Glucose (mg/dL) 133 H (75-99) mg/dL Calcium (8.4-10.2) mg/dL Total Bilirubin (0.2-1.3) mg/dL AST (14-36) U/L Alkaline Phosphatase (38-126) U/L Total Protein (6.3-8.2) g/dL Albumin (3.5-5.0) g/dL Microbiology - Last 24 Hours (Table) 01/09/19 00:23 Blood Culture - Final Blood No Growth after 144 hours Assessment and Plan Assessment: Impression: 1 acute hepatic encephalopathy, resolved, will make lactulose once daily instead of twice a day. 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 Recommendation: Continue lactulose and Xifaxan, continue Protonix, adjust di uretics. Final cytology on peritoneal fluid was negative. continue antibiotics, plan to transfer the patient out of the ICU once she is off norepinephrine. Overall long-term prognosis is guarded, we'll continue to follow in the ICU. Time with Patient: Less than 30
[2019-01-16 11:27] LABS: Glucose,Whole Blood 164 mg/dL (75-99)
--- NOTE | 2019-01-16 11:33 | P.PN ---
Subjective Progress Note Date: 01/16/19 Principal diagnosis: Status post EGD for evaluation of anemia linear nonbleeding superficial ulcer in the distal esophagus portal hypertensive gastropathy and small distal esophageal varices without GI bleeding. Status post paracentesis 3 L last week cytology negative. No hematemesis hematochezia or melena per nursing. Awake. Alert. Hemoglobin stable 9.4. Ultrasound abdomen minimal ascites. Total bilirubin increased today 5.0. Transaminases stable. Ammonia 15. INR increased to 2.0. IV norepinephrine blood pressure still running below 90 systolically. Objective - Vital Signs Vital signs: Vital Signs Temp 97.0 F L 01/16/19 08:00 Pulse 83 01/16/19 11:00 Resp 15 01/16/19 11:00 BP 88/53 01/16/19 11:00 Pulse Ox 93 L 01/16/19 11:00 Intake & Output 01/15/19 01/16/19 01/16/19 18:59 06:59 18:59 Intake Total 1152.594 353.733 71.266 Output Total 190 182 60 Balance 962.594 171.733 11.266 Weight 84.6 kg Intake: IV 345 120 50 0.9 NS 120 120 50 Dextrose 5% in Water 1, 225 000 ml @ 75 mls/hr IV . [id number] ZOE with Sodium Bicarb (1 Meq/ml) 150 ml Rx#:[id number] Intake, IV Titration 207.594 233.733 21.266 Amount Norepinephrine 4 mg In 207.594 233.733 21.266 Sodium Chloride 0.9% 250 ml @ 0.05 MCG/KG/MIN 18. 764 mls/hr IV .[id number] ZOE Rx#:[id number] Oral 600 Output: Urine 190 182 60 Other: Voiding Method Indwelling Catheter Indwelling Catheter - Exam General appearance: The patient is alert, conversive no acute distress distress. HET: Head is normocephalic and atraumatic. Pupils are equal and reactive. Oropharynx is clear without lesions. Neck: Supple without lymphadenopathy. Trachea midline. Heart: S1 S2. Regular rate and rhythm. Lungs: No crackles or wheezes are heard. Abdomen: Soft, nontender, nondistended with bowel sounds. No peritoneal signs. No palpable organomegaly or masses. Extremities: FMS with nonbloody stool. Neurological: No focal deficits. Strength and sensation are grossly intact. - Labs CBC & Chem 7: 01/17/19 05:40 01/17/19 05:40 Labs: Abnormal Lab Results - Last 24 Hours (Table) 01/15/19 01/15/19 01/15/19 Range/Units 11:47 16:53 20:26 RBC (3.80-5.40) m/uL Hgb (11.4-16.0) gm/dL Hct (34.0-46.0) % MCV (80.0-100.0) fL RDW (11.5-15.5) % Plt Count (150-450) k/uL Lymphocytes # (Manual) (1.0-4.8) k/uL Macrocytosis PT (9.0-12.0) sec INR (<1.2) Sodium (137-145) mmol/L Potassium (3.5-5.1) mmol/L Carbon Dioxide (22-30) mmol/L BUN (7-17) mg/dL Creatinine (0.52-1.04) mg/dL Glucose (74-99) mg/dL POC Glucose (mg/dL) 135 H 147 H 144 H (75-99) mg/dL Calcium (8.4-10.2) mg/dL Total Bilirubin (0.2-1.3) mg/dL AST (14-36) U/L Alkaline Phosphatase (38-126) U/L Total Protein (6.3-8.2) g/dL Albumin (3.5-5.0) g/dL 01/16/19 01/16/19 01/16/19 Range/Units 04:48 04:48 05:38 RBC 2.84 L (3.80-5.40) m/uL Hgb 9.4 L (11.4-16.0) gm/dL Hct 29.7 L (34.0-46.0) % MCV 104.4 H (80.0-100.0) fL RDW 24.1 H (11.5-15.5) % Plt Count 50 L (150-450) k/uL Lymphocytes # (Manual) 0.15 L (1.0-4.8) k/uL Macrocytosis Marked A PT 19.8 H (9.0-12.0) sec INR 2.0 H (<1.2) Sodium 135 L (137-145) mmol/L Potassium 5.6 H (3.5-5.1) mmol/L Carbon Dioxide 21 L (22-30) mmol/L BUN 43 H (7-17) mg/dL Creatinine 1.23 H (0.52-1.04) mg/dL Glucose 130 H (74-99) mg/dL POC Glucose (mg/dL) (75-99) mg/dL Calcium 7.9 L (8.4-10.2) mg/dL Total Bilirubin 5.0 H (0.2-1.3) mg/dL AST 75 H (14-36) U/L Alkaline Phosphatase 153 H (38-126) U/L Total Protein 5.8 L (6.3-8.2) g/dL Albumin 2.1 L (3.5-5.0) g/dL 01/16/19 01/16/19 Range/Units 06:57 11:25 RBC (3.80-5.40) m/uL Hgb (11.4-16.0) gm/dL Hct (34.0-46.0) % MCV (80.0-100.0) fL RDW (11.5-15.5) % Plt Count (150-450) k/uL Lymphocytes # (Manual) (1.0-4.8) k/uL Macrocytosis PT (9.0-12.0) sec INR (<1.2) Sodium (137-145) mmol/L Potassium (3.5-5.1) mmol/L Carbon Dioxide (22-30) mmol/L BUN (7-17) mg/dL Creatinine (0.52-1.04) mg/dL Glucose (74-99) mg/dL POC Glucose (mg/dL) 133 H 164 H (75-99) mg/dL Calcium (8.4-10.2) mg/dL Total Bilirubin (0.2-1.3) mg/dL AST (14-36) U/L Alkaline Phosphatase (38-126) U/L Total Protein (6.3-8.2) g/dL Albumin (3.5-5.0) g/dL Microbiology - Last 24 Hours (Table) 01/09/19 00:23 Blood Culture - Final Blood No Growth after 144 hours Assessment and Plan (1) Decompensated liver disease Narrative/Plan: Increasing total bilirubin. MELD 23. Current Visit: Yes Status: Acute Code(s): K74.69 - OTHER CIRRHOSIS OF LIVER SNOMED Code(s): 34564404 (2) Esophageal varices Current Visit: Yes Status: Acute Code(s): I85.00 - ESOPHAGEAL VARICES WITHOUT BLEEDING SNOMED Code(s): 08609535 (3) Hepatic encephalopathy Current Visit: Yes Status: Acute Code(s): K72.90 - HEPATIC FAILURE, UNSPECIFIED WITHOUT COMA SNOMED Code(s): 32918267 (4) History of ETOH abuse Current Visit: Yes Status: Acute Code(s): F10.11 - ALCOHOL ABUSE, IN REMISSION SNOMED Code(s): 482507478 (5) Thrombocytopenia Current Visit: Yes Status: Acute Code(s): D69.6 - THROMBOCYTOPENIA, UNSPECIFIED SNOMED Code(s): 924702410 (6) Coagulopathy Narrative/Plan: Increasing INR Current Visit: Yes Status: Acute Code(s): D68.9 - COAGULATION DEFECT, UNSPECIFIED SNOMED Code(s): 44626798 (7) Macrocytic anemia Narrative/Plan: No clinical evidence of overt GI bleeding such as hematemesis hematochezia melena guaiac stool positive suspected underlying nutritional anemia secondary to underlying alcohol liver disease cirrhosis. Current Visit: Yes Status: Acute Code(s): D53.9 - NUTRITIONAL ANEMIA, UNSPECIFIED SNOMED Code(s): 73588519 (8) Guaiac + stool Current Visit: Yes Status: Acute Code(s): R19.5 - OTHER FECAL ABNORMALITIES SNOMED Code(s): 75867352 (9) Alcoholic liver disease Current Visit: Yes Status: Acute Code(s): K70.9 - ALCOHOLIC LIVER DISEASE, UNSPECIFIED SNOMED Code(s): 50184519 (10) Portal hypertensive gastropathy Current Visit: Yes Status: Acute Code(s): K76.6 - PORTAL HYPERTENSION; K31.89 - OTHER DISEASES OF STOMACH AND DUODENUM SNOMED Code(s): 296172861 Plan: 1. Overall decompensated alcohol liver disease somewhat stable with fluctuations in INR and total bilirubin stable transaminases. Her overall functional status is poor maintaining an adequate blood pressure the last few days has been difficult even with pressors. Consideration for comfort and or hospice would be reasonable if she cannot come off pressors and if family agrees. While she's not in fulminant hepatic failure her overall liver function is decompensated with a MELD score of 23; approximate 20% three-month mortality. Continue Xifaxan and lactulose. Low-sodium diet. 2. Protonix 40 mg twice daily. CBC monitoring. Paracentesis not indicated at this time. Continue diuretics. Daily INR. DO NOT RESUSCITATE. Will follow as needed. Assessment and plan a care discussed with Dr. Jaime
[2019-01-16 11:40] VITALS: BMI 33.0
[2019-01-16] MEDS: MIDODRINE 5 MG TAB PO SCH ×2 (12:04→17:30)
--- NOTE | 2019-01-16 13:46 | P.PN ---
Subjective Progress Note Date: 01/16/19 This is a 63-year-old female one of my patient with a previous medical history significant for hypertension and hypertensive cardiovascular disease with left ventricular hypertrophy, diabetes mellitus type 2 with diabetic polyneuropathy, CVA, TIA, liver cirrhosis secondary to chronic alcohol use and dependence, pancytopenia secondary to liver cirrhosis, vaginal cancer status post vaginectomy, uterine cancer, seizure disorder, kyphoscoliosis, vascular dementia, hyperlipidemia. Patient also has chronic right great toe wound under the care of Dr. Davila. Patient is seen in the office weekly and his home care 2 times per week to do dressing changes. Sister gives history of having battled w ith C. difficile colitis for the past year and a half which is finally cleared under the care of Dr. Curran. Patient has had a loss of appetite, loss of weight. Her home care nurse was concerned that she wasn't oriented to time and place. She has some lower extremity edema. Symptoms have been worsening over the past 9 months. Patient complains of generalized weakness. She is currently residing at independent living at [facility]. Sister also states the patient had a fall yesterday as well as 2 weeks ago. Patient was brought into the emergency department at [facility] due to the above symptoms. She was afebrile, heart rate 104, blood pressure 122/78, pulse ox 97% on room air. White count was 5, hemoglobin 7.5, platelet count 72. Sodium 135, potassium 4.1, chloride 105, CO2 23, BUN 29 creatinine 0.99. Blood sugar was 226. Total bilirubin 5.3, AST 83, ALT 55, alkaline phosphatase 150. INR was elevated at 1.9. TSH 1.270. Lactic acid 3.3, proBNP 182. Troponin 0.0 36 and repeat is 0.044. Urinalysis was dark yellow, bilirubin negative, leukoesterase trace, WBCs 12, casts 30. Ammonia level LXXXIX, stool for occult blood positive. 01/09: A-Team was called on this patient this morning due to acute mental status changes, unable to follow commands and vomiting dark brown liquid. Abdomen was distended.. Patient was started on CIWA protocol per A-Team and was transferred to the selective care unit. Dr. Medina was notified and lactulose was increased to 30 g 3 times daily and NG tube was placed. Rifaximin 550mg BID through NG tube as ordered. Repeat ammonia 190. According to nursing, patient has not had a bowel movement since admission it had only received 1 dose of lactulose last evening. Stat CAT scan of the abdomen and pelvis ordered. Abdominal x-ray showed enteric tube is placed. Probable pancreatic calcifications of chronic pancreatitis. Gaseous distention without dilatation of what appears to be the transverse colon. Chest x-ray reveals strand like bibasilar opacities present. Likely atelectasis however surveillance is recommended to assess for developing pneumonia with clinical concern for aspiration. Alcohol level less than 10. Drug screen ordered. Troponins have been 0.036, 0.044 and 0.031. Iron studies show iron of 105, TIBC 234, iron saturation 44.87 and ferritin 106.6. Lactic acid this morning was 3.0. Repeat hemoglobin 8.9 and platelet count 61. Albumin 251 dose was ordered. Patient was afebrile, heart rate running in the 90s, blood pressure 111/61, pulse ox 94% on room air. Discuss CODE STATUS with patient's power of civil attorney, Sister Zayra and patient is currently a full code but this may change after family discussion. Cardiology has evaluated the patient and acute coronary syndrome ruled out. Received call that echocardiogram found pleural effusion that we'll need further evaluation. Consult added for Dr. Ramos. Gallbladder ultrasound done yesterday showed mild abdominal ascites. No dilated ducts. Mild gallbladder wall thickening. Right kidney shows no hydronephrosis. Limited study due to body habitus. Midline has been ordered for IV access. Consult was added with Dr. Persaud with recommendations to continue NG tube decompression and will continue to follow. 01/10: Patient underwent therapeutic paracentesis on January 09 with removal of 3 L of straw-colored fluid. Pathology is pending. Chest x-ray yesterday revealed NG tube and good position. New atelectasis at the lung bases. Patient's mental status is improved today. NG tube has been removed. Patient is complaining of some generalized abdominal cramping. She is having soft stool. She is currently on diet as tolerated. Lactulose is continued at 30 g every 8 hours with titration for 2-3 bowel movements per day. GI is not planning for endoscopy and surgery has no surgical plans. Patient will be transferred to [facility] floor. She has been afebrile, heart rate 95, blood pressure 109/53, pulse ox 97% on room air. WBC 8.6, hemoglobin 9.5, platelet count 77. Blood sugar up to 398. Levemir 10 units daily added. PT and OT on with probable need for subacute rehab. CEA was high at 14, CA 199 high at 50.9. AFP tumor marker 5.4 within normal limits. Echocardiogram report reveals EF of 60-65%, mild tricuspid regurgitation, no pericardial effusion. Pleural effusion. 01/12 patient examined bedside. Appears tired. She had 5 bowel movements yesterday and 2 bowel movement this morning. She had rectal tube in place C. diff was checked which was negative. White assessed as this morning suggests a temp of 97.4 pulse 54 respiratory rate 15 blood pressure 82/50 on 5 of levo fed. Patient had to 2 doses of albumin yesterday with no improvement and was initiated on pressors. Gastroenterology evaluated this patient continues to have elevated ammonia of 63. Plan for endoscopy tomorrow. Patient nothing by mouth after midnight. 01/13 patient examined bedside. He is more alert than yesterday. Last impression appropriately. She since are more regular bowel movement than yesterday. Lactulose was held. Patient continues to be hypertensive with a blood pressure ranging in the systolic 90-108. Lab evaluation patient has a bicarb of 16, creatinine 1.04 BUN 33 increased LFTs with increased unconjugated bilirubin of 3.5 and from delta bilirubin of 65 ammonia levels are normal 24 She continues to be in 100 mL per hour of IV fluids along with Levophed running at 0.08. Patient underwent EGD today and was found to have nonbleeding superficial ulcer in the distal esophagus dated to the NG tube with gastritis in the antrum of the stomach. There were evidence of portal hypertensive gastropathy with distal esophageal varices which would need repeat EGD in 1-2 years for follow-up. Continue Xifaxan. Initiated on bicarbonate drip for concern on anion gap metabolic acidosis. Repeat discussion with family was done regarding hospice as patient seems to still require pressors despite IV fluids and albumin. We will discuss with pulmonary team regarding goals of care 01/14: Patient remains in the intensive care unit on very low dose of vasopressors which will be weaned off today. She has fecal management system in place with black return. Hankins catheter in place. Generalized anasarca in the lower extremities and abdomen noted. Discussed CODE STATUS with the patient and her sister separately. They will discuss make a determination if patient should be no code and will update the patient's nurse. Patient is awake and alert today. She has had no further emesis. No black or bloody stools per nursing. Hemoglobin is 8.8, ammonia level yesterday was 24. patient is continued on Xifaxan and lactulose as well as Protonix twice daily. Cytology and pathology reports remain pending. She is continued on oral Flagyl and IV Levaquin. Anticipate transfer to [facility] for once vasopressors are discontinued. 01/15: Patient remains in intensive care unit. There is been difficulty weaning off the levo fed. Medication changes made by Dr. Velazco today which include decreasing beta vicky, discontinuing lisinopril. Hopefully, patient will be weaned off today and be able to transfer out of the intensive care unit. We will order ultrasound paracentesis prior to transfer out of the intensive care unit. Patient is been noted by staff to be moaning after she eats. She denies significant abdominal pain. She continues to have edema to the lower extremity is up into the abdomen. Urine output has been running 20-30 mL's per hour and for the past 2 hours down to 10 mL per hour. Lasix decreased to 20 mg daily oral. Patient has verbalized that she wishes to be a no code and orders reflect her wishes. 01/16 patient examined had bedside appears lethargic unable to stay awake to answer question. Blood pressure noted to be extremely low with systolic 80/52 saturating well on room air patient on examinations appears to have anasarca ultrasound abdomen was done with no ascites. Lasix and Aldactone continued to help with volume overload. Patient initiated on midodrine 10 mg 3 times a day. Detailed discussion with gastroenterology was done and it appears patient is in decompensated liver failure with 3 month mortality of 20%. Hospice informational visit to be initiated today with family. If no improvement in next 24 hours patient should be switched to hospice care Objective - Vital Signs Vital signs: Vital Signs Temp 96.0 F L 01/16/19 12:00 Pulse 74 01/16/19 13:00 Resp 15 01/16/19 13:00 BP 89/48 01/16/19 13:00 Pulse Ox 94 L 01/16/19 13:00 Intake & Output 01/15/19 01/16/19 01/16/19 18:59 06:59 18:59 Intake Total 1152.594 353.733 103.776 Output Total 190 182 85 Balance 962.594 171.733 18.776 Weight 84.6 kg 84.6 kg Intake: IV 345 120 70 0.9 NS 120 120 70 Dextrose 5% in Water 1, 225 000 ml @ 75 mls/hr IV . [id number] ZOE with Sodium Bicarb (1 Meq/ml) 150 ml Rx#:[id number] Intake, IV Titration 207.594 233.733 33.776 Amount Norepinephrine 4 mg In 207.594 233.733 33.776 Sodium Chloride 0.9% 250 ml @ 0.05 MCG/KG/MIN 18. 764 mls/hr IV .[id number] ZOE Rx#:[id number] Oral 600 Output: Urine 190 182 85 Other: Voiding Method Indwelling Catheter Indwelling Catheter Indwelling Catheter - Exam - Constitutional General appearance: drowsy, no acute distress, distended abdomen - EENT Eyes: icteric sclerae, PERRLA, normal appearance ENT: hearing grossly normal - Neck Neck: no lymphadenopathy, normal ROM, no other, no rigidity, no stridor, no thyromegaly - Respiratory Respiratory: bilateral: CTAdischarge basis - Cardiovascular Rhythm: regular Heart sounds: normal: S1, S2 Abnormal Heart Sounds: no systolic murmur, no diastolic murmur, no rub, no S3 Gallop, no S4 Gallop, 3 + pitting edema with abd wall pitting edema - Gastrointestinal General gastrointestinal: normal bowel sounds, soft distended and nontender - Integumentary Integumentary: no rash, spider angioamta present , - Neurologic Neurologic: CNII-XII intact - Musculoskeletal Musculoskeletal: gait normal, strength equal bilaterally - Psychiatric Psychiatric: A&O x's 3, appropriate affect - Labs CBC & Chem 7: 01/16/19 04:48 01/16/19 04:48 Labs: Abnormal Lab Results - Last 24 Hours (Table) 01/15/19 01/15/19 01/16/19 Range/Units 16:53 20:26 04:48 RBC (3.80-5.40) m/uL Hgb (11.4-16.0) gm/dL Hct (34.0-46.0) % MCV (80.0-100.0) fL RDW (11.5-15.5) % Plt Count (150-450) k/uL Lymphocytes # (Manual) (1.0-4.8) k/uL Macrocytosis PT (9.0-12.0) sec INR (<1.2) Sodium 135 L (137-145) mmol/L Potassium 5.6 H (3.5-5.1) mmol/L Carbon Dioxide 21 L (22-30) mmol/L BUN 43 H (7-17) mg/dL Creatinine 1.23 H (0.52-1.04) mg/dL Glucose 130 H (74-99) mg/dL POC Glucose (mg/dL) 147 H 144 H (75-99) mg/dL Calcium 7.9 L (8.4-10.2) mg/dL Total Bilirubin 5.0 H (0.2-1.3) mg/dL AST 75 H (14-36) U/L Alkaline Phosphatase 153 H (38-126) U/L Total Protein 5.8 L (6.3-8.2) g/dL Albumin 2.1 L (3.5-5.0) g/dL 01/16/19 01/16/19 01/16/19 Range/Units 04:48 05:38 06:57 RBC 2.84 L (3.80-5.40) m/uL Hgb 9.4 L (11.4-16.0) gm/dL Hct 29.7 L (34.0-46.0) % MCV 104.4 H (80.0-100.0) fL RDW 24.1 H (11.5-15.5) % Plt Count 50 L (150-450) k/uL Lymphocytes # (Manual) 0.15 L (1.0-4.8) k/uL Macrocytosis Marked A PT 19.8 H (9.0-12.0) sec INR 2.0 H (<1.2) Sodium (137-145) mmol/L Potassium (3.5-5.1) mmol/L Carbon Dioxide (22-30) mmol/L BUN (7-17) mg/dL Creatinine (0.52-1.04) mg/dL Glucose (74-99) mg/dL POC Glucose (mg/dL) 133 H (75-99) mg/dL Calcium (8.4-10.2) mg/dL Total Bilirubin (0.2-1.3) mg/dL AST (14-36) U/L Alkaline Phosphatase (38-126) U/L Total Protein (6.3-8.2) g/dL Albumin (3.5-5.0) g/dL 01/16/19 Range/Units 11:25 RBC (3.80-5.40) m/uL Hgb (11.4-16.0) gm/dL Hct (34.0-46.0) % MCV (80.0-100.0) fL RDW (11.5-15.5) % Plt Count (150-450) k/uL Lymphocytes # (Manual) (1.0-4.8) k/uL Macrocytosis PT (9.0-12.0) sec INR (<1.2) Sodium (137-145) mmol/L Potassium (3.5-5.1) mmol/L Carbon Dioxide (22-30) mmol/L BUN (7-17) mg/dL Creatinine (0.52-1.04) mg/dL Glucose (74-99) mg/dL POC Glucose (mg/dL) 164 H (75-99) mg/dL Calcium (8.4-10.2) mg/dL Total Bilirubin (0.2-1.3) mg/dL AST (14-36) U/L Alkaline Phosphatase (38-126) U/L Total Protein (6.3-8.2) g/dL Albumin (3.5-5.0) g/dL Microbiology - Last 24 Hours (Table) 01/09/19 00:23 Blood Culture - Final Blood No Growth after 144 hours Assessment and Plan Plan: 1. Hepatic encephalopathy with elevated ammonia secondary to alcoholic liver cirrhosis, currently improving. Continue Lactulose 30 mg 3 times daily and Xifaxan 550 mg twice daily. Continue Aldactone reduce it to 12.5 Lasix 20 mg by mouth twice a day. Consults with GI and general surgery appreciated. EGD suggest superficial ulcer and gastritis. Source of bleeding was seen Continue Levaquin and Flagyl. Status post paracentesis. 2. Possible aspiration pneumonia with mental status changes and emesis. Continue Levaquin and Flagyl. 3. Pleural effusion. Consult with Dr. Ramos. 4. Generalized weakness with anemia, possible acute blood loss and anemia on top of chronic anemia of alcoholism. Stool for occult blood is positive. Mo nitor hemoglobin. GI consult. Continue ferrous sulfate 325 mg daily. CA 199, CEA, alpha-fetoprotein tumor marker as above. Iron studies as above. Patient has been transfused 1 unit packed RBCs and 2 units of fresh frozen plasma. 5. Bicytopenia secondary to alcoholic liver cirrhosis as well as bone marrow suppression. Patient was seen and evaluated by hematology oncology in the past underwent bone marrow biopsy did not show any evidence of myelodysplasia. Continue B12 1000 mcg orally once every day, folic acid 1 mg orally once every day. Patient has been transfused 1 unit packed RBCs and 2 units of fresh frozen plasma. 6. Elevated troponin. Consult cardiology appreciated. Echocardiogram as above. Acute coronary syndrome ruled out. 7. Hypertension and hypertensive cardiovascular disease. Continue lisinopril 2.5 mg orally once every day and atenolol 25 mg orally once every day. 8. Alcoholic liver disease with elevated bilirubin and liver function tests. Continue as in #1. Monitor CMP. Consults with GI and general surgery appreciated. 9. Diabetes mellitus type 2 uncontrolled with hyperglycemia. Levemir 10 units added and Glimepiride on hold. Continue NovoLog scale before meals and at bedtime 10. Hypothyroidism. Continue levothyroxine. TSH normal. 11. Seizure disorder by history. Patient is off Keppra. 12. History of hyperlipidemia. Resolved 13. Vascular dementia, and possibly alcohol induced frontload dementia. Continue vitamin supplement for now. 14. History of chronic alcohol use and dependence. Patient has abstained from alcohol for 913 days. 15. Rheumatoid arthritis. Patient not taking any medication at this time. 16. History of diabetic polyneuropathy. Stable at this time. 17. History of vaginal cancer status post total abdominal hysterectomy as well as bilateral salpingo-nephrectomy along with vaginectomy 18. DVT prophylaxis. Bilateral knee-high SOLEDAD hose. No heparin due to thrombocytopenia. 19. GI prophylaxis. Continue PPI. 20 HAM on CK D creatinine has worsened in the past few days. Urine output has d ropped to less than 10 mL per hour nephrology consult placed. CODE STATUS: DNAR Discussed with patient's sister on January 09. The discussion of hospice was made as patient has poor prognosis secondary to alcoholic cirrhosis and hepatic encephalopathy with hypotension due to circulatory collapse. Russel hernandez continues to be on vasopressors despite IV fluids and albumin. If no improvement is made in the next few days, patient will be switched to hospice hospice consult placed
[2019-01-16 17:19] LABS: Glucose,Whole Blood 225 mg/dL (75-99)
[2019-01-16] MEDS: FUROSEMIDE 20 MG TAB PO SCH (17:30)
[2019-01-16] MEDS: MIRTAZAPINE 15 MG TAB PO SCH (22:29)
[2019-01-16 22:30] LABS: Glucose,Whole Blood 165 mg/dL (75-99)
[2019-01-17] MEDS: MORPHINE SULFATE 2 MG/ML SYRINGE IVP PRN ×2 (02:51→09:26)
[2019-01-17] MEDS: NOREPINEPHRINE 4 MG in SODIUM CHLORIDE 0.9% 250 ML IV SCH (03:25)
[2019-01-17 04:10] VITALS: TEMP 97.7
[2019-01-17 06:13] LABS: Anisocytosis Marked; HCT 26.3 % (34.0-46.0); HGB 8.9 gm/dL (11.4-16.0); Hypochromasia Slight; MCH 34.6 pg (25.0-35.0); MCHC 33.7 g/dL (31.0-37.0); MCV 102.8 fL (80.0-100.0); Macrocytosis Marked; Mean Platelet Volume 9.4; RBC 2.56 m/uL (3.80-5.40); RDW 24.3 % (11.5-15.5)
[2019-01-17 06:19] LABS: Platelet Count 44 k/uL (150-450)
[2019-01-17] MEDS: MIDODRINE 5 MG TAB PO SCH (06:33)
[2019-01-17] MEDS: LEVOTHYROXINE 25 MCG TAB PO SCH (06:33)
[2019-01-17] MEDS: PANTOPRAZOLE 40 MG TABLET PO SCH (06:33)
[2019-01-17] MEDS ORDERED: INSULIN DETEMIR (LEVEMIR) 100 UNIT/ML SYR SQ SCH (07:00)
[2019-01-17 07:12] LABS: Glucose,Whole Blood 166 mg/dL (75-99)
[2019-01-17] MEDS: INSULIN ASPART (NovoLOG) 100 UNIT/ML VIAL SQ SCH (07:22)
[2019-01-17] MEDS: ATENOLOL 12.5 MG TAB PO SCH (07:55)
[2019-01-17] MEDS: CYANOCOBALAMIN 500 MCG TAB PO SCH (07:56)
[2019-01-17] MEDS: FERROUS SULFATE 325 MG TAB PO SCH (07:56)
[2019-01-17] MEDS: CALCITONIN 200 USP/1 NASAL SPRAY 3.7ML BTL NASAL SCH (07:56)
[2019-01-17] MEDS: FUROSEMIDE 20 MG TAB PO SCH (07:56)
[2019-01-17] MEDS: FOLIC ACID 1 MG TAB PO SCH (07:56)
[2019-01-17] MEDS: SODIUM BICARBONATE TAB 650 MG TAB PO SCH (07:57)
[2019-01-17] MEDS: LEVOFLOXACIN 250 MG TAB PO SCH (07:57)
[2019-01-17] MEDS: RIFAXIMIN 550 MG TABLET PO SCH (07:57)
[2019-01-17] MEDS ORDERED: SPIRONOLACTONE 25 MG TAB PO SCH ×2 (09:00)
[2019-01-17] MEDS ORDERED: LACTULOSE 20 GM/30 ML CUP PO SCH (09:00)
[2019-01-17 09:12] LABS: Albumin 1.9 g/dL (3.5-5.0); Calcium 7.6 mg/dL (8.4-10.2); Potassium 5.1 mmol/L (3.5-5.1); Total Bilirubin 5.5 mg/dL (0.2-1.3); Total Protein 5.2 g/dL (6.3-8.2)
[2019-01-17] MEDS ORDERED: MORPHINE SULFATE 4 MG/ML SYRINGE IVP STA (10:04)
[2019-01-17 11:24] VITALS: RESP 23
[2019-01-17] MEDS ORDERED: MORPHINE SULFATE 4 MG/ML SYRINGE IVP PRN (11:34)
--- NOTE | 2019-01-17 11:37 | CDI ---
Documentation Clarification Form Date: 01/17/2019 11:11:24 AM From: Earline Winston CCS, CCDS Admit Date: 01/07/2019 8:08:00 PM Patient Name: Evon Olvera Visit Number: [id number] Discharge Date: ATTENTION: The Clinical Documentation Specialists (CDI) and [facility] Coding Staff appreciate your assistance in clarifying documentation. Please respond to the clarification below the line at the bottom and electronically sign. The CDI & [facility] Coding staff will review the response and follow-up if needed. Please note: Queries are made part of the Legal Health Record. If you have any questions, please contact the author of this message via ITS. Dr. Neel Cline: Patient was given IV fluid bolus on 01/09 & IV Albumin, transfused 1 unit PRBCs on 01/07 & 2 units FFP on 01/08. As of 01/13, patient is continued on vasopressors despite IV fluids & Albumin. Transferred to ICU on 01/11 due to low blood pressure. Patient history: Previous CVA, DM II w/neuropathy, Liver cirrhosis & alcoholism, GERD, [place], hyperlipidemia, hypertension, OA, Seizure disorder, uterine, Ovarian & Vaginal CA. Clinical Indicators: Patient presented to the ED with Metabolic encephalopathy with elevated ammonia secondary to alcoholic liver cirrhosis, Generalized weakness with anemia, possible ABLA & anemia on top of chronic anemia of alcoholism, from an assisted living facility. Also diagnosed with GI bleeding. Admission VS: T 98.8, P 104^, R 18, BP 122/78 - 99/60, PO 97 ra BP low on 01/11: 78/51. BP 01/15: 77/46. BP 01/17: 85/52. Treatment: Blood transfusion: PRBCs & FFP. IV antibiotics, IV fluid boluses & IV fluids, IV Albumin. EGD w/biopsy for anemia. In your professional opinion, can you please specify the type of shock if known? Shock: o Suspected or known causative organism: o Any associated organ failure: Hypovolemic Shock o Cause: Other, please specify: Unable to determine (Last Revision: April 2017) MTDD
--- NOTE | 2019-01-17 11:54 | PN ---
PROGRESS NOTE Patient is seen for evaluation for renal failure. HISTORY OF PRESENT ILLNESS: The patient is a 63-year-old female with history of chronic liver disease from alcoholic liver disease and portal hypertension. Recurrent ascites. Patient was initially admitted to the hospital on 01/07/2019 with lower extremity edema and increased weakness. She was also encephalopathic. Patient is currently in the ICU. She has had poor urine output for about a day to 1-1/2 days and her serum creatinine has increased. Blood pressure was low as 80s systolic. Patient has been maintained on Levophed for about 2 days. The dose of which has been decreasing. Serum creatinine was up to 1.23 yesterday from 0.98 on 01/14/2019. Yesterday, patient received a dose of Lasix and albumin and her urine output has picked up significantly. She is making about 30-40 mL an hour now. PAST MEDICAL HISTORY: Alcoholic liver disease, CVA, TIA, type 2 diabetes, gastroesophageal reflux disease, hyperlipidemia, hypertension, dementia, seizure disorder, history of uterine, ovarian, and vaginal cancer, neuropathy, history of C difficile colitis and MRSA infection right knee. PAST SURGICAL HISTORY: Adenoidectomy, hysterectomy, tonsillectomy, right knee surgery, removal of left wrist ganglion cyst, multiple lymph node removal, total abdominal hysterectomy, bilateral salpingo-oophorectomy, carpal tunnel release, CKD, colonoscopy. SOCIAL HISTORY: Negative for smoking, drug abuse. The patient does have history of EtOH abuse. MEDICATIONS: Prior to admission included , Zestril, vitamin D, iron fish oil, vitamin B complex, Bentyl, Lasix, Synthroid, magnesium, Remeron, potassium, Aldactone. ALLERGIES: Include KEFLEX, PENICILLIN, PEPPERS. PHYSICAL EXAMINATION: On examination, patient is currently comfortable. She is not in any acute distress. She is awake. She is not answering questions. This morning's blood pressure was 99/58, heart rate 73 per minute. She is afebrile. Examination of the heart, S1, S2. Examination of the lungs, bilateral breath sounds are heard. Abdomen is soft, nontender, distended with ascites. Examination of the lower extremities shows edema 1+ bilaterally. CEMENT TESTER ASSISTANT exam shows patient moving all 4 extremities. LABS: Show sodium 135, potassium 5.1, BUN 44, serum creatinine 1.18, hemoglobin was 8.9 g/dL. Urine sodium was 15. ASSESSMENT: 1. Acute kidney injury secondary to hypotension, hypoperfusion, mainly ATN, currently improved with improving blood pressures. Patient responded to a dose of Lasix. I will maintain her on Lasix IV q.12 hours as she is volume overloaded. Continue off IV fluids. Continue to wean down the Levophed. Renal function has improved. Creatinine is down to 1.18. Urine sodium is low as it is a prerenal state with the liver cirrhosis. 2. Hepatic encephalopathy, somewhat improved. 3. Chronic liver disease, ETOH related. 4. Possible aspiration pneumonia. Mental status changes and emesis currently maintained on Levaquin and improving. 5. Type 2 diabetes. 6. History of hypertension, controlled. All medications are off given the hypotension.. 7. Hyperkalemia associated with acute kidney injury, decreased urine output. PLAN: Continue with the midodrine and then start patient on IV Lasix. Continue with oral sodium bicarb tablets, hold off on Aldactone given the hyperkalemia and repeat labs in a.m. Hold off on the Aldactone for now. Expect further improvement with continued loop diuretics. MMODL / IJN: [id number] /
--- NOTE | 2019-01-17 12:13 | P.PN ---
Subjective Progress Note Date: 01/17/19 Principal diagnosis: Acute hepatic encephalopathy and mental status change Patient was reevaluated today on 01/14/2019, patient had EGD for evaluation of her anemia, she was found to have nonbleeding superficial ulcer in the distal esophagus portal hypertensive gastropathy and small distal esophageal varices without bleeding. She underwent paracentesis last week, 3.3 L were removed. Today the patient is relatively asymptomatic, her hemoglobin is 8.8 WBC count is 6.5. Electrolytes and renal profile are normal. Mental status on the patient today is significantly improved. Patient was reevaluated today on 01/15/2019, and basically she is about the same, however could not wean off norepinephrine yesterday, and she is presently on 0.03 mcg/kg/m of norepinephrine to maintain adequate blood pressure. Mental status is excellent, her encephalopathy has resolved. Her labs were all reviewed CBC is relatively normal electrolytes are normal except for potassium of 5.2. Creatinine is 1.13. Total bilirubin is 4.2. Transaminases are a bit elevated. Albumin is 2.1. Ammonia level was not done today, it was 24 couple of days ago Reevaluated today on 01/16/2019, patient remains in the ICU, basically norepinephrine dependent presently on 0.03 mcg/kg/m., She is on room air, denies any shortness of breath. Her labs showed WBC count of 7.7 hemoglobin is 9.4, INR is 2.0 potassium is a bit elevated at 5.6, hence I recommended increasing the Lasix to 20 mg twice a day and cut down Aldactone to 25 mg daily instead of twice a day. Her renal functioning is worsening, her urine output is marginal, hence I recommended nephrology consultation on this patient today. Serum cortisol level is 19, patient was initiated on midodrine 5 mg twice a day. Patient was reevaluated today on 01/17/2019, remains in the ICU, patient is complaining of severe back pain, is also complaining of abdominal pain, and she is moaning and groaning. Apparently she was seen by hospice yesterday, and today the patient clearly wanted to be on comfort care measures. Patient would like to be comfortable, and not have this issue prolonged period her sister is at bedside, and I discussed her condition with the sister, both are wishing comfort care measures. Hence I would plan to transfer the patient out of the ICU to oncology, discontinue norepinephrine, and placed the patient on comfort c are measures. Labs from today were all reviewed and noted. Objective - Vital Signs Vital signs: Vital Signs Temp 97.7 F 01/17/19 08:00 Pulse 78 01/17/19 11:15 Resp 23 01/17/19 11:15 BP 94/64 01/17/19 11:15 Pulse Ox 93 L 01/17/19 11:15 Intake & Output 01/16/19 01/17/19 01/17/19 18:59 06:59 18:59 Intake Total 259.923 4781.149 60 Output Total 680 685 80 Balance -526.224 536.149 -20 Weight 84.6 kg 88.4 kg Intake: IV 120 230 60 0.9 NS 120 230 60 Intake, IV Titration 33.776 451.149 Amount Norepinephrine 4 mg In 33.776 451.149 Sodium Chloride 0.9% 250 ml @ 0.05 MCG/KG/MIN 18. 764 mls/hr IV .[id number] [facility] Rx#:[id number] Oral 540 Output: Urine 280 685 80 Stool 400 Other: Voiding Method Indwelling Catheter Indwelling Catheter Indwelling Catheter - Exam Physical Exam: Revealed a 63-year-old female complaining of severe pain in the back, and abdomen. Head: Atraumatic, normocephalic. HEENT:[Neck is supple.] [No neck masses.] [No thyromegaly.] [No JVD.] PERRLA, EOMI, mild icterus is noted. Chest: [Clear throughout, no crackles, no rhonchi, no wheezes.] Cardiac Exam: [Normal S1 and S2, no S3 gallop, no murmur.] Abdomen: [Soft, nontender, no megaly, no rebound, no guarding, positive ascites, positive bowel sounds. Extremities: [No clubbing, 3+ bipedal edema, no cyanosis.] Neurological Exam: [No focal neurologic deficit. Psychiatric: Normal mood affect and normal mental status examination. Skin: No rashes.] - Labs CBC & Chem 7: 01/17/19 05:40 01/17/19 08:39 Labs: Abnormal Lab Results - Last 24 Hours (Table) 01/16/19 01/16/19 01/17/19 Range/Units 17:11 22:28 05:40 RBC 2.56 L (3.80-5.40) m/uL Hgb 8.9 L (11.4-16.0) gm/dL Hct 26.3 L (34.0-46.0) % MCV 102.8 H (80.0-100.0) fL RDW 24.3 H (11.5-15.5) % Plt Count 44 L (150-450) k/uL Macrocytosis Marked A Sodium (137-145) mmol/L Potassium (3.5-5.1) mmol/L Chloride (98-107) mmol/L Carbon Dioxide (22-30) mmol/L BUN (7-17) mg/dL Creatinine (0.52-1.04) mg/dL Glucose (74-99) mg/dL POC Glucose (mg/dL) 225 H 165 H (75-99) mg/dL Calcium (8.4-10.2) mg/dL Total Bilirubin (0.2-1.3) mg/dL AST (14-36) U/L Total Protein (6.3-8.2) g/dL Albumin (3.5-5.0) g/dL 01/17/19 01/17/19 01/17/19 Range/Units 05:40 07:09 08:39 RBC (3.80-5.40) m/uL Hgb (11.4-16.0) gm/dL Hct (34.0-46.0) % MCV (80.0-100.0) fL RDW (11.5-15.5) % Plt Count (150-450) k/uL Macrocytosis Sodium 134 L 135 L (137-145) mmol/L Potassium 6.0 H (3.5-5.1) mmol/L Chloride 109 H 108 H (98-107) mmol/L Carbon Dioxide 20 L 19 L (22-30) mmol/L BUN 47 H 44 H (7-17) mg/dL Creatinine 1.20 H 1.18 H (0.52-1.04) mg/dL Glucose 121 H 176 H (74-99) mg/dL POC Glucose (mg/dL) 166 H (75-99) mg/dL Calcium 8.0 L 7.6 L (8.4-10.2) mg/dL Total Bilirubin 5.5 H (0.2-1.3) mg/dL AST 63 H (14-36) U/L Total Protein 5.2 L (6.3-8.2) g/dL Albumin 1.9 L (3.5-5.0) g/dL Assessment and Plan Assessment: Impression: 1 acute hepatic encephalopathy, resolved, will make lactulose once daily instead of twice a day. 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 12 medical debility, severe back pain, patient wishes comfort care measures, sister is at bedside and agreeable to her wishes. Hence we will discontinue present treatment plan, and I'll arrange for comfort care measures and hospice to be notified. Patient will have her wishes honored and she would likely pass in peace comfort and dignity. Time with Patient: Less than 30
[2019-01-17 12:34] VITALS: BP 98/48; PULSE 76
[2019-01-17 12:35] LABS: Glucose,Whole Blood 268 mg/dL (75-99)
--- NOTE | 2019-01-17 12:38 | P.DS ---
Providers Date of admission: 01/07/19 20:08 Expected date of discharge: 01/21/19 Attending physician: Guillermina Paris Consults: 01/07/19 20:09 Consult Physician Routine Consulting Provider: Saud Pacheco Consult Reason/Comments: elevated trop Do you want consulting provider notified?: Yes 01/09/19 06:14 Consult Physician Urgent Consulting Provider: Rony Persaud Consult Reason/Comments: liver cirrhosis, ammonia 190 Do you want consulting provider notified?: Yes 01/09/19 11:14 Consult Physician Routine Consulting Provider: Mckenna Ramos Consult Reason/Comments: pleural effusion Do you want consulting provider notified?: Yes 01/12/19 10:35 Consult Physician Routine Consulting Provider: Mckenna Ramos Consult Reason/Comments: ICU management Do you want consulting provider notified?: Yes 01/16/19 09:37 Consult Physician Routine Consulting Provider: Ambika Hammer Consult Reason/Comments: oliguria, matt Do you want consulting provider notified?: Yes Primary care physician: Roseann Curran Hospital Course: This is a 63-year-old female one of my patient with a previous medical history significant for hypertension and hypertensive cardiovascular disease with left ventricular hypertrophy, diabetes mellitus type 2 with diabetic polyneuropathy, CVA, TIA, liver cirrhosis secondary to chronic alcohol use and dependence, pancytopenia secondary to liver cirrhosis, vaginal cancer status post vaginectomy, uterine cancer, seizure disorder, kyphoscoliosis, vascular dementia, hyperlipidemia. Patient also has chronic right great toe wound under the care of Dr. Davila. Patient is seen in the office weekly and his home care 2 times per week to do dressing changes. Sister gives history of having battled with C. difficile colitis for the past year and a half which is finally cleared under the care of Dr. Curran. Patient has had a loss of appetite, loss of weight. Her home care nurse was concerned that she wasn't oriented to time and place. She has some lower extremity edema. Symptoms have been worsening over the past 9 months. Patient complains of generalized weakness. She is currently residing at independent living at [facility]. Sister also states the patient had a fall yesterday as well as 2 weeks ago. Patient was brought into the emergency department at [facility] due to the above symptoms. She was afebrile, heart rate 104, blood pressure 122/78, pulse ox 97% on room air. White count was 5, hemoglobin 7.5, platelet count 72. Sodium 135, potassium 4.1, chloride 105, CO2 23, BUN 29 creatinine 0.99. Blood sugar was 226. Total bilirubin 5.3, AST 83, ALT 55, alkaline phosphatase 150. INR was elevated at 1.9. TSH 1.270. Lactic acid 3.3, proBNP 182. Troponin 0.036 and repeat is 0.044. Urinalysis was dark yellow, bilirubin negative, leukoesterase trace, WBCs 12, casts 30. Ammonia level LXXXIX, stool for occult blood positive. 01/09: A-Team was called on this patient this morning due to acute mental status changes, unable to follow commands and vomiting dark brown liquid. Abdomen was distended.. Patient was started on CIWA protocol per A-Team and was transferred to the selective care unit. Dr. Medina was notified and lactulose was increased to 30 g 3 times daily and NG tube was placed. Rifaximin 550mg BID through NG tube as ordered. Repeat ammonia 190. According to nursing, patient has not had a bowel movement since admission it had only received 1 dose of lactulose last evening. Stat CAT scan of the abdomen and pelvis ordered. Abdominal x-ray showed enteric tube is placed. Probable pancreatic calcifications of chronic pancreatitis. Gaseous distention without dilatation of what appears to be the transverse colon. Chest x-ray reveals strand like bibasilar opacities present. Likely atelectasis however surveillance is recommended to assess for developing pneumonia with clinical concern for aspiration. Alcohol level less than 10. Drug screen ordered. Troponins have been 0.036, 0.044 and 0.031. Iron studies show iron of 105, TIBC 234, iron saturation 44.87 and ferritin 106.6. Lactic acid this morning was 3.0. Repeat hemoglobin 8.9 and platelet count 61. Albumin 251 dose was ordered. Patient was afebrile, heart rate running in the 90s, blood pressure 111/61, pulse ox 94% on room air. Discuss CODE STATUS with patient's power of deputy prosecuting attorney, Sister Zayra and patient is currently a full code but this may change after family discussion. Cardiology has evaluated the patient and acute coronary syndrome ruled out. Received call that echocardiogram found pleural effusion that we'll need further evaluation. Consult added for Dr. Ramos. Gallbladder ultrasound done yesterday showed mild abdominal ascites. No dilated ducts. Mild gallbladder wall thickening. Right kidney shows no hydronephrosis. Limited study due to body habitus. Midline has been ordered for IV access. Consult was added with Dr. Persaud with recommendations to continue NG tube decompression and will continue to follow. 01/10: Patient underwent therapeutic paracentesis on January 09 with removal of 3 L of straw-colored fluid. Pathology is pending. Chest x-ray yesterday revealed NG tube and good position. New atelectasis at the lung bases. Patient's mental status is improved today. NG tube has been removed. Patient is complaining of some generalized abdominal cramping. She is having soft stool. She is currently on diet as tolerated. Lactulose is continued at 30 g every 8 hours with titration for 2-3 bowel movements per day. GI is not planning for endoscopy and surgery has no surgical plans. Patient will be transferred to [facility] floor. She has been afebrile, heart rate 95, blood pressure 109/53, pulse ox 97% on room air. WBC 8.6, hemoglobin 9.5, platelet count 77. Blood sugar up to 398. Levemir 10 units daily added. PT and OT on with probable need for subacute rehab. CEA was high at 14, CA 199 high at 50.9. AFP tumor marker 5.4 within normal limits. Echocardiogram report reveals EF of 60-65%, mild tricuspid regurgitation, no pericardial effusion. Pleural effusion. 01/12 patient examined bedside. Appears tired. She had 5 bowel movements yesterday and 2 bowel movement this morning. She had rectal tube in place C. diff was checked which was negative. White assessed as this morning suggests a temp of 97.4 pulse 54 respiratory rate 15 blood pressure 82/50 on 5 of levo fed. Patient had to 2 doses of albumin yesterday with no improvement and was initiated on pressors. Gastroenterology evaluated this patient continues to have elevated ammonia of 63. Plan for endoscopy tomorrow. Patient nothing by mouth after midnight. 01/13 patient examined bedside. He is more alert than yesterday. Last impression appropriately. She since are more regular bowel movement than yesterday. Lactulose was held. Patient continues to be hypertensive with a blood pressure ranging in the systolic 90-108. Lab evaluation patient has a bicarb of 16, creatinine 1.04 BUN 33 increased LFTs with increased unconjugated bilirubin of 3.5 and from delta bilirubin of 65 ammonia levels are normal 24 She continues to be in 100 mL per hour of IV fluids along with Levophed running at 0.08. Patient underwent EGD today and was found to have nonbleeding superficial ulcer in the distal esophagus dated to the NG tube with gastritis in the antrum of the stomach. There were evidence of portal hypertensive gastropathy with distal esophageal varices which would need repeat EGD in 1-2 years for follow-up. Continue Xifaxan. Initiated on bicarbonate drip for concern on anion gap metabolic acidosis. Repeat discussion with family was done regarding hospice as patient seems to still require pressors despite IV fluids and albumin. We will discuss with pulmonary team regarding goals of care 01/14: Patient remains in the intensive care unit on very low dose of vasopressors which will be weaned off today. She has fecal management system in place with black return. Hankins catheter in place. Generalized anasarca in the lower extremities and abdomen noted. Discussed CODE STATUS with the patient and her sister separately. They will discuss make a determination if patient should be no code and will update the patient's nurse. Patient is awake and alert today. She has had no further emesis. No black or bloody stools per nursing. Hemoglobin is 8.8, ammonia level yesterday was 24. patient is continued on Xifaxan and lactulose as well as Protonix twice daily. Cytology and pathology reports remain pending. She is continued on oral Flagyl and IV Levaquin. Anticipate transfer to [facility] for once vasopressors are discontinued. 01/15: Patient remains in intensive care unit. There is been difficulty weaning off the levo fed. Medication changes made by Dr. Velazco today which include decreasing beta vicky, discontinuing lisinopril. Hopefully, patient will be weaned off today and be able to transfer out of the intensive care unit. We will order ultrasound paracentesis prior to transfer out of the intensive care unit. Patient is been noted by staff to be moaning after she eats. She denies significant abdominal pain. She continues to have edema to the lower extremity is up into the abdomen. Urine output has been running 20-30 mL's per hour and for the past 2 hours down to 10 mL per hour. Lasix decreased to 20 mg daily oral. Patient has verbalized that she wishes to be a no code and orders reflect her wishes. 01/16 patient examined had bedside appears lethargic unable to stay awake to answer question. Blood pressure noted to be extremely low with systolic 80/52 saturating well on room air patient on examinations appears to have anasarca ultrasound abdomen was done with no ascites. Lasix and Aldactone continued to help with volume overload. Patient initiated on midodrine 10 mg 3 times a day. Detailed discussion with gastroenterology was done and it appears patient is in decompensated liver failure with 3 month mortality of 20%. Hospice informational visit to be initiated today with family. If no improvement in next 24 hours patient should be switched to hospice care 01/17: Patient as well as sister at the bedside, patient has chosen to transition to hospice care. She is complaining of significant pain for which IV morphine frequency was increased. Consult placed with [facility] and patient will be transitioned to inpatient hospice care. 01/21: Patient on the evening of January 21. Please see nursing documentation for detail. Discharge diagnoses: 1. Hepatic encephalopathy with elevated ammonia secondary to alcoholic liver cirrhosis, currently improving. 2. Possible aspiration pneumonia with mental status changes and emesis. 3. Pleural effusion. 4. Generalized weakness with anemia, possible acute blood loss and anemia on top of chronic anemia of alcoholism. Iron studies as above. Patient has been transfused 1 unit packed RBCs and 2 units of fresh frozen plasma. 5. Bicytopenia secondary to alcoholic liver cirrhosis as well as bone marrow suppression. 6. Elevated troponin. Acute coronary syndrome ruled out. 7. Hypertension and hypertensive cardiovascular disease. 8. Alcoholic liver disease with elevated bilirubin and liver function tests.--Preliminary cause of 9. Diabetes mellitus type 2 uncontrolled with hyperglycemia. 10. Hypothyroidism. 11. Seizure disorder by history. 12. History of hyperlipidemia. 13. Vascular dementia, and possibly alcohol induced frontload dementia. 14. History of chronic alcohol use and dependence. 15. Rheumatoid arthritis. 16. History of diabetic polyneuropathy. 17. History of vaginal cancer status post total abdominal hysterectomy as well as bilateral salpingo-nephrectomy along with vaginectomy 18. MATT on CKD Impression and plan of care have been directed as dictated by the signing physician. Majo Hawkins nurse practitioner acting as scribe for signing physic dmitry. Patient Condition at Discharge: Undetermined Plan - Discharge Summary New Discharge Prescriptions: No Action Lisinopril [Zestril] 2.5 mg PO DAILY Atenolol [Tenormin] 25 mg PO DAILY Ferrous Sulfate [Iron (65 MG Elemental)] 325 mg PO DAILY Ergocalciferol [Vitamin D2 (DRISDOL)] 50,000 unit PO FR Folic Acid 1 mg PO DAILY Vitamin B Complex 1 cap PO DAILY [place]-3 Fatty Acids/Fish Oil [Fish Oil 1,000 mg Softgel] 1 cap PO DAILY Spironolactone [Aldactone] 25 mg PO BID Levothyroxine Sodium [Synthroid] 25 mcg PO DAILY Glimepiride [Amaryl] 4 mg PO BID Dicyclomine [Bentyl] 20 mg PO TID Cyanocobalamin [Vitamin B-12] 1,000 mcg PO DAILY Potassium Chloride ER [K-Dur 20] 20 meq PO BID Mirtazapine [Remeron] 15 mg PO HS Magnesium Oxide 400 mg PO DAILY Calcitonin Nasal [Fortical (Miacalcin)] 1 spray NASAL DAILY Furosemide [Lasix] 20 mg PO BID Discharge Medication List Atenolol [Tenormin] 25 mg PO DAILY 02/02/14 [History] Lisinopril [Zestril] 2.5 mg PO DAILY 02/02/14 [History] Ergocalciferol [Vitamin D2 (DRISDOL)] 50,000 unit PO FR 10/05/15 [History] Ferrous Sulfate [Iron (65 MG Elemental)] 325 mg PO DAILY 10/05/15 [History] Folic Acid 1 mg PO DAILY 06/29/16 [History] [place]-3 Fatty Acids/Fish Oil [Fish Oil 1,000 mg Softgel] 1 cap PO DAILY 06/29/16 [History] Vitamin B Complex 1 cap PO DAILY 06/29/16 [History] Calcitonin Nasal [Fortical (Miacalcin)] 1 spray NASAL DAILY 01/07/19 [History] Cyanocobalamin [Vitamin B-12] 1,000 mcg PO DAILY 01/07/19 [History] Dicyclomine [Bentyl] 20 mg PO TID 01/07/19 [History] Furosemide [Lasix] 20 mg PO BID 01/07/19 [History] Glimepiride [Amaryl] 4 mg PO BID 01/07/19 [History] Levothyroxine Sodium [Synthroid] 25 mcg PO DAILY 01/07/19 [History] Magnesium Oxide 400 mg PO DAILY 01/07/19 [History] Mirtazapine [Remeron] 15 mg PO HS 01/07/19 [History] Potassium Chloride ER [K-Dur 20] 20 meq PO BID 01/07/19 [History] Spironolactone [Aldactone] 25 mg PO BID 01/07/19 [History] Follow up Appointment(s)/Referral(s): Roseann Curran MD [Primary Care Provider] - 1-2 days Activity/Diet/Wound Care/Special Instructions: Cardiology cleared [facility] Discharge Disposition: DISCH TO HOSPICE MED [facility]
[2019-01-17] MEDS ORDERED: FUROSEMIDE 10 MG/ML 4 ML VIAL IV SCH (21:00)
[2019-01-18] MEDS ORDERED: FUROSEMIDE 40 MG TAB PO SCH (09:00)
== END 2019-01-17 14:05 | disposition hospice, home (50) | DRG 441 ==
LOC: EC 16:50 → 3NMEDONC 20:08 → 3SCARD 01-09 08:27 → 2SICU 01-11 18:21
PROVIDERS: ADMIT Family Medicine; ATTEND Family Medicine
PROC: 30233N1 Transfusion of Nonautologous Red Blood Cells into Peripheral Vein, Percutaneous Approach (ICD-10-PCS; 2019-01-07)
PROC: 30233K1 Transfusion of Nonautologous Frozen Plasma into Peripheral Vein, Percutaneous Approach (ICD-10-PCS; principal; 2019-01-08)
PROC: 0W9G3ZZ Drainage of Peritoneal Cavity, Percutaneous Approach (ICD-10-PCS; 2019-01-09)
PROC: 05H933Z Insertion of Infusion Device into Right Brachial Vein, Percutaneous Approach (ICD-10-PCS; 2019-01-09)
PROC: 0DB98ZX Excision of Duodenum, Via Natural or Artificial Opening Endoscopic, Diagnostic (ICD-10-PCS; 2019-01-13)
PROC: 0DB78ZX Excision of Stomach, Pylorus, Via Natural or Artificial Opening Endoscopic, Diagnostic (ICD-10-PCS; 2019-01-13)
DX: K72.00 Acute and subacute hepatic failure without coma (principal); G93.41 Metabolic encephalopathy; N17.0 Acute kidney failure with tubular necrosis; K22.11 Ulcer of esophagus with bleeding; J69.0 Pneumonitis due to inhalation of food and vomit; R57.1 Hypovolemic shock; D68.9 Coagulation defect, unspecified; D62 Acute posthemorrhagic anemia; K76.6 Portal hypertension; K86.1 Other chronic pancreatitis; E87.2 Acidosis; I85.00 Esophageal varices without bleeding; J90 Pleural effusion, not elsewhere classified; J98.11 Atelectasis; D53.9 Nutritional anemia, unspecified; D63.8 Anemia in other chronic diseases classified elsewhere; D69.6 Thrombocytopenia, unspecified; E03.9 Hypothyroidism, unspecified; G40.909 Epilepsy, unspecified, not intractable, without status epilepticus; K70.31 Alcoholic cirrhosis of liver with ascites; E11.22 Type 2 diabetes mellitus with diabetic chronic kidney disease; Z51.5 Encounter for palliative care; Z66 Do not resuscitate; E11.42 Type 2 diabetes mellitus with diabetic polyneuropathy; H91.90 Unspecified hearing loss, unspecified ear; M06.9 Rheumatoid arthritis, unspecified; M41.9 Scoliosis, unspecified; N18.9 Chronic kidney disease, unspecified; E11.65 Type 2 diabetes mellitus with hyperglycemia; E78.5 Hyperlipidemia, unspecified; E87.5 Hyperkalemia; E87.70 Fluid overload, unspecified; F01.50 Vascular dementia, unspecified severity, without behavioral disturbance, psychotic disturbance, mood disturbance, and anxiety; F10.20 Alcohol dependence, uncomplicated; I13.10 Hypertensive heart and chronic kidney disease without heart failure, with stage 1 through stage 4 chronic kidney disease, or unspecified chronic kidney disease; K21.9 Gastro-esophageal reflux disease without esophagitis; K29.60 Other gastritis without bleeding; K29.80 Duodenitis without bleeding; K31.89 Other diseases of stomach and duodenum; M81.0 Age-related osteoporosis without current pathological fracture; Z79.4 Long term (current) use of insulin; Z79.890 Hormone replacement therapy; Z79.899 Other long term (current) drug therapy; Z82.49 Family history of ischemic heart disease and other diseases of the circulatory system; Z83.3 Family history of diabetes mellitus; Z84.1 Family history of disorders of kidney and ureter; Z85.42 Personal history of malignant neoplasm of other parts of uterus; Z85.44 Personal history of malignant neoplasm of other female genital organs; Z86.14 Personal history of Methicillin resistant Staphylococcus aureus infection; Z86.19 Personal history of other infectious and parasitic diseases; L97.519 Non-pressure chronic ulcer of other part of right foot with unspecified severity; Z86.73 Personal history of transient ischemic attack (TIA), and cerebral infarction without residual deficits; Z90.710 Acquired absence of both cervix and uterus; Z90.79 Acquired absence of other genital organ(s); Z90.722 Acquired absence of ovaries, bilateral; Z98.1 Arthrodesis status; R74.8 Abnormal levels of other serum enzymes; Z88.1 Allergy status to other antibiotic agents; Z88.0 Allergy status to penicillin; Z92.3 Personal history of irradiation; Z80.42 Family history of malignant neoplasm of prostate
CPT/HCPCS: 36410; 36415; 43239; 49083; 70450; 71045; 71046; 74018; 74177; 76705; 76937; 80048; 80053; 80076; 80306; 80320; 81001; 82105; 82140; 82272; 82378; 82533; 82728; 82945; 83036; 83540; 83550; 83605; 83615; 83690; 83880; 84157; 84300; 84443; 84484; 85025; 85027; 85049; 85610; 86301; 86850; 86900; 86901; 86920; 87040; 87070; 87075; 87077; 87086; 87186; 87205; 87324; 88108; 88305; 88341; 88342; 89050; 93005; 93306; 99285

== ENCOUNTER 2019-01-17 13:27 | Inpatient (IN) | payer MEDICAID ==
[2019-01-17] MEDS ORDERED: ONDANSETRON 4 MG/2 ML VIAL IVP PRN (13:42)
[2019-01-17] MEDS: MORPHINE SULFATE 100 MG in SODIUM CHLORIDE 0.9% 90 ML IV SCH (14:16)
[2019-01-17] MEDS: SCOPOLAMINE 1.5MG/72HR PATCH TRANSDERM SCH (14:34)
[2019-01-18] MEDS: MORPHINE SULFATE 100 MG in SODIUM CHLORIDE 0.9% 90 ML IV SCH ×2 (06:24→22:45)
[2019-01-18] MEDS: ATROPINE OPHTH SOLN 1% 5ML BTL SUBLINGUAL SCH ×2 (18:29→22:46)
[2019-01-19] MEDS: ATROPINE OPHTH SOLN 1% 5ML BTL SUBLINGUAL SCH ×7 (01:24→23:52)
[2019-01-19] MEDS: MORPHINE SULFATE 100 MG in SODIUM CHLORIDE 0.9% 90 ML IV SCH (15:12)
[2019-01-19] MEDS: LORazepam 2 MG/ML INJ IV PRN (23:45)
[2019-01-20] MEDS: LORazepam 2 MG/ML INJ IV PRN (03:48)
[2019-01-20] MEDS: ATROPINE OPHTH SOLN 1% 5ML BTL SUBLINGUAL SCH ×6 (03:49→23:11)
[2019-01-20] MEDS: MORPHINE SULFATE 100 MG in SODIUM CHLORIDE 0.9% 90 ML IV SCH ×2 (04:11→15:13)
[2019-01-20] MEDS: SCOPOLAMINE 1.5MG/72HR PATCH TRANSDERM SCH (08:55)
[2019-01-20 23:02] VITALS: RESP 12
[2019-01-21] MEDS: MORPHINE SULFATE 100 MG in SODIUM CHLORIDE 0.9% 90 ML IV SCH ×2 (01:21→11:32)
[2019-01-21] MEDS: ATROPINE OPHTH SOLN 1% 5ML BTL SUBLINGUAL SCH ×3 (04:42→11:33)
== END 2019-01-21 18:10 | disposition expired | DRG 951 ==
LOC: 2SICU 14:07 → 3NMEDONC 17:42
PROVIDERS: ADMIT Family Medicine; ATTEND Family Medicine
DX: Z51.5 Encounter for palliative care (principal); G93.41 Metabolic encephalopathy; D62 Acute posthemorrhagic anemia; F10.27 Alcohol dependence with alcohol-induced persisting dementia; E11.42 Type 2 diabetes mellitus with diabetic polyneuropathy; M41.9 Scoliosis, unspecified; I11.9 Hypertensive heart disease without heart failure; K70.30 Alcoholic cirrhosis of liver without ascites; F01.50 Vascular dementia, unspecified severity, without behavioral disturbance, psychotic disturbance, mood disturbance, and anxiety; E03.9 Hypothyroidism, unspecified; R77.9 Abnormality of plasma protein, unspecified; F10.21 Alcohol dependence, in remission; G40.909 Epilepsy, unspecified, not intractable, without status epilepticus; E78.5 Hyperlipidemia, unspecified; R63.4 Abnormal weight loss; Z68.34 Body mass index [BMI] 34.0-34.9, adult; M06.9 Rheumatoid arthritis, unspecified; H91.93 Unspecified hearing loss, bilateral; R26.9 Unspecified abnormalities of gait and mobility; M54.5 Low back pain; F41.9 Anxiety disorder, unspecified; F32.9 Major depressive disorder, single episode, unspecified; G47.00 Insomnia, unspecified; M19.90 Unspecified osteoarthritis, unspecified site; G43.909 Migraine, unspecified, not intractable, without status migrainosus; M81.0 Age-related osteoporosis without current pathological fracture; Z85.89 Personal history of malignant neoplasm of other organs and systems; Z85.42 Personal history of malignant neoplasm of other parts of uterus; Z86.73 Personal history of transient ischemic attack (TIA), and cerebral infarction without residual deficits; Z86.14 Personal history of Methicillin resistant Staphylococcus aureus infection; Z66 Do not resuscitate; Z92.3 Personal history of irradiation; Z98.1 Arthrodesis status; Z90.49 Acquired absence of other specified parts of digestive tract; Z90.710 Acquired absence of both cervix and uterus; Z90.722 Acquired absence of ovaries, bilateral; Z82.0 Family history of epilepsy and other diseases of the nervous system; Z82.49 Family history of ischemic heart disease and other diseases of the circulatory system; Z84.1 Family history of disorders of kidney and ureter; Z83.3 Family history of diabetes mellitus; Z80.3 Family history of malignant neoplasm of breast; Z80.42 Family history of malignant neoplasm of prostate; Z80.8 Family history of malignant neoplasm of other organs or systems; W19.XXXA Unspecified fall, initial encounter
CPT/HCPCS: 94760